=== PATIENT | female | born 1970 | race Two or more races ===

== ENCOUNTER 2020-05-21 15:26 | Emergency (ER) | payer MEDICAID, SELFPAY ==
[2020-05-21 19:54] VITALS: BP 168/83; PULSE 94; RESP 18; TEMP 37.1; O2SAT 99; BMI 35.0
[2020-05-21 20:00] VITALS: BP 148/86; PULSE 86; RESP 14; TEMP 37.1; O2SAT 98
--- NOTE | 2020-05-21 20:22 | CT_ITS ---
EXAMINATION: CT ABDOMEN AND PELVIS WITH CONTRAST CLINICAL INFORMATION: 50-year-old female with right lower quadrant pain. COMPARISON: Abdominal ultrasound 04/19/[address] abdomen pelvis 02/19/2014 TECHNIQUE: Multidetector volumetric images were obtained from the superior aspect of the liver through the pubic symphysis following administration 85 mL of Omnipaque 350 intravenous contrast. Sagittal and coronal reformatted images were obtained on the technologist's workstation. This CT examination was performed using dose optimization techniques as appropriate, variously including the following: *Automated exposure control *Adjustment of mA and/or kV according to patient size (this includes techniques or standardized protocols for targeted exams where dose is matched to indication/reason for exam; i.e. extremities or head) *Use of iterative reconstruction technique DLP: 860 mGy-cm FINDINGS: Visualized lung bases demonstrate mild dependent atelectasis. Liver is normal in size but demonstrates diffusely decreased attenuation. The gallbladder is normal in appearance. Pancreas, spleen and adrenal glands are unremarkable. Symmetrically enhancing kidneys. No hydronephrosis bilaterally. 5 mm hypodensity within the inferior pole of the right kidney is too small to accurately characterize. Normal caliber loops of small and large bowel. Normal appendix. Tiny fat-containing umbilical hernia. Nonaneurysmal abdominal aorta. The bladder is well-distended and normal in appearance. Unremarkable CT appearance of the uterus. No gross free pelvic fluid. No inguinal lymphadenopathy. Mild degenerative changes of the spine. CT/CT abdomen pelvis w con IMPRESSION: -Diffusely decreased liver attenuation suggesting hepatic steatosis. -No CT evidence for acute abnormality within the abdomen or pelvis.
--- NOTE | 2020-05-21 20:24 | ED.ABDPAIN ---
HPI - Abdominal Pain General Chief Complaint: Abdominal Pain Stated Complaint: right sided pain Time Seen by Provider: 05/21/20 20:15 Source: patient Mode of arrival: ambulatory History of Present Illness HPI narrative: Patient comes emergency room complaining of right lower quadrant pain starting this morning when she woke up. Patient states every time he moves a certain way the pain radiates towards her back. Patient states she was able to eat a small amount of bread earlier this morning, she has not been able to eat anything because of nausea. Patient called her primary care physician today, she was sent to the emergency room for further evaluation. MD elicited complaint: abdominal pain Related Data Allergies Allergy/AdvReac Type Severity Reaction Status Date / Time No Known Allergies Allergy Unverified 02/09/20 17:02 lisinopril AdvReac Unknown cough Verified 05/21/20 19:54 Review of Systems Review of Systems Constitutional : No Weight loss, No Fever, No Chills, No Night Sweats, No Fatigue, No Malaise ENT/Mouth : No Hearing loss, No Ear Pain, No Nasal Congestion, No Sinus Pain, No Hoarseness, No sore throat, No Rhinorrhea, No Swallowing Difficulty Eyes: No Eye Pain, No Swelling, No Redness, No Foreign Body, No Discharge, No Vision Changes Cardiovascular : No Chest Pain, No SOB, No Dyspnea on Exertion, No Orthopnea, No Edema, No Palpitations Respiratory : No Cough, No Sputum, No Wheezing, No Smoke Exposure, No Dyspnea Gastrointestinal : Patient complaining of nausea, no vomiting or diarrhea constipation. Patient complaining of constant right lower quadrant pain radiating towards the back. Genitourinary : no irregular bleeding, No Dysuria, No Urinary Frequency, No Hematuria, No Urinary Incontinence, No Urgency, No Flank Pain, No Urinary Flow Changes, No Hesitancy Musculoskeletal : No joint pain, No Myalgias, No Joint Swelling Skin : No Skin Lesions, No rash Neuro : No Weakness, No Numbness, No Paresthesias, No Loss of Consciousness, No Dizziness, No Headache Psych : No Anxiety/Panic, No Depression, No SI/HI/AH/VH, No Social Issues, Heme/Lymph: No Bruising, No Bleeding,No Lymphadenopathy Endocrine : No Polyuria, No Polydipsia, No Temperature Intolerance Physical Exam Vital Signs: Vital Signs: Last Vital Signs Temp 98.7 F 05/21/20 20:00 Pulse 98 05/21/20 22:00 Resp 18 05/21/20 22:00 BP 120/72 05/21/20 22:00 Pulse Ox 98 05/21/20 22:00 Body Mass Index 35.0 Appearance: Alert. Oriented X3. No acute distress. Eyes: Pupils equal, round and reactive to light. ENT: Pharynx normal. Neck: Normal inspection. Neck supple. No lymph nodes noted. No crepitus CVS: Normal heart rate and rhythm. Pulses normal. Normal S1 and S2 Respiratory: No respiratory distress. Breath sounds normal. No Wheezing. No rales Abdomen: Soft , mild right lower quadrant pain on deep palpation. No rigidity. No distention. good BS x4 Skin: Skin warm and dry. Normal skin color. Normal skin turgor. Extremities: No lower extremity edema. No lower extremity edema. No Lacerations. No Rash Neuro: Oriented X 3. No motor deficit. No sensory deficit. Moving all extermities. No slurred speech. Course Course Course Narrative: On physical exam, patient had very minimal pain in the right lower quadrant on deep palpation, at this time, appendicitis is not suspected. CT scan pending I discussed the labs and imaging with the patient, no acute pathology, no appendicitis. Patient's white blood cell count is slightly elevated, nonspecific, no UTI, no abdominal pathology, no respiratory symptoms MDM - Abdominal Pain Lab Data Result diagrams: 05/21/20 20:46 05/21/20 20:46 Labs: Lab Results 05/21/20 05/21/20 05/21/20 Range/Units 20:22 20:46 20:46 WBC 12.7 H (4.8-10.8) X10*3/uL RBC 5.23 (4.20-5.50) X10*6/uL Hgb 13.2 (12.0-16.0) g/dl Hct 42.6 (37-47) % MCV 81.5 (80-98) fL MCH 25.2 L (27.0-33.0) pg MCHC 31.0 (31.0-35.0) g/dl RDW 15.4 (11.0-16.0) % Plt Count 442 H (160-400) X10*3/uL MPV 9.6 (9.4-12.3) fL Immature Gran % (Auto) 0.3 (0.0-0.4) % Neut % (Auto) 62.9 (45-73) % Lymph % (Auto) 29.1 (20-40) % [place] % (Auto) 5.1 (2-11) % Eos % (Auto) 2.0 (0-4) % Baso % (Auto) 0.6 (0-2) % Lymph # (Auto) 3.7 (1.2-4.9) X10*3/uL [place] # (Auto) 0.7 (0.1-1.2) X10*3/uL Eos # (Auto) 0.3 (0.0-0.4) X10*3/uL Baso # (Auto) 0.1 (0.0-0.2) X10*3/uL Abs Immat Gran (auto) 0.04 H (0.00-0.03) X10*3/uL Absolute Neuts (auto) 8.0 (2.0-8.3) X10*3/uL Absolute Nucleated RBC 0.000 (0.0-0.012) X10*3/uL Nucleated RBC % (auto) 0.0 (0.0-0.2) /100WBC Hold Blue Top SEE NOTE Sodium (135-145) mmol/L Potassium (3.3-5.1) mmol/l Chloride (96-108) mmol/L Carbon Dioxide (22-29) mmol/L Anion Gap (12-20) BUN (9-16) mg/dL Creatinine (0.5-1.4) mg/dL Estim Creat Clear Calc Estimated GFR Random Glucose (60-115) mg/dL Calcium (8.4-10.2) mg/dL Total Bilirubin (0.0-1.0) mg/dL Direct Bilirubin (0.0-0.5) mg/dL AST (5-31) U/L ALT (0-31) U/L Alkaline Phosphatase (39-117) U/L Total Protein (6.5-8.0) g/dL Albumin (3.5-5.0) g/dL Lipase (8-78) U/L Urine Color YELLOW Urine Appearance CLEAR Urine pH 5.5 (5.0-8.0) Ur Specific [place] 1.025 (1.005-1.025) Urine Protein NEG (NEG-TRACE) MG/DL Urine Glucose (UA) NEG (NEG) MG/DL Urine Ketones NEG (NEG) MG/DL Urine Blood TRACE (NEG) Urine Nitrite NEG (NEG) Ur Leukocyte Esterase NEG (NEG) Urine RBC 1-4 (0) /HPF Urine WBC 0 (0-4) /HPF Ur Squamous Epith Cells 2+ /LPF Urine Bacteria NONE /LPF Urine Test NEGATIVE (NEGATIVE) 05/21/20 05/21/20 Range/Units 20:46 20:46 WBC (4.8-10.8) X10*3/uL RBC (4.20-5.50) X10*6/uL Hgb (12.0-16.0) g/dl Hct (37-47) % MCV (80-98) fL MCH (27.0-33.0) pg MCHC (31.0-35.0) g/dl RDW (11.0-16.0) % Plt Count (160-400) X10*3/uL MPV (9.4-12.3) fL Immature Gran % (Auto) (0.0-0.4) % Neut % (Auto) (45-73) % Lymph % (Auto) (20-40) % [place] % (Auto) (2-11) % Eos % (Auto) (0-4) % Baso % (Auto) (0-2) % Lymph # (Auto) (1.2-4.9) X10*3/uL [place] # (Auto) (0.1-1.2) X10*3/uL Eos # (Auto) (0.0-0.4) X10*3/uL Baso # (Auto) (0.0-0.2) X10*3/uL Abs Immat Gran (auto) (0.00-0.03) X10*3/uL Absolute Neuts (auto) (2.0-8.3) X10*3/uL Absolute Nucleated RBC (0.0-0.012) X10*3/uL Nucleated RBC % (auto) (0.0-0.2) /100WBC Hold Blue Top Sodium 137 138 (135-145) mmol/L Potassium 4.0 4.3 (3.3-5.1) mmol/l Chloride 104 104 (96-108) mmol/L Carbon Dioxide 24 25 (22-29) mmol/L Anion Gap 13 13 (12-20) BUN 12 12 (9-16) mg/dL Creatinine 0.74 0.74 (0.5-1.4) mg/dL Estim Creat Clear Calc 98.9 98.9 Estimated GFR > 60 > 60 Random Glucose 98 98 (60-115) mg/dL Calcium 8.7 8.7 (8.4-10.2) mg/dL Total Bilirubin 0.3 0.3 (0.0-1.0) mg/dL Direct Bilirubin < 0.2 (0.0-0.5) mg/dL AST 16 18 (5-31) U/L ALT 26 27 (0-31) U/L Alkaline Phosphatase 94 95 (39-117) U/L Total Protein 7.3 7.3 (6.5-8.0) g/dL Albumin 4.2 4.1 (3.5-5.0) g/dL Lipase 15 (8-78) U/L Urine Color Urine Appearance Urine pH (5.0-8.0) Ur Specific [place] (1.005-1.025) Urine Protein (NEG-TRACE) MG/DL Urine Glucose (UA) (NEG) MG/DL Urine Ketones (NEG) MG/DL Urine Blood (NEG) Urine Nitrite (NEG) Ur Leukocyte Esterase (NEG) Urine RBC (0) /HPF Urine WBC (0-4) /HPF Ur Squamous Epith Cells /LPF Urine Bacteria /LPF Urine Test (NEGATIVE) Imaging Data CT scan - abdomen: Radiologist's impression: FINDINGS: Visualized lung bases demonstrate mild dependent atelectasis. Liver is normal in size but demonstrates diffusely decreased attenuation. The gallbladder is normal in appearance. Pancreas, spleen and adrenal glands are unremarkable. Symmetrically enhancing kidneys. No hydronephrosis bilaterally. 5 mm hypodensity within the inferior pole of the right kidney is too small to accurately characterize. Normal caliber loops of small and large bowel. Normal appendix. Tiny fat-containing umbilical hernia. Nonaneurysmal abdominal aorta. The bladder is well-distended and normal in appearance. Unremarkable CT appearance of the uterus. No gross free pelvic fluid. No inguinal lymphadenopathy. Mild degenerative changes of the spine. CT/CT abdomen pelvis w con IMPRESSION: -Diffusely decreased liver attenuation suggesting hepatic steatosis. -No CT evidence for acute abnormality within the abdomen or pelvis. Discharge Plan Discharge Clinical Impression: Abdominal pain Qualifiers: Abdominal location: right lower quadrant Qualified Code(s): R10.31 - Right lower quadrant pain Patient Disposition: Home, Self-Care Instructions: Abdominal Pain (ED) Additional Instructions: Please follow-up with your primary care physician tomorrow. If you have any worsening or new symptoms, please return to the emergency room or call [address] [place] [address] Past Medical History Medical History (Updated 05/21/20 @ 22:55 by Christine Means MD) Hypertension Social History Social History Advance Directives: No Advance Directives Information Provided: Yes
[2020-05-21 20:31] LABS: Glucose Urine UA NEG (NEG); Leukocyte Esterase Urine NEG (NEG); Nitrite Urine NEG (NEG); PH 5.5 (5.0-8.0); Specific Gravity - Urine 1.025 (1.005-1.025); Urine Blood TRACE (NEG); Urine Ketones NEG (NEG); Urine Protein NEG (NEG-TRACE)
[2020-05-21 20:32] LABS: Appearance Urine CLEAR; Color Urine YELLOW
[2020-05-21 20:33] LABS: Urine Pregnancy NEGATIVE (NEGATIVE)
[2020-05-21 20:34] LABS: UPreg QC Valid YES
[2020-05-21 20:50] LABS: Squamous Epithelial Cell Urine 2+ /LPF; WBC Urine 0 /HPF (0-4)
[2020-05-21 20:55] LABS: MANUAL DIFF FLAG NO
[2020-05-21 20:56] LABS: Basophils Absolute Auto 0.1 X10*3/uL (0.0-0.2); Basophils Percent Auto 0.6 % (0-2); Eosinophils Absolute Auto 0.3 X10*3/uL (0.0-0.4); Hematocrit 42.6 % (37-47); Hemoglobin 13.2 g/dl (12.0-16.0); Imm Gran Abs Auto 0.04 X10*3/uL (0.00-0.03); Imm Gran Pct Auto 0.3 % (0.0-0.4); Lymphocytes Absolute Auto 3.7 X10*3/uL (1.2-4.9); Lymphocytes Percent Auto 29.1 % (20-40); Mean Corpuscular Hemoglobin 25.2 pg (27.0-33.0); Mean Corpuscular Volume 81.5 fL (80-98); Mean Platelet Volume 9.6 fL (9.4-12.3); Monocytes Absolute Auto 0.7 X10*3/uL (0.1-1.2); Monocytes Percent Auto 5.1 % (2-11); Neutrophils Percent Auto 62.9 % (45-73); Platelet Count 442 X10*3/uL (160-400); Red Blood Count 5.23 X10*6/uL (4.20-5.50); Red Cell Distribution Width 15.4 % (11.0-16.0); White Blood Count 12.7 X10*3/uL (4.8-10.8)
[2020-05-21 21:24] LABS: Alanine Aminotransferase 26 U/L (0-31); Albumin Level 4.2 g/dL (3.5-5.0); Alkaline Phosphatase 94 U/L (39-117); Anion Gap 13 (12-20); Aspartate Amino Transferase 16 U/L (5-31); Bilirubin Total 0.3 mg/dL (0.0-1.0); Blood Urea Nitrogen 12 mg/dL (9-16); Calcium 8.7 mg/dL (8.4-10.2); Carbon Dioxide 24 mmol/L (22-29); Chloride 104 mmol/L (96-108); Creatinine Clr Calc Pharmacy 98.9; Estimated Glomerular Filt Rate > 60; Glucose Random 98 mg/dL (60-115); Sodium 137 mmol/L (135-145); Total Protein 7.3 g/dL (6.5-8.0)
[2020-05-21 21:26] LABS: Alanine Aminotransferase 27 U/L (0-31); Albumin Level 4.1 g/dL (3.5-5.0); Alkaline Phosphatase 95 U/L (39-117); Anion Gap 13 (12-20); Aspartate Amino Transferase 18 U/L (5-31); Bilirubin Direct < 0.2 mg/dL (0.0-0.5); Bilirubin Total 0.3 mg/dL (0.0-1.0); Blood Urea Nitrogen 12 mg/dL (9-16); Calcium 8.7 mg/dL (8.4-10.2); Carbon Dioxide 25 mmol/L (22-29); Chloride 104 mmol/L (96-108); Creatinine Clr Calc Pharmacy 98.9; Estimated Glomerular Filt Rate > 60; Glucose Random 98 mg/dL (60-115); Lipase 15 U/L (8-78); Potassium 4.3 mmol/l (3.3-5.1); Sodium 138 mmol/L (135-145); Total Protein 7.3 g/dL (6.5-8.0)
[2020-05-21 22:00] VITALS: BP 120/72; PULSE 98; RESP 18; O2SAT 98
[2020-05-21] MEDS: iohexoL 350 MG/ML 100 ML INFUS..BTL IV (22:27)
--- NOTE | 2020-05-21 22:39 | PC.NURSE ---
pt back from ct with contrast. vitals stable. pain 10/10 but refused pain medications at this time.
== END 2020-05-21 23:17 | disposition home or self-care (01) ==
PROVIDERS: Emergency Provider Emergency Medicine; PCP Internal Medicine Geriatric Medicine
DX: R10.31 Right lower quadrant pain (principal); I10 Essential (primary) hypertension
CPT/HCPCS: 36415; 74177; 80048; 80053; 80076; 81001; 81025; 82248; 83690; 85025; 99284; Q9967

== ENCOUNTER 2020-09-14 15:45 | Outpatient (REF) | payer MEDICAID, SELFPAY ==
--- NOTE | ~2020-09-14 | MM_ITS ---
EXAMINATION: MM SCREENING DIGITAL BREAST TOMOSYNTHESIS, BILATERAL CLINICAL INFORMATION: Screening. Asymptomatic. The lifetime risk of breast cancer based on the Tyrer-Cuzick Model is 10%. COMPARISON: Mammography: 05/31/2019, 08/02/2018, 07/17/2017 TECHNIQUE: Digital breast tomosynthesis is performed in both the craniocaudal and mediolateral oblique views along with computer-aided detection (CAD). Synthesized 2D images are generated from the tomosynthesis. FINDINGS: There are scattered areas of fibroglandular density (ACR BI-RADS breast composition Category b). There are no significant masses, abnormal calcifications, or other abnormalities. Parenchymal pattern is similar to prior exams. No developing density. Scattered isolated and small groups of round and rim calcifications stable. No significant changes. MM/MM tomosynthesis screening BI IMPRESSION: No mammographic evidence of malignancy. ASSESSMENT: BI-RADS 2: Benign RECOMMENDATION: Routine annual mammography screening. This patient's information was entered into a reminder system with a target due date for their next mammogram.
== END 2020-09-14 15:46 | disposition home or self-care (01) ==
LOC: HO.MAMMO 15:45
PROVIDERS: PCP Internal Medicine Geriatric Medicine; Visit Provider Internal Medicine Geriatric Medicine
DX: Z12.31 Encounter for screening mammogram for malignant neoplasm of breast (principal)
CPT/HCPCS: 77063; 77067

== ENCOUNTER → 2021-02-19 09:09 | Outpatient (BNVA) | payer MEDICAID, SELFPAY | PROVIDERS: PCP Nurse Practitioner Family; Visit Provider Advanced Practice Midwife ==

== ENCOUNTER 2021-04-06 13:10 | Emergency (ER) | payer MEDICAID, SELFPAY ==
--- NOTE | 2021-04-06 13:13 | ECG_ITS ---
Test Reason : SOB/CHEST PAIN Blood Pressure : / mmHG Vent. Rate : 088 BPM Atrial Rate : 088 BPM P-R Int : 136 ms QRS Dur : 092 ms QT Int : 362 ms P-R-T Axes : 054 032 029 degrees QTc Int : 438 ms Normal sinus rhythm Intra-ventricular conduction delay Borderline ECG When compared with ECG of 06-JAN-2019 01:11, No significant change was found Referred By: Generic ED Physician Electronically Signed By:SALENA GUAMAN MD
== END 2021-04-06 17:09 | disposition left against medical advice (07) ==
PROVIDERS: Emergency Provider Emergency Medicine; PCP Nurse Practitioner Family
DX: R07.9 Chest pain, unspecified (principal)
CPT/HCPCS: 93005; 99281; 99283

== ENCOUNTER 2021-09-16 14:01 | Outpatient (REF) | payer MEDICAID, SELFPAY ==
--- NOTE | ~2021-09-16 | MM_ITS ---
EXAMINATION: MM SCREENING DIGITAL BREAST TOMOSYNTHESIS, BILATERAL CLINICAL INFORMATION: Screening. Asymptomatic. The lifetime risk of breast cancer based on the Tyrer-Cuzick Model is 7%. COMPARISON: Mammography: 09/14/2020, 05/31/2019, 08/02/2018 TECHNIQUE: Digital breast tomosynthesis is performed in both the craniocaudal and mediolateral oblique views along with computer-aided detection (CAD). Synthesized 2D images are generated from the tomosynthesis. FINDINGS: There are scattered areas of fibroglandular density (ACR BI-RADS breast composition Category b). There are no significant masses, abnormal calcifications, or other abnormalities. Parenchymal pattern is similar to prior studies and there is no architectural abnormality or developing density. The axilla and skin contours are unremarkable. MM/MM tomosynthesis screening BI IMPRESSION: No mammographic evidence of malignancy. ASSESSMENT: BI-RADS 1: Negative RECOMMENDATION: Routine annual mammography screening. This patient's information was entered into a reminder system with a target due date for their next mammogram.
== END 2021-09-16 14:02 | disposition home or self-care (01) ==
LOC: HO.MAMMO 14:01
PROVIDERS: Visit Provider Nurse Practitioner Family
DX: Z12.31 Encounter for screening mammogram for malignant neoplasm of breast (principal)
CPT/HCPCS: 77063; 77067

== ENCOUNTER 2022-01-24 21:56 | Emergency (ER) | payer MEDICAID, SELFPAY ==
--- NOTE | ~2022-01-24 | CT_ITS ---
EXAMINATION: CT ABDOMEN AND PELVIS WITHOUT CONTRAST CLINICAL INFORMATION: Right upper quadrant tenderness COMPARISON: 05/21/2020 TECHNIQUE: Multidetector volumetric imaging was performed from the superior aspect of the liver through the pubic symphysis. Sagittal and coronal reformatted images were obtained on the technologist's workstation. This CT examination was performed using dose optimization techniques as appropriate, variously including the following: *Automated exposure control *Adjustment of mA and/or kV according to patient size (this includes techniques or standardized protocols for targeted exams where dose is matched to indication/reason for exam; i.e. extremities or head) *Use of iterative reconstruction technique DLP: 855 mGy-cm FINDINGS: LUNG BASES: The visualized lung bases are unremarkable. LIVER, GALLBLADDER, AND BILIARY TREE: The liver is normal in size, contour and morphology. Diffuse hepatic steatosis. No focal liver lesions. No biliary ductal dilatation is present. Gallbladder unremarkable. PANCREAS: Unremarkable. SPLEEN: Unremarkable. ADRENAL GLANDS: Unremarkable. KIDNEYS AND URETERS: The kidneys are normal in size, shape, and attenuation. No hydronephrosis, hydroureter, or calculi seen. No perinephric stranding. BLADDER: Unremarkable. GASTROINTESTINAL TRACT: The small and large bowel are unremarkable. The appendix is unremarkable. ABDOMINAL WALL: No significant hernia is appreciated. LYMPH NODES: Normal. VASCULAR: Unremarkable. PELVIC VISCERA: Uterus and ovaries unremarkable. OSSEOUS STRUCTURES: Unremarkable. CT/CT abdomen pelvis wo IV con IMPRESSION: No acute findings within the abdomen or pelvis. Diffuse hepatic steatosis.
[2022-01-24 22:04] VITALS: BP 136/78; PULSE 79; RESP 16; TEMP 36; O2SAT 98; BMI 35.4
[2022-01-25 00:48] LABS: Basophils Absolute Auto 0.1 X10*3/uL (0.0-0.2); Basophils Percent Auto 0.8 % (0-2); Eosinophils Absolute Auto 0.3 X10*3/uL (0.0-0.4); Eosinophils Percent Auto 2.3 % (0-4); Hematocrit 44.5 % (37.0-47.0); Hemoglobin 13.9 g/dl (12.0-16.0); Imm Gran Abs Auto 0.04 X10*3/uL (0.00-0.03); Imm Gran Pct Auto 0.3 % (0.0-0.4); Lymphocytes Absolute Auto 5.2 X10*3/uL (1.2-4.9); Lymphocytes Percent Auto 39.6 % (20-40); MANUAL DIFF FLAG SCAN; Mean Corpuscular HGB Conc 31.2 g/dl (31.0-35.0); Mean Corpuscular Hemoglobin 25.1 pg (27.0-33.0); Mean Corpuscular Volume 80.5 fL (80.0-98.0); Mean Platelet Volume 8.9 fL (9.4-12.3); Monocytes Absolute Auto 0.8 X10*3/uL (0.1-1.2); Monocytes Percent Auto 6.5 % (2-11); Neutrophils Absolute Auto 6.6 x10*3/uL (2.0-8.3); Neutrophils Percent Auto 50.5 % (45-73); Platelet Count 487 X10*3/uL (160-400); Red Blood Count 5.53 X10*6/uL (4.20-5.50); Red Cell Distribution Width 15.3 % (11.0-16.0); SCAN SMEAR FLAG 1
[2022-01-25 01:06] LABS: Alanine Aminotransferase 35 U/L (0-31); Albumin Level 4.4 g/dL (3.5-5.0); Alkaline Phosphatase 93 U/L (39-117); Anion Gap 16 (12-20); Aspartate Amino Transferase 19 U/L (5-31); Bilirubin Total 0.3 mg/dL (0.0-1.0); Blood Urea Nitrogen 15 mg/dL (9-16); Calcium 9.9 mg/dL (8.4-10.2); Carbon Dioxide 27 mmol/L (22-29); Chloride 102 mmol/L (96-108); Creatinine Clr Calc Pharmacy 92.1; Estimated Glomerular Filt Rate > 60; Glucose Random 108 mg/dL (60-115); Potassium 4.6 mmol/L (3.3-5.1); SLIDE REVIEW VERIFIED; Sodium 140 mmol/L (135-145); Total Protein 7.8 g/dL (6.5-8.0)
[2022-01-25 01:15] VITALS: BP 147/87; PULSE 71; RESP 16; TEMP 37; O2SAT 100
[2022-01-25 01:39] LABS: Appearance Urine Clear; Color Urine Yellow; Glucose Urine UA Negative (Negative); Leukocyte Esterase Urine Small (1+) (Negative); Nitrite Urine Negative (Negative); PH 5.5 (5.0-9.0); Specific Gravity - Urine 1.025 (1.005-1.025); Urine Blood Negative (Negative); Urine Ketones Negative (Negative); Urine Protein Negative (Neg-Trace)
[2022-01-25 01:40] LABS: UPreg QC Valid YES; Urine Pregnancy NEGATIVE (NEGATIVE)
[2022-01-25 01:49] LABS: Bacteria Urine None Seen (None Seen); Hyaline Casts Urine 0-2 /LPF (0-2); Squamous Epithelial Cell Urine 0-2 /HPF (0-2); UACC Culture Trigger YES; WBC Urine 0-5 /HPF (0-5)
[2022-01-25 03:48] VITALS: BP 136/77; PULSE 76; O2SAT 99
--- NOTE | 2022-01-25 04:04 | ED.ABDPAIN ---
HPI - Abdominal Pain General Chief Complaint: Abdominal Pain Stated Complaint: side pain Time Seen by Provider: 01/25/22 03:49 Source: patient Mode of arrival: ambulatory Limitations: no limitations History of Present Illness HPI narrative: 51-year-old female who presents emergency department for evaluation of abdominal pain x3 days. The patient points to her right upper quadrant when asked to localize the pain. She rates the pain is a pulsating pain which is constant but waxes wanes in intensity. The pain is 9/10 at its worst. She also states that when she palpates her right upper quadrant area she can feel a mass which is tender. She had associated nausea with no vomiting. She states that yesterday she had 4 episodes of watery diarrhea with no blood in the diarrhea. She states she has had difficulty eating secondary to her nausea and she believes that food makes the pain worse. She denied fever, chills, rhinorrhea, sore throat, cough, chest pain. She denied frequency, urgency dysuria, black stools or tarry stools. MD elicited complaint: abdominal pain Pertinent past history: none Onset (ago): day(s) (3) Pain Consistency: constant (Waxes and wanes in intensity) Location: RUQ Severity: severe Pain scale (0-10): 10 Quality: other (Pulse a) Radiation: none Migration to: no migration Exacerbating factors: eating and other (Pushing and right upper quadrant) Relieving factors: nothing Associated symptoms: nausea and diarrhea Treatments prior to arrival: other (Tylenol) Related Data Home Medications Medication Instructions Recorded Confirmed clonazepam 0.5 mg tablet 0.25 mg PO BEDTIME 02/19/21 02/19/21 loratadine 10 mg tablet 10 mg PO DAILY 02/19/21 02/19/21 losartan 50 mg tablet 50 mg PO DAILY 02/19/21 02/19/21 meclizine 25 mg tablet 25 mg PO DAILY 02/19/21 02/19/21 tramadol 50 mg tablet 50 mg PO DAILY 02/19/21 02/19/21 Previous Rx's Medication Instructions Recorded ondansetron 4 mg disintegrating 4 mg PO Q6-8H PRN nausea and 01/25/22 tablet vomiting #14 tabs Allergies Allergy/AdvReac Type Severity Reaction Status Date / Time No Known Allergies Allergy Unverified 02/09/20 17:02 lisinopril AdvReac Unknown cough Verified 02/19/21 09:13 Review of Systems Review of Systems Yes all other systems are reviewed and are negative [facility] Past Medical History [facility] Narrative: Past medical history: Borderline diabetes mellitus. Social history: She denies tobacco, alcohol and drug use. Medical History (Updated 01/25/22 @ 07:53 by Dmitriy Rosas MD) Depression Hypertension Vertigo Surgical History (Updated 02/19/21 @ 09:18 by Bette Garcia CMA) H/O bilateral breast reduction surgery H/O knee surgery Hx of tubal ligation Family History Family History (Updated 02/19/21 @ 09:19 by Bette Garcia CMA) Father HTN (hypertension) Mother HTN (hypertension) Diabetes Sister Diabetes Social History Social History (Updated 02/19/21 @ 09:20 by Bette Garcia CMA) Household Members: Spouse Housing: Apartment Alcohol intake: never Patient Tobacco Use Status: Never used Tobacco Use of substances other than those prescribed or required for medical reasons: No Advance Directives: No Patient : No service: No Current occupational status: disabled Sexual orientation: Straight/Heterosexual Gender identity: Female Physical Exam ED Vital Signs: Vital Signs - 24 hr 01/24/22 22:04 01/25/22 01:15 01/25/22 03:48 Temperature 96.8 F 98.6 F Pulse Rate 79 71 76 Respiratory Rate 16 16 Blood Pressure 136/78 147/87 H 136/77 Pulse Oximetry 98 100 99 Oxygen Delivery Method Room Air Room Air Room Air 01/25/22 05:51 01/25/22 07:28 Temperature 98.3 F Pulse Rate 86 84 Respiratory Rate 15 16 Blood Pressure 92/65 128/78 Pulse Oximetry 98 98 Oxygen Delivery Method Room Air Room Air BMI result Body Mass Index 35.4 Const General: cooperative and no acute distress Orientation/consciousness: oriented to person and oriented to place Limitations: no limitations HENMT Head: Yes normal to inspection, Yes normocephalic and Yes atraumatic Ears: external ears normal General nose exam: Normal external nose present Face and sinus: Yes normal facial exam Mouth: Normal oral and palatal mucosa present Throat: Yes posterior oropharynx normal Eyes General: appearance normal, both eyes and all related structures Pupils: Equal, round and reactive pupils present Neck Neck: Yes normal visual inspection, Yes no lymphadenopathy, Yes trachea midline and Yes supple Chest Chest palpation & inspection: normal inspection of the chest and normal palpation of entire chest wall Resp Effort & Inspection: normal respiratory effort and able to speak in complete sentences Auscultation: clear to auscultation bilaterally Cardio Rate: regular rate Rhythm: regular rhythm Heart sounds: S1 normal heart sound present, S2 normal heart sound present and no murmurs GI Inspection: Yes normal to inspection Palpation (GI): Soft to palpation, Tenderness to palpation present (GI) in the RUQ (Moderate tenderness, question hernia) and no guarding Auscultation: normal bowel sounds General: Yes no CVA tenderness Back/Spine/Pelvis Back: no CVA tenderness Skin General skin exam: no rashes or lesions noted Neuro General: oriented to person and oriented to place Cranial nerves: Yes CN's II-XII intact bilaterally and Yes Equal, round and reactive pupils present Cognition (Neuro): normal cognition Motor exam (neuro): 5/5 motor strength present throughout Extrem General: Yes normal to inspection Psych Appearance: grossly normal Speech and movement: Normal speech and movement present Affect: normal affect Attitude: cooperative Thought process: Normal thought process present Thought content: Normal thought content present Course Course Course Narrative: 51-year-old female who presents emergency department for evaluation of 3 days of right upper quadrant pain. The pain started 3 days prior came on gradually. The pain is been constant but waxes and wanes in intensity. Patient had associated nausea without any vomiting. She had 4 episodes of diarrhea yesterday. Patient feels a mass in the right upper quadrant and she states that this area is painful when she pushes on it. Patient's vital signs were unremarkable. Examination did reveal right upper quadrant tenderness and she may have a right upper quadrant hernia in the area where she is describing the mass. The patient did not want an IV at this time and does not want any IV pain medications. She was treated with Tylenol 975 mg orally and Zofran ODT 4 mg sublingually. Laboratory evaluation CT scan of the abdomen pelvis was ordered. 0745: The patient's laboratory evaluation was unremarkable. CT scan of the abdomen pelvis did not reveal a clear cause for the patient's pain. The patient got some slight improvement with the above treatment. I did discuss these findings with the patient. The patient was advised to take Tylenol ibuprofen for pain and for pain and Zofran ODT for her nausea and vomiting. She is advised to follow-up with her doctor. She was given printed and verbal instructions discharged home. MDM - Abdominal Pain Lab Data Result diagrams: 01/25/22 00:42 01/25/22 00:42 Labs: Lab Results 01/25/22 01/25/22 01/25/22 Range/Units 00:42 00:42 01:29 WBC 13.0 H (4.8-10.8) X10*3/uL RBC 5.53 H (4.20-5.50) X10*6/uL Hgb 13.9 (12.0-16.0) g/dl Hct 44.5 (37.0-47.0) % MCV 80.5 (80.0-98.0) fL MCH 25.1 L (27.0-33.0) pg MCHC 31.2 (31.0-35.0) g/dl RDW 15.3 (11.0-16.0) % Plt Count 487 H (160-400) X10*3/uL MPV 8.9 L (9.4-12.3) fL Immature Gran % (Auto) 0.3 (0.0-0.4) % Neut % (Auto) 50.5 (45-73) % Lymph % (Auto) 39.6 (20-40) % [place] % (Auto) 6.5 (2-11) % Eos % (Auto) 2.3 (0-4) % Baso % (Auto) 0.8 (0-2) % Lymph # (Auto) 5.2 H (1.2-4.9) X10*3/uL [place] # (Auto) 0.8 (0.1-1.2) X10*3/uL Eos # (Auto) 0.3 (0.0-0.4) X10*3/uL Baso # (Auto) 0.1 (0.0-0.2) X10*3/uL Abs Immat Gran (auto) 0.04 H (0.00-0.03) X10*3/uL Absolute Neuts (auto) 6.6 (2.0-8.3) x10*3/uL Absolute Nucleated RBC 0.000 (0.0-0.012) X10*3/uL Nucleated RBC % (auto) 0.0 (0.0-0.2) /100WBC Smear Tech's Comments VERIFIED Sodium 140 (135-145) mmol/L Potassium 4.6 (3.3-5.1) mmol/L Chloride 102 (96-108) mmol/L Carbon Dioxide 27 (22-29) mmol/L Anion Gap 16 (12-20) BUN 15 (9-16) mg/dL Creatinine 0.79 (0.5-1.4) mg/dL Estim Creat Clear Calc 92.1 Estimated GFR > 60 Random Glucose 108 (60-115) mg/dL Calcium 9.9 D (8.4-10.2) mg/dL Total Bilirubin 0.3 (0.0-1.0) mg/dL AST 19 (5-31) U/L ALT 35 H (0-31) U/L Alkaline Phosphatase 93 (39-117) U/L Total Protein 7.8 (6.5-8.0) g/dL Albumin 4.4 (3.5-5.0) g/dL Urine Color Yellow Urine Appearance Clear Urine pH 5.5 (5.0-9.0) Ur Specific [place] 1.025 (1.005-1.025) Urine Protein Negative (Neg-Trace) mg/dL Urine Glucose (UA) Negative (Negative) mg/dL Urine Ketones Negative (Negative) mg/dL Urine Blood Negative (Negative) Urine Nitrite Negative (Negative) Ur Leukocyte Esterase Small (1+) H (Negative) Urine RBC 6-10 H (0-2) /HPF Urine WBC 0-5 (0-5) /HPF Ur Squamous Epith Cells 0-2 (0-2) /HPF Urine Bacteria None Seen (None Seen) Hyaline Casts 0-2 (0-2) /LPF Urine Test (NEGATIVE) 01/25/22 Range/Units 01:29 WBC (4.8-10.8) X10*3/uL RBC (4.20-5.50) X10*6/uL Hgb (12.0-16.0) g/dl Hct (37.0-47.0) % MCV (80.0-98.0) fL MCH (27.0-33.0) pg MCHC (31.0-35.0) g/dl RDW (11.0-16.0) % Plt Count (160-400) X10*3/uL MPV (9.4-12.3) fL Immature Gran % (Auto) (0.0-0.4) % Neut % (Auto) (45-73) % Lymph % (Auto) (20-40) % [place] % (Auto) (2-11) % Eos % (Auto) (0-4) % Baso % (Auto) (0-2) % Lymph # (Auto) (1.2-4.9) X10*3/uL [place] # (Auto) (0.1-1.2) X10*3/uL Eos # (Auto) (0.0-0.4) X10*3/uL Baso # (Auto) (0.0-0.2) X10*3/uL Abs Immat Gran (auto) (0.00-0.03) X10*3/uL Absolute Neuts (auto) (2.0-8.3) x10*3/uL Absolute Nucleated RBC (0.0-0.012) X10*3/uL Nucleated RBC % (auto) (0.0-0.2) /100WBC Smear Tech's Comments Sodium (135-145) mmol/L Potassium (3.3-5.1) mmol/L Chloride (96-108) mmol/L Carbon Dioxide (22-29) mmol/L Anion Gap (12-20) BUN (9-16) mg/dL Creatinine (0.5-1.4) mg/dL Estim Creat Clear Calc Estimated GFR Random Glucose (60-115) mg/dL Calcium (8.4-10.2) mg/dL Total Bilirubin (0.0-1.0) mg/dL AST (5-31) U/L ALT (0-31) U/L Alkaline Phosphatase (39-117) U/L Total Protein (6.5-8.0) g/dL Albumin (3.5-5.0) g/dL Urine Color Urine Appearance Urine pH (5.0-9.0) Ur Specific [place] (1.005-1.025) Urine Protein (Neg-Trace) mg/dL Urine Glucose (UA) (Negative) mg/dL Urine Ketones (Negative) mg/dL Urine Blood (Negative) Urine Nitrite (Negative) Ur Leukocyte Esterase (Negative) Urine RBC (0-2) /HPF Urine WBC (0-5) /HPF Ur Squamous Epith Cells (0-2) /HPF Urine Bacteria (None Seen) Hyaline Casts (0-2) /LPF Urine Test NEGATIVE (NEGATIVE) Discharge Plan Discharge Clinical Impression: Abdominal pain Patient Disposition: Home, Self-Care Instructions: Abdominal Pain (ED) Additional Instructions: Your blood work was unremarkable. The CT scan of your abdomen pelvis without IV contrast did not reveal a clear cause for your pain. Take ibuprofen 200 mg pills, 3 pills every 6 hours as needed for pain. Take Tylenol (acetaminophen) 500 mg pills, 2 pills every 4 to 6 hours as needed for pain. Take Zofran ODT 4 mg pills, 1 pill dissolved in your mouth every 8 hours as needed for nausea and vomiting. Follow-up with your doctor in 2 days. Please return to the emergency department if your symptoms get worse or if you develop any symptoms that are concerning to you. Prescriptions: New ondansetron 4 mg tablet,disintegrating 4 mg PO Q6-8H PRN (Reason: nausea and vomiting) Qty: 14 0RF No Action losartan 50 mg tablet 50 mg PO DAILY tramadol 50 mg tablet 50 mg PO DAILY loratadine 10 mg tablet 10 mg PO DAILY clonazepam 0.5 mg tablet 0.25 mg PO BEDTIME Rx Instructions: administer 30 minutes before bedtime meclizine 25 mg tablet 25 mg PO DAILY Print Language: Armenian
[2022-01-25] MEDS: Ondansetron ODT 4 MG TAB.RAPDIS TRANSLINGU (04:19)
[2022-01-25] MEDS: Acetaminophen 325 MG TABLET 975 MG PO (04:19)
[2022-01-25 05:51] VITALS: BP 92/65; PULSE 86; RESP 15; O2SAT 98
[2022-01-25 07:28] VITALS: BP 128/78; PULSE 84; RESP 16; TEMP 36.8; O2SAT 98
== END 2022-01-25 08:24 | disposition home or self-care (01) ==
PROVIDERS: Emergency Provider Emergency Medicine Emergency Medical Services; PCP Internal Medicine Geriatric Medicine
DX: R10.11 Right upper quadrant pain (principal); I10 Essential (primary) hypertension; Z79.899 Other long term (current) drug therapy
CPT/HCPCS: 36415; 74176; 80053; 81001; 81025; 85025; 87086; 99284

== ENCOUNTER 2022-01-30 13:58 | Outpatient (RCR) | payer MEDICAID, SELFPAY ==
[2022-01-30 14:05] VITALS: BP 123/76; PULSE 82
== END 2022-01-30 15:02 | disposition home or self-care (01) ==
LOC: HO.PT 13:58
PROVIDERS: PCP Internal Medicine Geriatric Medicine; Visit Provider Otolaryngology
DX: R42 Dizziness and giddiness (principal)
CPT/HCPCS: 97162

== ENCOUNTER 2022-04-22 02:17 | Emergency (ER) | payer MEDICAID, SELFPAY ==
--- NOTE | 2022-04-22 02:24 | ECG_ITS ---
Test Reason : HIGH BLLOD PRESSURE Blood Pressure : / mmHG Vent. Rate : 070 BPM Atrial Rate : 070 BPM P-R Int : 152 ms QRS Dur : 084 ms QT Int : 394 ms P-R-T Axes : 047 -03 020 degrees QTc Int : 425 ms Normal sinus rhythm Left axis deviation Low voltage QRS Borderline ECG When compared with ECG of 06-APR-2021 13:17, No significant change was found Referred By: Christine Means Electronically Signed By:SALENA GUAMAN MD
[2022-04-22 02:26] VITALS: BP 149/95; PULSE 80; RESP 16; TEMP 36.6; O2SAT 97; BMI 35.4
--- NOTE | 2022-04-22 02:44 | ED.GENADULT ---
HPI - General Adult General Chief complaint: General Medical Stated complaint: High BP Time Seen by Provider: 04/22/22 02:38 Source: patient Mode of arrival: ambulatory Limitations: no limitations History of Present Illness HPI narrative: Patient comes to the emergency room complaining of hypertension. Patient states that today she was seen by her primary care physician, the blood pressure was high, close to 170 systolic, she was instructed to increase her losartan from 50 mg to 100 mg. Patient states that she has had headaches, however, she has migraine headaches nearly every day, headaches are not new for the patient. Patient denies blurred vision, no chest pain or shortness of breath. Related Data Home Medications Medication Instructions Recorded Confirmed clonazepam 0.5 mg tablet 0.25 mg PO BEDTIME 02/19/21 04/08/22 loratadine 10 mg tablet 10 mg PO DAILY 02/19/21 04/08/22 losartan 50 mg tablet 50 mg PO DAILY 02/19/21 04/08/22 meclizine 25 mg tablet 25 mg PO DAILY 02/19/21 04/08/22 tramadol 50 mg tablet 50 mg PO DAILY 02/19/21 04/08/22 metformin 500 mg tablet 500 mg PO DAILY 04/08/22 Previous Rx's Medication Instructions Recorded ondansetron 4 mg disintegrating 4 mg PO Q6-8H PRN nausea and 01/25/22 tablet vomiting #14 tabs Allergies Allergy/AdvReac Type Severity Reaction Status Date / Time No Known Allergies Allergy Verified 04/08/22 14:52 lisinopril AdvReac Unknown cough Verified 04/22/22 02:39 Review of Systems Review of Systems: Constitutional : No Weight loss, No Fever, No Chills, No Night Sweats, No Fatigue, No Malaise ENT/Mouth : No Hearing loss, No Ear Pain, No Nasal Congestion, No Sinus Pain, No Hoarseness, No sore throat, No Rhinorrhea, No Swallowing Difficulty Eyes: No Eye Pain, No Swelling, No Redness, No Foreign Body, No Discharge, No Vision Changes Cardiovascular : No Chest Pain, No SOB, No Dyspnea on Exertion, No Orthopnea, No Edema, No Palpitations, complaining of hypertension Respiratory : No Cough, No Sputum, No Wheezing, No Smoke Exposure, No Dyspnea Gastrointestinal : No Nausea, No Vomiting, No Diarrhea, No Constipation, No abdominal Pain, No Hematochezia, No Melena Genitourinary : no irregular bleeding, No Dysuria, No Urinary Frequency, No Hematuria, No Urinary Incontinence, No Urgency, No Flank Pain, No Urinary Flow Changes, No Hesitancy Musculoskeletal : No joint pain, No Myalgias, No Joint Swelling Skin : No Skin Lesions, No rash Neuro : No Weakness, No Numbness, No Paresthesias, No Loss of Consciousness, No Dizziness, No Headache Psych : No Anxiety/Panic, No Depression, No SI/HI/AH/VH, No Social Issues, Heme/Lymph: No Bruising, No Bleeding,No Lymphadenopathy Endocrine : No Polyuria, No Polydipsia, No Temperature Intolerance [facility] Past Medical History Medical History Depression Hypertension Vertigo Surgical History H/O bilateral breast reduction surgery H/O knee surgery Hx of tubal ligation Family History Family History Father HTN (hypertension) Mother HTN (hypertension) Diabetes Sister Diabetes Social History Social History Household Members: Spouse Housing: Apartment Alcohol intake: never Patient Tobacco Use Status: Never used Tobacco Advance Directives: No Advance Directives Information Provided: Yes service: No Current occupational status: disabled Sexual orientation: Straight/Heterosexual Gender identity: Female Physical Exam ED Vital Signs: Vital Signs - 24 hr 04/22/22 02:26 04/22/22 03:55 Temperature 97.8 F Pulse Rate 80 Respiratory Rate 16 Blood Pressure 149/95 H 123/77 Pulse Oximetry 97 Oxygen Delivery Method Room Air BMI result Body Mass Index 35.4 Const Other: Appearance: Alert. Oriented X3. No acute distress. Eyes: Pupils equal, round and reactive to light. ENT: Pharynx normal. Neck: Normal inspection. Neck supple. No lymph nodes noted. No crepitus CVS: Normal heart rate and rhythm. Pulses normal. Normal S1 and S2 Respiratory: No respiratory distress. Breath sounds normal. No Wheezing. No rales Abdomen: Soft and nontender. No rigidity. No distention. Skin: Skin warm and dry. Normal skin color. Normal skin turgor. Extremities: No lower extremity edema. No Lacerations. No Rash Neuro: Oriented X 3. No motor deficit. No sensory deficit. Moving all extremities. No slurred speech. CN 2 through 12 grossly intact Psych: calm, cooperative, normal affect Course Course Course Narrative: Patient's blood pressure on arrival 149/95. Today, is the 1st day that patient has losartan 100 mg. It was changed today in her visit with her PCP. Patient has chronic headaches nearly every day. Patient states that she used to be on a regular treatment for migraine headaches, however she had side effects from the medication and now she only takes [id number] meds to help with the symptoms Patient's troponin negative, EKG shows sinus rhythm, heart rate 70, no ST segment depression or elevation, no T-wave inversion, QTC 425 Patient asymptomatic. Without any medication, patient's blood pressure improved, now 123/77, pulse 80, respirations 16, O2 97% on room air. Medical Decision Making Lab Data Result diagrams: 04/22/22 03:11 04/22/22 03:11 Labs: Lab Results 04/22/22 04/22/22 04/22/22 Range/Units 03:11 03:11 03:11 WBC 13.8 H (4.8-10.8) X10*3/uL RBC 5.50 (4.20-5.50) X10*6/uL Hgb 13.5 (12.0-16.0) g/dl Hct 43.8 (37.0-47.0) % MCV 79.6 L (80.0-98.0) fL MCH 24.5 L (27.0-33.0) pg MCHC 30.8 L (31.0-35.0) g/dl RDW 15.9 (11.0-16.0) % Plt Count 489 H (160-400) X10*3/uL MPV 8.9 L (9.4-12.3) fL Immature Gran % (Auto) 0.2 (0.0-0.4) % Neut % (Auto) 55.0 (45-73) % Lymph % (Auto) 36.0 (20-40) % [place] % (Auto) 5.7 (2-11) % Eos % (Auto) 2.4 (0-4) % Baso % (Auto) 0.7 (0-2) % Lymph # (Auto) 5.0 H (1.2-4.9) X10*3/uL [place] # (Auto) 0.8 (0.1-1.2) X10*3/uL Eos # (Auto) 0.3 (0.0-0.4) X10*3/uL Baso # (Auto) 0.1 (0.0-0.2) X10*3/uL Abs Immat Gran (auto) 0.03 (0.00-0.03) X10*3/uL Absolute Neuts (auto) 7.6 (2.0-8.3) x10*3/uL Absolute Nucleated RBC 0.000 (0.0-0.012) X10*3/uL Nucleated RBC % (auto) 0.0 (0.0-0.2) /100WBC Sodium 136 (135-145) mmol/L Potassium 4.2 (3.3-5.1) mmol/L Chloride 102 (96-108) mmol/L Carbon Dioxide 25 (22-29) mmol/L Anion Gap 13 (12-20) BUN 14 (9-16) mg/dL Creatinine 0.72 (0.5-1.4) mg/dL Estim Creat Clear Calc 99.9 Estimated GFR > 60 Random Glucose 110 (60-115) mg/dL Calcium 9.2 D (8.4-10.2) mg/dL Troponin I High Sens < 3.5 (<3.5-17.0) ng/L Discharge Plan Discharge Clinical Impression: Hypertension Patient Disposition: Home, Self-Care Instructions: Hypertension (ED) Additional Instructions: Please follow-up with your primary care physician tomorrow. If you have any worsening or new symptoms, please return to the emergency room or call 911 Prescriptions: No Action ondansetron 4 mg tablet,disintegrating 4 mg PO Q6-8H PRN (Reason: nausea and vomiting) Qty: 14 0RF losartan 50 mg tablet 50 mg PO DAILY tramadol 50 mg tablet 50 mg PO DAILY loratadine 10 mg tablet 10 mg PO DAILY clonazepam 0.5 mg tablet 0.25 mg PO BEDTIME Rx Instructions: administer 30 minutes before bedtime meclizine 25 mg tablet 25 mg PO DAILY metformin 500 mg tablet 500 mg PO DAILY
[2022-04-22 03:15] LABS: Basophils Absolute Auto 0.1 X10*3/uL (0.0-0.2); Basophils Percent Auto 0.7 % (0-2); Eosinophils Absolute Auto 0.3 X10*3/uL (0.0-0.4); Eosinophils Percent Auto 2.4 % (0-4); Hematocrit 43.8 % (37.0-47.0); Hemoglobin 13.5 g/dl (12.0-16.0); Imm Gran Abs Auto 0.03 X10*3/uL (0.00-0.03); Imm Gran Pct Auto 0.2 % (0.0-0.4); MANUAL DIFF FLAG NO; Mean Corpuscular HGB Conc 30.8 g/dl (31.0-35.0); Mean Corpuscular Hemoglobin 24.5 pg (27.0-33.0); Mean Corpuscular Volume 79.6 fL (80.0-98.0); Mean Platelet Volume 8.9 fL (9.4-12.3); Monocytes Absolute Auto 0.8 X10*3/uL (0.1-1.2); Monocytes Percent Auto 5.7 % (2-11); Neutrophils Absolute Auto 7.6 x10*3/uL (2.0-8.3); Platelet Count 489 X10*3/uL (160-400); Red Cell Distribution Width 15.9 % (11.0-16.0); White Blood Count 13.8 X10*3/uL (4.8-10.8)
[2022-04-22 03:47] LABS: Anion Gap 13 (12-20); Blood Urea Nitrogen 14 mg/dL (9-16); Calcium 9.2 mg/dL (8.4-10.2); Carbon Dioxide 25 mmol/L (22-29); Chloride 102 mmol/L (96-108); Creatinine Clr Calc Pharmacy 99.9; Estimated Glomerular Filt Rate > 60; Glucose Random 110 mg/dL (60-115); Potassium 4.2 mmol/L (3.3-5.1); Sodium 136 mmol/L (135-145)
[2022-04-22 03:54] LABS: Troponin-I High Sensitivity < 3.5 ng/L (<3.5-17.0)
[2022-04-22 03:55] VITALS: BP 123/77
== END 2022-04-22 04:09 | disposition home or self-care (01) ==
PROVIDERS: Emergency Provider Emergency Medicine; PCP Internal Medicine Geriatric Medicine
DX: I10 Essential (primary) hypertension (principal); Z79.899 Other long term (current) drug therapy
CPT/HCPCS: 36415; 80048; 84484; 85025; 93005; 99283

== ENCOUNTER 2022-04-28 08:11 | Emergency (ER) | payer MEDICAID, SELFPAY ==
--- NOTE | ~2022-04-28 | CT_ITS ---
EXAMINATION: CT HEAD WITHOUT CONTRAST CLINICAL INFORMATION: Headaches. Elevated blood pressure COMPARISON: None TECHNIQUE: Contiguous axial imaging was performed from the skull base to vertex without intravenous administration of contrast. This CT examination was performed using dose optimization techniques as appropriate, variously including the following: *Automated exposure control *Adjustment of mA and/or kV according to patient size (this includes techniques or standardized protocols for targeted exams where dose is matched to indication/reason for exam; i.e. extremities or head) *Use of iterative reconstruction technique DLP: 686 mGy-cm FINDINGS: There is no intra or extra-axial fluid collection, hemorrhage, mass or mass effect. Sulci and ventricles appear normal. Calvarium intact. Note is made of moderate mucoperiosteal thickening within the ethmoid sinuses. There is mucosal thickening within the maxillary sinuses. CT/CT head/brain wo IV con IMPRESSION: No acute intracranial pathology.
--- NOTE | ~2022-04-28 | XR_ITS ---
EXAMINATION: XR CHEST CLINICAL INFORMATION: Chest pain. High blood pressure. Headache. Nausea. COMPARISON: February 23, 2017. TECHNIQUE: 2 views of the chest were obtained. FINDINGS: No significant abnormality is noted involving the heart, lungs, mediastinum, bony thorax or soft tissues. XR/XR chest 2V IMPRESSION: Unremarkable examination.
[2022-04-28 08:17] VITALS: BP 156/97; PULSE 88; RESP 18; TEMP 36.4; O2SAT 99; BMI 35.4
--- NOTE | 2022-04-28 08:44 | ECG_ITS ---
Test Reason : chest pain
--- NOTE | 2022-04-28 08:46 | ED_ITS ---
HPI - Chest Pain General Chief Complaint: General Medical Stated Complaint: high bp Time Seen by Provider: 04/28/22 08:27 Source: patient and family Mode of arrival: ambulatory Limitations: language barrier (Georgian-Speaking) History of Present Illness HPI narrative: 52yoF c PMHx of migraine headaches, HTN currently on losartan 100 mg which was recently increased on 04/22/2022 who is presenting to the ER with complaints of intermittent headaches, nausea and midsternal chest pain that has been present for approximately 6 days after she was seen here for similar complaint 6 days ago. She reports that this morning when she took her blood pressure it was 174/104 then she took her 100 mg of losartan and came here. She denies any dizziness, change in vision, jaw pain, paresthesias, vomiting, dyspnea on exertion, cough, nasal congestion/rhinorrhea, trouble swallowing or breathing, orthopnea, palpitations, paresthesias, abdominal pain, flank pain, dysuria, hematuria, abnormal vaginal discharge, black or bloody stools, lower extremity edema or calf tenderness or any other symptoms complaints or concerns at this time. MD complaint: chest pain Pertinent past history: other (HTN) Onset (ago): day(s) (6) Timing of current episode: constant and still present Prior episodes: Yes Onset: other (unknown) Pain location: substernal Pain radiation: none Severity: mild Quality: aching Relieving factors: nothing Exacerbating factors: nothing Associated symptoms: nausea and other (headache and elevated BP) Treatment prior to arrival: other (Took her prescribed losartan) Risk Factors Coronary artery disease risk factors: hypertension Thoracic aortic dissection risk factors: longstanding hypertension Related Data On Oral Contraceptives: No Home Medications Medication Instructions Recorded Confirmed clonazepam 0.5 mg tablet 0.25 mg PO BEDTIME 02/19/21 04/08/22 loratadine 10 mg tablet 10 mg PO DAILY 02/19/21 04/08/22 losartan 50 mg tablet 50 mg PO DAILY 02/19/21 04/08/22 meclizine 25 mg tablet 25 mg PO DAILY 02/19/21 04/08/22 tramadol 50 mg tablet 50 mg PO DAILY 02/19/21 04/08/22 metformin 500 mg tablet 500 mg PO DAILY 04/08/22 Previous Rx's Medication Instructions Recorded ondansetron 4 mg disintegrating 4 mg PO Q6-8H PRN nausea and 01/25/22 tablet vomiting #14 tabs qthnpzipyx-lyzgpeyvhzitx-xatiyelr 1 cap PO Q8H PRN pain #20 caps 04/28/22 50 mg-300 mg-40 mg capsule (Fioricet) Allergies Allergy/AdvReac Type Severity Reaction Status Date / Time No Known Allergies Allergy Verified 04/28/22 08:21 Review of Systems Review of Systems: Constitutional : No Weight loss, No Fever, No Chills, No Night Sweats, No Fatigue, No Malaise ENT/Mouth : No Hearing loss, No Ear Pain, No Nasal Congestion, No Sinus Pain, No Hoarseness, No sore throat, No Rhinorrhea, No Swallowing Difficulty Eyes: No Eye Pain, No Swelling, No Redness, No Foreign Body, No Discharge, No Vision Changes Cardiovascular : + Chest Pain, No SOB, No Dyspnea on Exertion, No Orthopnea, No Edema, No Palpitations Respiratory : No Cough, No Sputum, No Wheezing, No Smoke Exposure, No Dyspnea Gastrointestinal : + Nausea, No Vomiting, No Diarrhea, No Constipation, No abdominal Pain, No Hematochezia, No Melena Genitourinary : no irregular bleeding, No Dysuria, No Urinary Frequency, No Hematuria, No Urinary Incontinence, No Urgency, No Flank Pain, No Urinary Flow Changes, No Hesitancy Musculoskeletal : No joint pain, No Myalgias, No Joint Swelling Skin : No Skin Lesions, No rash Neuro : No Weakness, No Numbness, No Paresthesias, No Loss of Consciousness, No Dizziness, + Headache Psych : No Anxiety/Panic, No Depression, No SI/HI/AH/VH, No Social Issues, Heme/Lymph: No Bruising, No Bleeding,No Lymphadenopathy Endocrine : No Polyuria, No Polydipsia, No Temperature Intolerance Yes all other systems are reviewed and are negative [facility] Past Medical History Attestation statement: The following information was validated with the patient. Source: old records reviewed, obtained from family and nursing notes reviewed Medical History Depression Hypertension Vertigo Surgical History H/O bilateral breast reduction surgery H/O knee surgery Hx of tubal ligation Family History Family History Father HTN (hypertension) Mother HTN (hypertension) Diabetes Sister Diabetes Social History Social History Household Members: Spouse Housing: Apartment Alcohol intake: never Patient Tobacco Use Status: Never used Tobacco Advance Directives: No Advance Directives Information Provided: Yes service: No Current occupational status: disabled Sexual orientation: Straight/Heterosexual Gender identity: Female Physical Exam Vital Signs: Vital Signs: Last Vital Signs Temp 97.6 F 04/28/22 08:17 Pulse 88 04/28/22 08:17 Resp 18 04/28/22 08:17 BP 156/97 H 04/28/22 08:17 Pulse Ox 99 04/28/22 08:17 O2 Del Method 04/28/22 08:17 BMI result Body Mass Index 35.4 Vital signs have been reviewed as normal and appeared to be correct. Blood pressure 156/97. Heart rate normal. Respiration rate normal. Temperature normal. Oxygen saturation normal. Appearance: Alert. Oriented X3. No acute distress. Head: Normal external exam. Normocephalic. Atraumatic. Able to rotate head bilaterally. Eyes: PERRLA. EOMI. No nystagmus noted. Conjunctiva and sclera normal. Eyelids normal. Corneal reflex normal. ENT: EAC normal. TM's Normal. Hearing normal. Pharynx normal. Uvula midline. tongue midline. Moist mucous membranes. No trismus noted. No drooling noted. No muffled voice noted. No nystagmus noted. Neck: Normal inspection. Neck supple. FROM. No adenopathy. Trachea midline. Thyroid Normal. No meningeal signs. No neck mass noted. CVS: Normal heart rate and rhythm. Heart sound normal. No murmurs noted. Pulses normal throughout. Respiratory: No respiratory distress. Painless inspiration. Breath sounds normal. No wheezes/rales/rhonchi noted. Chest nontender. No accessory muscle usage noted or decreased air movement noted. Abdomen: Soft and nontender. Bowel sounds normal in all 4 quadrants. No distention noted. No organomegaly noted. No visible injury noted. Back: No CVA tenderness. Full range of motion noted. Skin: Skin warm and dry. Normal skin color. Normal skin turgor. No rashes/lesions/lacerations noted. Extremities: No lower extremity edema. Extremities exhibit normal range of m otion. Extremities nontender. Able to shrug shoulders bilaterally and keep up against resistance. Neuro: Oriented X 3. No motor deficit. No sensory deficit. Reflexes normal. Moving all extremities. No focal motor deficits. Cranial nerves II-XI intact bilaterally. Facial strength normal. Normal cognition. Speech normal. Gait normal. Strength 5/5 throughout. No pronator drift. No tremor noted. No fasciculations noted. No rigidity noted. Muscle tone normal throughout. No asterixis noted. Wwrpjv-gi-rwyr test normal. Heel to adams test normal. Tandem gait normal. Does not sway with eyes open. Romberg test negative. Rapid alternating movement upper extremity normal. Rapid alternating movement lower extremity normal. Hand drop from overhead Misses face. NIHSS score 0. Course Course Course Narrative: 8:45am - 52yoF c PMHx of migraine headaches, HTN currently on losartan 100 mg which was recently increased on 04/22/2022 who is presenting to the ER with complaints of intermittent headaches, nausea and midsternal chest pain that has been present for approximately 6 days after she was seen here for similar complaint 6 days ago. She reports that this morning when she took her blood pressure it was 174/104 then she took her 100 mg of losartan and came here. Plan: Labs, EKG, chest x-ray, CT scan of brain without contrast. Provide 4 mg of Zofran and 975 mg of Tylenol and re-evaluate. Reevaluation(s) Reevaluation #1: Labs obtained reviewed platelet count 458 which is similar compared to prior. Random glucose 118. ALT 45. Troponin negative. Otherwise all other labs are within normal limits. Patient negative for COVID. CT scan of brain without contrast negative for any acute processes noted. Chest x-ray within normal limits no acute processes noted. EKG is normal sinus rhythm with ventricular rate of [address] abnormalities no acute ischemic change are noted. Similar compared to prior EKG 04/22/2022. Plan: Therefore at this time patient will be discharged with instructions to follow-up with PCP and to continue taking her previously prescribed medications as previously prescribed and to return if any new or worsening symptoms. Patient with family at bedside understand agree this plan. Time: 10:35 Medications Administered Discontinued Medications Generic Name Dose Route Start Last Admin Trade Name Freq PRN Reason Stop Dose Admin Acetaminophen 975 mg 04/28/22 08:45 04/28/22 08:58 Acetaminophen 325 Mg Tablet PO 04/28/22 08:46 975 mg ONCE ONE Administration Ondansetron HCl 4 mg 04/28/22 08:49 04/28/22 08:59 Ondansetron Odt 4 Mg Tab.Fuentes FRANCOU 04/28/22 08:50 4 mg ONCE ONE Administration Medical Decision Making Medical Decision Making Differential Diagnoses: differential diagnosis Differential Diagnosis: The differential diagnosis associated with the patient?s presentation includes: - Patient afebrile, resting comfortably in no distress. Non-toxic appearing. Patient denies any recent trauma/injury to head. Neurological exam shows no deficits. BP Mildly elevated. Denies any changes in vision. Patient ambulates without difficulty. Given the history, and physical - most likely diagnosis: Migraine CLAYTON/hypertensive headache/anxiety due to elevated BP gradual onset CLAYTON with nausea. Pt states classic of previous migraine HAs. SAH: unlikely given gradual onset and similar to previous episodes Intracranial bleed: unlikely given neg trauma, neg anticoagulation Meningitis: unlikely given pt afebrile, neg stiff neck, no immune compromise. Exam without signs of meningismus Temporal arteritis: Unlikely given Neg jaw claudication, no temporal tenderness or nodularity on exam. Cerebral venous thrombosis: unlikely given no h/o hypercoaguable state, no chronic head/neck infection. Exam without evidence of Valium over low. EKG without signs of active ischemia. Heart score 2. Presentation not consistent with acute PE (Wells low risk score 0// PERC negative), pneumothorax, thoracic arotic dissection, cardiac effusion or tamponade. Independent interpretation of EKG, rhythm strip, radiology study: Independent interp EKG,rhythm strip, radiology study I performed an independent interp retation of the: EKG, Plain X-Ray and CT Scan My interpretation is EKG is normal sinus rhythm with nonspecific ST abnormalities no acute ischemic change are noted and similar compared to prior EKG. Chest x-ray within normal limits no acute processes are noted. CT scan of brain revealed chronic changes no acute processes are noted. Discussion of test interpretation with radiology: Discussion of test interpretation with radiology Discussed with radiology regarding test interpretation. Chest - FINDINGS: No significant abnormality is noted involving the heart, lungs, mediastinum, bony thorax or soft tissues. XR/XR chest 2V IMPRESSION: Unremarkable examination. CT brain without contrast FINDINGS: There is no intra or extra-axial fluid collection, hemorrhage, mass or mass effect. Sulci and ventricles appear normal. Calvarium intact. Note is made of moderate mucoperiosteal thickening within the ethmoid sinuses. There is mucosal thickening within the maxillary sinuses. ? CT/CT head/brain wo IV con IMPRESSION: No acute intracranial pathology. Independent historian (e.g., spouse, EMS, friend): Independent historian (e.g., spouse, EMS, friend) Non-ED record review: Review of External (Non-ED) Record Chronic conditions affecting care (e.g., diabetes, HTN): Chronic conditions affecting care (e.g., diabetes, HTN) Patient?s care impacted by: Hypertension Discharge Plan Discharge Clinical Impression: Hypertension, Headache, migraine Patient Disposition: Home, Self-Care Instructions: Migraine Headache (ED), Heart Healthy Diet (ED), Hypertension (ED) Prescriptions: New tbvcfbtlzo-phxpuammmodcb-pphw [Fioricet] 50-300-40 mg capsule 1 cap PO Q8H PRN (Reason: pain) Qty: 20 0RF No Action ondansetron 4 mg tablet,disintegrating 4 mg PO Q6-8H PRN (Reason: nausea and vomiting) Qty: 14 0RF losartan 50 mg tablet 50 mg PO DAILY tramadol 50 mg tablet 50 mg PO DAILY loratadine 10 mg tablet 10 mg PO DAILY clonazepam 0.5 mg tablet 0.25 mg PO BEDTIME Rx Instructions: administer 30 minutes before bedtime meclizine 25 mg tablet 25 mg PO DAILY metformin 500 mg tablet 500 mg PO DAILY Referrals: Angeli,MD Reuben [Primary Care Provider] - 1 day Stand Alone Forms: Work/School Release Print Language: Georgian
[2022-04-28] MEDS: Acetaminophen 325 MG TABLET 975 MG PO (08:58)
[2022-04-28] MEDS: Ondansetron ODT 4 MG TAB.RAPDIS TRANSLINGU (08:59)
[2022-04-28 09:30] LABS: MANUAL DIFF FLAG NO
[2022-04-28 09:32] LABS: Basophils Absolute Auto 0.1 X10*3/uL (0.0-0.2); Basophils Percent Auto 0.9 % (0-2); Eosinophils Absolute Auto 0.4 X10*3/uL (0.0-0.4); Eosinophils Percent Auto 3.4 % (0-4); Hematocrit 42.3 % (37.0-47.0); Hemoglobin 13.3 g/dl (12.0-16.0); Imm Gran Abs Auto 0.01 X10*3/uL (0.00-0.03); Imm Gran Pct Auto 0.1 % (0.0-0.4); Lymphocytes Absolute Auto 4.1 X10*3/uL (1.2-4.9); Lymphocytes Percent Auto 39.2 % (20-40); Mean Corpuscular HGB Conc 31.4 g/dl (31.0-35.0); Mean Corpuscular Hemoglobin 24.9 pg (27.0-33.0); Mean Corpuscular Volume 79.1 fL (80.0-98.0); Mean Platelet Volume 8.8 fL (9.4-12.3); Monocytes Absolute Auto 0.6 X10*3/uL (0.1-1.2); Monocytes Percent Auto 5.9 % (2-11); Neutrophils Absolute Auto 5.2 x10*3/uL (2.0-8.3); Neutrophils Percent Auto 50.5 % (45-73); Platelet Count 458 X10*3/uL (160-400); Red Blood Count 5.35 X10*6/uL (4.20-5.50); Red Cell Distribution Width 15.9 % (11.0-16.0); White Blood Count 10.3 X10*3/uL (4.8-10.8)
[2022-04-28 09:39] LABS: Prothrombin Time 11.1 SEC (10.0-13.1)
[2022-04-28 09:47] LABS: Alanine Aminotransferase 45 U/L (0-31); Alkaline Phosphatase 84 U/L (39-117); Anion Gap 13 (12-20); Aspartate Amino Transferase 24 U/L (5-31); Bilirubin Total 0.4 mg/dL (0.0-1.0); Blood Urea Nitrogen 12 mg/dL (9-16); Calcium 9.3 mg/dL (8.4-10.2); Carbon Dioxide 27 mmol/L (22-29); Chloride 105 mmol/L (96-108); Creatinine Clr Calc Pharmacy 98.5; Estimated Glomerular Filt Rate > 60; Glucose Random 118 mg/dL (60-115); Magnesium 1.9 mg/dL (1.6-2.6); Potassium 4.6 mmol/L (3.3-5.1); Sodium 140 mmol/L (135-145)
[2022-04-28 09:51] LABS: COVID-19 Test Negative (Negative); IDNOW Serial# BCCEAD1C
[2022-04-28 09:53] LABS: Troponin-I High Sensitivity < 3.5 ng/L (<3.5-17.0)
[2022-04-28 11:28] LABS: Appearance Urine Clear; Color Urine Yellow; Glucose Urine UA Negative (Negative); Leukocyte Esterase Urine Trace (Negative); Nitrite Urine Negative (Negative); PH 5.5 (5.0-9.0); Specific Gravity - Urine <= 1.005 (1.005-1.025); UMIC TRIGGER UACC YES; Urine Blood Negative (Negative); Urine Ketones Negative (Negative); Urine Protein Negative (Neg-Trace)
[2022-04-28 11:33] LABS: Bacteria Urine None Seen (None Seen); Hyaline Casts Urine 0-2 /LPF (0-2); RBC Urine 0-2 /HPF (0-2); Squamous Epithelial Cell Urine 0-2 /HPF (0-2); WBC Urine 0-5 /HPF (0-5)
== END 2022-04-28 11:14 | disposition home or self-care (01) ==
PROVIDERS: Physician Assistant Medical; Emergency Provider Emergency Medicine; PCP Internal Medicine Geriatric Medicine
DX: I10 Essential (primary) hypertension (principal); G43.909 Migraine, unspecified, not intractable, without status migrainosus; Z20.822 Contact with and (suspected) exposure to COVID-19; E66.9 Obesity, unspecified; Z68.35 Body mass index [BMI] 35.0-35.9, adult; Z79.899 Other long term (current) drug therapy
CPT/HCPCS: 36415; 70450; 71046; 80053; 81001; 83735; 84484; 85025; 85610; 87635; 93005; 99284

== ENCOUNTER 2022-10-14 12:06 | Outpatient (REF) | payer MEDICAID, SELFPAY ==
--- NOTE | ~2022-10-14 | MM_ITS ---
EXAMINATION: MM SCREENING DIGITAL BREAST TOMOSYNTHESIS, BILATERAL CLINICAL INFORMATION: Screening. Asymptomatic. The lifetime risk of breast cancer based on the Tyrer-Cuzick Model is 4.5%. COMPARISON: Mammography: 09/16/2021 and studies dating back to 03/01/2014. TECHNIQUE: Digital breast tomosynthesis is performed in both the craniocaudal and mediolateral oblique views along with computer-aided detection (CAD). Synthesized 2D images are generated from the tomosynthesis. FINDINGS: There are scattered areas of fibroglandular density (ACR BI-RADS breast composition Category b). LEFT BREAST: There is a stable parenchymal pattern of the left breast without new abnormal dominant masses or suspicious grouping of microcalcifications. RIGHT BREAST: About the anterior aspect of the right breast on mediolateral oblique projection there is a region of increasing density which may be related to superimposition of structures but is more prominent and additional imaging with spot compression views recommended. I do not see a definite correlate on craniocaudal views with stable postsurgical changes noted from breast reduction surgery. MM/MM tomosynthesis screening BI IMPRESSION: Right breast density for further evaluation. ASSESSMENT: BI-RADS 0: Incomplete - Need Additional Imaging Evaluation RECOMMENDATION: 1. Additional views of the right breast 2. Targeted ultrasound if warranted after review of the additional views. 3. Radiology department staff will contact the patient for additional imaging. This patient's information was entered into a reminder system with a target due date for their next mammogram.
== END 2022-10-14 12:07 | disposition home or self-care (01) ==
LOC: HO.MAMMO 12:06
PROVIDERS: PCP Internal Medicine Geriatric Medicine; Visit Provider Internal Medicine Geriatric Medicine
DX: Z12.31 Encounter for screening mammogram for malignant neoplasm of breast (principal)
CPT/HCPCS: 77063; 77067

== ENCOUNTER 2022-10-23 07:37 | Outpatient (REF) | payer MEDICAID, SELFPAY ==
--- NOTE | ~2022-10-23 | MM_ITS ---
EXAMINATION: MM DIAGNOSTIC DIGITAL BREAST TOMOSYNTHESIS, RIGHT CLINICAL INFORMATION: Recall from screening for asymmetric density anterior central right breast on synthesized MLO view. Summation artifact suspected. COMPARISON: Mammography: 10/14/2022, 09/16/2021, 09/14/2020 TECHNIQUE: Digital breast tomosynthesis is performed. 2D images are generated from the tomosynthesis. The following views are obtained: Spot MLO, ML. FINDINGS: There are scattered areas of fibroglandular density (ACR BI-RADS breast composition Category b). The additional views show no persistent asymmetric density, architectural abnormality, or developing density from prior studies. No significant changes from prior studies. Results are discussed with the patient at time of visit. MM/MM tomosynthesis added views R IMPRESSION: Additional views showed no asymmetric density or changes from prior exams. ASSESSMENT: BI-RADS 1: Negative RECOMMENDATION: Routine annual mammography screening. This patient's information was entered into a reminder system with a target due date for their next mammogram.
== END 2022-10-23 07:38 | disposition home or self-care (01) ==
LOC: HO.MAMMO 07:37
PROVIDERS: PCP Internal Medicine Geriatric Medicine; Visit Provider Internal Medicine Geriatric Medicine
DX: R92.2 Inconclusive mammogram (principal)
CPT/HCPCS: 77061; 77065

== ENCOUNTER → 2022-11-19 10:21 | Outpatient (BNVA) | payer MEDICAID, SELFPAY | PROVIDERS: PCP Internal Medicine Geriatric Medicine; Visit Provider Physician Assistant ==

== ENCOUNTER 2022-12-09 15:38 | Outpatient (REF) | payer MEDICAID, SELFPAY ==
[2022-12-09 18:25] LABS: Vitamin D 25-OH Total 21.6 ng/mL (>30)
[2022-12-09 18:47] LABS: Rheumatoid Factor < 13.0 IU/mL (<15.0)
[2022-12-09 19:03] LABS: Erythrocyte Sedimentation Rate 19 MM/HR (0-20)
[2022-12-11 14:04] LABS: Lyme Abs Screen <0.90 index
[2022-12-15 12:08] LABS: Anti Nuclear Antibody Screen NEGATIVE (NEGATIVE)
== END 2022-12-09 15:39 | disposition home or self-care (01) ==
LOC: HO.HHCL 15:38
PROVIDERS: Visit Provider Internal Medicine Geriatric Medicine
DX: M25.50 Pain in unspecified joint (principal)
CPT/HCPCS: 36415; 82306; 85652; 86038; 86431; 86617; 86618

== ENCOUNTER 2023-03-03 11:05 | Day surgery (SDC) | payer MEDICAID, SELFPAY ==
[2023-02-26 12:22] VITALS: BMI 35.4
--- NOTE | 2023-02-27 11:01 | HO.ANESPROP2 ---
Documented by User: Melanie Wilkes NP 02/27/23 11:01 HPI - Anesthesia Eval Consult details Narrative: 52yo F for Colonoscopy PMFSH Active Problems Active Problems: All Active Problems (Updated 02/26/23 @ 12:22 by Hailey Farrar RN) History of adenomatous polyp of colon (Acute) Rectal bleeding (Acute) Encounter for screening colonoscopy (Acute) Perimenopause (Acute) Prediabetes (Acute) Obesity (BMI 35.0-39.9 without comorbidity) (Acute) Well woman exam with routine gynecological exam (Acute) Hypertension (Acute) Past Medical History Medical History Pre-diabetes Vertigo Depression Hypertension Family History Family History Father HTN (hypertension) Mother HTN (hypertension) Diabetes Sister Diabetes Surgical History Surgical History History of esophagogastroduodenoscopy (EGD) H/O colonoscopy H/O knee surgery Hx of tubal ligation H/O bilateral breast reduction surgery Social History Social History Household Members: Spouse Housing: Apartment Alcohol intake: never Patient Tobacco Use Status: Never used Tobacco Use of substances other than those prescribed or required for medical reasons: No Are you DNR?: No Advance Directives: No Advance Directives Information Provided: Yes service: No Current occupational status: disabled Sexual orientation: Straight/Heterosexual Gender identity: Female Meds Allergies Allergy/AdvReac Type Severity Reaction Status Date / Time No Known Allergies Allergy Verified 03/03/23 12:00 Home Medications Medication Instructions Recorded Confirmed Last Taken Type clonazepam 0.5 mg tablet 0.25 mg PO BEDTIME 02/19/21 03/03/23 Unknown History loratadine 10 mg tablet 10 mg PO DAILY 02/19/21 03/03/23 Unknown History losartan 50 mg tablet 50 mg PO DAILY 02/19/21 03/03/23 Unknown History meclizine 25 mg tablet 25 mg PO DAILY 02/19/21 03/03/23 Unknown History Exam Exam Date and Time: February 27, 2023 1101 Height,Weight and Vital Signs: Height 5 ft 3 in Weight 90.718 kg Assessment and Plan Assessment Anesthesia Assessment: Chart Reviewed Documented by User: Maryjane Irizarry MD 03/03/23 13:10 [facility] Past Medical History Medical History Pre-diabetes Vertigo Depression Hypertension Family History Family History Father HTN (hypertension) Mother HTN (hypertension) Diabetes Sister Diabetes Family history of problems with anesthesia: No Surgical History Surgical History History of esophagogastroduodenoscopy (EGD) H/O colonoscopy H/O knee surgery Hx of tubal ligation H/O bilateral breast reduction surgery History of Problems with Anesthesia: No Social History Social History Household Members: Spouse Housing: Apartment Alcohol intake: never Patient Tobacco Use Status: Never used Tobacco Use of substances other than those prescribed or required for medical reasons: No Are you DNR?: No Advance Directives: No Advance Directives Information Provided: Yes service: No Current occupational status: disabled Sexual orientation: Straight/Heterosexual Gender identity: Female Meds Allergies Allergy/AdvReac Type Severity Reaction Status Date / Time No Known Allergies Allergy Verified 03/03/23 12:00 Home Medications Medication Instructions Recorded Confirmed Last Taken Type clonazepam 0.5 mg tablet 0.25 mg PO BEDTIME 02/19/21 03/03/23 Unknown History loratadine 10 mg tablet 10 mg PO DAILY 02/19/21 03/03/23 Unknown History losartan 50 mg tablet 50 mg PO DAILY 02/19/21 03/03/23 Unknown History meclizine 25 mg tablet 25 mg PO DAILY 02/19/21 03/03/23 Unknown History Exam Airway Mallampati Class: II TM Dist: >3cm Neck ROM: Full Heart: rrr Lungs: cta Assessment and Plan Assessment Anesthesia Assessment: Anesthesia Plan Discussed Final Anesthetic Review Family History of Problems with Anesthesia: No History of Problems with Anesthesia: No NPO: Yes ASA Class: III Final Preanesthetic Review: No Changes in Pt Med Stat, Meds/Allgs Chart Reviewed, Consent Obtained/Reviewed and Anes Risks/Benef Reviewed Patient Risk: Intermediate Procedure Risk: Low Anesthetic Plan Anesthetic Plan: MAC: Disposition: Standard PACU
[2023-03-03 12:07] VITALS: BMI 35.4
[2023-03-03 12:23] VITALS: BP 143/83; PULSE 74; RESP 16; TEMP 36.4; O2SAT 97
--- NOTE | 2023-03-03 13:04 | MHC.SHP ---
Pre-Procedural Eval Section A Date of Service: 03/03/23 Section B Chief Complaint: screening Relevant Family History (Specify if Yes): No Relevant Social History: None Present Medications: see Short Stay Collaborative assessment Medical History: Significant History (Pre-diabetes Vertigo Depression Hypertension) History of Previous Operations: Relevant previous surgery/procedure and date(s) (History of esophagogastroduodenoscopy (EGD) H/O colonoscopy H/O knee surgery Hx of tubal ligation H/O bilateral breast reduction surgery) Allergies: Allergies Allergy/AdvReac Type Severity Reaction Status Date / Time No Known Allergies Allergy Verified 03/03/23 12:00 Review of Systems Sugical H&P ROS: Negative: Constitution, Cardiovascular, Respiratory, Neurological, Psychiatric, Hem-Onc, Allergic/Immunologic, Gastrointestinal, Genitourinary, Musculoskeletal, Integumentary, Endocrine and Eyes/Ears/Nose/Throat Exam Surgical H&P Exam: Normal: HEENT, Normal: Heart, Normal: Lungs, Normal: Extremities, Normal: Abdomen, Normal: Skin and Normal: Neurological Plan Diagnosis/Plan: Unchanged I have reviewed the history and physical and performed a pertinent physical examination on my patient. No changes have occurred unless specified. Time Spent With Patient Time: Total time managing care of this patient today ____ minutes.
--- NOTE | 2023-03-03 13:06 | W.PM.OPN ---
Operative Note Operative Note Date of Service: 03/03/23 Narrative: Operative Information Procedure Description: Colonoscopy Indication: hx of polyps Anesthesia: MAC COLONOSCOPY Instrument: Olympus variable stiffness Adult scope 190L Colonoscopy Monitoring: Vital signs and clinical assessment, continuous EKG monitoring, Pulse oximetry, Carbon Dioxide monitoring and blood pressure monitoring were done throughout the procedure. Colon withdrawal time was 18 minutes. Procedure: The patient was placed in the left lateral decubitis position and pre-procedure medications were administered. After a digital rectal examination of the ano-rectum, the video colonoscope was inserted into the rectum and advanced through the colon to the cecum/TI. The colonoscope was slowly withdrawn in a retrograde panoramic fashion and the colon mucosa was carefully examined including a retroflexed view of the rectum. Findings and interventions are described below. Procedure Difficulty: easy Findings: Terminal Ileum- mild patchy ileitis, bx taken Cecum:normal Ascending Colon: normal, random bx taken, 8-10 mm sessile polyp removed with cold snare Transverse Colon -normal Descending Colon:normal Sigmoid Colon: mild-moderate diverticulosis Rectum: Retroflexion with small internal hemorrhoids, grade I Anorectum - normal Colon preparation: [place] Bowel Preparation Scale Right colon; 2 Transverse colon: 2 Left colon; 2 (0 = Unprepared colon segment with mucosa not seen due to solid stool that cannot be cleared. 1 = Portion of mucosa of the colon segment seen, but other areas of the colon segment not well seen due to staining, residual stool and/or opaque liquid. 2 = Minor amount of residual staining, small fragments of stool and/or opaque liquid, but mucosa of colon segment seen well. 3 = Entire mucosa of colon segment seen well with no residual staining, small fragments of stool or opaque liquid) Impression and Post Procedure Diagnosis: polyp internal hemorrhoids diverticular disease ileitis Plan: High fiber diet leaflet Avoid straining at stool, epsom salts and sitz bath, anusol supps or cream Repeat Colonoscopy in 5-7 years if adenomatous polyp, 10 yrs if benign or earlier if clinically indicated if sx suggestive of ileitis can consider CTe Above findings were reviewed with the patient and relevant handouts were provided if indicated.
[2023-03-03 13:57] VITALS: BP 87/48; PULSE 76; RESP 20; TEMP 36.7; O2SAT 94
[2023-03-03 14:08] VITALS: BP 116/67; PULSE 68; RESP 18; TEMP 36.7; O2SAT 99
== END 2023-03-03 14:57 | disposition home or self-care (01) ==
PROVIDERS: PCP Internal Medicine Geriatric Medicine; Visit Provider Internal Medicine Gastroenterology
PROC: 0DJD8ZZ Inspection of Lower Intestinal Tract, Via Natural or Artificial Opening Endoscopic (ICD-10-PCS; CPT 45378; principal; 2023-03-03 13:40)
DX: Z12.11 Encounter for screening for malignant neoplasm of colon (principal); Z86.010 Personal history of colon polyps; D12.2 Benign neoplasm of ascending colon; K57.30 Diverticulosis of large intestine without perforation or abscess without bleeding; K64.0 First degree hemorrhoids; K52.9 Noninfective gastroenteritis and colitis, unspecified; I10 Essential (primary) hypertension; R73.03 Prediabetes; R42 Dizziness and giddiness; Z79.84 Long term (current) use of oral hypoglycemic drugs; Z79.899 Other long term (current) drug therapy; Z98.890 Other specified postprocedural states
CPT/HCPCS: 45385; 82947; 88305; J2371

== ENCOUNTER → 2023-03-03 11:05 | Outpatient (BNV) | payer MEDICAID, SELFPAY | PROVIDERS: PCP Internal Medicine Geriatric Medicine; Visit Provider Internal Medicine Gastroenterology | DX: Z12.11 Encounter for screening for malignant neoplasm of colon (principal); Z86.010 Personal history of colon polyps; D12.2 Benign neoplasm of ascending colon; K57.30 Diverticulosis of large intestine without perforation or abscess without bleeding; K64.0 First degree hemorrhoids | CPT/HCPCS: 45380; 45385 ==

== ENCOUNTER 2023-03-18 13:45 | Outpatient (AMB) | payer MEDICAID, SELFPAY ==
--- NOTE | 2023-03-18 13:52 | A.OFFVIS_ITS ---
Intake Vital Signs 03/18/23 13:53 Height 5 ft 3 in Weight 196 lb BMI 34.7 BP 120/66 Blood Pressure Location Lt brachial Position Sitting Pulse 84 Intake Visit Reasons: s/p colon Intake Note: Patient follow up for Colonoscopy screening. Patient denies any GI issues. Heater Furnace Required: No Accompanied by: Family/Other Allergies No Known Allergies Allergy (Verified 03/18/23 13:51) Medication List - Last Reconciled 03/18/23 by Velvet Dunham PA-C [id number]-[id number]-czua 50-300-40 mg (Fioricet) 1 cap PO Q8H PRN clonazepam 0.25 mg PO BEDTIME loratadine 10 mg PO DAILY losartan 50 mg PO DAILY meclizine 25 mg PO DAILY methylcellulose (laxative) (Citrucel) 500 mg PO TID ondansetron 4 mg PO Q6-8H PRN HPI HPI Comments History of Present Illness Details A 52-year-old female follows up after recent colonoscopy he with polypectomy0 She does typically have constipation however she has a bowel regimen that seems to work for her. She does complain of low abdominal cramping more so on the right side. She tolerated procedures well Reviewed procedure report, path and recommedation Son has crohns.. dx @ 17 - now 27 [address] Padilla She has no nausea, vomiting, hematemesis, hematochezia fever or chills PFSH Medical History (Updated 03/18/23 @ 14:47 by Velvet Dunham PA-C) Pre-diabetes Vertigo Depression Hypertension Surgical History History of esophagogastroduodenoscopy (EGD) H/O colonoscopy H/O knee surgery Hx of tubal ligation H/O bilateral breast reduction surgery Family History (Updated 03/18/23 @ 14:14 by Velvet Dunham PA-C) Father HTN (hypertension) Mother HTN (hypertension) Diabetes Sister Diabetes Son No problems noted. Social History Household Members: Spouse Housing: Apartment Alcohol intake: never Patient Tobacco Use Status: Never used Tobacco service: No Current occupational status: disabled Sexual orientation: Straight/Heterosexual Gender identity: Female Female Reproductive History Menstrual Age of Menarche: 14 Review of Systems Const All systems reviewed & are unremarkable except as noted in HPI and below Card Denies chest pain and Denies dyspnea Resp Denies dyspnea GI Reports constipation and Reports GI cramping Physical Exam Vital Signs: Last Vital Signs Pulse 84 03/18/23 13:53 BP 120/66 03/18/23 13:53 BMI result Body Mass Index 34.7 Const General: cooperative, healthy appearing, comfortable, no acute distress and well developed Orientation/consciousness: patient oriented x3 Limitations: no limitations Eyes Sclerae: sclerae normal Resp Effort & Inspection: normal respiratory effort and able to speak in complete sentences Neuro General: patient oriented x3 Extrem General: Yes full ROM Psych Appearance: grossly normal and well kempt Mental Status: mental status grossly normal Speech and movement: Normal speech and movement present and Clear speech present Affect: normal affect Attitude: cooperative Thought process: Normal thought process present Thought content: Normal thought content present Insight: Good insight present (Psych) Results Reviewed Results Reviewed: mpression and Post Procedure Diagnosis: polyp internal hemorrhoids diverticular disease ileitis Plan: High fiber diet leaflet Avoid straining at stool, epsom salts and sitz bath, anusol supps or cream Repeat Colonoscopy in 5-7 years if adenomatous polyp, 10 yrs if benign or earlier if clinically indicated if sx suggestive of ileitis can consider CTe Name: Yumiko Marie Age/Sex: 52/F Attending: Stefania Valera MD : 1970 Submitted by: Stefania Valera MD Copies to: Reuben Suh MD MR #: [id number] Status: [facility] Collected: 03/03/23 Location: [facility] Received: 03/03/23 Diagnosis A. Terminal ileum, biopsy: Focal mild active ileitis; no granulomas or dysplasia (see comment). B. Colon, right side, biopsy: Colonic mucosa with no specific change; no colitis, granulomas or dysplasia. C. Colon, ascending, polyp: Tubular adenoma, likely excised; negative for high- grade dysplasia and carcinoma. Comment: (A): The differential includes NSAID/drug-related, infection, or inflammatory bowel disease and clinical correlation is necessary. Clinical History Pre-Op Dx: Hemorrhage of anus and rectum, personal history Post-Op Dx: Polyp, diverticulosis, hemorrhoids, ileitis Microscopic Description Microscopic sections reviewed. Material Received A. TI bx B. Right sided colon bx C. Ascending colon polyp Gross Description Received in 3 parts. Part A: Received in formalin labeled ?TI bx? are 4 glistening, semitranslucent, soft, lau-pink irregular tissue fragments ranging from 0.1-0.3 cm in greatest dimension which are submitted in toto in a single cassette labeled A. Part B: Received in formalin labeled ?right sided colon bx is a 0.3 cm in greatest dimension glistening, semitranslucent, soft lau irregular tissue fragment which is submitted in toto in a single cassette labeled B. Part C: Received in formalin labeled ?ascending colon polyp? is a 0.4 cm in greatest dimension glistening, semitranslucent, soft, lau-pink papular tissue fragment which is submitted in toto in a Patient: Yumiko Marie Age/Sex: 52/F MR#: [id number] Page 1 of 2 Assessment & Plan Assessment & Plan (1) Ileitis: Comment: Mild abdominal cramping Code(s): K52.9 - Noninfective gastroenteritis and colitis, unspecified Plan: Continue bowel regimen CTe (2) Tubular adenoma: Code(s): D36.9 - Benign neoplasm, unspecified site Plan: 5-years asymptomatic colonoscopy A first-degree relatives begin screening at age 40 (3) Diverticulosis of colon: Code(s): K57.30 - Diverticulosis of large intestine without perforation or abscess without bleeding Plan: Maintain high-fiber er protocol (4) Hemorrhoids: Code(s): K64.9 - Unspecified hemorrhoids Plan: High-fiber diet Avoids (5) Family history of Crohn's disease: Code(s): Z83.79 - Family history of other diseases of the digestive system Plan: CTE Plan Review of procedure report, pathology and recommendation CTe Usual medications Maintain high-fiber diet Avoid straining with hemorrhoid Diverticulosis/diverticulitis ER protocol reviewed Orders: Orders CT enterography Today K52.9 - Noninfective gastroenteritis and colitis, unspecified, Z83.79 - Family history of other diseases of the digestive system Patient Instructions: colonoscopy-2027 CTe Usual medications Maintain high-fiber diet Avoid straining with hemorrhoid Diverticulosis/diverticulitis ER protocol reviewed Encouraged to call questions or concerns Coding Level of Care Code Est Pt Level 3 (50740) Diagnoses Ileitis K52.9 Tubular adenoma D36.9 Diverticulosis of colon K57.30 Hemorrhoids K64.9 Family history of Crohn's disease Z83.79 Time Spent (min) 25
[2023-03-18 13:53] VITALS: BP 120/66; PULSE 84; BMI 34.7
== END 2023-03-18 14:45 | disposition home or self-care (01) ==
PROVIDERS: PCP Internal Medicine Geriatric Medicine; Visit Provider Physician Assistant
DX: K52.9 Noninfective gastroenteritis and colitis, unspecified (principal); D36.9 Benign neoplasm, unspecified site; K57.30 Diverticulosis of large intestine without perforation or abscess without bleeding; K64.9 Unspecified hemorrhoids; Z83.79 Family history of other diseases of the digestive system
CPT/HCPCS: 99213

== ENCOUNTER → 2023-03-18 13:45 | Outpatient (BNVA) | payer MEDICAID, SELFPAY | PROVIDERS: PCP Internal Medicine Geriatric Medicine; Visit Provider Physician Assistant | DX: K52.9 Noninfective gastroenteritis and colitis, unspecified (principal); K57.30 Diverticulosis of large intestine without perforation or abscess without bleeding; K64.9 Unspecified hemorrhoids; D36.9 Benign neoplasm, unspecified site; Z83.79 Family history of other diseases of the digestive system | CPT/HCPCS: 99212 ==

== ENCOUNTER 2023-04-06 09:33 | Outpatient (REF) | payer MEDICAID, SELFPAY ==
[2023-04-06 11:14] LABS: Appearance Urine Clear; Color Urine Yellow; Glucose Urine UA Negative (Negative); Leukocyte Esterase Urine Negative (Negative); Nitrite Urine Negative (Negative); PH 5.5 (5.0-9.0); Specific Gravity - Urine 1.025 (1.005-1.025); Urine Blood Negative (Negative); Urine Ketones Negative (Negative); Urine Protein Negative (Neg-Trace)
[2023-04-06 11:32] LABS: Bacteria Urine None Seen (None Seen); Hyaline Casts Urine 0-2 /LPF (0-2); RBC Urine 0-2 /HPF (0-2); WBC Urine 0-5 /HPF (0-5)
== END 2023-04-06 09:34 | disposition home or self-care (01) ==
LOC: HO.HHCL 09:33
PROVIDERS: Visit Provider Internal Medicine Geriatric Medicine
DX: R32 Unspecified urinary incontinence (principal)
CPT/HCPCS: 81001

== ENCOUNTER 2023-04-22 08:40 | Outpatient (REF) | payer MEDICAID, SELFPAY ==
--- NOTE | ~2023-04-22 | CT_ITS ---
EXAMINATION: CT ENTEROGRAPHY ABDOMEN AND PELVIS WITH CONTRAST CLINICAL INFORMATION: Noninfected gastroenteritis and colitis. COMPARISON: 01/25/2022 TECHNIQUE: Study performed with oral VoLumen (1350 mL) and 480 mL of water to distend the abdomen. The patient was injected with 85 mL Omnipaque 350 intravenous contrast which was administered without adverse effect. Coronal and sagittal reformatted images were obtained at the technologist's workstation. This CT examination was performed using dose optimization techniques as appropriate, variously including the following: *Automated exposure control *Adjustment of mA and/or kV according to patient size (this includes techniques or standardized protocols for targeted exams where dose is matched to indication/reason for exam; i.e. extremities or head) *Use of iterative reconstruction technique DLP: 685 mGy-cm FINDINGS: GASTROINTESTINAL FINDINGS: Stomach: Satisfactorily distended and unremarkable in appearance. Small intestine: Suboptimally distended. No focal bowel wall thickening. No small bowel obstruction. Large intestine: Satisfactorily distended. Few colonic diverticula. No perirectal changes demonstrated. Additional findings: No abnormal enhancement of the vasa recta or significant mesenteric or retroperitoneal lymphadenopathy is seen. No abdominal abscess or fistulous tract demonstrated. ABDOMINAL AND PELVIC CT FINDINGS: Liver, gallbladder, biliary tract: The liver is decreased in attenuation. No suspicious hepatic lesion. No biliary ductal dilatation. The gallbladder is unremarkable. Pancreas: No ductal dilatation. Spleen: Not enlarged. Adrenal glands and kidneys: No adrenal mass. The kidneys are symmetric in size and enhance normally. No hydronephrosis. There is a 1.3 cm hypodense lesion at the lower pole of the right kidney measuring fluid attenuation. No further imaging follow-up is needed. Ureters and bladder: Unremarkable. Lymphovascular structures: No bulky lymphadenopathy. Nonspecific subcentimeter mesenteric lymph nodes. Abdominal aorta is of normal caliber. Bones: No destructive bone lesions. Lung bases: No pleural or pericardial effusion. CT/CT enterography IMPRESSION: No focal bowel wall thickening or mucosal hyperenhancement. Hepatic steatosis.
== END 2023-04-22 08:41 | disposition home or self-care (01) ==
LOC: HO.CT 08:40
PROVIDERS: PCP Internal Medicine Geriatric Medicine; Visit Provider Physician Assistant
DX: K52.9 Noninfective gastroenteritis and colitis, unspecified (principal); Z83.79 Family history of other diseases of the digestive system
CPT/HCPCS: 74177

== ENCOUNTER 2023-07-06 10:12 | Outpatient (REF) | payer MEDICAID, SELFPAY ==
[2023-07-07 05:03] LABS: CT PCR NOT DETECTED (Not Detect.); NG PCR NOT DETECTED (Not Detect.)
[2023-07-07 10:54] LABS: BV Int Neg Control Negative (Negative); BV Int Pos Control Positive (Positive)
[2023-07-09 02:38] LABS: HPV mRNA E6/E7 rflx Not Detected (Not Detected)
== END 2023-07-06 10:13 | disposition home or self-care (01) ==
LOC: HO.LNP 10:12
PROVIDERS: PCP Internal Medicine Geriatric Medicine; Visit Provider Advanced Practice Midwife
DX: Z01.419 Encounter for gynecological examination (general) (routine) without abnormal findings (principal); N95.1 Menopausal and female climacteric states; I10 Essential (primary) hypertension; R73.03 Prediabetes; E66.9 Obesity, unspecified; R42 Dizziness and giddiness; Z11.3 Encounter for screening for infections with a predominantly sexual mode of transmission
CPT/HCPCS: 0353U; 87480; 87510; 87624; 87660; 88142; 99396

== ENCOUNTER 2023-07-06 10:12 | Outpatient (AMB) | payer MEDICAID, SELFPAY ==
[2023-07-06 10:22] VITALS: BP 122/82; BMI 38.4
--- NOTE | 2023-07-06 10:22 | MHC.OFFVIS ---
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 Intake Note: Having very irregular periods and having hot flashes Inspector Brake Lining Required: Yes Inspector Brake Lining Language: Pakistani Information Interpreted: non-clinical & clinical City Collector: City Collector Present ([place]) Allergies No Known Allergies Allergy (Verified 07/06/23 10:23) Medication List - Last Reconciled 07/06/23 by Isela Hackett CNM oactpjzrcy-etkojauuhxryp-gxya 50-300-40 mg (Fioricet) 1 cap PO Q8H PRN clonazepam 0.25 mg PO BEDTIME gabapentin 100 mg PO TID lidocaine 5% 1 patch topical DAILY loratadine 10 mg PO DAILY losartan 50 mg PO DAILY meclizine 25 mg PO DAILY methylcellulose (laxative) (Citrucel) 500 mg PO TID naproxen 500 mg PO Q12H PRN ondansetron 4 mg PO Q6-8H PRN topiramate 50 mg PO QAM Is last menstrual period known: Yes Last menstrual period: 06/30/23 Post menopausal: No HPI 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 and the periods are changing a little bit also she has been getting hot flashes. She does not get a lot of calcium in her diet. She says she is doing well as regards her blood pressure and pre diabetes and it has not progressed to diabetes. She has had her mammograms. She has an issue with vertigo which has occasionally caused her to fall she does the self physical therapy movements that her doctor taught her and she finds that it really does help. On his advice she has using a walker now any time she is feeling unsteady on her feet and she no longer drives. She is occasionally sexually active with a partner has no particular worries about STDs but is open to testing with the exam part of it. She does not eat a lot of sweets or soda. But she does like her black coffee in the morning. [facility] Medical History (Updated 07/06/23 @ 11:01 by Isela Hackett CNM) Pre-diabetes Vertigo Depression Hypertension Surgical History History of esophagogastroduodenoscopy (EGD) H/O colonoscopy H/O knee surgery Hx of tubal ligation H/O bilateral breast reduction surgery Family History Father HTN (hypertension) Mother HTN (hypertension) Diabetes Sister Diabetes Son No problems noted. Social History Household Members: Spouse Housing: Apartment Alcohol intake: never Patient Tobacco Use Status: Never used Tobacco service: No Current occupational status: disabled Sexual orientation: Straight/Heterosexual Gender identity: Female Female Reproductive History Menstrual Age of Menarche: 14 Duration of menses: other Date of last menstrual period: 06/30/23 control method: other (tubal ligation) Total pregnancies: 2 Full term: 2 Number of Living Children: 2 Date of last pap smear: 07/20/17 (negative) Date of Mammogram: 10/23/22 Physical Exam Vital Signs: Last Vital Signs BP 122/82 07/06/23 10:22 BMI result Body Mass Index 38.4 Const General: healthy appearing, comfortable, no acute distress, well developed and alert Nutritional Appearance: average body habitus Orientation/consciousness: patient oriented x3 Limitations: no limitations HEENT Head: Yes normocephalic Neck Neck: Yes normal visual inspection Chest Chest palpation & inspection: normal inspection of the chest Breast/axilla inspection: normal inspection of the breasts and normal inspection of the axillae Breast/axilla palpation: normal palpation of the breasts and normal palpation of the axillae Resp Effort & Inspection: normal respiratory effort GI Inspection: Yes normal to inspection, No Abdominal wall edema and No distended Palpation (GI): Soft to palpation and nontender Other: Journaling same vagina pink and moist cervix multiparous pink smooth with normal looking mucus uterus small anteverted mobile nontender good tone with Kegel adnexa not enlarged General: Yes bladder normal to palpation External Female Exam: normal external appearance and normal appearance of the urethra Speculum Exam - Vagina: normal appearance of the vagina, normal palpation and normal vaginal discharge Speculum Exam - Cervix: normal appearance of the cervix, normal palpation and nontender Bimanual exam- vagina & uterus: normal bimanual exam, normal palpation, uterine size normal, bladder normal to palpation, consistency normal, normal palpation, uterine mobility normal, uterine shape normal, No Cervical tenderness present, non-tender and no cervical motion tenderness Bimanual Exam- Adnexa, other: normal adnexae, no masses, normal and No adnexal tenderness Neuro General: patient oriented x3 Assessment & Plan Assessment & Plan (1) Prediabetes: Comment: on metformin per her pcc Code(s): R73.03 - Prediabetes (2) Obesity (BMI 35.0-39.9 without comorbidity): Code(s): E66.9 - Obesity, unspecified (3) Well woman exam with routine gynecological exam: Code(s): Z01.419 - Encounter for gynecological examination (general) (routine) without abnormal findings (4) Hypertension: Code(s): I10 - Essential (primary) hypertension (5) Breast cancer screening: Code(s): Z12.39 - Encounter for other screening for malignant neoplasm of breast (6) Vertigo: Comment: Does the head movement positional changes to manage it when it occurs and is very careful. Code(s): R42 - Dizziness and giddiness (7) Perimenopausal symptoms: Code(s): N95.1 - Menopausal and female climacteric states Plan -----Discussed in this visit the following: healthy balanced diet, regular and consistent exercise, getting recommended health screens, doing the best she can for her particular health concerns, kegel exercises, pap smear screening and followup recommendations, mammography screening and SBE, normal changes in cycles in her life stage--- .---Discussed normal changes that happen premenapausally, perimenapausally, and postmenopausally, and ways to handle them. Discussed the normal variation, and the range of experiences that women experience. Discussed nutrition, health, need for exercise, both weight-bearing and aerobic. Also discussed the normal changes that happen with vaginal mucosal thinning and sensitivity, and simple more natural ways of handling these challenges. Recommend increasing calcium intake and since she does not eat any dairy much consider trying Tums. --she follows with her primary care for all of her other health issues . Suggested being aware of what she is eating and moving around a little bit more in this new year also to help with her fibromyalgia as well. Orders: Orders CT NG by PCR Today Z11.3 - Encounter for screening for infections with a predominantly sexual mode of transmission Pap Smear Today Z12.4 - Encounter for screening for malignant neoplasm of cervix Bacterial Vaginosis Panel Today Z11.3 - Encounter for screening for infections with a predominantly sexual mode of transmission Coding Level of Care Code Est Pt Prev Care 40-64y(56679) Diagnoses Prediabetes R73.03 Obesity (BMI 35.0-39.9 without comorbidity) E66.9 Well woman exam with routine gynecological exam Z01.419 Hypertension I10 Breast cancer screening Z12.39 Vertigo R42 Perimenopausal symptoms N95.1
== END 2023-07-06 11:15 | disposition home or self-care (01) ==
LOC: HO.HWSM 10:12
PROVIDERS: PCP Internal Medicine Geriatric Medicine; Visit Provider Advanced Practice Midwife
DX: R73.03 Prediabetes (principal); E66.9 Obesity, unspecified; Z01.419 Encounter for gynecological examination (general) (routine) without abnormal findings; I10 Essential (primary) hypertension; Z12.39 Encounter for other screening for malignant neoplasm of breast; R42 Dizziness and giddiness; N95.1 Menopausal and female climacteric states
CPT/HCPCS: 99396

== ENCOUNTER 2023-07-20 09:41 | Outpatient (REF) | payer MEDICAID, SELFPAY ==
[2023-07-20 11:33] LABS: MANUAL DIFF FLAG NO
[2023-07-20 11:35] LABS: Basophils Absolute Auto 0.1 X10*3/uL (0.0-0.2); Basophils Percent Auto 0.7 % (0-2); Eosinophils Absolute Auto 0.3 X10*3/uL (0.0-0.4); Eosinophils Percent Auto 2.3 % (0-4); Hematocrit 44.4 % (37.0-47.0); Hemoglobin 14.1 g/dl (12.0-16.0); Imm Gran Abs Auto 0.03 X10*3/uL (0.00-0.03); Imm Gran Pct Auto 0.2 % (0.0-0.4); Lymphocytes Absolute Auto 4.4 X10*3/uL (1.2-4.9); Lymphocytes Percent Auto 36.1 % (20-40); Mean Corpuscular HGB Conc 31.8 g/dl (31.0-35.0); Mean Corpuscular Hemoglobin 25.6 pg (27.0-33.0); Mean Corpuscular Volume 80.6 fL (80.0-98.0); Mean Platelet Volume 9.6 fL (9.4-12.3); Monocytes Absolute Auto 0.7 X10*3/uL (0.1-1.2); Monocytes Percent Auto 5.6 % (2-11); Neutrophils Absolute Auto 6.7 x10*3/uL (2.0-8.3); Neutrophils Percent Auto 55.1 % (45-73); Platelet Count 468 X10*3/uL (160-400); Red Blood Count 5.51 X10*6/uL (4.20-5.50); Red Cell Distribution Width 15.5 % (11.0-16.0); White Blood Count 12.2 X10*3/uL (4.8-10.8)
[2023-07-20 11:55] LABS: Estimated Average Glucose 123 mg/dL; Hemoglobin A1C 148.8087 umol/L; Hemoglobin A1c % 5.9 % (<6.0)
[2023-07-20 12:56] LABS: Anion Gap 13 (12-20); Blood Urea Nitrogen 11 mg/dL (9-16); Calcium 9.4 mg/dL (8.4-10.2); Carbon Dioxide 27 mmol/L (22-29); Chloride 104 mmol/L (96-108); Estimated Glomerular Filt Rate > 60; Glucose Random 117 mg/dL (60-115); Potassium 3.9 mmol/L (3.3-5.1); Sodium 140 mmol/L (135-145)
== END 2023-07-20 09:42 | disposition home or self-care (01) ==
LOC: HO.HHCL 09:41
PROVIDERS: Visit Provider Internal Medicine Geriatric Medicine
DX: R73.03 Prediabetes (principal); I10 Essential (primary) hypertension
CPT/HCPCS: 36415; 80048; 83036; 85025

== ENCOUNTER 2023-10-08 09:41 | Outpatient (REF) | payer MEDICAID, SELFPAY ==
[2023-10-08 11:24] LABS: MANUAL DIFF FLAG NO
[2023-10-08 11:35] LABS: Basophils Absolute Auto 0.1 X10*3/uL (0.0-0.2); Basophils Percent Auto 1.7 % (0-2); Eosinophils Absolute Auto 0.5 X10*3/uL (0.0-0.4); Eosinophils Percent Auto 6.2 % (0-4); Hematocrit 45.1 % (37.0-47.0); Hemoglobin 14.2 g/dl (12.0-16.0); Imm Gran Abs Auto 0.01 X10*3/uL (0.00-0.03); Imm Gran Pct Auto 0.1 % (0.0-0.4); Lymphocytes Absolute Auto 2.9 X10*3/uL (1.2-4.9); Lymphocytes Percent Auto 37.5 % (20-40); Mean Corpuscular HGB Conc 31.5 g/dl (31.0-35.0); Mean Corpuscular Hemoglobin 25.7 pg (27.0-33.0); Mean Corpuscular Volume 81.6 fL (80.0-98.0); Mean Platelet Volume 9.9 fL (9.4-12.3); Monocytes Absolute Auto 0.5 X10*3/uL (0.1-1.2); Monocytes Percent Auto 6.4 % (2-11); Neutrophils Absolute Auto 3.7 x10*3/uL (2.0-8.3); Neutrophils Percent Auto 48.1 % (45-73); Platelet Count 427 X10*3/uL (160-400); Red Blood Count 5.53 X10*6/uL (4.20-5.50); Red Cell Distribution Width 15.2 % (11.0-16.0); White Blood Count 7.7 X10*3/uL (4.8-10.8)
== END 2023-10-08 09:42 | disposition home or self-care (01) ==
LOC: HO.HHCL 09:41
PROVIDERS: Visit Provider Internal Medicine Geriatric Medicine
DX: R63.4 Abnormal weight loss (principal); D75.839 Thrombocytosis, unspecified
CPT/HCPCS: 36415; 84443; 85025

== ENCOUNTER 2023-10-27 07:49 | Outpatient (REF) | payer MEDICAID, SELFPAY | END 2023-10-27 07:50 | disposition home or self-care (01) | LOC: HO.MAMMO 07:49 | PROVIDERS: PCP Internal Medicine Geriatric Medicine; Visit Provider Internal Medicine Geriatric Medicine | DX: Z12.31 Encounter for screening mammogram for malignant neoplasm of breast (principal) | CPT/HCPCS: 77063; 77067 ==

== ENCOUNTER → 2023-10-27 08:15 | Outpatient (BNV) | payer MEDICAID, SELFPAY | PROVIDERS: PCP Internal Medicine Geriatric Medicine; Visit Provider Radiology Diagnostic Radiology | DX: Z12.31 Encounter for screening mammogram for malignant neoplasm of breast (principal) | CPT/HCPCS: 77063; 77067 ==

== ENCOUNTER 2024-03-18 14:01 | Outpatient (AMB) | payer MEDICAID, SELFPAY ==
--- NOTE | 2024-03-18 14:12 | MHC.OFFVIS ---
Intake Visit Reasons: TV Hormone Follow up Allergies No Known Allergies Allergy (Verified 03/18/24 14:13) Medication List - Last Reconciled 03/18/24 by Isela Hackett CNM ggnauxzzaw-btvewvjpdnncf-tbmu 50-300-40 mg (Fioricet) 1 cap PO Q8H PRN clonazepam 0.25 mg PO BEDTIME gabapentin 100 mg PO TID lidocaine 5% 1 patch topical DAILY loratadine 10 mg PO DAILY losartan 50 mg PO DAILY meclizine 25 mg PO DAILY methylcellulose (laxative) (Citrucel) 500 mg PO TID naproxen 500 mg PO Q12H PRN ondansetron 4 mg PO Q6-8H PRN topiramate 50 mg PO QAM Is last menstrual period known: Yes Last menstrual period: 03/07/24 HPI HPI TV Hormone Follow up: Details: This is a tele visit to discuss patient's concerns about hormones. She has some symptoms which she showed to her visiting nurse that comes to see her every 2 weeks. She lost a patch of hair on her back and she showed it to the nurse in the nurse told her to call her gynecological provider. She has an appointment with her primary care provider on March 30. She has been losing a lot of weight on purpose trying to lose weight and she has lost from 217 lb at her last gynaecological oncologist visit down to 170 she is walking for exercise. She had been through a lot of stress recently her brother and she went to spent time with the family to support her mother and other family members and there was a lot of stress involved she is starting to kind of come out of that her brother last April. She is still getting her periods sometimes they are heavy but they are very very regular. She isn't having no symptoms of menopause at this point so this discussion about hormones has nothing to do with gynaecological oncologist.. She says her doctor told her her blood sugar was so good to stop the metformin and she does not really need to treat herself as diabetic anymore but she is continuing to try and lose a little bit more weight. The main concern is the patch of hair she lost is not actually on her back per se but at base of her scalp and it is quarter-sized and her daughter in-law noticed it when she was doing hair couple of weeks ago. She does not know of any other bald spots that she has been noticing more hair falling out in hands [facility] Medical History (Updated 03/18/24 @ 15:11 by Isela Hackett CNM) Pre-diabetes Vertigo Depression Hypertension Surgical History History of esophagogastroduodenoscopy (EGD) H/O colonoscopy H/O knee surgery Hx of tubal ligation H/O bilateral breast reduction surgery Family History Father HTN (hypertension) Mother HTN (hypertension) Diabetes Sister Diabetes Son No problems noted. Social History Household Members: Spouse Housing: Apartment Alcohol intake: never Patient Tobacco Use Status: Never used Tobacco service: No Current occupational status: disabled Sexual orientation: Straight/Heterosexual Gender identity: Female Female Reproductive History Menstrual Age of Menarche: 14 Date of last menstrual period: 03/07/24 control method: permanent sterilization Total pregnancies: 2 Date of last pap smear: 07/07/23 (negative) Telehealth Telehealth Telehealth Platform: Telephone Location of provider rendering services: practice address Location of patient: address on file Patient Identification confirmed using: Name, : Yes Telehealth method: voice only Patient verbally consented to treatment: Yes Patient verbally consented to billing insurance company: Yes Patient informed of any privacy concerns related to visit: Yes Minutes spent on Phone/Video with Pt.: 22 (5 cr/22 speaking w pt/8 charting) Results Reviewed Results Reviewed: kathryn: Yumiko Marie Age/Sex: 53/F Attending: Isela Hackett CNM : 1970 Submitted by: Isela Hackett CNM Copies to: Reuben Suh MD MR #: [id number] Status: DEP REF Collected: 07/06/23 Location: [facility] Received: 07/07/23 Interpretation Satisfactory for evaluation. Mild inflammation. Negative for intraepithelial lesion or malignancy. HPV mRNA E6/E7: NOT DETECTED This assay detects E6/E7 viral messenger RNA (mRNA) from 14 high-risk HPV types (16, 18, 31, 33, 35, 39, 45, 51, 52, 56, 58, 59, 66, 68) HPV testing performed by [employer], [place], [place]. See reference laboratory portion of the EMR for entire report. Clinical Information LMP: 06/30/23 Previous PAP test: 2018, WNL Material Received ThinPrep-Cervical Copies To Name,Reuben MARTINEZ [address] [place] [id number] Frank [address] [place] [id number] Electronically Signed By: MEAGHAN Santo (ASCP) 07/21/23 1320 The Pap Test is a screening procedure with the inherent possibility of both false negative and false positive results. Results should be interpreted in the context of historic and current clinical findings. Reliability of the Pap Test is enhanced by performing the test on a regular repetitive basis. Patient: Yumiko Marie Age/Sex: 53/F MR#: [id number] Page 1 of 1 Reviewed previous blood sugars review previous weights TSH last year= 1.5 Assessment & Plan Assessment & Plan (1) Perimenopausal symptoms: Code(s): N95.1 - Menopausal and female climacteric states Category: Medical (2) Alopecia areata: Comment: Per patient description symptoms are consistent with this patient will be seeing her primary care provider about 6 4 and requesting dermatology referral. Code(s): L63.9 - Alopecia areata, unspecified Category: Medical Plan This is a tele visit to discuss patient's concerns about hormones. She has some symptoms which she showed to her visiting nurse that comes to see her every 2 weeks. She lost a patch of hair on her back and she showed it to the nurse in the nurse told her to call her gynecological provider. She has an appointment with her primary care provider on March 30 coming. She has been losing a lot of weight on purpose trying to lose weight and she has lost from 217 lb at her last gynaecological oncologist visit down to 170 she is walking for exercise. She had been through a lot of stress recently her brother and she went to spent time with the family to support her mother and other family members and there was a lot of stress involved she is starting to kind of come out of that her brother last April. She is still getting her periods sometimes they are heavy but they are very very regular. She isn't having no symptoms of menopause at this point so this discussion about hormones has nothing to do with gynaecological oncologist.. She says her doctor told her her blood sugar was so good to stop the metformin and she does not really need to treat herself as diabetic anymore but she is continuing to try and lose a little bit more weight. The main concern is the patch of hair she lost is not actually on her back per se but at base of her scalp and it is quarter-sized and her daughter in-law noticed it when she was doing hair couple of weeks ago. She does not know of any other bald spots that she has been noticing more hair falling out in hands Reviewed past visits in the chart her past visits for her annual exam was last June she had a negative Pap smear. I reviewed past labs in the system her last thyroid level was within normal limits at 1.5 0 She did have some elevated blood sugars that they random fasting and they were in the past her primary care providers been that she sees Dr. Suh at the [facility]. Her next appointment is done March 30. Reviewed in some detail her symptoms patch of hair that is fallen out is circular quarter-sized at the base of her scalp. I reviewed with the patient that this is very typical for hair loss pattern for alopecia areata. I reviewed the other places in the scalp year hair can often be lost in this condition and the circumstances that contribute to various stressors body reviewed that this is considered an autoimmune condition and various stressors can exacerbate it and that it can worsen and then get better without treatment discussed that there are new treatments that have been explored and considered in the last couple of years and suggested strongly that she have a conversation with her primary care provider about getting a referral to Dermatology to discuss this further I suggested she Google alopecia areata and she told me she already has. Patient has seen me many times and I shared with her that this is the condition I have but the most people do not progress to total hair loss. I educated her about what to watch for for signs and symptoms about the hair growing back and what it may appear like in her vcimmnft-xu-nru's going doing her hair Thursday and I suggested she may want to take a picture be area and if there is any new hair growth she will be able to see it close that way reviewed that it does not always progress but that is stress often is effect. We will see her for her next visit June. Congratulated on her incredible efforts at weight loss and getting healthier and improving her health. Coding Level of Care Code Tele Est Pt Level 3 (63503) Diagnoses Perimenopausal symptoms N95.1 Alopecia areata L63.9 Time Spent (min) 35 Comment 5 cr/22 speaking w pt/8 charting
== END 2024-03-18 14:55 | disposition home or self-care (01) ==
LOC: HO.HWSM 14:01
PROVIDERS: PCP Internal Medicine Geriatric Medicine; Visit Provider Advanced Practice Midwife
DX: N95.1 Menopausal and female climacteric states (principal); L63.9 Alopecia areata, unspecified
CPT/HCPCS: 99213

== ENCOUNTER → 2024-03-18 14:01 | Outpatient (BNVA) | payer MEDICAID, SELFPAY | PROVIDERS: PCP Internal Medicine Geriatric Medicine; Visit Provider Advanced Practice Midwife ==

== ENCOUNTER 2024-06-19 23:38 | Inpatient (IN) | payer MEDICAID, SELFPAY ==
--- NOTE | ~2024-06-19 | CT_ITS ---
CLINICAL HISTORY: Right lower quadrant pain? Appendicitis CT abdomen and pelvis with contrast Comparison: CT/REG/SR - CT ABDOMEN PELVIS WO IV CON - 01/25/2022 05:20 AM EDT Findings: The lung bases are clear. Unremarkable gallbladder and solid organs. No urolithiasis. No bowel obstruction, pneumoperitoneum, or pneumatosis. The appendix is enlarged up to 1.5 cm with periappendiceal fat stranding or inflammatory change. No acute fracture. IMPRESSION: Acute appendicitis. This document has been electronically signed by: Win Main MD, PHD on 06/20/2024 03:18:17
[2024-06-19 23:41] VITALS: BP 136/84; PULSE 88; RESP 16; TEMP 36.6; O2SAT 100; BMI 28.3
[2024-06-20] VITALS (18 sets, daily range): BP systolic 95–141; BP diastolic 56–85; PULSE 61–89; RESP 16–22; TEMP 36.2–37.2; O2SAT 93–100
[2024-06-20 00:35] LABS: MANUAL DIFF FLAG NO
[2024-06-20 00:43] LABS: Appearance Urine Clear; Color Urine Yellow; Glucose Urine UA Negative (Negative); Leukocyte Esterase Urine Negative (Negative); Nitrite Urine Negative (Negative); Urine Blood Negative (Negative); Urine Ketones Negative (Negative); Urine Protein Negative (Neg-Trace)
[2024-06-20 00:48] LABS: Basophils Absolute Auto 0.1 X10*3/uL (0.0-0.2); Basophils Percent Auto 0.7 % (0-2); Eosinophils Absolute Auto 0.3 X10*3/uL (0.0-0.4); Eosinophils Percent Auto 1.6 % (0-4); Hemoglobin 14.4 g/dl (12.0-16.0); Imm Gran Abs Auto 0.05 X10*3/uL (0.00-0.03); Imm Gran Pct Auto 0.3 % (0.0-0.4); Lymphocytes Absolute Auto 3.9 X10*3/uL (1.2-4.9); Lymphocytes Percent Auto 24.7 % (20-40); Mean Corpuscular Hemoglobin 25.7 pg (27.0-33.0); Mean Corpuscular Volume 80.2 fL (80.0-98.0); Mean Platelet Volume 9.3 fL (9.4-12.3); Monocytes Absolute Auto 0.8 X10*3/uL (0.1-1.2); Monocytes Percent Auto 5.1 % (2-11); Neutrophils Absolute Auto 10.8 x10*3/uL (2.0-8.3); Neutrophils Percent Auto 67.6 % (45-73); Platelet Count 384 X10*3/uL (160-400); Red Blood Count 5.61 X10*6/uL (4.20-5.50); Red Cell Distribution Width 15.1 % (11.0-16.0); White Blood Count 15.9 X10*3/uL (4.8-10.8)
[2024-06-20 01:02] LABS: Alanine Aminotransferase 13 U/L (0-31); Albumin Level 4.1 g/dL (3.5-5.0); Alkaline Phosphatase 78 U/L (39-117); Anion Gap 12 (12-20); Aspartate Amino Transferase 17 U/L (5-31); Bilirubin Total 0.2 mg/dL (0.0-1.0); Blood Urea Nitrogen 10 mg/dL (9-16); Calcium 10.1 mg/dL (8.4-10.2); Carbon Dioxide 26 mmol/L (22-29); Chloride 106 mmol/L (96-108); Creatinine Clr Calc Pharmacy 88.4; Estimated Glomerular Filt Rate > 60; Glucose Random 105 mg/dL (60-115); Potassium 4.4 mmol/L (3.3-5.1); Sodium 140 mmol/L (135-145); Total Protein 8.2 g/dL (6.5-8.0)
--- NOTE | 2024-06-20 02:07 | ED.ABDPAIN ---
HPI - Abdominal Pain General Chief Complaint: Abdominal Pain Stated Complaint: r leg pain Time Seen by Provider: 06/20/24 02:06 Source: patient Mode of arrival: ambulatory Limitations: no limitations History of Present Illness ED Provider: HPI narrative: Patient advised healthy noticed gradual onset of right lower quadrant abdominal pain earlier today got worse after 16:00 increases on ambulation and palpation as she with nausea patient's last meal at 15:00 does not feel hungry no fever no chills no urinary symptoms no history of kidney stone Related Data Home Medications ?Medication ?Instructions ?Recorded ?Confirmed clonazepam 0.5 mg tablet 0.25 mg PO BEDTIME 02/19/21 03/18/24 loratadine 10 mg tablet 10 mg PO DAILY 02/19/21 03/18/24 losartan 50 mg tablet 50 mg PO DAILY 02/19/21 03/18/24 meclizine 25 mg tablet 25 mg PO DAILY 02/19/21 03/18/24 gabapentin 100 mg capsule 100 mg PO TID 07/06/23 03/18/24 lidocaine 5 % topical patch 1 patch topical DAILY 07/06/23 03/18/24 naproxen 500 mg tablet 500 mg PO Q12H PRN pain 07/06/23 03/18/24 topiramate 25 mg tablet 50 mg PO QAM 07/06/23 03/18/24 Previous Rx's ?Medication ?Instructions ?Recorded ondansetron 4 mg disintegrating 4 mg PO Q6-8H PRN nausea and 01/25/22 tablet vomiting #14 tabs byldkkynln-unuhodwycqlps-sqhtabah 1 cap PO Q8H PRN pain #20 caps 04/28/22 50 mg-300 mg-40 mg capsule (Fioricet) methylcellulose (laxative) 500 mg 500 mg PO TID #90 tabs 11/19/22 tablet (Citrucel) Allergies Allergy/AdvReac Type Severity Reaction Status Date / Time No Known Allergies Allergy Verified 06/19/24 23:43 Review of Systems Review of Systems Yes all other systems are reviewed and are negative [facility] Past Medical History Medical History Pre-diabetes Vertigo Depression Hypertension Surgical History History of esophagogastroduodenoscopy (EGD) H/O colonoscopy H/O knee surgery Hx of tubal ligation H/O bilateral breast reduction surgery Family History Family History Father HTN (hypertension) Mother HTN (hypertension) Diabetes Sister Diabetes Son No problems noted. Social History Social History Household Members: Spouse Housing: Apartment Alcohol intake: never Patient Tobacco Use Status: Never used Tobacco Smoked in Last 30 Days: No Use of substances other than those prescribed or required for medical reasons: No Advance Directives: No Advance Directives Information Provided: Yes Do you have a plan to hurt others: No Plan Patient : No service: No Current occupational status: disabled Sexual orientation: Straight/Heterosexual Gender identity: Female Physical Exam ED Vital Signs: Vital Signs - 24 hr 06/19/24 23:41 06/20/24 01:11 06/20/24 02:43 Temperature 97.8 F 97.4 F 98.8 F Pulse Rate 88 89 89 Respiratory Rate 16 16 16 Blood Pressure 136/84 141/84 H 124/75 Pulse Oximetry 100 99 100 Oxygen Delivery Method Room Air Room Air Room Air 06/20/24 05:34 Temperature 98.8 F Pulse Rate 83 Respiratory Rate 18 Blood Pressure 101/68 Pulse Oximetry 95 Oxygen Delivery Method Room Air BMI result Body Mass Index 28.3 Appearance: Alert. Oriented X3. No acute distress. Eyes: No pallor or icterus ENT: Pharynx normal. Oral Mucosa moist Neck: Normal inspection. Neck supple. CVS: Normal heart rate and rhythm. Pulses normal. Respiratory: No respiratory distress. Equal air entry bilateral, no wheezing/rales/rhonchi Abdomen: Soft tenderness with guarding and rebound tenderness in the right lower quadrant. Bowel sounds are present, no mass palpable, no CVA tenderness Skin: Skin warm and dry. Normal skin color. Normal skin turgor. Extremities: No lower extremity edema. No calf tenderness Neuro: Oriented X 3. No motor deficit. Medical Decision Making Medical Decision Making MDM Narrative: Patient's right lower quadrant pain possible appendicitis will do CT scan abdomen CT scan showed uncomplicated appendicitis scheduled Dr. Gonzalez and Dr. Angeles will go to OR in the a.m. Differential Diagnosis Differential Diagnoses: The differential diagnosis associated with the presentation includes Diverticulitis/kidney stone/ovarian cyst/appendicitis Admission/Observation Consideration of admission/observation: Escalation of care including admission/observation considered Consult Healthcare Provider Management of the patient was discussed with: Art Consultant Dr. Gonzalez surgeon Lab Data MDM Lab Attestation statement: I reviewed the patient's lab results. 06/20/24 00:31 06/20/24 00:31 Labs: Lab Results 06/20/24 Range/Units 00:31 WBC 15.9 H (4.8-10.8) X10*3/uL RBC 5.61 H (4.20-5.50) X10*6/uL Hgb 14.4 (12.0-16.0) g/dl Hct 45.0 (37.0-47.0) % MCV 80.2 (80.0-98.0) fL MCH 25.7 L (27.0-33.0) pg MCHC 32.0 (31.0-35.0) g/dl RDW 15.1 (11.0-16.0) % Plt Count 384 (160-400) X10*3/uL MPV 9.3 L (9.4-12.3) fL Immature Gran % (Auto) 0.3 (0.0-0.4) % Neut % (Auto) 67.6 (45-73) % Lymph % (Auto) 24.7 (20-40) % Johnston % (Auto) 5.1 (2-11) % Eos % (Auto) 1.6 (0-4) % Baso % (Auto) 0.7 (0-2) % Lymph # (Auto) 3.9 (1.2-4.9) X10*3/uL Johnston # (Auto) 0.8 (0.1-1.2) X10*3/uL Eos # (Auto) 0.3 (0.0-0.4) X10*3/uL Baso # (Auto) 0.1 (0.0-0.2) X10*3/uL Abs Immat Gran (auto) 0.05 H (0.00-0.03) X10*3/uL Absolute Neuts (auto) 10.8 H (2.0-8.3) x10*3/uL Absolute Nucleated RBC 0.000 (0.0-0.012) X10*3/uL Nucleated RBC % (auto) 0.0 (0.0-0.2) /100WBC Sodium 140 (135-145) mmol/L Potassium 4.4 (3.3-5.1) mmol/L Chloride 106 (96-108) mmol/L Carbon Dioxide 26 (22-29) mmol/L Anion Gap 12 (12-20) BUN 10 (9-16) mg/dL Creatinine 0.71 (0.5-1.4) mg/dL Estim Creat Clear Calc 88.4 Estimated GFR > 60 Random Glucose 105 (60-115) mg/dL Calcium 10.1 D (8.4-10.2) mg/dL Total Bilirubin 0.2 (0.0-1.0) mg/dL AST 17 (5-31) U/L ALT 13 (0-31) U/L Alkaline Phosphatase 78 (39-117) U/L Total Protein 8.2 H (6.5-8.0) g/dL Albumin 4.1 (3.5-5.0) g/dL Urine Color Yellow Urine Appearance Clear Urine pH 6.0 (5.0-9.0) Ur Specific [place] 1.010 (1.005-1.025) Urine Protein Negative (Neg-Trace) mg/dL Urine Glucose (UA) Negative (Negative) mg/dL Urine Ketones Negative (Negative) mg/dL Urine Blood Negative (Negative) Urine Nitrite Negative (Negative) Ur Leukocyte Esterase Negative (Negative) Independent Interpretation I performed an independent interpretation of an: CT Scan Interpretation: Acute appendicitis uncomplicated Radiology Impression Discussion of test interpretation with radiology: I have reviewed the radiologist's reading. Radiologist Impression: [address] [address] [address] Scan Report Signed with Addenda Patient: Yumiko Marie MR#: [id number] : 1970 Acct:[id number] Age/Sex: 54 / F ADM Date: 06/20/24 Loc: .ED Attending Dr: Ordering Physician: Bryn Root MD Date of Service: 06/20/24 Procedure(s): CT abdomen pelvis w IV con Accession Number(s): [id number] cc: Reuben Suh MD; Bryn Root MD~ Report Number: [id number]: Total DLP = 614.00 mGy-cm ADDENDUMThis document has been electronically signed by: Win Main MD, PHD on 06/20/2024 03:18:17 ADDENDUM: This report was discussed with Ivett Quesada on Jun 20, 2024 03:20:00 EST. This document has been electronically signed by: Sindy Santana on 06/20/2024 03:22:47 Addendum Dictated By: Win Main MD Addendum Signed By: <Electronically signed by Win Main MD in OV> 06/20/24323 Addendum Cosigned By: DD/ TD/TT: 06/20/24 CLINICAL HISTORY: Right lower quadrant pain? Appendicitis CT abdomen and pelvis with contrast Comparison: CT/REG/SR - CT ABDOMEN PELVIS WO IV CON - 01/25/2022 05:20 AM EDT Findings: The lung bases are clear. Unremarkable gallbladder and solid organs. No urolithiasis. No bowel obstruction, pneumoperitoneum, or pneumatosis. The appendix is enlarged up to 1.5 cm with periappendiceal fat stranding or inflammatory change. No acute fracture. IMPRESSION: Acute appendicitis. This document has been electronically signed by: Win Main MD, PHD on 06/20/2024 03:18:17 Dictated By: Win Main MD Signed By: <Electronically signed by Win Main MD in OV> 06/20/24318 Medications Administered Discontinued Medications Generic Name Dose Route Start Last Admin Trade Name Freq PRN Reason Stop Dose Admin Sodium Chloride 1,000 mls @ 999 mls/hr 06/20/24 02:15 06/20/24 03:38 Ns IV 06/20/24 03:15 Infused .Q1H1M ONE Infusion Acetaminophen 1,000 mg in 100 mls @ 400 mls/hr 06/20/24 02:27 06/20/24 03:18 Ofirmev IV 06/20/24 02:41 Infused ONCE ONE Infusion Piperacillin Sod/Tazobactam 50 mls @ 100 mls/hr 06/20/24 03:23 06/20/24 04:19 Sod 3.375 gm/ Sodium Chloride IV 06/20/24 03:52 Infused ONCE ONE Infusion Iohexol 85 ml 06/20/24 02:33 06/20/24 02:34 Iohexol 350 Mg/Ml 100 Ml Infus..Btl IV 06/20/24 02:34 85 ml ONCE ONE Administration Ondansetron HCl 4 mg 06/20/24 02:15 06/20/24 02:37 Ondansetron Hcl 4 Mg/2 Ml Vial IVPUSH 06/20/24 02:16 4 mg ONCE ONE Administration Discharge Plan Discharge Clinical Impression: Acute appendicitis Patient Disposition: Admitted As Inpatient Print Language: Bulgarian
[2024-06-20] MEDS: iohexoL 350 MG/ML 100 ML INFUS..BTL 85 ML IV (02:34)
[2024-06-20] MEDS: ondansetron HCL 4 MG/2 ML VIAL IVPUSH (02:37)
[2024-06-20] MEDS: 0.9 % Sodium Chloride 1,000 ML 999 ML IV (02:37)
[2024-06-20] MEDS: Acetaminophen 1,000 MG/100 ML PIGGYBACK 400 MG IV (02:37)
[2024-06-20] MEDS: Piperacillin Sodium/Tazobactam 3.375 GM in 0.9 % Sodium Chloride 50 ML IV ×4 (03:33→21:35)
--- NOTE | 2024-06-20 07:29 | PC.NURSE ---
this RN resumed care of pt a 0645. a&ox4. vss and up to date. pt presents to the ED c/o / RLQ pain w/ associated nausea/nonbloody diarrhea x yesterday. pt denies any episodes of vomiting/fevers/chills. abd/pelvis CT displays acute appendicitis. pt pending general surgery consult at this time. pt aware she is to remain NPO at this time. pt states last PO consumption was around 1500 yesterday. pt still verbalizing 9/10 abd pain despite IV tylenol infusion. pt declining medication administration. pt resting comfortably in stretcher at this time. respirations even/unlabored. plan of care ongoing. call vargas placed within reach.
[2024-06-20] MEDS: Lactated Ringers 1,000 ML 100 ML IVCONT (08:29)
--- NOTE | 2024-06-20 08:56 | PHA.MEDREC ---
Addendum entered by Sheri Coronado RPh 06/20/24 09:13: reviewed by [facility]. Original Note: Pharmacy Consult ? Medication Reconciliation Pharmacy has completed the medication reconciliation. Spoke with patient and she was able to confirm her medications. She confirmed she last took her medications yesterday morning.
--- NOTE | 2024-06-20 09:56 | PC.NURSE ---
pt seen by general surgery/aware of plan of care moving forward. abx administered per provider order. family bedside for support. plan of care ongoing.
[2024-06-20] MEDS: Ketorolac Tromethamine 15 MG/ML VIAL IVPUSH ×2 (10:36→23:06)
[2024-06-20] MEDS: Pantoprazole Sodium 40 MG/10 ML VIAL IVPUSH (10:36)
--- NOTE | 2024-06-20 10:42 | PC.NURSE ---
medication administered per provider order. effectiveness pending. family remains bedside at this time.
--- NOTE | 2024-06-20 11:38 | MHC.CM.PN ---
Addendum entered by Kelle Alcantara 06/20/24 12:27: CM CALLED [facility], THEY DO NOT HAVE ANY VNA ORDERS ON FILE NOR DO THEY HAVE A HCP FOR THIS PT Original Note: PT REPORTS SHE LIVES ALONE BUT HER KIDS ARE THERE DAILY SHE HAS DAILY VNA SERVICES (2 HRS) AND A VNA, SHE DOES NOT KNOW THE AGENCY NAME PT USES A [facility] SHE SAYS SHE HAS A HCP NAMING HER KIDS, COPY REQUESTED PCP: MIRELLA NAME AT [facility] DCP: [facility] CM WILL CALL [facility] TO REQUEST NAME OF VNA AND COPY OF HCP
--- NOTE | 2024-06-20 12:40 | PC.NURSE ---
pt verbalizes pain level decreased s/p medication administration. pt offers no complaints at this time. LR continues to infuse @ 100mls/hr. pending bed assignment/transport to surgery. ETA still unknown - will update pt when able. family remains bedside for support. plan of care ongoing.
--- NOTE | 2024-06-20 13:22 | P.HPGS_ITS ---
History of Present Illness History of Present Illness Date of Service: 06/20/24 Chief complaint: r leg pain Narrative: Yumiko Marie is a 54 year old female who came into the emergency room complaining abdominal pain which started yesterday. It got progressively worse so she came into the emergency room overnight. Here she was noted to be tender in the right lower quadrant area and a CT scan was carried out which showed thickened distended appendix with some inflammatory changes surrounding it. She denies any fever or chills. She has never had any abdominal surgery. She has had a breast reduction in the past. Review of Systems Review of Systems: Yes all other systems are reviewed and are negative PMFSH Past Medical History Medical History Pre-diabetes Vertigo Depression Hypertension Family History Family History Father HTN (hypertension) Mother HTN (hypertension) Diabetes Sister Diabetes Son No problems noted. Surgical History Surgical History History of esophagogastroduodenoscopy (EGD) H/O colonoscopy H/O knee surgery Hx of tubal ligation H/O bilateral breast reduction surgery Social History Social History Household Members: Family Housing: House Alcohol intake: never Patient Tobacco Use Status: Never used Tobacco Smoked in Last 30 Days: No Use of substances other than those prescribed or required for medical reasons: No Have you been hit, kicked, punched, or otherwise hurt by someone within the past year? If so, by whom?: No Do you feel safe in your current relationship?: Yes Is there a partner from a previous relationship who is making you feel unsafe now?: No Are you made to feel afraid or neglected: No Spiritual Healthcare Practices: Jew Advance Directives: No Advance Directives Information Provided: Yes Do you have a plan to hurt others: No Plan Recently lost weight without trying: No Eating poorly because of decreased appetite: No Nutrition Risks: No Nutritional Risk Patient : No : No Poor oral hygiene: No service: No Current occupational status: disabled Sexual orientation: Straight/Heterosexual Gender identity: Female Meds Allergies Allergy/AdvReac Type Severity Reaction Status Date / Time No Known Allergies Allergy Verified 06/19/24 23:43 Active Medications: Current Medications Lactated Ringer's (Lr) 1,000 mls @ 100 mls/hr IVCONT .Q10H [facility] Last Admin: 06/20/24 08:29 Dose: 100 mls/hr Piperacillin Sod/Tazobactam (Sod 3.375 gm/ Sodium Chloride) 50 mls @ 100 mls/hr IV Q6H [facility] Last Infusion: 06/20/24 10:08 Dose: Infused Ketorolac Tromethamine (Ketorolac Tromethamine 15 Mg/Ml Vial) 15 mg IVPUSH Q6H [facility] Last Admin: 06/20/24 10:36 Dose: 15 mg Melatonin (Melatonin 3 Mg Tablet) 6 mg PO BEDTIME PRN PRN Reason: Insomnia Morphine Sulfate (Morphine Sulfate 4 Mg/Ml Cartridge) 2 mg IVPUSH Q4H PRN; Protocol PRN Reason: Pain, Severe (Pain Scale 7-10) Ondansetron HCl (Ondansetron Hcl 4 Mg/2 Ml Vial) 4 mg IVPUSH Q8H PRN PRN Reason: Nausea and Vomiting Pantoprazole Sodium (Pantoprazole Sodium 40 Mg/10 Ml Vial) 40 mg IVPUSH DAILY@0630 [facility] Last Admin: 06/20/24 10:36 Dose: 40 mg Sodium Chloride (0.9 % Sodium Chloride Flush 3 Ml Syringe) 3 ml IVFLUSH QSHIFT [facility] Last Admin: 06/20/24 08:29 Dose: Not Given Home Medications ?Medication ?Instructions ?Recorded ?Confirmed ?Last Taken ?Type clonazepam 0.5 mg tablet 0.5 mg PO BEDTIME PRN Anxiety 02/19/21 06/20/24 Unknown History loratadine 10 mg tablet 10 mg PO DAILY 02/19/21 06/20/24 06/19/24 History meclizine 25 mg tablet 25 mg PO DAILY PRN Dizziness 02/19/21 06/20/24 Unknown History gabapentin 100 mg capsule 100 mg PO TID 07/06/23 06/20/24 06/19/24 History lidocaine 5 % topical patch 1 patch topical DAILY PRN Pain 07/06/23 06/20/24 Unknown History topiramate 25 mg tablet 50 mg PO DAILY 07/06/23 06/20/24 06/19/24 History amitriptyline 25 mg tablet 25 mg PO BEDTIME 06/20/24 06/20/24 06/18/24 History baclofen 20 mg tablet 20 mg PO BID 06/20/24 06/20/24 06/19/24 History bisacodyl 5 mg tablet,delayed 10 mg PO DAILY PRN constipation 06/20/24 06/20/24 Unknown History release (Laxative (bisacodyl)) cholecalciferol (vitamin D3) 25 25 mcg PO DAILY 06/20/24 06/20/24 06/19/24 History mcg (1,000 unit) tablet clonidine HCl 0.1 mg tablet 0.1 mg PO BID 06/20/24 06/20/24 06/19/24 History diclofenac sodium 1 % topical gel 1 g topical DAILY 06/20/24 06/20/24 06/19/24 History hydrochlorothiazide 12.5 mg tablet 12.5 mg PO DAILY 06/20/24 06/20/24 06/19/24 History lidocaine 5 % topical ointment 1 appl topical NEEDED PRN mild 06/20/24 06/20/24 Unknown History pain losartan 100 mg tablet 100 mg PO DAILY 06/20/24 06/20/24 06/19/24 History meloxicam 7.5 mg tablet 7.5 mg PO DAILY 06/20/24 06/20/24 06/19/24 History ondansetron 4 mg disintegrating 4 mg PO Q6H PRN nausea and vomiting 06/20/24 06/20/24 Unknown History tablet Physical Exam Vital Signs: Vital Signs: Last Vital Signs Temp 98.2 F 06/20/24 12:10 Pulse 82 06/20/24 12:10 Resp 18 06/20/24 12:10 BP 95/56 L 06/20/24 12:10 Pulse Ox 94 06/20/24 12:10 O2 Del Method Room Air 06/20/24 12:10 BMI result Body Mass Index 28.3 Const: General: cooperative, healthy appearing, alert, awake and acute distress mild Resp: Effort & Inspection: normal respiratory effort Auscultation: clear to auscultation bilaterally Cardio: Rate: regular rate Rhythm: regular rhythm GI: Other: Abdomen is soft nondistended tender in the right lower quadrant with guarding no peritoneal signs Results Results Labs: Short CBC 06/20/24 Range/Units 00:31 WBC 15.9 H (4.8-10.8) X10*3/uL Hgb 14.4 (12.0-16.0) g/dl Hct 45.0 (37.0-47.0) % Plt Count 384 (160-400) X10*3/uL BMP 06/20/24 00:31 Sodium 140 Potassium 4.4 Chloride 106 Carbon Dioxide 26 BUN 10 Creatinine 0.71 Calcium 10.1 D Liver Function 06/20/24 Range/Units 00:31 Total Bilirubin 0.2 (0.0-1.0) mg/dL AST 17 (5-31) U/L ALT 13 (0-31) U/L Alkaline Phosphatase 78 (39-117) U/L Albumin 4.1 (3.5-5.0) g/dL Urine 06/20/24 Range/Units 00:31 Urine Color Yellow Urine Appearance Clear Urine pH 6.0 (5.0-9.0) Ur Specific [place] 1.010 (1.005-1.025) Urine Protein Negative (Neg-Trace) mg/dL Urine Glucose (UA) Negative (Negative) mg/dL Abdomen CT scan report/results: report reviewed and image reviewed CT scan - pelvis: report reviewed and image reviewed Additional studies: Acct:[id number] Age/Sex: 54 / F ADM Date: 06/20/24 Loc: HO.ED Attending Dr: Ordering Physician: Bryn Root MD Date of Service: 06/20/24 Procedure(s): CT abdomen pelvis w IV con Accession Number(s): [id number] cc: Name,Reuben MARTINEZ; Bryn Root MD~ Report Number: [id number]: Total DLP = 614.00 mGy-cm ADDENDUMThis document has been electronically signed by: Win Main MD, PHD on 06/20/2024 03:18:17 ADDENDUM: This report was discussed with Ivett Quesada on Jun 20, 2024 03:20:00 EST. This document has been electronically signed by: Sindy Santana on 06/20/2024 03:22:47 Addendum Dictated By: Win Main MD Addendum Signed By: <Electronically signed by Win Main MD in OV> 06/20/24323 Addendum Cosigned By: DD/ TD/TT: 06/20/24 CLINICAL HISTORY: Right lower quadrant pain? Appendicitis CT abdomen and pelvis with contrast Comparison: CT/REG/SR - CT ABDOMEN PELVIS WO IV CON - 01/25/2022 05:20 AM EDT Findings: The lung bases are clear. Unremarkable gallbladder and solid organs. No urolithiasis. No bowel obstruction, pneumoperitoneum, or pneumatosis. The appendix is enlarged up to 1.5 cm with periappendiceal fat stranding or inflammatory change. No acute fracture. IMPRESSION: Acute appendicitis. This document has been electronically signed by: Win Main MD, PHD on 06/20/2024 03:18:17 Dictated By: Win Main MD Signed By: <Electronically signed by Win Main MD in OV> 06/20/24318 DD/ 7 TD/TT: 06/20/24317 Community Development Planner: Assessment and Plan (1) Acute appendicitis: Status: Acute Plan 54-year-old female with right lower quadrant pain elevated white count CT scan consistent with thickened inflammatory changes around the appendix which go along with the appendicitis. Plan is to admit NPO IV fluids IV Zosyn and take to the OR to undergo laparoscopic appendectomy. Risks and benefits were discussed with the patient including but not limited to bleeding infection bowel injury other organ injury and despite this she wishes to proceed Quality Stroke Does the patient have a stroke diagnosis?: No VTE Prior VTE?: No VTE Risk Level:: Surgical - low VTE Device Contraindication: N/A - Device Ordered VTE Drug Contraindication: Treatment Not Indicated Procedures Date of Service Date of Service: 06/20/24
--- NOTE | 2024-06-20 13:53 | PC.NURSE ---
report given to MONICA Guzman in short stay at this time.
--- NOTE | 2024-06-20 22:07 | HO.ANESPROP2 ---
REPLACED BY [facility] Active Problems Active Problems: yAll Active Problems Acute appendicitis (Acute) Alopecia areata (Acute) Cervical cancer screening (Acute) Perimenopausal symptoms (Acute) Breast cancer screening (Acute) Family history of Crohn's disease (Acute) Hemorrhoids (Acute) Diverticulosis of colon (Acute) Ileitis (Acute) Tubular adenoma (Acute) History of adenomatous polyp of colon (Acute) Rectal bleeding (Acute) Encounter for screening colonoscopy (Acute) Perimenopause (Acute) Prediabetes (Acute) Obesity (BMI 35.0-39.9 without comorbidity) (Acute) Well woman exam with routine gynecological exam (Acute) Vertigo (Acute) Hypertension (Acute) Past Medical History Medical History MARILU (obstructive sleep apnea) Pre-diabetes Vertigo Depression Hypertension Functional capacity: independent ambulation Patient : No Family History Family History Father HTN (hypertension) Mother HTN (hypertension) Diabetes Sister Diabetes Son No problems noted. Family history of problems with anesthesia: No Surgical History Surgical History History of esophagogastroduodenoscopy (EGD) H/O colonoscopy H/O knee surgery Hx of tubal ligation H/O bilateral breast reduction surgery History of Problems with Anesthesia: No Social History Social History Household Members: Family Housing: House Are you a primary medical care evaluation specialist to a significant other at home: No Do you presently have visiting nurse or other home services: No Alcohol intake: never Comment: vertigo at times Patient Tobacco Use Status: Never used Tobacco service: No Current occupational status: disabled Sexual orientation: Straight/Heterosexual Gender identity: Female Meds Allergies Allergy/AdvReac Type Severity Reaction Status Date / Time No Known Allergies Allergy Verified 06/20/24 16:07 Active Medications: Current Medications Lactated Ringer's (Lr) 1,000 mls @ 100 mls/hr IVCONT .Q10H [facility] Last Infusion: 06/20/24 15:58 Dose: 0 mls/hr Piperacillin Sod/Tazobactam (Sod 3.375 gm/ Sodium Chloride) 50 mls @ 100 mls/hr IV Q6H [facility] Last Admin: 06/20/24 21:35 Dose: 100 mls/hr Ketorolac Tromethamine (Ketorolac Tromethamine 15 Mg/Ml Vial) 15 mg IVPUSH Q6H [facility] Last Admin: 06/20/24 16:58 Dose: Not Given Melatonin (Melatonin 3 Mg Tablet) 6 mg PO BEDTIME PRN PRN Reason: Insomnia Morphine Sulfate (Morphine Sulfate 4 Mg/Ml Cartridge) 2 mg IVPUSH Q4H PRN; Protocol PRN Reason: Pain, Severe (Pain Scale 7-10) Ondansetron HCl (Ondansetron Hcl 4 Mg/2 Ml Vial) 4 mg IVPUSH Q8H PRN PRN Reason: Nausea and Vomiting Pantoprazole Sodium (Pantoprazole Sodium 40 Mg/10 Ml Vial) 40 mg IVPUSH DAILY@0630 [facility] Last Admin: 06/20/24 10:36 Dose: 40 mg Sodium Chloride (0.9 % Sodium Chloride Flush 3 Ml Syringe) 3 ml IVFLUSH QSHIFT [facility] Last Admin: 06/20/24 15:04 Dose: Not Given Home Medications ?Medication ?Instructions ?Recorded ?Confirmed ?Last Taken ?Type clonazepam 0.5 mg tablet 0.5 mg PO BEDTIME PRN Anxiety 02/19/21 06/20/24 Unknown History loratadine 10 mg tablet 10 mg PO DAILY 02/19/21 06/20/24 06/19/24 History meclizine 25 mg tablet 25 mg PO DAILY PRN Dizziness 02/19/21 06/20/24 Unknown History gabapentin 100 mg capsule 100 mg PO TID 07/06/23 06/20/24 06/19/24 History lidocaine 5 % topical patch 1 patch topical DAILY PRN Pain 07/06/23 06/20/24 Unknown History topiramate 25 mg tablet 50 mg PO DAILY 07/06/23 06/20/24 06/19/24 History amitriptyline 25 mg tablet 25 mg PO BEDTIME 06/20/24 06/20/24 06/18/24 History baclofen 20 mg tablet 20 mg PO BID 06/20/24 06/20/24 06/19/24 History bisacodyl 5 mg tablet,delayed 10 mg PO DAILY PRN constipation 06/20/24 06/20/24 Unknown History release (Laxative (bisacodyl)) cholecalciferol (vitamin D3) 25 25 mcg PO DAILY 06/20/24 06/20/24 06/19/24 History mcg (1,000 unit) tablet clonidine HCl 0.1 mg tablet 0.1 mg PO BID 06/20/24 06/20/24 06/19/24 History diclofenac sodium 1 % topical gel 1 g topical DAILY 06/20/24 06/20/24 06/19/24 History hydrochlorothiazide 12.5 mg tablet 12.5 mg PO DAILY 06/20/24 06/20/24 06/19/24 History lidocaine 5 % topical ointment 1 appl topical NEEDED PRN mild 06/20/24 06/20/24 Unknown History pain losartan 100 mg tablet 100 mg PO DAILY 06/20/24 06/20/24 06/19/24 History meloxicam 7.5 mg tablet 7.5 mg PO DAILY 06/20/24 06/20/24 06/19/24 History ondansetron 4 mg disintegrating 4 mg PO Q6H PRN nausea and vomiting 06/20/24 06/20/24 Unknown History tablet Exam Height,Weight and Vital Signs: Height 5 ft 3 in Weight 72.575 kg Last Vital Signs Temp 98.5 F 06/20/24 16:09 Pulse 87 06/20/24 16:09 Resp 16 06/20/24 16:09 BP 134/82 06/20/24 16:09 Pulse Ox 98 06/20/24 16:09 O2 Del Method Room Air 06/20/24 16:09 Pertinent Lab Results Pertinent Lab Results: Laboratory Tests 06/20/24 00:31 WBC 15.9 H RBC 5.61 H Hgb 14.4 Hct 45.0 MCV 80.2 MCH 25.7 L MCHC 32.0 RDW 15.1 Plt Count 384 MPV 9.3 L Immature Gran % (Auto) 0.3 Neut % (Auto) 67.6 Lymph % (Auto) 24.7 Swain % (Auto) 5.1 Eos % (Auto) 1.6 Baso % (Auto) 0.7 Lymph # (Auto) 3.9 Swain # (Auto) 0.8 Eos # (Auto) 0.3 Baso # (Auto) 0.1 Abs Immat Gran (auto) 0.05 H Absolute Neuts (auto) 10.8 H Absolute Nucleated RBC 0.000 Nucleated RBC % (auto) 0.0 Sodium 140 Potassium 4.4 Chloride 106 Carbon Dioxide 26 Anion Gap 12 BUN 10 Creatinine 0.71 Estim Creat Clear Calc 88.4 Estimated GFR > 60 Random Glucose 105 Calcium 10.1 D Total Bilirubin 0.2 AST 17 ALT 13 Alkaline Phosphatase 78 Total Protein 8.2 H Albumin 4.1 Urine Color Yellow Urine Appearance Clear Urine pH 6.0 Ur Specific [place] 1.010 Urine Protein Negative Urine Glucose (UA) Negative Urine Ketones Negative Urine Blood Negative Urine Nitrite Negative Ur Leukocyte Esterase Negative Airway Mallampati Class: III TM Dist: >3cm Neck ROM: Full Heart: RRR Lungs: CTA Assessment and Plan Assessment Anesthesia Assessment: Anesthesia Plan Discussed and Chart Reviewed Final Anesthetic Review Family History of Problems with Anesthesia: No History of Problems with Anesthesia: No NPO: Yes ASA Class: II and Emergency Final Preanesthetic Review: Meds/Allgs Chart Reviewed and Consent Obtained/Reviewed Patient Risk: Low Procedure Risk: Low Anesthetic Plan Anesthetic Plan: GA Disposition: Standard PACU
--- NOTE | 2024-06-20 22:39 | W.PM.OPN ---
Operative Note Operative Note Date of Service: 06/20/24 Narrative: Preop diagnosis--acute appendicitis Postop diagnosis--acute appendicitis Procedure--laparoscopic appendectomy Surgeon--Karthik Anesthesia--general endotracheal tube anesthesia Patient is a 54-year-old female comes in with a 24 hour history of abdominal pain isolated now to the right lower quadrant elevated white count CT scan showing thickened inflamed appendix consistent with early appendicitis Findings--acute appendicitis Procedure-- Patient was brought to the operative room under Anesthesia guidance was intubated. She had compression stockings placed before induction received preoperative antibiotics. Her abdomen was prepped and draped in standard surgical fashion. An infraumbilical incision was created after numbing up the area with a 0.25% Marcaine with epinephrine. Dissection was carried down to the anterior abdominal wall fascia which was grasped with Zak's and transected. 0 Vicryl pursestring suture placed. Valera trocar introduced and pneumoperitoneum established to 15 mmHg pressure. Two 5 mm ports were then placed under direct visualization using local 1 in the suprapubic area and 1 in the left lower quadrant area. Attention was focused to the right lower quadrant where the cecum and the appendix was identified. The appendix was elevated in the appendiceal cecal junction was dissected with a [place] dissector. The Endo-CAROLE purple 45 load was fired across the base of the appendix and then using the LigaSure the mesentery was taken down. Little suction irrigation in the right lower quadrant was carried out to assure that there was no bleeding and that the staple line looked good. Ports were then removed under direct visualization after the appendix was removed with the bag. The pursestring suture was approximated and secured and then 4-0 Monocryl in an interrupted subcuticular fashion was used to approximate all skin edges with benzoin and Steri-Strips. At the end of the case all sponge instrument needle counts were correct estimated blood loss was minimal specimens sent was the appendix. The patient was extubated returned stable to recovery room
[2024-06-20] MEDS: HYDROmorphone HCl 0.5 MG/0.5 ML SYRINGE 0.25 MG IVPUSH ×2 (22:42→22:47)
--- NOTE | 2024-06-20 23:48 | PC.NURSE ---
patient arrived to S3 med/surg at 2330 from pacu. Alert/oriented, denies pain. Fluids offered but not interested currently. LR infusing at 100ml/hr. No cardiovascular issues, no edema. VSS. Lungs cta. Abdomen softly distended, hypoactive bowel sounds. 3 2x2 post op dressings on abdomen. Will monitor urine output. No acute events. Will continue to monitor.
[2024-06-21 03:33] VITALS: BP 123/72; PULSE 93; RESP 18; TEMP 35.9; O2SAT 94
[2024-06-21] MEDS: Morphine Sulfate 4 MG/ML CARTRIDGE 2 MG IVPUSH (03:37)
[2024-06-21] MEDS: 0.9 % Sodium Chloride Flush 3 ML SYRINGE IVFLUSH (03:43)
[2024-06-21] MEDS: Piperacillin Sodium/Tazobactam 3.375 GM in 0.9 % Sodium Chloride 50 ML IV ×2 (03:43→10:29)
[2024-06-21] MEDS: Lactated Ringers 1,000 ML 100 ML IVCONT (03:44)
[2024-06-21] MEDS: Ketorolac Tromethamine 15 MG/ML VIAL IVPUSH ×2 (04:16→10:29)
[2024-06-21] MEDS: Pantoprazole Sodium 40 MG/10 ML VIAL IVPUSH (05:51)
[2024-06-21] MEDS: Acetaminophen 325 MG TABLET 650 MG PO (05:55)
[2024-06-21 07:41] VITALS: BP 119/75; PULSE 87; RESP 16; TEMP 36.1; O2SAT 96
[2024-06-21] MEDS: Docusate Sodium 100 MG CAPSULE PO (08:06)
[2024-06-21] MEDS: hydroCHLOROthiazide 12.5 MG TABLET PO (08:06)
[2024-06-21] MEDS: Gabapentin 100 MG CAPSULE PO (08:06)
[2024-06-21] MEDS: Losartan Potassium 50 MG TABLET 100 MG PO (08:06)
[2024-06-21] MEDS: cloNIDine HCL 0.1 MG TABLET PO (08:06)
[2024-06-21] MEDS: ondansetron HCL 4 MG/2 ML VIAL IVPUSH (10:29)
[2024-06-21 11:04] VITALS: BP 100/59; PULSE 85; RESP 16; TEMP 36.6; O2SAT 94
--- NOTE | 2024-06-21 11:30 | P.PNGS_ITS ---
Subjective Subjective Date of Service: 06/21/24 <Jasmine Mitchell PA-C - Last Filed: 06/21/24 11:32> 06/21/24 <Ramon Monteiro MD - Last Filed: 06/21/24 11:36> Interval history: Tolerating solid diet. Mild incisional pain. OOB and ambulating without difficulty. Wants to go home. <Jasmine Mitchell PA-C - Last Filed: 06/21/24 11:32> Physical Exam 2 Vital Signs: Vital Signs: Last Vital Signs Temp 97.8 F 06/21/24 11:04 Pulse 85 06/21/24 11:04 Resp 16 06/21/24 11:04 BP 100/59 L 06/21/24 11:04 Pulse Ox 94 06/21/24 11:04 O2 Del Method Room Air 06/21/24 11:04 O2 Flow Rate 2 06/20/24 23:10 BMI result Body Mass Index 28.3 <Jasmine Mitchell PA-C - Last Filed: 06/21/24 11:32> Const: General: comfortable, no acute distress and alert <Jasmine Mitchell PA-C - Last Filed: 06/21/24 11:32> Orientation/consciousness: patient oriented x3 <Jasmine Mitchell PA-C - Last Filed: 06/21/24 11:32> Resp: Effort & Inspection: normal respiratory effort <Jasmine Mitchell PA-C - Last Filed: 06/21/24 11:32> GI: Inspection: No distended and Yes incision (dressings intact ) < Jasmine Mitchell PA-C - Last Filed: 06/21/24 11:32> Palpation (GI): Soft to palpation, Tenderness to palpation present (GI) (mild incisional) and no guarding <CYNDI Gomez Last Filed: 06/21/24 11:32> Skin: General skin exam: no rashes or lesions noted <CYNDI Gomez Last Filed: 06/21/24 11:32> Neuro: General: patient oriented x3 <CYNDI Gomez Last Filed: 06/21/24 11:32> Objective Data Active Medications Acetaminophen (Acetaminophen 325 Mg Tablet) 650 mg PO Q4H PRN PRN Reason: Pain, Mild (Pain Scale 1-3) Last Admin: 06/21/24 05:55 Dose: 650 mg Documented By: MARLON Amitriptyline HCl (Amitriptyline Hcl 25 Mg Tablet) 25 mg PO BEDTIME COUNT INCLUDES THE [facility] Last Admin: 06/21/24 00:07 Dose: Not Given Documented By: MARLON Non-Admin Reason: Off Unit: Surgery Clonazepam (Clonazepam 0.5 Mg Tablet) 0.5 mg PO BEDTIME PRN PRN Reason: Anxiety Clonidine HCl (Clonidine Hcl 0.1 Mg Tablet) 0.1 mg PO BID COUNT INCLUDES THE [facility]; Protocol Last Admin: 06/21/24 08:06 Dose: 0.1 mg Documented By: BAN Docusate Sodium (Docusate Sodium 100 Mg Capsule) 100 mg PO BID COUNT INCLUDES THE [facility] Last Admin: 06/21/24 08:06 Dose: 100 mg Documented By: BAN Gabapentin (Gabapentin 100 Mg Capsule) 100 mg PO TID COUNT INCLUDES THE [facility] Last Admin: 06/21/24 08:06 Dose: 100 mg Documented By: BAN Hydrochlorothiazide (Hydrochlorothiazide 12.5 Mg Tablet) 12.5 mg PO DAILY COUNT INCLUDES THE [facility]; Protocol Last Admin: 06/21/24 08:06 Dose: 12.5 mg Documented By: BAN Lactated Ringer's (Lr) 1,000 mls @ 100 mls/hr IVCONT .Q10H COUNT INCLUDES THE [facility] Last Admin: 06/21/24 07:08 Dose: Not Given Documented By: BAN Non-Admin Reason: IV Running Piperacillin Sod/Tazobactam (Sod 3.375 gm/ Sodium Chloride) 50 mls @ 100 mls/hr IV Q6H COUNT INCLUDES THE [facility] Last Infusion: 06/21/24 11:11 Dose: Infused Documented By: BAN Ketorolac Tromethamine (Ketorolac Tromethamine 15 Mg/Ml Vial) 15 mg IVPUSH Q6H COUNT INCLUDES THE [facility] Last Admin: 06/21/24 10:29 Dose: 15 mg Documented By: BAN Losartan Potassium (Losartan Potassium 50 Mg Tablet) 100 mg PO DAILY COUNT INCLUDES THE [facility]; Protocol Last Admin: 06/21/24 08:06 Dose: 100 mg Documented By: BAN Melatonin (Melatonin 3 Mg Tablet) 6 mg PO BEDTIME PRN PRN Reason: Insomnia Morphine Sulfate (Morphine Sulfate 4 Mg/Ml Cartridge) 2 mg IVPUSH Q4H PRN; Protocol PRN Reason: Pain, Severe (Pain Scale 7-10) Last Admin: 06/21/24 03:37 Dose: 2 mg Documented By: MARLON Naloxone HCl (Naloxone Hcl 0.4 Mg/Ml Vial) 0.04 mg IVPUSH Q5M PRN PRN Reason: Excessive sedation or RR < 8 Naloxone HCl (Naloxone Hcl 0.4 Mg/Ml Vial) 0.04 mg IVPUSH Q5M PRN PRN Reason: Excessive sedation or RR < 8 Ondansetron HCl (Ondansetron Hcl 4 Mg/2 Ml Vial) 4 mg IVPUSH Q8H PRN PRN Reason: Nausea and Vomiting Last Admin: 06/21/24 10:29 Dose: 4 mg Documented By: BAN Oxycodone HCl (Oxycodone Hcl Immed Release 5 Mg Tablet) 5 mg PO Q4H PRN PRN Reason: Pain, Moderate(Pain Scale 4-6) Pantoprazole Sodium (Pantoprazole Sodium 40 Mg/10 Ml Vial) 40 mg IVPUSH DAILY@0630 COUNT INCLUDES THE [facility] Last Admin: 06/21/24 05:51 Dose: 40 mg Documented By: MARLON Sodium Chloride (0.9 % Sodium Chloride Flush 3 Ml Syringe) [facility] Last Admin: 06/21/24 07:23 Dose: Not Given Documented By: BAN Non-Admin Reason: IV Running <Jasmine Mitchell PA-C - Last Filed: 06/21/24 11:32> Labs CBC & Chem 7: 06/20/24 00:31 06/20/24 00:31 <Jasmine Mitchell PA-C - Last Filed: 06/21/24 11:32> Procedures Date of Service Date of Service: 06/21/24 <Jasmine Mitchell PA-C - Last Filed: 06/21/24 11:32> 06/21/24 <Ramon Monteiro MD - Last Filed: 06/21/24 11:36> Progress Note: A&P Assessment and plan (1) Acute appendicitis: Status: Acute <Jasmine Mitchell PA-C - Last Filed: 06/21/24 11:32> Assessment and Plan: She feels well Good pain control Tolerating diet Abdomen is soft and benign Clinically doing well She says she is ready to be discharged Instructions reinforced with patient Seen and examined independently <Ramon Monteiro MD - Last Filed: 06/21/24 11:36> (2) S/P laparoscopic appendectomy: Status: Acute <Jasmine Mitchell PA-C - Last Filed: 06/21/24 11:32> Assessment and Plan: POD #1 s/p lap appy. Doing well post op. VSS. Abd exam benign with clean dressings and appropriate post op tenderness. Stable for dc to home today. F/u in office in 1-2 weeks. Patient comfortable with plan. <BRANDEN Gomez - Last Filed: 06/21/24 11:32> Time Spent With Patient Time: Total time managing care of this patient today ____ minutes. <Jasmine Mitchell PA-C - Last Filed: 06/21/24 11:32> Quality Stroke Does the patient have a stroke diagnosis?: No <Jasmine Mitchell PA-C - Last Filed: 06/21/24 11:32> VTE Prior VTE?: No <Jasmine Mitchell PA-C - Last Filed: 06/21/24 11:32> VTE Risk Level:: Surgical - low <Jasmine Mitchell PA-C - Last Filed: 06/21/24 11:32> VTE Device Contraindication: N/A - Device Ordered <Jasmine Mitchell PA-C - Last Filed: 06/21/24 11:32> VTE Drug Contraindication: Treatment Not Indicated <Jasmine Mitchell PA-C - Last Filed: 06/21/24 11:32>
--- NOTE | 2024-06-21 11:55 | MHC.CM.PN ---
DP: PT HAS BEEN MEDICALLY CLEARED FOR DC HOME, NO SERVICES. FAMILY WILL TRANSPORT
--- NOTE | 2024-06-21 16:43 | PM.DS ---
DS: Providers Provider Date of Service: 06/21/24 Date of admission: 06/20/24 07:55 Date of discharge: 06/21/24 Primary care physician: Reuben Suh MD Attending physician on admission: Michelle Angeles Attending physician on discharge: Ramon Monteiro DS: Diagnosis Discharge Diagnosis (1) Acute appendicitis: Status: Acute (2) S/P laparoscopic appendectomy: Status: Acute DS: Summary Hospital Course Hospital Course: HPI AT ADMISSION: Yumiko Marie is a 54 year old female who came into the emergency room complaining abdominal pain which started yesterday. It got progressively worse so she came into the emergency room overnight. Here she was noted to be tender in the right lower quadrant area and a CT scan was carried out which showed thickened distended appendix with some inflammatory changes surrounding it. She denies any fever or chills. She has never had any abdominal surgery. She has had a breast reduction in the past. HOSPITAL COURSE: The patient was admitted to the surgical service for further treatment of the acute appendicitis. She elected to proceed with laparoscopic appendectomy. She was added onto the OR schedule for that day. On 06/20/24, a laparoscopic appendectomy was performed by Dr. Angeles without complication. The patient tolerated the procedure well. She had an uncomplicated recovery course. On POD #1, she felt well and was tolerating a solid diet without nausea or vomiting, had good pain control and was ambulating without difficulty. She was hemodynamically stable. Her abdomen was benign with appropriate post op tenderness and clean and intact dressings. She felt ready for discharge. She was discharged to home on 06/21/24 in stable condition. She is to follow up in the office in 1-2 weeks. Status at Discharge Functional status at discharge: independent ambulation Overall status at discharge: patient is progressing back to baseline Time Attestation Discharge Coordination Time (in mins): 30 Quality: Safe Use of Opioids Does Pt have an Active Cancer Diagnosis on the Problem List?: No Quality: Stroke Does the patient have a stroke diagnosis?: No Physical Exam Vital Signs: Vital Signs: Last Vital Signs Temp 97.8 F 06/21/24 11:04 Pulse 85 06/21/24 11:04 Resp 16 06/21/24 11:04 BP 100/59 L 06/21/24 11:04 Pulse Ox 94 06/21/24 11:04 O2 Del Method Room Air 06/21/24 11:04 O2 Flow Rate 2 06/20/24 23:10 BMI result Body Mass Index 28.3 Const: Orientation/consciousness: patient oriented x3 Resp: Effort & Inspection: normal respiratory effort GI: Inspection: No distended and Yes incision (dressings intact ) Palpation (GI): Soft to palpation, Tenderness to palpation present (GI) (mild incisional) and no guarding Skin: General skin exam: no rashes or lesions noted Neuro: General: patient oriented x3 and moves all extremities DS: Data Data Completed and Pending Completed studies during hospitalization [Text1]: Pending at discharge 06/20/24 22:09 Surgical [PTH] Routine Vermiform appendix, appendectomy: Acute appendicitis and periappendicitis. Discharge Plan Discharge Anticipated Discharge Date/Time: 06/21/24 10:51 Patient Disposition: Home, Self-Care Discharge Diagnosis: acute appendicitis s/p laparoscopic appendectomy Referrals: Ramon Monteiro MD [Physician] - 1 Week Name,MD Reuben [Primary Care Provider] - 1 Week Discharge Medications: New docusate sodium [Colace] 100 mg capsule 100 mg PO BID Qty: 30 0RF oxycodone 5 mg tablet 5 mg PO Q4H PRN (Reason: pain (scale score 7-10)) Qty: 24 0RF Rx Instructions: Partial Fill upon patient request. Continued clonidine HCl 0.1 mg tablet 0.1 mg PO BID baclofen 20 mg tablet 20 mg PO BID meloxicam 7.5 mg tablet 7.5 mg PO DAILY amitriptyline 25 mg tablet 25 mg PO BEDTIME bisacodyl [Laxative (bisacodyl)] 5 mg tablet,delayed release (DR/EC) 10 mg PO DAILY PRN (Reason: constipation) cholecalciferol (vitamin D3) 25 mcg (1,000 unit) tablet 25 mcg PO DAILY hydrochlorothiazide 12.5 mg tablet 12.5 mg PO DAILY diclofenac sodium 1 % gel 1 g topical DAILY lidocaine 5 % ointment 1 appl topical NEEDED PRN (Reason: mild pain) ondansetron 4 mg tablet,disintegrating 4 mg PO Q6H PRN (Reason: nausea and vomiting) losartan 100 mg tablet 100 mg PO DAILY loratadine 10 mg tablet 10 mg PO DAILY clonazepam 0.5 mg tablet 0.5 mg PO BEDTIME PRN (Reason: Anxiety) Rx Instructions: administer 30 minutes before bedtime meclizine 25 mg tablet 25 mg PO DAILY PRN (Reason: Dizziness) topiramate 25 mg tablet 50 mg PO DAILY lidocaine 5 % adhesive patch,medicated 1 patch topical DAILY PRN (Reason: Pain) gabapentin 100 mg capsule 100 mg PO TID Discharge Orders: Discharge Order (Routine); Ordered 06/21/24 Ordered By: Jasmine Mitchell Diet: Advance to usual diet Activity on Discharge: No heavy lifting Stand Alone Forms: Patient Portal Discharge page Print Language: Maltese Activity Restrictions/Additional Instructions: If the incision area is tender, you may apply an ice pack for short intervals (No more than 20 minutes on, followed by at least 20 minutes off). Do not apply heat. Do not use creams, lotions, or topical antibiotics. Ok to shower. Remove clear dressings 3 days following your procedure. You have steri strips (small white cloth strips) covering your incision- these will fall off ~1 week. No heavy lifting (>10lbs) or strenuous activity! Take Tylenol Extra-strength 1-2 tabs every 6 hours for the first day, then as needed. Oxycodone every 6-8 hours as needed for pain. Colace 100 mg every day as needed for constipation. Follow up in office with Dr. Monteiro in 1 week. ([phone]) Call Your Doctor If: -Your temperature exceeds 101.5? F -You experience excessive pain or swelling -You have an unexpected reaction to medication -You have excessive bleeding -You experience continued vomiting/nausea -Your incision begins to separate -Your incision shows signs of infection such as increased redness, swelling, excessive pain, drainage (light blood or clear fluid is normal) or heat Care Plan Goals: Return to baseline health and resume normal activities following recovery period. Health Concerns: acute appendicitis Plan of Treatment: s/p laparoscopic appendectomy f/u in office in 1 week Assessment: Doing well post op. Discharge Date/Time: 06/21/24 11:51
== END 2024-06-21 11:51 | disposition home or self-care (01) | DRG 234 ==
LOC: HO.ED 06-20 07:02 → HO.EDOVER 06-20 08:01 → HO.S3 06-20 14:37
PROVIDERS: Admitting Provider Surgery; Emergency Provider Internal Medicine; PCP Internal Medicine Geriatric Medicine; Visit Provider Surgery
PROC: 0DTJ4ZZ Resection of Appendix, Percutaneous Endoscopic Approach (ICD-10-PCS; CPT 44970; principal; 2024-06-20 17:00)
DX: K35.80 Unspecified acute appendicitis (principal); G47.33 Obstructive sleep apnea (adult) (pediatric); Z79.899 Other long term (current) drug therapy
CPT/HCPCS: 44970; 36415; 74177; 80053; 81003; 85025; 88304; 99221; 99285; J0131; J1100; J1171; J1885; J2003; J2250; J2270; J2405; J2470; J2543; J2704; J3010; J7120; Q9967

== ENCOUNTER → 2024-06-20 02:16 | Outpatient (BNV) | payer MEDICAID, SELFPAY | PROVIDERS: Emergency Provider Internal Medicine; PCP Internal Medicine Geriatric Medicine; Visit Provider General Practice | DX: K35.80 Unspecified acute appendicitis (principal) | CPT/HCPCS: 74177 ==

== ENCOUNTER → 2024-06-20 07:55 | Outpatient (BNV) | payer MEDICAID, SELFPAY | PROVIDERS: Admitting Provider Surgery; Emergency Provider Internal Medicine; PCP Internal Medicine Geriatric Medicine; Visit Provider Surgery | DX: K35.80 Unspecified acute appendicitis (principal); Z90.49 Acquired absence of other specified parts of digestive tract | CPT/HCPCS: 44970; 99024; 99223 ==

== ENCOUNTER 2024-07-06 10:27 | Outpatient (AMB) | payer MEDICAID, SELFPAY ==
--- NOTE | 2024-07-06 10:33 | MHC.OFFVIS ---
Vital Signs 07/06/24 10:37 Height 5 ft 3 in Weight 165 lb BMI 29.2 Intake Visit Reasons: s/p lap appendectomy Intake Note: This patient presents for post-op assessment status post laparoscopic appendectomy. Pt c/o; reports discomfort umbilical incision. Mechanical Development Engineer Required: Yes Mechanical Development Engineer Language: Die Repairer Trimmer Dies Services: Mechanical Development Engineer Offered & Declined Accompanied by: Self / Same As Patient Allergies No Known Allergies Allergy (Verified 07/06/24 10:39) HPI HPI s/p lap appendectomy: Details: 54-year-old female here for postop visit. She underwent laparoscopic appendectomy last 06/20/2024. She tolerated procedure well. She was discharged on postop day 1. She has good GI functions. She denies any complaints at this time and feels well overall. [facility] Medical History MARILU (obstructive sleep apnea) Pre-diabetes Vertigo Depression Hypertension Surgical History History of laparoscopic appendectomy (~06/20/24) History of esophagogastroduodenoscopy (EGD) H/O colonoscopy H/O knee surgery Hx of tubal ligation H/O bilateral breast reduction surgery Family History Father HTN (hypertension) Mother HTN (hypertension) Diabetes Sister Diabetes Son No problems noted. Social History Household Members: Family Housing: House Are you a primary respiratory care specialist to a significant other at home: No Do you presently have visiting nurse or other home services: No Alcohol intake: never Comment: vertigo at times Patient Tobacco Use Status: Never used Tobacco service: No Current occupational status: disabled Sexual orientation: Straight/Heterosexual Gender identity: Female Female Reproductive History Menstrual Age of Menarche: 14 Review of Systems Const Denies chills and Denies fever(s) Card Denies chest pain Resp Denies cough GI Denies abdominal pain, Denies hematochezia and Denies diarrhea Physical Exam Vital Signs: BMI result Body Mass Index 29.2 Const General: comfortable and no acute distress Resp Effort & Inspection: normal respiratory effort Cardio Rate: regular rate GI Other: All incisions are well healed Palpation (GI): Soft to palpation, not firm, nontender and no guarding Assessment & Plan Assessment & Plan (1) S/P laparoscopic appendectomy: Code(s): Z90.49 - Acquired absence of other specified parts of digestive tract Category: Surgical Plan: She is doing very well after appendectomy done by Dr. Angeles on June 20. She denies any complaints currently All incisions are well healed. I advised her to avoid any lifting more than 20 lb for the next 2 weeks. She can follow up on a p.r.n. basis. Her path report shows appendicitis. Coding Level of Care Code Global (35215) Diagnoses S/P laparoscopic appendectomy Z90.49
[2024-07-06 10:37] VITALS: BMI 29.2
--- OUTSIDE RECORDS SUMMARY | 2024-07-06 12:12 | XMS_ITS | Encounter Summary ---
Author Organization [employer] Address [address] [facility] [address]t [place] [address] Care Team Providers Care Distribution Systems Superintendent Name Role Phone Name, Reuben MARTINEZ Primary Care Provider [phone] Gibran Medrano Unavailable Unavailable Reason for Visit * Reason Onset Date Comments Medication Question 01/06/2023 Vitamin D Encounter Details Date Type Department Care Team ([facility] Contact Info) Description 01/06/2023 Telephone [facility] MED[facility]INE [address] [place], [place] [phone] Name, MD Reuben [address] [place] [address] Medication Question (Vitamin D) Social History Tobacco Use Types Packs/Day Years Used Date Smoking Tobacco: Never Smokeless Tobacco: Never Alcohol Use Standard Drinks/Week Comments Never 0 (1 standard drink = 0.6 oz pur e alcohol) Comments Unknown Sex and Gender Information Value Date Recorded Sex Assigned at Female 2022 10:16 AM EDT Legal Sex Female 10:16 AM EDT Gender Identity Female 2022 10:16 AM EDT Sexual Orientation Straight 2022 10 :16 AM EDT documented as of this encounter Miscellaneous Notes * Telephone Encounter - Jil Isabel RN - 01/06/2023 2:09 PM EDT Please review message below and advise if Vitamin is indicated at this time. * Telephone Encounter - Asia Nicholas - 01/06/2023 1:40 PM EDT Tc from patient requesting the status of medication vitamin D talked about in the last visit on 01/01/23. documented in this encounter Plan of Treatment Upcoming Encounters Date Type Department Care Team (Late st Contact Info) Description 08/25/2024 9:15 AM EDT Office Visit [facility] MED[facility]INE [address] [place] [address] Name, MD Reuben [address] [place] [address] documented as of this encounter Visit Diagnoses Not on filedocumented in this encounter Additional Health Concerns Assessment Noted Time PHQ-9 Depression Total Score: 0 11/25/19 1:40 PM EDT documented as of this encounter Care Teams Distribution Systems Superintendent Relationship Specialty Start Date End Date Name, MD Reuben [address] [place] [id number] PCP - General Family Medicine 08/15/15 Gibran Medrano FNP [address] [place] [address] Nurse Practitioner Family Medicine 04/20/23 Noemi Pabon Packing Room SupervisorDental Secretary 03/28/24 documented as of this encounter
--- OUTSIDE RECORDS SUMMARY | 2024-07-06 12:12 | XMS_ITS | Encounter Summary ---
Author Organization [employer] Address [address] [facility] 7[address] [place] [address] Care Team Providers Care Silk Printer Name Role Phone Name, Reuben MARTINEZ Primary Care Provider [phone] Gibran Medrano Unavailable Unavailable Reason for Visit * Reason Comments Med Refill Encounter Details Date Type Department Care Team ([facility] st Contact Info) Description 03/29/2023 Refill [facility] MEDICINE [address] [place] [address] Yolanda Forman MD [address] [place] [address] Cervical radiculitis; Vertigo Social History Tobacco Use Types Packs/Day Years Used Date Smoking Tobacco: Never Smokeless Tobacco: Never Alcohol Use Standard Drinks/Week Comments Never 0 (1 standard drink = 0.6 oz pur e alcohol) Depression Answer Date Recorded Patient Health Questionnaire-9 Score 3 02/02/2023 Housing Stability Answer Date Recorded What is your housing situation today? I have brigette corona 03/11/[address] you li ve. Do you have problems with any of the following? None of the above 03/11/2023 Food Insecurity Answer Date Recorded Within the past 12 months, y ou worried that your food would run out before you got money to buy more: Never True 03/11/2023 Within the past 12 months,th e food you bought just didn't last and you didn't have enough money to get more: Never True Transportation Answer Date Recorded In the past 12 months, has l ack of transportation kept you from medical appts, meetings, work or from getting things needed for daily living? No 03/11/2023 Utilities Answer Date Recorded In the past 12 months, has t he electric, gas, oil or water company threatened to shut off services in your home? No 03/11/2023 Depression Answer Date Recorded Patient Health Questionnaire-2 Score 1 02/02/2023 Comments Unknown Sex and Gender Information Value Date Recorded Sex Assigned at Female 2022 10:16 AM EDT Legal Sex Female 10:16 AM EDT Gender Identity Female 2022 10:16 AM EDT Sexual Orientation Straight 2022 10 :16 AM EDT documented as of this encounter Plan of Treatment Upcoming Encounters Date Type Department Care Team (Late st Contact Info) Description 08/25/2024 9:15 AM EDT Office Visit [facility] MEDICINE [address] [place] [phone] Name, MD Reuben [address] [place] [address] documented as of this encounter Visit Diagnoses Diagnosis Cervical radiculitis Brachial neuritis or radiculitis nos Vertigo Dizziness and giddiness documented in this encounter Additional Health Concerns Assessment Noted Time PHQ-9 Depression Total Score: 3 02/03/20 23 3:12 PM EDT documented as of this encounter Care Teams Silk Printer Relationship Specialty Start Date End Date NameReuben MD [address] [place] [phone] PCP - General Family Medicine 08/15/15 Gibran Medrano FNP [address] [place] [address] Nurse Practitioner Family Medicine 04/20/23 Noemi Pabon Instructional Materials DirectorScale Clerk 03/28/24 documented as of this encounter
--- OUTSIDE RECORDS SUMMARY | 2024-07-06 12:12 | XMS_ITS | Encounter Summary ---
Author Organization [employer] Address [address] [facility] 7t [place] [address] Care Team Providers Care Can Handler Name Role Phone Name, Reuben MARTINEZ Primary Care Provider [phone] Gibran Medrano Unavailable Unavailable Reason for Visit * Reason Onset Date Comments Referral 09/01/2023 Encounter Details Date Type Department Care Team ([facility] st Contact Info) Description 09/01/2023 Telephone [facility] MEDICINE [address] [place], [place] [phone] Name, MD Reuben [address] [place] [address] Referral Social History Tobacco Use Types Packs/Day Years Used Date Smoking Tobacco: Never Smokeless Tobacco: Never Alcohol Use Standard Drinks/Week Comments Never 0 (1 standard drink = 0.6 oz pur e alcohol) Depression Answer Date Recorded Patient Health Questionnaire-9 Score 0 06/30/2023 Patient Health Questionnaire-9 Score 0 06/30/2023 Last PHQ-9: Questionnaire Data Not on file 0 06/30/2023 Housing Stability Answer Date Recorded What is your housing situation today? I have brigette corona 06/30/[address] you li ve. Do you have problems with any of the following? None of the above 06/30/2023 Food Insecurity Answer Date Recorded Within the past 12 months, y ou worried that your food would run out before you got money to buy more: Never True 06/30/2023 Within the past 12 months,th e food you bought just didn't last and you didn't have enough money to get more: Never True 10/2023 Transportation Answer Date Recorded In the past 12 months, has l ack of transportation kept you from medical appts, meetings, work or from getting things needed for daily living? No 06/30/2023 Utilities Answer Date Recorded In the past 12 months, has t he electric, gas, oil or water company threatened to shut off services in your home? No 06/30/2023 Depression Answer Date Recorded Patient Health Questionnaire-2 Score 0 06/30/2023 Comments Unknown Sex and Gender Information Value Date Recorded Sex Assigned at Female 2022 10:16 AM EDT Legal Sex Female 10:16 AM EDT Gender Identity Female 2022 10:16 AM EDT Sexual Orientation Straight 2022 10 :16 AM EDT documented as of this encounter Miscellaneous Notes * Telephone Encounter - Micha Pabon - 09/01/2023 2:48 PM EDT Tc from Ramona Marlene requesting orthopedic referral for left arm and hand. If any questions please contact pt at [phone]. documented in this encounter Plan of Treatment Upcoming Encounters Date Type Department Care Team (Late st Contact Info) Description 08/25/2024 9:15 AM EDT Office Visit [facility] MEDICINE [address] [place] [phone] Name, MD Reuben [address] [place] [address] documented as of this encounter Visit Diagnoses Not on filedocumented in this encounter Additional Health Concerns Assessment Noted Time PHQ-9 Depression Total Score: 0 06/30/19 24 9:58 AM EST documented as of this encounter Care Teams Can Handler Relationship Specialty Start Date End Date Name, MD Reuben [address] [place] [address] PCP - General Family Medicine 08/15/15 Gibran Medrano FNP [address] [place] [address] Nurse Practitioner Family Medicine 04/20/23 Noemi Pabon Product EvangelistStucco Laborer 03/28/24 documented as of this encounter
--- OUTSIDE RECORDS SUMMARY | 2024-07-06 12:12 | XMS_ITS | Encounter Summary ---
Author Organization [employer] Address [address] [facility] 7t [place] [address] Care Team Providers Care Dinkey Engine Operator Name Role Phone Name, Reuben MARTINEZ Primary Care Provider [phone] Gibran Medrano Unavailable Unavailable Reason for Visit * Reason Comments Med Refill Encounter Details Date Type Department Care Team ([facility] st Contact Info) Description 05/15/2023 Refill [facility] MEDICINE [address] [place] [address] Gibran Medrano FNP Social History Tobacco Use Types Packs/Day Years Used Date Smoking Tobacco: Never Smokeless Tobacco: Never Alcohol Use Standard Drinks/Week Comments Never 0 (1 standard drink = 0.6 oz pur e alcohol) Depression Answer Date Recorded Patient Health Questionnaire-9 Score 4 04/27/2023 Patient Health Questionnaire-9 Score 4 04/27/2023 Last PHQ-9: Questionnaire Data Not on file 1 06/28/2022 Housing Stability Answer Date Recorded What is [...] Date Recorded Patient Health Questionnaire-2 Score 1 04/27/2023 Comments Unknown Sex and Gender Information Value [...] Description 08/25/2024 9:15 AM EDT Office Visit [facility] MEDICINE [address] [place] [address] Name, MD Reuben [address] [place] [address] documented as of this encounter Visit Diagnoses Not on filedocumented in this encounter Additional Health Concerns Assessment Noted Time PHQ-9 Depression Total Score: 4 04/27/20 23 8:58 AM EST documented as of this encounter Care Teams Dinkey Engine Operator Relationship Specialty Start Date End Date Name, MD Reuben [address] [place] [address] PCP - General Family Medicine 08/15/15 Gibran Medrano FNP [address] [place] [address] Nurse Practitioner Family Medicine 04/20/23 Noemi Pabon Radio Repairer DomesticHook Tender 03/28/24 documented as of this encounter
--- OUTSIDE RECORDS SUMMARY | 2024-07-06 12:12 | XMS_ITS | Encounter Summary ---
Author Organization [employer] Address [address] [facility] [address]t [place] [address] Care Team Providers Care Hair Preparer Name Role Phone Name, Reuben MARTINEZ Primary Care Provider [phone] Gibran Medrano Unavailable Unavailable Encounter Details Date Type Department Care Team ([facility] st Contact Info) Description 04/21/2023 Telephone [facility] MEDICINE [address] [place], [place] [phone] Name, MD Reuben [address] [place], [place] [phone] Social History Tobacco Use Types Packs/Day Years [...] Description 08/25/2024 9:15 AM EDT Office Visit [facility]INE [address] [place] [address] Name, MD Reuben [address] [place] [address] documented as of this encounter Visit Diagnoses Not on filedocumented in this encounter Additional Health Concerns Assessment Noted Time PHQ-9 Depression Total Score: 3 02/03/20 23 3:12 PM EDT documented as of this encounter Care Teams Hair Preparer Relationship Specialty Start Date End Date Name, MD Reuben [address] [place] [address] PCP - General Family Medicine 08/15/15 Gibran Medrano FNP [address] [place] [phone] Nurse Practitioner Family Medicine 04/20/23 Noemi Pabon Paratransit OperatorThreading Machine Operator 03/28/24 documented as of this encounter
--- OUTSIDE RECORDS SUMMARY | 2024-07-06 12:12 | XMS_ITS | Encounter Summary ---
Author Organization [employer] Address [address] [facility] 7t [place] [address] Care Team Providers Care Receipt And Report Clerk Name Role Phone Name, Reuben MARTINEZ Primary Care Provider [phone] Gibran Medrano Unavailable Unavailable Reason for Visit * Reason Comments Med Refill Encounter Details Date Type Department Care Team (Late st Contact Info) Description 03/25/2023 Refill [facility] MEDICINE [address] [place] [address] Gibran Medrano FNP Social History Tobacco Use [...] Description 08/25/2024 9:15 AM EDT Office Visit [facility]INE [address] [place] [address] Name, MD Reuben [address] [place] [address] documented as of this encounter Visit Diagnoses Not on filedocumented in this encounter Additional Health Concerns Assessment Noted Time PHQ-9 Depression Total Score: 3 02/03/20 23 3:12 PM EDT documented as of this encounter Care Teams Receipt And Report Clerk Relationship Specialty Start Date End Date Name, MD Reuben [address] [place] [address] PCP - General Family Medicine 08/15/15 Gibran Medrano FNP [address] [place] [address] Nurse Practitioner Family Medicine 04/20/23 Noemi Pabon Playground Equipment ErectorMechanic Field Service 03/28/24 documented as of this encounter
--- OUTSIDE RECORDS SUMMARY | 2024-07-06 12:12 | XMS_ITS | Encounter Summary ---
Author Organization [facility] Address [address] [facility] 7t [place] [address] Care Team Providers Care Welder Machine Operator Name Role Phone Name, Reuben MARTINEZ Primary Care Provider [phone] Gibran Medrano Unavailable Unavailable Reason for Visit * Reason Comments Med Refill Encounter Details Date Type Department Care Team (Late st Contact Info) Description 02/21/2023 Refill [facility] [address] [place] [address] Concha Tabares MD [address] [place], [place] [phone] Cervical radiculitis; Essential hypertension; Prediabetes; MARILU (obstructive sleep apnea) Social History Tobacco Use Types Packs/Day Years Used Date Smoking Tobacco: Never Smokeless Tobacco: Never Alcohol Use Standard Drinks/Week Comments Never 0 (1 standard drink = 0.6 oz pur e alcohol) Depression Answer Date Recorded Patient Health Questionnaire-9 Score 3 02/02/2023 Depression Answer Date Recorded Patient Health Questionnaire-2 [...] Description 08/25/2024 9:15 AM EDT Office Visit [facility] [address] [place] [phone] Name, [place] [address] documented as of this encounter Visit Diagnoses Diagnosis Cervical radiculitis Brachial neuritis or radiculitis nos Essential hypertension Unspecified essential hypertension Prediabetes Other abnormal glucose MARILU (obstructive sleep apnea) Obstructive sleep apnea (adult) (pediatric) documented in this encounter Additional Health Concerns Assessment Noted Time PHQ-9 Depression Total Score: 3 02/03/20 23 3:12 PM EDT documented as of this encounter Care Teams Welder Machine Operator Relationship Specialty Start Date End Date Name, [place] [address] PCP - General Family Medicine 08/15/15 Gibran Medrano FNP [address] [place] [address] Nurse Practitioner Family Medicine 04/20/23 Noemi Pabon Supervisor IntermediatesInventory Specialist 03/28/24 documented as of this encounter
--- OUTSIDE RECORDS SUMMARY | 2024-07-06 12:13 | XMS_ITS | Encounter Summary ---
Author Organization [employer] Address [address] [facility] 7t [place] [address] Care Team Providers Care Bacon Skin Lifter Name Role Phone Name, Reuben MARTINEZ Primary Care Provider [phone] Gibran Medrano Unavailable Unavailable Reason for Visit * Reason Onset Date Comments Results 12/11/2022 Encounter Details Date Type Department Care Team ([facility] st Contact Info) Description 12/11/2022 Telephone [facility] [address] [place], [place] [phone] Name, MD Reuben [address] [place] [address] Results Social History Tobacco Use Types Packs/Day Years [...] Telephone Encounter - Jil Isabel RN - 12/15/2022 4:45 PM EDT Noted. Pt informed of PCP POC and awaiting EMILIA results. Pt also informed PCP will do paperwork thisweek. Pt verbalized understanding and agrees with plan. * Telephone Encounter - Jil Isabel RN - 12/15/2022 10:03 AM EDT Returned call to pt regarding message below. Pt informed that BW results were all normal. Pt is wondering if PCP can order testing for fibromyalgia prior to next appt with PCP. Pt is also requesting status on paperwork for handicap [place] that pt states she gave directly to PCP during last visit. Pt informed message will be sent to PCP and would be informed of further POC. * Telephone Encounter - Asia Nicholas - 12/11/2022 1:35 PM EDT Tc from patient requesting lab test results. documented in this encounter Plan of Treatment Upcoming Encounters Date Type Department Care Team (Late st Contact Info) Description 08/25/2024 9:15 AM EDT Office Visit [facility] [address] [place] [address] Name, MD Reuben [address] [place] [address] documented as of this encounter Visit Diagnoses Not on filedocumented in this encounter Additional Health Concerns Assessment Noted Time PHQ-9 Depression Total Score: 0 11/25/19 23 1:40 PM EDT documented as of this encounter Care Teams Bacon Skin Lifter Relationship Specialty Start Date End Date Name, MD Reuben [address] [place] [address] PCP - General Family Medicine 08/15/15 Gibran Medrano FNP [address] [place] [address] Nurse Practitioner Family Medicine 04/20/23 Noemi Pabon Rotogravure Press OperatorSecurity Orderly 03/28/24 documented as of this encounter
--- OUTSIDE RECORDS SUMMARY | 2024-07-06 12:13 | XMS_ITS | Encounter Summary ---
Author Organization [employer] Address [address] [facility] 7t [place] [address] Care Team Providers Care Electronics Manufacturer Name Role Phone Name, Reuben MARTINEZ Primary Care Provider [phone] Gibran Medrano Unavailable Unavailable Reason for Visit * Reason Comments Care Coordination CHW outreach for SDO H PT-1 and food needs-referral completed Encounter Details Date Type Department Care Team (Latest Contact Info) Description 06/29/2024 Patient Outreach [facility] [address] [place] [address] Name, MD Reuben [address] [place] [address] Care Coordination (CHW outreach for SDOH PT-1 and food needs-referral completed /) Social History Tobacco Use Types Packs/Day Years Used Date Smoking Tobacco: Never Passive Smoke Exposure: Never Smokeless Tobacco: Never Alcohol Use Standard Drinks/Week Comments Never 0 (1 standard drink = 0.6 oz pur e alcohol) Alcohol Answer Date Recorded Frequency of Alcohol Consumption Not on file 01/01/2024 Average Number of Drinks Not on file 024 Frequency of Binge Drinking Not on file 01/2024 Score 0 01/01/2024 Depression Answer Date Recorded Patient Health Questionnaire-9 [...] AM EDT documented as of this encounter Progress Notes * Don Hudson - 06/29/2024 1:16 PM EST CHW Don Hudson, placed outbound call to patient for assistance with SDOH as a referral was received by the provider. Patient's name and were confirmed. Patient screened positive for the following SDOH transportation & food insecurities. CHW requested PT-1 plus referred family to B pantries in the local area. Patient agree to follow up with plan. Patient educated on extended clinic hours on Mondays through Wednesdays, and Walk-In Urgent Care Located in [facility] of [facility]. Patient provided with after-hours line for [facility], , which offer night time triage service and option to transfer to delivery consultant provider if needed. documented in this encounter Plan of Treatment Upcoming Encounters Date Type Department Care Team ([facility] st Contact Info) Description 08/25/2024 9:15 AM EDT Office Visit [facility] [address] [place] [address] Name, [place] [address] documented as of this encounter Visit Diagnoses Not on filedocumented in this encounter Additional Health Concerns Assessment Noted Time PHQ-9 Depression Total Score: 0 06/30/19 24 9:58 AM EST documented as of this encounter Care Teams Electronics Manufacturer Relationship Specialty Start Date End Date Name, MD Reuben [address] [place] [phone] PCP - General Family Medicine 08/15/15 Gibran Medrano FNP [address] [place] [address] Nurse Practitioner Family Medicine 04/20/23 Noemi Pabon Sound Effects PersonPhysician Office Clin Asst 03/28/24 documented as of this encounter
--- OUTSIDE RECORDS SUMMARY | 2024-07-06 12:13 | XMS_ITS | Encounter Summary ---
Author Organization [employer] Address [address] [facility] 7t [place] [address] Care Team Providers Care Milling Operator Name Role Phone Name, Reuben MARTINEZ Primary Care Provider [phone] Gibran Medrano Unavailable Unavailable Reason for Visit * Reason Comments Hospital Follow-up Encounter Details Date Type Department Care Team ([facility] st Contact Info) Description 07/04/2024 1:00 PM EST Office Visit [facility] [address] [place], [place] [phone] Name, MD Reuben [address] [place] [address] Abdominal pain, unspecified abdominal location (Primary Dx); History of appendectomy Social History Tobacco Use Types Packs/Day Years [...] the past 12 months, has t he Evrent, gas, oil or water [employer] threatened to shut off services in your home? No 06/30/2023 Depression Answer Date Recorded Patient Health Questionnaire-2 Score 0 06/30/2023 Comments Unknown Sex and Gender Information Value Date Recorded Sex Assigned at Female 2022 10:16 AM EDT Legal Sex Female 10:16 AM EDT Gender Identity Female 2022 10:16 AM EDT Sexual Orientation Straight 2022 10 :16 AM EDT documented as of this encounter Last Filed Vital Signs Vital Sign Reading Time Taken Comments Blood Pressure 140/81 07/04/2024 1:04 PM EST Pulse 63 07/04/2024 1:04 PM EST Temperature 36.9 ??C (98.5 ??F) 07/04/2024 1:04 PM ES T Respiratory Rate 18 07/04/2024 1:04 PM EST Oxygen Saturation 98% 07/04/2024 1:04 PM EST Inhaled Oxygen Concentration - - Weight 74 kg (163 lb 3.2 oz) 07/04/2024 1:04 PM EST Height - - Body Mass Index 28.91 03/30/2024 11:54 AM EST documented in this encounter Progress Notes * Reuben Suh MD - 07/04/2024 1:00 PM EST Subjective Patient ID: Yumiko Marie is a 54 y.o. female who presents for Hospital Follow-up. Patient comes for a follow-up visit after recent [place] [facility] The patient had acute appendicitis. She was treated initially with antibiotics but eventually required appendectomy. The procedure was done laparoscopically. She is recovering well. She is walking daily passing gas and moving her bowels. She is eating okay. Small surgical wounds appear well-healed. She has appointment with surgery on Thursday. Review of Systems Constitutional: Negative for chills and fever. HENT: Negative for sore throat. Respiratory: Negative for cough, shortness of breath and wheezing. Cardiovascular: Negative for chest pain, palpitations and leg swelling. Gastrointestinal: Negative for abdominal pain. See HPI Visit Vitals BP (!) 140/81 Pulse 63 Temp 98.5 ??F (36.9 ??C) (Oral) Resp 18 Wt 163 lb 3.2 oz (74 kg) SpO2 98% BMI 28.91 kg/m?? Smoking Status Never BSA 1.81 m?? Objective Physical Exam Constitutional: General: She is not in acute distress. Appearance: She is not toxic-appearing. Cardiovascular: Rate and Rhythm: Normal rate and regular rhythm. Pulmonary: Effort: Pulmonary effort is normal. No respiratory distress. Abdominal: General: Bowel sounds are normal. Tenderness: There is abdominal tenderness. Comments: Well-healed small surgical scars from recent laparoscopic appendectomy. Assessment/Plan Diagnoses and all orders for this visit: Abdominal pain, unspecified abdominal location Comments: Patient is doing well after recent appendectomy. I recommended to keep walking, advance diet as tolerated, acetaminophen as needed. Keep upcoming appointment with surgery. History of appendectomy documented in this encounter Plan of Treatment Upcoming Encounters Date Type Department Care Team (Late st Contact Info) Description 08/25/2024 9:15 AM EDT Office Visit [facility] [address] [place] [address] NameReuben MD [address] [place] [address] documented as of this encounter Visit Diagnoses Diagnosis Abdominal pain, unspecified abdominal location- Primary History of appendectomy Other postprocedural status documented in this encounter Additional Health Concerns Assessment Noted Time PHQ-9 Depression Total Score: 0 06/30/19 24 9:58 AM EST documented as of this encounter Care Teams Milling Operator Relationship Specialty Start Date End Date Reuben Suh MD [address] [place] [address] PCP - General Family Medicine 08/15/15 Gibran Medrano FNP [address] [place] [address] Nurse Practitioner Family Medicine 04/20/23 Noemi Pabon Diploma Medical AssistantSystems Programmer Analyst 03/28/24 documented as of this encounter
--- OUTSIDE RECORDS SUMMARY | 2024-07-06 12:13 | XMS_ITS | Encounter Summary ---
Author Organization [employer] Address [address] [facility] 7t [place] [address] Care Team Providers Care Sizing Machine Tender Name Role Phone Name, Reuben MARTINEZ Primary Care Provider [phone] Gibran Medrano Unavailable Unavailable Encounter Details Date Type Department Care Team (Late st Contact Info) Description 06/20/2024 Orders Only GENERIC EXTERNAL DATA DEPARTMENT Provider, Generic External Data Social History Tobacco Use Types Packs/Day Years [...] Description 08/25/2024 9:15 AM EDT Office Visit [facility] [address] [place] [phone] Name, MD Reuben [address] [place] [address] documented as of this encounter Procedures Procedure Name Priority Date/Time Associated Diagnosis Comments CT ABDOMEN PELVIS W CONTRAST Routine 06/20/2024 3:18 AM EST CBC WITH AUTO DIFFERENTIAL Routine 06/20/2024 12:31 AM EST URINALYSIS WITH REFLEX MICROSCOPIC Routine 06/20/2024 12:31 AM EST COMPREHENSIVE METABOLIC PANEL Routine 06/20/2024 12:31 AM EST documented in this encounter Results * CT Abdomen Pelvis w/ Contrast (06/20/2024 3:18 AM EST) Anatomical Region Laterality Modality Body, Pelvis, Abdomen Computed T omography 06/20/2024 3:18 AM EST Narrative 06/20/2024 3:20 AM EST ? [facility] ?[address] ?[place] [address] ? CT Scan Report ? Signed with Addenda ? Patient: Marie,Yumiko ?MR#: [id number] ?? 9 ? : 1970 ?Acct:[id number] ? Age/Sex: 54 / F ?ADM Date: 06/20/24 ? Loc: HO.ED ? Attending Dr: ? Ordering Physician: Bryn Root MD ?? Date of Service: 06/20/24 ?? Procedure(s): CT abdomen pelvis w IV con ?? Accession Number(s): [id number] ? cc: Name,Reuben MARTINEZ; Bryn Root MD ? Report Number: ?? [id number]: Total DLP = ??614.00 mGy-cm ?ADDENDUM ?? This document has been electronically signed by: Win Main MD, ?? PHD on 06/20/2024 03:18:17 ? ADDENDUM: ?? This report was discussed with Ivett Quesada on Jun 20, 2024 ?? 03:20:00 EST. ? This document has been electronically signed by: Sindy Santana on ?? 06/20/2024 03:22:47 ? Addendum Dictated By: ?Win Main MD ? Addendum Signed By: ? <Electronically signed by Win A. Green, MD in [place]> ? 06/20/24323 ?? Addendum Cosigned By: ? DD/ ? TD/TT: 06/20/24 ? CLINICAL HISTORY: Right lower quadrant pain? ??Appendicitis ? CT abdomen and pelvis with contrast ? Comparison: CT/REG/SR - CT ABDOMEN PELVIS WO IV CON - 01/25/2022 05:20 AM ?? EDT ? Findings: ?? The lung bases are clear. ? Unremarkable gallbladder and solid organs. No urolithiasis. ?? No bowel obstruction, pneumoperitoneum, or pneumatosis. ? The appendix is enlarged up to 1.5 cm with periappendiceal fat stranding ?? or inflammatory change. ?? No acute fracture. ? IMPRESSION: ?? Acute appendicitis. ? This document has been electronically signed by: Win Main MD, ?? PHD on 06/20/2024 03:18:17 ? Dictated By: ?Win Main MD ? Signed By: ?<Electronically signed by Win Main MD in OV> ? 06/20/24 0319 ? DD/ 0318 ? TD/TT: 06/20/24 0318 ? Die Sinker: ? Procedure Note Maco Mena - 06/20/2024 [place] [address] [facility] [place] [address] CT Scan Report Signed with Addenda Patient: Yumiko Marie#: [id number] 9 : 1970Acct:[id number] Age/Sex: 54 / FADM Date: 06/20/24 Loc: HO.ED Attending Dr: Ordering Physician: Bryn Root MD Date of Service: 06/20/24 Procedure(s): CT abdomen pelvis w IV con Accession Number(s): [id number] cc: Name,Reuben MARTINEZ; Bryn Root MD Report Number: [id number]: Total DLP = 614.00 mGy-cm ADDENDUM This document has been electronically signed by: Win Main MD, PHD on 06/20/2024 03:18:17 ADDENDUM: This report was discussed with Ivett Quesada on Jun 20, 2024 03:20:00 EST. This document has been electronically signed by: Sindy Santana on 06/20/2024 03:22:47 Addendum Dictated By: Win Main MD Addendum Signed By: <Electronically signed by Win Escalante MD in OV> 06/20/24323 Addendum Cosigned By: DD/ TD/TT: 06/20/24 CLINICAL HISTORY: Right lower quadrant pain? Appendicitis CT abdomen and pelvis with contrast Comparison: CT/REG/SR - CT ABDOMEN PELVIS WO IV CON - 01/25/2022 05:20 AM EDT Findings: The lung bases are clear. Unremarkable gallbladder and solid organs. No urolithiasis. No bowel obstruction, pneumoperitoneum, or pneumatosis. The appendix is enlarged up to 1.5 cm with periappendiceal fat stranding or inflammatory change. No acute fracture. IMPRESSION: Acute appendicitis. This document has been electronically signed by: Win Main MD, PHD on 06/20/2024 03:18:17 Dictated By: Win Main MD Signed By: <Electronically signed by Win Main MD in OV> 06/20/24318 DD/ 7 TD/TT: 06/20/24317 Die Sinker: [facility] External Provider IMG CT PROCEDURES Edited Result - Final * (ABNORMAL) Comprehensive Metabolic Panel (06/20/2024 12:31 AM EST) Sodium 140 135 - 145 mmol/L [facility] Potassium 4.4 3.3 - 5.1 mmol/L [facility] Chloride 106 96 - 108 mmol/L [facility] Carbon Dioxide 26 22 - 29 mmol/L [facility] Anion Gap 12 12 - 20 [facility] Urea Nitrogen (BUN) 10 9 - 16 mg/dL [facility] Creatinine, Serum 0.71 0.5 - 1.4 mg/dL [facility] Creatinine Clr Calc Pharmacy 88.4 [facility] Comment:Provided height and weight: 160.02 cm,72.575 kg.eGFR (calculated from the MDRD study equation) and eCrCl(calculated from the Cockcroft-Gault equation) are based ondifferent parameters and may not yield comparable results.If eCrCl result is absurd, please check patient'sheight/weight. Estimated Glomerular Filt Rate >60 [facility] Comment:Chronic Kidney Disea se: Estimated GFR < 60 mL/min/[id number] Kidney Disease: Estimated GFR < 15 mL/min/1.73m2 Glucose 105 60 - 115 mg/dL [facility] Calcium 10.1 8.4 - 10.2 mg/dL [facility] Bilirubin, Total 0.2 0.0 - 1.0 mg/dL [facility] Aspartate Amino Transferase 17 5 - 31 U/L [facility] Alanine Aminotransferase 13 0 - 31 U/L [facility] Total Protein 8.2(H) 6.5 - 8.0 g/dL [facility] Albumin Level 4.1 3.5 - 5.0 g/dL [facility] Alkaline Phosphatase 78 39 - 117 U/L [facility] 06/20/2024 12:3 1 AM EST 06/20/2024 12:34 AM EST Generic External Data Provider LAB BLOOD ORDERAB LES Final Result [facility] [address] [place], [place] [phone] * (ABNORMAL) CBC auto differential (06/20/2024 12:31 AM EST) White Blood Count 15.9(H) 4.8 - 10.8 X10*3/uL [facility] Red Blood Count 5.61(H) 4.20 - 5.50 X10*6/uL [facility] Hemoglobin 14.4 12.0 - 16.0 g/dl [facility] Hematocrit 45.0 37.0 - 47.0 % [facility] Mean Corpuscular Volume 80.2 80.0 - 98.0 fL [facility] Mean Corpuscular Hemoglobin 25.7(L) 27.0 - 33.0 pg [facility] Mean Corpuscular HGB Conc 32.0 31.0 - 35.0 g/dl [facility] Red Cell Distribution Width 15.1 11.0 - 16.0 % [facility] Platelet Count 384 160 - 400 X10*3/uL [facility] Mean Platelet Volume 9.3(L) 9.4 - 12.3 fL [facility] Neutrophils Percent Auto 67.6 45 - 73 % [facility] Imm Gran Pct Auto 0.3 0.0 - 0.4 % [facility] Lymphocytes Percent Auto 24.7 20 - 40 % [facility] Monocytes Percent Auto 5.1 2 - 11 % [facility] Eosinophils Percent Auto 1.6 0 - 4 % [facility] Basophils Percent Auto 0.7 0 - 2 % [facility] NRBC Pct Auto 0.0 0.0 - 0.2 /100WBC [facility] Neutrophils Absolute Auto 10.8(H) 2.0 - 8.3 x10*3/uL [facility] Imm Gran Abs Auto 0.05(H) 0.00 - 0.03 X10*3/uL [facility] Lymphocytes Absolute Auto 3.9 1.2 - 4.9 X10*3/uL [facility] Monocytes Absolute Auto 0.8 0.1 - 1.2 X10*3/uL [facility] Eosinophils Absolute Auto 0.3 0.0 - 0.4 X10*3/uL [facility] Basophils Absolute Auto 0.1 0.0 - 0.2 X10*3/uL [facility] NRBC Abs Auto 0.000 0.0 - 0.012 X10*3/uL [facility] 06/20/2024 12:3 1 AM EST 06/20/2024 12:34 AM EST us Generic External Data Provider LAB BLOOD ORDERAB LES Final Result Performing Organization Address [facility]/ZIP Co de Phone Number [facility] [address] [place] [phone] * Urinalysis w/reflex microscopic (06/20/2024 12:31 AM EST) Color Urine Yellow [facility] Appearance Urine Clear [facility] PH 6.0 5.0 - 9.0 [facility] Glucose Urine UA Negative Negative mg/dL [facility] Urine Blood Negative Negative [facility] Specific [place] - Urine 1.010 1.005 - 1.025 [facility] Urine Protein Negative Neg-Trace mg/dL [facility] Urine Ketones Negative Negative mg/dL [facility] Nitrite Urine Negative Negative [facility] Leukocyte Esterase Urine Negative Negative [facility] 06/20/2024 12:3 1 AM EST 06/20/2024 12:34 AM EST Narrative [facility] - 06/20/2024 12:43 AM EST Urine, Clean Catch Generic External Data Provider LAB URINE ORDERAB LES Final Result Performing Organization Address [facility]/ZIP Co de Phone Number [facility] [address] [place] [phone] documented in this encounter Visit Diagnoses Not on filedocumented in this encounter Additional Health Concerns Assessment Noted Time PHQ-9 Depression Total Score: 0 06/30/19 24 9:58 AM EST documented as of this encounter Care Teams Sizing Machine Tender Relationship Specialty Start Date End Date Name, MD Reuben [address] [place] [address] PCP - General Family Medicine 08/15/15 Gibran Medrano FNP [address] [place] [address] Nurse Practitioner Family Medicine 04/20/23 Noemi Pabon [employer] Machine OperatorSanitation Truck Cleaner 03/28/24 documented as of this encounter
--- OUTSIDE RECORDS SUMMARY | 2024-07-06 12:13 | XMS_ITS | Encounter Summary ---
Author Organization [employer] Address [address] [facility] 7t [place] [address] Care Team Providers Care Packing Machine Pilot Can Router Name Role Phone Name, Reuben MARTINEZ Primary Care Provider [phone] Gibran Medrano Unavailable Unavailable Reason for Visit * Reason Onset Date Comments Results 06/14/2024 Patient requesti ng f/u appendix surgery yesterday 06/20/2024 [facility] Encounter Details Date Type Department Care Team (Late st Contact Info) Description 06/14/2024 Telephone [facility] MEDICINE [address] [place], [place] [phone] Name, MD Reuben [address] [place], [place] [phone] Results (Patient requesting f/u appendix surgery yesterday 06/20/2024 [facility] ) Social History Tobacco Use Types Packs/Day Years [...] encounter Miscellaneous Notes * Telephone Encounter - Jordana Corbin RN - 06/21/2024 1:06 PM EST Pt discharged from [facility] today Dx: Acute Appendicitis. Available [facility] notes sent to medical records. Pt requesting follow up appt with pcp. Agrees to F 07/04/24. Reinforced importance of following up with surgeon. Pt reports agreement with plan. * Telephone Encounter - Kezia Pabon - 06/21/2024 11:27 AM EST Patient requesting f/u appendix surgery yesterday 06/20/2024 [facility] documented in this encounter Plan of Treatment Upcoming Encounters Date Type Department Care Team (Late st Contact Info) Description 08/25/2024 9:15 AM EDT Office Visit [facility] MEDICINE [address] [place] [address] Name, MD Reuben [address] [place] [address] documented as of this encounter Visit Diagnoses Not on filedocumented in this encounter Additional Health Concerns Assessment Noted Time PHQ-9 Depression Total Score: 0 06/30/19 24 9:58 AM EST documented as of this encounter Care Teams Packing Machine Pilot Can Router Relationship Specialty Start Date End Date Name, [place] [address] PCP - General Family Medicine 08/15/15 [place] [address] Nurse Practitioner Family Medicine 04/20/23 Noemi Pabon Experimental Aircraft MechanicPanelboard Operator 03/28/24 documented as of this encounter
--- OUTSIDE RECORDS SUMMARY | 2024-07-06 12:13 | XMS_ITS | Encounter Summary ---
Author Organization [employer] Address [address] [facility] 7t [place] [address] Care Team Providers Care Campaign Worker Name Role Phone Name, Reuben MARTINEZ Primary Care Provider [phone] Gibran Medrano Unavailable Unavailable Reason for Visit * Reason Onset Date Comments PT1 06/29/2024 Encounter Details Date Type Department Care Team ([facility] st Contact Info) Description 06/29/2024 Telephone [facility] MEDICINE [address] [place], [place] [phone] Name, MD Reuben [address] [place] [address] PT1 Social History Tobacco Use Types Packs/Day Years [...] encounter Miscellaneous Notes * Telephone Encounter - Krystyna Corado - 06/29/2024 11:51 AM EST 1 of 1 Patient calling requesting PT1 Home Address verified: Y/N: Yes Provider name or facility name: [address] [address] Escort needed: Y/N: No Do you have a wheelchair: Y/N: No (walker) If yes- Manual or electric: N/A Visits: (2x monthly) 1 of 2 Patient calling requesting PT1 Home Address verified: Y/N: Yes Provider name or facility name: [address] [address]. Escort needed: Y/N: No Do you have a wheelchair: Y/N: No (walker) If yes- Manual or electric: N/A Visits: (2x monthly) documented in this encounter Plan of Treatment Upcoming Encounters Date Type Department Care Team ([facility] st Contact Info) Description 08/25/2024 9:15 AM EDT Office Visit [facility] MEDICINE [address] [place] [address] Name, MD Reuben [address] [place] [address] documented as of this encounter Visit Diagnoses Not on filedocumented in this encounter Additional Health Concerns Assessment Noted Time PHQ-9 Depression Total Score: 0 06/30/19 24 9:58 AM EST documented as of this encounter Care Teams Campaign Worker Relationship Specialty Start Date End Date Name, MD Reuben [address] [place] [address] PCP - General Family Medicine 08/15/15 Gibran Medrano FNP [address] [place] [address] Nurse Practitioner Family Medicine 04/20/23 Noemi Pabon Meat CarrierAdult Literacy Instructor 03/28/24 documented as of this encounter
--- OUTSIDE RECORDS SUMMARY | 2024-07-06 12:13 | XMS_ITS | Encounter Summary ---
Author Organization [facility] Address [address] [facility] 7t [place] [address] Care Team Providers Care Edi Consultant Name Role Phone Name, Reuben MARTINEZ Primary Care Provider [phone] Gibran Medrano Unavailable Unavailable Reason for Visit * Reason Onset Date Comments Med Refill 05/23/2022 Encounter Details Date Type Department Care Team ([facility] st Contact Info) Description 05/23/2022 Telephone [facility] MEDICINE [address] [place], [place] [phone] Name, MD Reuben [address] [place] [address] Med Refill Social History Tobacco Use Types Packs/Day Years Used Date Smoking Tobacco: Never Assessed Comments Unknown Sex and Gender Information Value Date Recorded Sex Assigned at Female 2022 10:16 AM EDT Legal Sex Female 10:16 AM EDT Gender Identity Female 2022 10:16 AM EDT Sexual Orientation Straight 2022 10 :16 AM EDT COVID-19 Exposure Response Date Recorded In the last 10 days, have yo u been in contact with someone who was confirmed or suspected to have Coronavirus/COVID-19? No / Unsure 04/29/2022 10:41 AM EST documented as of this encounter Miscellaneous Notes * Telephone Encounter - Rosalind Adkins - 05/23/2022 8:59 AM EST Tc from pt requesting med refill on medication tramadol 50 mg . documented in this encounter Plan of Treatment Upcoming Encounters Date Type Department Care Team (Late st Contact Info) Description 08/25/2024 9:15 AM EDT Office Visit [facility] MEDICINE [address] [place] [address] Name, MD Reuben [address] [place] [address] documented as of this encounter Visit Diagnoses Not on filedocumented in this encounter Additional Health Concerns Assessment Noted Time PHQ-9 Depression Total Score: 4 05/20/20 22 2:16 PM EST documented as of this encounter Care Teams Edi Consultant Relationship Specialty Start Date End Date Name, MD Reuben [address] [place] [address] PCP - General Family Medicine 08/15/15 Gibran Medrano FNP [address] [place] [address] Nurse Practitioner Family Medicine 04/20/23 Noemi Pabon Swine Extension Field SpecialistSenior Clinical Consultant 03/28/24 documented as of this encounter
--- OUTSIDE RECORDS SUMMARY | 2024-07-06 12:13 | XMS_ITS | Encounter Summary ---
Author Organization [employer] [facility] Address [address] [facility] 7t [place] [address] Care Team Providers Care Supervisor Ordnance Truck Installation Name Role Phone Name, Reuben MARTINEZ Primary Care Provider [phone] Gibran Medrano Unavailable Unavailable Encounter Details Date Type Department Care Team (Late Contact Info) Description 05/23/2022 Telephone [facility] MEDICINE [address] [place] [address] [phone] Name, MD Reuben [address] [place] [address] [phone] Social History Tobacco Use Types Packs/Day Years [...] AM EST documented as of this encounter Plan of Treatment Upcoming Encounters Date Type Department Care Team (Late st Contact Info) Description 08/25/2024 9:15 AM EDT Office Visit [facility] MEDICINE [address] [place] [phone] NameReuben MD [address] [place] [address] [phone] documented as of this encounter Visit Diagnoses Not on filedocumented in this encounter Additional Health Concerns Assessment Noted Time PHQ-9 Depression Total Score: 4 05/20/20 22 2:16 PM EST documented as of this encounter Care Teams Supervisor Ordnance Truck Installation Relationship Specialty Start Date End Date Name, MD Reuben [address] [place] [address] PCP - General Family Medicine 08/15/15 Gibran Medrano FNP [address] [place] [address] Nurse Practitioner Family Medicine 04/20/23 Noemi Pabon Recreation OfficerReed Dipper 03/28/24 documented as of this encounter
--- OUTSIDE RECORDS SUMMARY | 2024-07-06 12:13 | XMS_ITS | Clinical Summary ---
Author Organization [facility] Address [address] [place] [address] Care Team Providers Care Flash Oven Operator Name Role Phone Unavailable Primary Care Provider Unavailabl e Social History Tobacco Use Types Packs/Day Years Used Date Smoking Tobacco: Never Assessed Comments Unknown Sex and Gender Information Value Date Recorded Sex Assigned at Not on file Legal Sex Female 12:57 PM EST Gender Identity Not on file Sexual Orientation Not on file Plan of Treatment Health Maintenance Due Date Last Done Comments Breast Cancer Screening 1972 DTaP,Tdap,and Td Vaccines (1 - Tdap) 1979 Hepatitis B Vaccines (1 of 3 - 19+ 3-dose series) 1991 Cervical Cancer Screening: P ap Smear 1993 Pneumococcal Vaccine: 50+ Ye ars (1 of 1 - PCV) 2022 Zoster Vaccines (1 of 2) 2022 COVID-19 Vaccine (1 - 2023-2 5 season) 2024 Influenza Vaccine (#1) 2024 HIB Vaccines Aged Out No longer eligi ble based on patient's age to complete this topic HPV Vaccines Aged Out No longer eligi ble based on patient's age to complete this topic Hepatitis A Vaccines Aged Out No long er eligible based on patient's age to complete this topic IPV Vaccines Aged Out No longer eligi ble based on patient's age to complete this topic MMR Vaccines Aged Out No longer eligi ble based on patient's age to complete this topic Meningococcal ACWY Vaccine Aged Out N o longer eligible based on patient's age to complete this topic Meningococcal B Vacine Aged Out No lo nger eligible based on patient's age to complete this topic Pneumococcal Vaccine: Pediat rics (0 to 5 Years) and At-Risk Patients (6 to 64 Years) Aged Out No longer eligible b ased on patient's age to complete this topic RSV Immunization Patients Un tia 20 months Aged Out No longer eligible b ased on patient's age to complete this topic Varicella Vaccines Aged Out No longer eligible based on patient's age to complete this topic
--- OUTSIDE RECORDS SUMMARY | 2024-07-06 12:13 | XMS_ITS | Encounter Summary ---
Author Organization [employer] Address [address] [facility] 7t [place] [address] Care Team Providers Care Tower Watchman Name Role Phone Name, Reuben MARTINEZ Primary Care Provider Gibran Medrano Unavailable Unavailable Reason for Visit * Reason Comments Med Refill Encounter Details Date Type Department Care Team (Late st Contact Info) Description 11/28/2023 Refill [facility] MEDICINE [address] [place], [place] [phone] Name, MD Reuben [address] [place] [address] Neck pain; Prediabetes Social History Tobacco Use Types Packs/Day Years [...] Description 08/25/2024 9:15 AM EDT Office Visit [facility] MEDICINE [address] [place] [address] Name, MD Reuben [address] [place] [address] documented as of this encounter Visit Diagnoses Diagnosis Neck pain Cervicalgia Prediabetes Other abnormal glucose documented in this encounter Additional Health Concerns Assessment Noted Time PHQ-9 Depression Total Score: 0 06/30/19 24 9:58 AM EST documented as of this encounter Care Teams Tower Watchman Relationship Specialty Start Date End Date Name, MD Reuben [address] [place] [address] PCP - General Family Medicine 08/15/15 Gibran Medrano FNP [address] [place] [address] Nurse Practitioner Family Medicine 04/20/23 Noemi Pabon Shredder/Granulator OperatorInsurance Sales Associate 03/28/24 documented as of this encounter
--- OUTSIDE RECORDS SUMMARY | 2024-07-06 12:13 | XMS_ITS | Encounter Summary ---
Author Organization [employer] Address [address] [facility] 7t [place] [address] Care Team Providers Care Chancellor Name Role Phone Name, Reuben MARTINEZ Primary Care Provider [phone] Gibran Medrano Unavailable Unavailable Encounter Details Date Type Department Care Team (Latest Contact Info) Description 07/04/2024 Travel Social History Tobacco Use Types Packs/Day Years [...] Description 08/25/2024 9:15 AM EDT Office Visit [facility] MEDICINE [address] [place] [phone] Name, MD Reuben [address] [place] [address] documented as of this encounter Visit Diagnoses Not on filedocumented in this encounter Additional Health Concerns Assessment Noted Time PHQ-9 Depression Total Score: 0 06/30/19 9:58 AM EST documented as of this encounter Care Teams Chancellor Relationship Specialty Start Date End Date Name, MD Reuben [address] [place] [phone] PCP - General Family Medicine 08/15/15 Gibran Medrano FNP [address] [place] [address] Nurse Practitioner Family Medicine 04/20/23 Noemi Pabon Senior Cobol DeveloperStraw Boss 03/28/24 documented as of this encounter
--- OUTSIDE RECORDS SUMMARY | 2024-07-06 12:13 | XMS_ITS | Encounter Summary ---
Author Organization [employer] Address [address] [facility] 7t [place] [address] Care Team Providers Care Body Masker Name Role Phone Name, Reuben MARTINEZ Primary Care Provider [phone] Gibran Medrano Unavailable Unavailable Reason for Visit * Reason Onset Date Comments Handicap Placard 12/11/2022 Encounter Details Date Type Department Care Team ([facility] st Contact Info) Description 12/11/2022 Telephone [facility] MEDICINE [address] [place], [place] [phone] Name, MD Reuben [address] [place] [address] Handicap Placard Social History Tobacco Use Types Packs/Day Years [...] encounter Miscellaneous Notes * Telephone Encounter - Ny Mendieta LPN - 12/16/2022 8:19 AM EDT If patient dropped forms off with PCP, we are unable to track them. Patient needs to be advised to go to Medical Records and submit her request, do the paperwork as this is the process for everyone for all requests forms, letter, rmv placards etc....everyone should follow this process. Thank you. * Telephone Encounter - Asia Nicholas - 12/11/2022 1:43 PM EDT Tc from patient requesting the status of handicap placard paperwork. Marble Setter transferred call to HIMand patient was transferred back, due to paperwork being dropped off directly to PCP. documented in this encounter Plan of Treatment Upcoming Encounters Date Type Department Care Team (Late st Contact Info) Description 08/25/2024 9:15 AM EDT Office Visit [facility] MEDICINE [address] [place] [address] Name, MD Reuben [address] [place] [address] documented as of this encounter Visit Diagnoses Not on filedocumented in this encounter Additional Health Concerns Assessment Noted Time PHQ-9 Depression Total Score: 0 11/25/19 1:40 PM EDT documented as of this encounter Care Teams Body Masker Relationship Specialty Start Date End Date Name, MD Reuben [address] [place] [address] PCP - General Family Medicine 08/15/15 Gibran Medrano FNP [address] [place] [address] Nurse Practitioner Family Medicine 04/20/23 Noemi Pabon Bit SanderSonar Technician 03/28/24 documented as of this encounter
--- OUTSIDE RECORDS SUMMARY | 2024-07-06 12:13 | XMS_ITS | Encounter Summary ---
Author Organization [employer] [facility] Address [address] [facility] 7t [place] [address] Care Team Providers Care Shoe Turner Name Role Phone Name, Reuben MARTINEZ Primary Care Provider [phone] Gibran Medrano Unavailable Unavailable Encounter Details Date Type Department Care Team (Late st Contact Info) Description 11/03/2022 Abstract [facility] MEDICINE [address] [place] [address] [phone] NameReuben MD [address] [place] [phone] Social History Tobacco Use Types Packs/Day Years Used Date Smoking Tobacco: Never Smokeless Tobacco: Never Comments Unknown Sex and Gender Information Value [...] Description 08/25/2024 9:15 AM EDT Office Visit [facility] MEDICINE [address] [place] [address] [phone] Reuben Suh MD [address] [place] [address] [phone] documented as of this encounter Visit Diagnoses Not on filedocumented in this encounter Additional Health Concerns Assessment Noted Time PHQ-9 Depression Total Score: 0 09/24/19 23 12:49 PM EDT documented as of this encounter Care Teams Shoe Turner Relationship Specialty Start Date End Date Name, MD Reuben [address] [place] [address] PCP - General Family Medicine 08/15/15 Gibran Medrano FNP [address] [place] [address] Nurse Practitioner Family Medicine 04/20/23 Noemi Pabon Rotary Soil StabilizerShipping Checker 03/28/24 documented as of this encounter
--- OUTSIDE RECORDS SUMMARY | 2024-07-06 12:13 | XMS_ITS | Encounter Summary ---
Author Organization [employer] Address [address] [facility] 7t [place] [address] Care Team Providers Care Chips Screen Tender Name Role Phone Name, Reuben MARTINEZ Primary Care Provider [phone] Gibran Medrano Unavailable Unavailable Reason for Visit * Reason Onset Date Comments Med Refill 01/30/2023 Encounter Details Date Type Department Care Team ([facility] st Contact Info) Description 01/30/2023 Telephone [facility] MEDICINE [address] [place], [place] [phone] Name, MD Reuben [address] [place] [address] Med Refill Social History Tobacco Use Types [...] encounter Miscellaneous Notes * Telephone Encounter - Ester Guido LPN - 01/30/2023 8:51 AM EDT Medication pended to provider. * Telephone Encounter - Ryan Yanes - 01/30/2023 8:41 AM EDT Tc from pt requesting med refill on lidocaine (Xylocaine) 5 % ointment gabapentin (Neurontin) 100 MG capsule meclizine (Antivert) 25 MG tablet Please sent to [facility]/pharmacy #[id number] - [facility] [place] - [address] [place] [address] documented in this encounter Plan of Treatment Upcoming Encounters Date Type Department Care Team (Late st Contact Info) Description 08/25/2024 9:15 AM EDT Office Visit [facility] MEDICINE [address] [place] [address] Name, MD Reuben [address] [place] [address] documented as of this encounter Visit Diagnoses Not on filedocumented in this encounter Additional Health Concerns Assessment Noted Time PHQ-9 Depression Total Score: 0 11/25/19 23 1:40 PM EDT documented as of this encounter Care Teams Chips Screen Tender Relationship Specialty Start Date End Date Name, MD Reuben [address] [place] [address] PCP - General Family Medicine 08/15/15 Gibran Medrano FNP [address] [place] [address] Nurse Practitioner Family Medicine 04/20/23 Noemi Pabon Race Car DriverIndustrial Chemistry Teacher 03/28/24 documented as of this encounter
--- OUTSIDE RECORDS SUMMARY | 2024-07-06 12:13 | XMS_ITS | Encounter Summary ---
Author Organization [employer] Address [address] [facility] 7t [place] [address] Care Team Providers Care Glove Presser Name Role Phone Name, Reuben MARTINEZ Primary Care Provider [phone] Gibran Medrano Unavailable Unavailable Reason for Visit * Reason Comments Med Refill Encounter Details Date Type Department Care Team ([facility] st Contact Info) Description 12/14/2023 Refill [facility] MEDICINE [address] [place], [place] [phone] Name, MD Reuben [address] [place] [address] Neck pain Social History Tobacco Use Types Packs/Day Years [...] Description 08/25/2024 9:15 AM EDT Office Visit [facility] MEDICINE [address] [place] [address] Name, MD Reuben [address] [place] [address] documented as of this encounter Visit Diagnoses Diagnosis Neck pain Cervicalgia documented in this encounter Additional Health Concerns Assessment Noted Time PHQ-9 Depression Total Score: 0 06/30/19 24 9:58 AM EST documented as of this encounter Care Teams Glove Presser Relationship Specialty Start Date End Date Name, MD Reuben [address] [place] [address] PCP - General Family Medicine 08/15/15 Gibran Medrano FNP [address] [place] [address] Nurse Practitioner Family Medicine 04/20/23 Noemi Pabon Lock Tender Chief OperatorSenior Oracle Developer 03/28/24 documented as of this encounter
--- OUTSIDE RECORDS SUMMARY | 2024-07-06 12:13 | XMS_ITS | Encounter Summary ---
Author Organization [employer] Address [address] [facility] 7t [place] [address] Care Team Providers Care Coastal And Estuary Specialist Name Role Phone Name, Reuben MARTINEZ Primary Care Provider [phone] Gibran Medrano Unavailable Unavailable Reason for Visit * Reason Comments Med Refill Encounter Details Date Type Department Care Team ([facility] st Contact Info) Description 11/20/2023 Refill [facility] MEDICINE [address] [place], [place] [phone] Name, MD Reuben [address] [place] [address] Neck pain Social History Tobacco Use Types [...] Description 08/25/2024 9:15 AM EDT Office Visit [facility] MEDICINE [address] [place] [phone] Name, MD Reuben [address] [place] [address] documented as of this encounter Visit Diagnoses Diagnosis Neck pain Cervicalgia documented in this encounter Additional Health Concerns Assessment Noted Time PHQ-9 Depression Total Score: 0 06/30/19 24 9:58 AM EST documented as of this encounter Care Teams Coastal And Estuary Specialist Relationship Specialty Start Date End Date Name, MD Reuben [address] [place] [address] PCP - General Family Medicine 08/15/15 Gibran Medrano FNP [address] [place] [address] Nurse Practitioner Family Medicine 04/20/23 Noemi Pabon Boring InspectorIntranet Developer 03/28/24 documented as of this encounter
--- OUTSIDE RECORDS SUMMARY | 2024-07-06 12:13 | XMS_ITS | Clinical Summary ---
Author Organization [employer] Address [address] [place] [address] Care Team Providers Care Chemical Research Engineer Name Role Phone Name, Reuben MARTINEZ Primary Care Provider [phone] Gibran Medrano Unavailable Unavailable Allergies No known active allergies Medications * This document contains information received from the source organization and may not represent a complete record from that organization. Milk Thistle 300 MG capsule Activ e Naphazoline-Ph eniramine (Opcon-A) 0.027-0.315 % solution Instill one drop OD every 6 hours for 5 days then as needed 12/31/19 19 Active raNITIdine (Zantac) 150 MG tablet take 1 tablet by oral route every day as needed for heartburn 05/26/19 19 Active amitriptyline (Elavil) 25 MG tabletIndicati ons:Bipolar 2 disorder (CMS/HCC) Take 1 tablet (25 mg) by mouth at bedtime. 90 tablet 1 04/27/20 23 Active clonazePAM (KlonoPIN) 0.5 MG tabletIndicati ons:Bipolar 2 disorder (CMS/HCC) Take 1 tablet (0.5 mg) by mouth if needed each day for anxiety. 20 tablet 2 04/27/20 23 Active cloNIDine (Catapres) 0.1 MG tabletIndicati ons:Bipolar 2 disorder (CMS/HCC) Take 1 tablet (0.1 mg) by mouth 2 times daily. 180 tablet 1 04/27/20 23 Active lidocaine (Xylocaine) 5 % ointmentIndica tions:Neck pain APPLY TOPICALLY IF NEEDED FOR MILD PAIN. 50 g 2 10/27/19 24 06/04/2 025 Active topiramate (Topamax) 25 MG tablet TAKE 2 TABLETS BY MOUTH EVERY MORNING 60 tablet 5 03/24/20 24 Active meloxicam (Mobic) 7.5 MG tabletIndicati ons:Neck pain, chronic Take 1 tablet (7.5 mg) by mouth Once per day. 30 tablet 11 03/30/20 24 025 Active lidocaine (Lidoderm) 5 % patchIndicatio ns:Neck pain, chronic APPLY 1 PATCH EVERY DAY MAY WEAR UP TO 12 HOURS 30 patch 1 03/30/20 24 Active hydroCHLOROthi azide 12.5 MG tabletIndicati ons:Neck pain, chronic Take 1 tablet (12.5 mg) by mouth Once per day. 90 tablet 03/30/20 24 Active gabapentin (Neurontin) 100 MG capsuleIndicat ions:Neck pain, chronic TAKE 1 CAPSULE BY MOUTH THREE TIMES A DAY 90 capsule 03/30/20 24 Active meclizine (Antivert) 25 MG tabletIndicati ons:Neck pain, chronic TAKE 1 TABLET BY MOUTH THREE TIMES A DAY NEEDED FOR DIZZINESS 60 tablet 1 03/30/20 24 Active loratadine (Claritin) 10 MG tabletIndicati ons:Neck pain, chronic Take 1 tablet by mouth every day as needed 90 tablet 1 03/30/20 24 Active bisacodyl (Bisacodyl EC) 5 MG EC tabletIndicati ons:Neck pain, chronic TAKE 2 TABLETS BY MOUTH EVERY DAY NEEDED FOR CONSTIPATION 180 tablet 03/30/20 24 Active cholecalcifero l (Vitamin D3) 25 MCG (1000 UT) tabletIndicati ons:Neck pain, chronic Take 1 tablet (25 mcg) by mouth in the morning. 90 tablet 1 03/30/20 24 Active losartan (Cozaar) 100 MG tabletIndicati ons:Neck pain, chronic Take 1 tablet (100 mg) by mouth in the morning. 90 tablet 03/30/20 24 Active Diclofenac Sodium 1 % gelIndications :Cervical radiculitis APPLY ONCE A DAY TO THE AFFECTED AREAS WITH PAIN 100 g 1 05/19/20 24 Active baclofen (Lioresal) 20 MG tabletIndicati ons:Neck pain, chronic TAKE 1 TABLET BY MOUTH TWICE A DAY 60 tablet 06/27/19 25 Active baclofen (Lioresal) 20 MG tabletIndicati ons:Neck pain, chronic TAKE 1 TABLET BY MOUTH TWICE A DAY 60 tablet 05/30/19 25 025 Discontinued Active Problems Problem Noted Date Diagnosed Date History of laparoscopic appendectomy 06/21/2024 Overview (06/21/2024): 06/20/2024 at [facility] Family history of Crohn's disease 03/30/2023 Urinary incontinence 03/30/2023 Fibromyalgia 01/01/2023 Tubal ligation status 09/19/2022 Bipolar 2 disorder 05/20/2022 Assessment & Plan (04/27/2023 9:18 AM EST): Reported lifetime history of depression and anxiety, with mood swings and irritability. History of trauma, childhood and adult. Has found Clonidine 0.1 mg BID very helpful for anxiety. She was recently prescribed Topiramate 50 mg daily for migraines which has also been an effective mood stabilizer. Also takes Gabapentin 100 mg TID. Will continue Clonazepam 0.5 mg daily prn, and Amitriptyline 25 mg at bedtime prn sleep (which does not seem to be destabilizing her mood), however will be cognizant of risk of serotonin syndrome with combination of medications. F/U with therapist as usual. Today 04/27/2023 provider informed pt that I would be retiring in approximately 1/2 year, and suggest she speak with therapist about referral to agency psychiatrist. Meanwhile, F/U with me in 2 months. She agrees with the plan. Assessment & Plan (02/02/2023 3:51 PM EDT): Reported lifetime history of depression and anxiety, with mood swings and irritability. History of trauma, childhood and adult. Has found Clonidine 0.1 mg BID very helpful for anxiety. She was recently prescribed Topiramate 50 mg daily for migraines which has also been an effective mood stabilizer. Will continue Clonazepam 0.5 mg daily prn, and Amitriptyline 25 mg at bedtime prn sleep (which does not seem to be destabilizing her mood), however will be cognizant of risk of serotonin syndrome with combination of medications. F/U with me in 2 months. She agrees with the plan. Assessment & Plan (11/24/2022 2:42 PM EDT): Reported lifetime history of depression and anxiety, with mood swings and irritability. History of trauma, childhood and adult. Has found Clonidine 0.1 mg BID very helpful for anxiety. She was recently prescribed Topiramate 50 mg daily for migraines which has also been an effective mood stabilizer. She stopped the [place] and is still doing very well. Will continue Clonazepam 0.5 mg daily prn, and Amitriptyline 25 mg at bedtime prn sleep (which does not seem to be destabilizing her mood), however will be cognizant of risk of serotonin syndrome with combination of medications. F/U with me in 2 months. She agrees with the plan. Assessment & Plan (09/23/2022 1:35 PM EDT): Reported lifetime history of depression and anxiety, with mood swings and irritability. History of trauma, childhood and adult. Has found Clonidine 0.1 mg BID very helpful for anxiety. She was recently prescribed Topiramate for migraines. If this is helpful, may be able to titrate up for mood stabilization and stop the [place]. Meanwhile, continue [place] 300 mg once daily, Clonazepam 0.5 mg daily prn, and Amitriptyline 25 mg at bedtime prn sleep (which does not seem to be destabilizing her mood), however will be cognizant of risk of serotonin syndrome with combination of medications. F/U with me in 2 months. She agrees with the plan. Assessment & Plan (07/01/2022 1:47 PM EST): Reported lifetime history of depression and anxiety, with mood swings and irritability. History of trauma, childhood and adult. Has found Clonidine 0.1 mg BID very helpful or anxiety. Continue other medicaitons as usual. Do have labs drawn before next appointment in 6-8 weeks. She agrees with the plan. Assessment & Plan (05/20/2022 3:09 PM EST): Reported lifetime history of depression and anxiety, with mood swings and irritability. History of trauma, childhood and adult. Having increased anxiety with somatic symptoms (? Related to perimenopause?). Reviewed with patient that would be better not to increase Clonazepam r/t risk of habituation and potential for serious interaction with her Tramadol. Instead, will start Clonidine 0.1 mg at bedtime for 1-2 weeks, then BID. Continue other medicaitons as usual. Labs ordered. F/U 6 weeks, call sooner as needed. She agrees with the plan. Adenoma of large intestine 04/22/2022 Steatosis of liver 04/22/2022 Prediabetes 09/24/2021 Cervical radiculitis 02/03/2018 Cough due to JOSE ALFREDO inhibitor 10/14/2016 Migraine without aura, not refractory 02/19/2016 Numbness of hand 11/15/2015 MARILU (obstructive sleep apnea) 11/15/2015 Essential hypertension 08/15/2015 Allergic rhinitis 03/18/2013 Gastroesophageal reflux disease 06/09/2012 Vertigo 06/09/2012 Obesity 09/23/2011 Resolved Problems Problem Noted Date Diagnosed Date Resolved Date Fall 04/22/2022 03/30/2024 Recurrent major depression i n partial remission 04/22/2022 05/20/2022 Spasm of cervical paraspinous muscle 12/04/2017 03/30/2024 Status migrainosus 08/12/2017 Closed fracture of nasal bones 08/11/2017 03/30/2024 Pain in elbow 10/14/2016 03/30/2024 Chest pain 06/30/2016 06/30/2023 Dyspnea on exertion 06/30/2016 06/30/19 24 Chronic low back pain 06/09/20122023 Disorder of skeletal muscle 08/14/2011 03/30/2024 Depressive disorder 04/29/2011 05/20/20 22 Encounters Date Type Department Care Team Description 07/04/2024 1:00 PM EST Office Visit [address] [address] Reuben Suh MD Abdominal pain, unspecified abdominal location (Primary Dx); History of appendectomy 07/04/2024 Travel 06/29/2024 Patient Outreach [address] [address] Reuben Suh MD Care Coordination ([facility] outreach for SDOH PT-1 and food needs-referral completed /) 06/29/[address] [address] Reuben Suh MD PT1 06/27/2024 Refill [facility] [address] [place] [address] Concha Tabares MD Neck pain, chronic 06/20/2024 Orders Only GENERIC EXTERNAL DATA DEPARTMENT Provider, Generic External Data 06/14/2024 Telephone [facility] [address] [place] [address] NameReuben MD Results (Patient requesting f/u appendix surgery yesterday 06/20/2024 [facility] ) 05/30/2024 Refill [facility] [address] [place] [address] Reuben Suh MD Neck pain, chronic 05/18/2024 Refill [facility] [address] [place] [address] Reuben Suh MD Cervical radiculitis 05/11/2024 Telephone [facility] [address] [place] [address] Radha Isabel MA DME from [facility] 04/29/2024 Telephone [facility] [address] [place] [address] Radha Isabel MA DME from [facility] from Last 3 Months Immunizations Name Administration Dates Next Due Hep B, adult 06/29/2019,10/27/2008 MMR 10/30/2008 Pfizer Covid-19 Vaccine 12+ 12/05/2020, 1 TD (adult), 2 Lf tetanus tox oid, preservative free, adsorbed 10/26/2008 Social History Tobacco Use Types Packs/Day Years Used Date Smoking Tobacco: Never Passive Smoke Exposure: Never Smokeless Tobacco: Never Tobacco Cessation:Counseling Given: Not Answered Alcohol Use Standard Drinks/Week Comments Never 0 [...] Orientation Straight 2022 10 :16 AM EDT Last Filed Vital Signs Vital Sign Reading [...] 3.2 oz) 07/04/2024 1:04 PM EST Height 160 cm (5' 3 ) 03/30/2024 11:54 AM EST Body Mass Index 28.91 03/30/2024 11:54 AM EST Plan of Treatment Upcoming Encounters Date Type Department Care Team (Late st Contact Info) Description 08/25/2024 9:15 AM EDT Office Visit [facility] [address] [place] [address] Name, MD Reuben [address] [place] [address] Health Maintenance Due Date Last Done Comments CT Colonography 1972 FIT DNA/Cologuard 1972 FIT 1972 FOBT 1970 HIV Screening 1970 Sigmoidoscopy 1970 Family Planning (PISQ) 1987 Hepatitis A Vaccines (1 of 2 - Risk 2-dose series) 1991 DTaP/Tdap/Td Vaccines (1 - Tdap) 10/27/2008 10/26/2008 Hepatitis B Vaccines (3 of 3 - 19+ 3-dose series) 08/24/2019 06/29/2019, 10/27/2008 Pneumococcal Vaccine: 50+ Years (1 of 1 - PCV) 2022 Zoster Vaccines (1 of 2) 2022 COVID-19 Vaccine (3 - season) 2024 12/05/2020, 11/14/2020 Influenza Vaccine (#1) 2024 Depression Screening 06/30/2024 06/30/2023, 06/30/19 24 SDOH Screening 06/30/2024 06/30/2023 Mammogram 10/26/2024 10/27/2023, 06/0 05/2022, 10/14/2022, Additional history exists Alcohol/Substance Use Screening 12/31/2024 01/01/2024 Diabetes: Hemoglobin A1C 12/31/2024 024, 07/20/2023, 06/10/2022, Additional history exists Tobacco Screening 12/31/2024 01/01/2024 Lipid Panel 09/23/2026 09/23/2021, 12/26/2020 Colonoscopy 03/03/2028 03/03/2023, 07/05/2019 Colorectal Cancer Screening 03/03/2028 Cervical Cancer Screening 07/06/2028 HPV/Cotest 07/06/2028 07/17/2017 Pap Smear 07/06/2028 07/06/2023, 07/06/2023 RSV Patients and Patients Aged 60 years or older (1 - 1-dose 75+ series) 2047 Hepatitis C Screening Completed 06/24/2019 HIB Vaccines Aged Out No longer eligi ble based on patient's age to complete this topic HPV Vaccines Aged Out No longer eligi ble based on patient's age to complete this topic IPV Vaccines Aged Out No longer eligi ble based on patient's age to complete this topic Meningococcal Vaccine Aged Out No mari minal eligible based on patient's age to complete this topic RSV under 20 months Aged Out No longe r eligible based on patient's age to complete this topic Rotavirus Vaccines Aged Out No longer eligible based on patient's age to complete this topic Procedures Procedure Name Priority Date/Time Associated Diagnosis Comments CT ABDOMEN PELVIS W CONTRAST Routine 06/20/2024 3:18 AM EST COMPREHENSIVE METABOLIC PANEL Routine 06/20/2024 12:31 AM EST CBC WITH AUTO DIFFERENTIAL Routine 06/20/2024 12:31 AM EST URINALYSIS WITH REFLEX MICROSCOPIC Routine 06/20/2024 12:31 AM EST POCT GLYCATED HEMOGLOBIN, TOTAL Routine 01/01/2024 11:41 AM EDT Prediabetes BI MAMMOGRAM SCREENING TOMOSYNTHESIS BILATERAL Routine 10/27/2023 8:15 AM EDT PAP SMEAR Routine 07/06/2023 10:57 AM EST HM COLONOSCOPY Routine 03/03/2023 LIPID PANEL, STANDARD Routine 09/23/2021 1:05 PM EDT ZZZ HISTORICAL HEPATITIS C ANTIBODY RFLX Routine 06/24/2019 10:48 AM EST ZZZ HISTORICAL HPV MRNA E6/E7 Routine 07/17/2017 11:19 AM EST from Last 3 Months or Most Recently Relevant to Health Maintenance Results * CT Abdomen Pelvis w/ Contrast (06/20/2024 3:18 AM EST) Anatomical Region Laterality Modality Body, Pelvis, Abdomen Computed T omography 06/20/2024 3:18 AM EST Narrative 06/20/2024 3:20 AM EST ? [facility] ?[address] ?[place] [address] ? CT Scan Report ? Signed with Addenda ? Patient: Marie,Yumiko ?MR#: [id number] ?? 9 ? : 1970 ?Acct:[id number] ? Age/Sex: 54 / F ?ADM Date: 06/20/24 ? Loc: HO.ED ? Attending Dr: ? Ordering Physician: Bryn Root MD ?? Date of Service: 06/20/24 ?? Procedure(s): CT abdomen pelvis w IV con ?? Accession Number(s): [id number] ? cc: Reuben Suh MD; Bryn Root MD ? Report Number: ?? [id number]: Total DLP = ??614.00 mGy-cm ?ADDENDUM ?? [...] Signed By: ? <Electronically signed by Win Main MD in OV> ? 06/20/24 0324 ?? Addendum Cosigned By: ? DD/ ? [...] by Win Main MD in OV> ? 06/20/24318 ? DD/ ? TD/TT: 06/20/24317 ? Truck Cleaner: ? Procedure Note Donotuseinterpreter, Image - 06/20/[address] [place] [address] [address] Scan Report Signed with Addenda Patient: Yumiko MarieMR#: [id number] 9 : 1970Acct:[id number] Age/Sex: 54 / FADM Date: 06/20/24 Loc: HO.ED Attending Dr: Ordering Physician: Bryn Root MD Date of Service: 06/20/24 Procedure(s): CT abdomen pelvis w IV con Accession Number(s): [id number] cc: Name,Reuben MARTINEZ; Bryn Root MD Report Number: [id number]: Total DLP = 614.00 mGy-cm ADDENDUM This [...] in OV> 06/20/24318 DD/ 7 TD/TT: 06/20/24317 Truck Cleaner: [facility] External Provider IMG CT PROCEDURES Edited Result - Final * (ABNORMAL) CBC auto differential (06/20/2024 12:31 AM EST) White Blood Count 15.9(H) 4.8 - 10.8 X10*3/uL [facility] Red Blood Count 5.61(H) 4.20 - 5.50 X10*6/uL [facility] Hemoglobin 14.4 12.0 - 16.0 g/dl [facility] Hematocrit 45.0 37.0 - 47.0 % [facility] Mean Corpuscular Volume 80.2 80.0 - 98.0 fL [facility] Mean Corpuscular Hemoglobin 25.7(L) 27.0 - 33.0 pg [facility] Mean Corpuscular HGB Conc 32.0 31.0 - 35.0 g/dl [facility] Red Cell Distribution Width 15.1 11.0 - 16.0 % [facility] Platelet Count 384 160 - 400 X10*3/uL [facility] Mean Platelet Volume 9.3(L) 9.4 - 12.3 fL [facility] Neutrophils Percent Auto 67.6 45 - 73 % [facility] Imm Gran Pct Auto 0.3 0.0 - 0.4 % [facility] Lymphocytes Percent Auto 24.7 20 - 40 % [facility] Monocytes Percent Auto 5.1 2 - 11 % [facility] Eosinophils Percent Auto 1.6 0 - 4 % [facility] Basophils Percent Auto 0.7 0 - 2 % [facility] NRBC Pct Auto 0.0 0.0 - 0.2 /100WBC [facility] Neutrophils Absolute Auto 10.8(H) 2.0 - 8.3 x10*3/uL [facility] Imm Gran Abs Auto 0.05(H) 0.00 - 0.03 X10*3/uL [facility] Lymphocytes Absolute Auto 3.9 1.2 - 4.9 X10*3/uL [facility] Monocytes Absolute Auto 0.8 0.1 - 1.2 X10*3/uL [facility] Eosinophils Absolute Auto 0.3 0.0 - 0.4 X10*3/uL [facility] Basophils Absolute Auto 0.1 0.0 - 0.2 X10*3/uL [facility] NRBC Abs Auto 0.000 0.0 - 0.012 X10*3/uL [facility] 06/20/2024 12:3 1 AM EST 06/20/2024 12:34 AM EST us Generic External Data Provider LAB BLOOD ORDERAB LES Final Result [facility] [address] [place] [address] [phone] * Urinalysis w/reflex microscopic (06/20/2024 12:31 AM EST) Color Urine Yellow [facility] Appearance Urine Clear [facility] PH 6.0 5.0 - 9.0 [facility] Glucose Urine UA Negative Negative mg/dL [facility] Urine Blood Negative Negative [facility] Specific [place] - Urine 1.010 1.005 - 1.025 [facility] Urine Protein Negative Neg-Trace mg/dL [facility] Urine Ketones Negative Negative mg/dL [facility] Nitrite Urine Negative Negative [facility] Leukocyte Esterase Urine Negative Negative [facility] 06/20/2024 12:3 1 AM EST 06/20/2024 12:34 AM EST Narrative [facility] - 06/20/2024 12:43 AM EST Urine, Clean Catch us Generic External Data Provider LAB URINE ORDERAB LES Final Result [facility] [address] [place] [address] [phone] * (ABNORMAL) Comprehensive Metabolic Panel (06/20/2024 12:31 AM EST) Sodium 140 135 - 145 mmol/L [facility] Potassium 4.4 3.3 - 5.1 mmol/L [facility] Chloride 106 96 - 108 mmol/L [facility] Carbon Dioxide 26 22 - 29 mmol/L [facility] Anion Gap 12 12 - 20 [facility] Urea Nitrogen (BUN) 10 9 - 16 mg/dL [facility] Creatinine, Serum 0.71 0.5 - 1.4 mg/dL [facility] Creatinine Clr Calc Pharmacy 88.4 [facility] Comment:Provided height and weight: 160.02 cm,72.575 kg.eGFR (calculated from the MDRD study equation) and eCrCl(calculated from the Cockcroft-Gault equation) are based ondifferent parameters and may not yield comparable results.If eCrCl result is absurd, please check patient'sheight/weight. Estimated Glomerular Filt Rate >60 [facility] Comment:Chronic Kidney Disea se: Estimated GFR < 60 mL/min/[id number] Kidney Disease: Estimated GFR < 15 mL/min/1.73m2 Glucose 105 60 - 115 mg/dL [facility] Calcium 10.1 8.4 - 10.2 mg/dL [facility] Bilirubin, Total 0.2 0.0 - 1.0 mg/dL [facility] Aspartate Amino Transferase 17 5 - 31 U/L [facility] Alanine Aminotransferase 13 0 - 31 U/L [facility] Total Protein 8.2(H) 6.5 - 8.0 g/dL [facility] Albumin Level 4.1 3.5 - 5.0 g/dL [facility] Alkaline Phosphatase 78 39 - 117 U/L [facility] 06/20/2024 12:3 1 AM EST 06/20/2024 12:34 AM EST us Generic External Data Provider LAB BLOOD ORDERAB LES Final Result [facility] [address] [facility] [place] [address] [phone] * POCT HGB A1C (01/01/2024 11:41 AM EDT) Hemoglobin A1C 5.5 4.0 - 6.0 % QC Media Lot # [id number] Lot# Expiration Date [id number] Blood 01/01/2024 11:4 1 AM EDT us Reuben Name POINT OF CARE TEST ENTER/EDIT OR DERABLES Final Result * BI Mammogram Screening Tomosynthesis Bilateral (10/27/2023 8:15 AM EDT) Anatomical Region Laterality Modality Breast Bilateral Mammography 10/27/2023 8:15 AM EDT Narrative 11/16/2023 3:24 AM EDT ? [facility] [place] ? [address] ?[place] [address] ? Mammography Report ? Signed ? Patient: Marie,Yumiko ?MR#: [id number] ?? 9 ? : 1970 ?Acct:[id number] ? Age/Sex: 53 / F ?ADM Date: 06/04/24 ? Loc: HO.MAMMO ? Attending : Reuben Name MD ? Ordering Physician: Name,Reuben MD ?Results: 1Negative ? Date of Service: 10/27/23 ?Follow Up: 1 Year From Orig ?? inal Mammogram ? Procedure(s): MM tomosynthesis screening BI ?? Accession Number(s): [id number] ? cc: Name,Reuben MARTINEZ ? EXAMINATION: ?? MM SCREENING DIGITAL BREAST TOMOSYNTHESIS, BILATERAL ? CLINICAL INFORMATION: ? Screening. Asymptomatic. ? COMPARISON: ?? Mammography: This study is compared with prior exams dating back to ?? 2019. ? TECHNIQUE: ?? Digital breast tomosynthesis is performed in both the craniocaudal and ?? mediolateral oblique views along with computer-aided detection (CAD). ?? Synthesized 2D images are generated from the tomosynthesis. ? FINDINGS: ?? There are scattered areas of fibroglandular density (ACR BI-RADS breast ?? composition Category b). ? There are no significant masses, abnormal calcifications, or other ?? abnormalities. ? MM/MM tomosynthesis screening BI ?? IMPRESSION: ?? No mammographic evidence of malignancy. ? ASSESSMENT: ? BI-RADS BI-RADS 1 - Negative ? RECOMMENDATION: ?? Routine annual mammography screening. ? 1 year F/U ? This examination should not preclude the clinical evaluation of a ?? suspicious palpable abnormality. ? This patient's information was entered into a reminder system with a ?? target due date for their next mammogram. ? Dictated By: ?Jody Link MD ? Signed By: ?<Electronically signed by Jody Link MD in OV> ? 11/16/23319 ? DD/ 4 ? TD/TT: ? Truck Cleaner: ? Procedure Note Maco Mena - 11/16/2023 [facility] [address] [place], [place] [address] Mammography Report Signed Patient: Yumiko MarieMR#: [id number] 9 : 1970Acct:[id number] Age/Sex: 53 / FADM Date: 10/27/23 Loc: HO.MAMMO Attending Dr: Reuben Suh MD Ordering Physician: Reuben Suh MDResults: 1Negative Date of Service: 10/27/23Follow Up: 1 Year From Orig inal Mammogram Procedure(s): MM tomosynthesis screening BI Accession Number(s): [id number] cc: Reuben Suh MD EXAMINATION: MM SCREENING DIGITAL BREAST TOMOSYNTHESIS, BILATERAL CLINICAL INFORMATION: Screening. Asymptomatic. COMPARISON: Mammography: This study is compared with prior exams dating back to 2019. TECHNIQUE: Digital breast tomosynthesis is performed in both the craniocaudal and mediolateral oblique views along with computer-aided detection (CAD). Synthesized 2D images are generated from the tomosynthesis. FINDINGS: There are scattered areas of fibroglandular density (ACR BI-RADS breast composition Category b). There are no significant masses, abnormal calcifications, or other abnormalities. MM/MM tomosynthesis screening BI IMPRESSION: No mammographic evidence of malignancy. ASSESSMENT: BI-RADS BI-RADS 1 - Negative RECOMMENDATION: Routine annual mammography screening. 1 year F/U This examination should not preclude the clinical evaluation of a suspicious palpable abnormality. This patient's information was entered into a reminder system with a target due date for their next mammogram. Dictated By: Jody Link MD Signed By: <Electronically signed by Jody Link MD in OV> 11/16/23 0320 DD/ 0815 TD/TT: Truck Cleaner: Reuben Suh MD IM BI PROCEDURES Final Result * Pap Smear (07/06/2023 10:57 AM EST) 07/06/2023 10:5 7 AM EST 07/07/2023 8:00 AM EST Narrative [facility] - 07/21/2023 1:20 PM EST ----- ------- Name: Yumiko Marie ?Age/Sex: 53/F ? : 1970 Unit#: [id number] ?? Attend Dr: Isela Hackett CNM ?Re07/06/23 ?Status: DEP REF ? Location: HO.LNP ?Disch: ? ----- ------- SPEC : [id number] ? RECD: 07/07/23 ? STATUS: ??SOUT ? REQ NUM: [id number] ? DEBRA: 07/06/23-1056 ? SUBM DR: Isela Hackett CNM ? ENTERED: ??07/07/23 ?SP TYPE: Pap Smr ?OTHR DR: Reuben Suh MD ? ORDERED: ??Pap Smear ? Interpretation ?? Satisfactory for evaluation. ?? Mild inflammation. ?? Negative for intraepithelial lesion or malignancy. ?HPV mRNA E6/E7: ?NOT DETECTED ? This assay detects E6/E7 viral messenger RNA (mRNA) from 14 high-risk HPV types (16, 18, ?? 31, 33, 35, 39, 45, 51, 52, 56, 58, 59, 66, 68) ?? HPV testing performed by [facility], [place], [place]. ??See reference laboratory ?? portion of the EMR for entire report. ?Clinical Information LMP: 06/30/23 Previous PAP test: 2018, WNL ? Material Received ?? ThinPrep-Cervical Copies To: ?? Name,Reuben MARTINEZ ?? [address] [facility] ?? [place] [address] ?? [phone] ?? Isela Hackett CNM ?? [address] [facility] ?? [place] [address] ?? [phone] ----- ------- Signed (signature on file) MEAGHAN Santo (ASCP) 07/21/23 1320 ? ----- ------- ? END OF REPORT ? us Generic External Data Provider LAB CYTOLOGY ORDE RABJULIANA Final Result [facility] [address] [place] [address] [phone] * (ABNORMAL) Hm Colonoscopy (03/03/2023) Colonoscopy Abnormal(A ) Normal us Reuben Suh MD HEALTH MAINTENANCE Final Result * (ABNORMAL) LIPID PANEL, STANDARD (09/23/2021 1:05 PM EDT) Chol/HDLC Ratio 4.1 <5.0 (calc) [facility] Cholesterol, Total 172 <200 mg/dL [facility] HDL Cholesterol 42(L) > OR = 50 mg/dL [facility] LDL Cholesterol 109(H) mg/dL (calc) [facility] Comment: Reference range: <100 ?? Desirable range <100 mg/dL for primary prevention; ?? <70 mg/dL for patients with CHD or diabetic patients ?? with > or = 2 CHD risk factors. ?? LDL-C is now calculated using the Radha ?? calculation, which is a validated novel method providing ?? better accuracy than the Friedewald equation in the ?? estimation of LDL-C. ?? Sebastián SCHRADER et al. CHRISTOPH. 2013;310(19): 9358-1678 ?? (http://education.UpDown/faq/FRF417) Non-HDL Cholesterol 130(H) <130 mg/dL (calc) [facility] Comment: For patients with diabetes plus 1 major ASCVD risk ?? factor, treating to a non-HDL-C goal of <100 mg/dL ?? (LDL-C of <70 mg/dL) is considered a therapeutic ?? option. Triglycerides 104 <150 mg/dL [facility] 09/23/2021 1:05 PM EDT us Reuben Suh MD LAB BLOOD ORDERABLES Final Resul t Performing Organization Address [facility]/ZIP Co de Phone Number [facility] [address] [place] [address], * HEPATITIS C ANTIBODY RFLX (06/24/2019 10:48 AM EST) HEPATITIS C ANTIBODY NONREACTIVE NONREACTIVE [facility] Comment: Antibodies to HCV not detected; does not exclude early acute HCV infection. 06/24/2019 10:4 8 AM EST us Reuben Suh MD HISTORICAL/NON ORDERABLE LABS Fi nal Result Performing Organization Address [facility] de Phone Number [facility] [address] [place] [address], * HPV mRNA E6/E7 (07/17/2017 11:19 AM EST) HPV mRNA E6/E7 Not Detected NOT DETECTED [facility] Comment: This test was performed using the APTIMA(R) HPV Assay ([employer] This assay detects E6/E7 viral messenger RNA (mRNA) from 14 high-risk HPV types (16,18,31,33,35,39,45,51, 52,56,58,59,66,68). For additional information please refer to: http://education.Publons/faq/OWH747f5 (This link is being provided for informational/ educational purposes only.) Test Performed by [facility], [facility], [address] [place] [address] Jimmy Alonso M.D., Ph.D., Director of Laboratories , [place] [id number] Please note: ??Effective 02/04/2016, HPV testing will be performed using [employer]'s APTIMA test which targets mRNA. Detecting mRNA instead of DNA, as in older methods, offers significant improvements in specificity. 07/17/2017 11:1 9 AM EST Isela Hackett HISTORICAL/NON ORDERABLE LABS Fi nal Result [facility] [address] from Last 3 Months or Most Recently Relevant to Health Maintenance Insurance [place], [place] Kadmon C3 Care Teams Chemical Research Engineer Relationship Specialty Start Date End Date Name, MD Reuben [address] [place] [address] PCP - General Family Medicine 08/15/15 Gibran Medrano FNP [address] [place], [place] Nurse Practitioner Family Medicine 04/20/23 Noemi Pabon Medicinal Plant PickerAirplane Electrical Repairer 03/28/24
--- OUTSIDE RECORDS SUMMARY | 2024-07-06 12:13 | XMS_ITS | Encounter Summary ---
Author Organization [employer] Address [address] [facility] 7t [place] [address] Care Team Providers Care Chemistry Quality Control Technician Name Role Phone Name, Reuben MARTINEZ Primary Care Provider [phone] Gibran Medrano Unavailable Unavailable Reason for Visit * Reason Comments Med Refill Encounter Details Date Type Department Care Team (Late st Contact Info) Description 06/27/2024 Refill [facility] [address] [place], [place] [phone] Concha Tabares MD [address] [place], [place] [phone] Neck pain, chronic Social History Tobacco Use Types Packs/Day Years [...] Description 08/25/2024 9:15 AM EDT Office Visit [facility] [address] [place] [phone] Name, MD Reuben [address] [place] [phone] documented as of this encounter Visit Diagnoses Diagnosis Neck pain, chronic documented in this encounter Additional Health Concerns Assessment Noted Time PHQ-9 Depression Total Score: 0 06/30/19 24 9:58 AM EST documented as of this encounter Care Teams Chemistry Quality Control Technician Relationship Specialty Start Date End Date Name, MD Reuben [address] [place] [address] PCP - General Family Medicine 08/15/15 Gibran Medrano FNP [address] [place] [address] Nurse Practitioner Family Medicine 04/20/23 Noemi Pabon Claim ApproverSenior Java J2Ee Developer 03/28/24 documented as of this encounter
--- OUTSIDE RECORDS SUMMARY | 2024-07-06 12:13 | XMS_ITS | Encounter Summary ---
Author Organization [employer] [facility] Address [address] [facility] 7t [place] [address] Care Team Providers Care Paperhanger And Painter Name Role Phone Name, Reuben MARTINEZ Primary Care Provider [phone] Gibran Medrano Unavailable Unavailable Reason for Visit * Reason Comments Med Refill Encounter Details Date Type Department Care Team (Late st Contact Info) Description 08/21/2022 Refill [facility] [address] [place] [address] [phone] NameReuben MD [address] [place] [phone] Constipation, unspecified constipation type Social History Tobacco Use Types Packs/Day Years [...] suspected to have Coronavirus/COVID-19? No / Unsure 07/23/2022 11:56 AM EST documented as of this encounter Plan of Treatment Upcoming Encounters Date Type Department Care Team (Late st Contact Info) Description 08/25/2024 9:15 AM EDT Office Visit [facility] [address] [place] [address] [phone] Reuben Suh MD [address] [place] [address] [phone] documented as of this encounter Visit Diagnoses Diagnosis Constipation, unspecified constipation type documented in this encounter Additional Health Concerns Assessment Noted Time PHQ-9 Depression Total Score: 8 07/01/19 23 1:13 PM EST documented as of this encounter Care Teams Paperhanger And Painter Relationship Specialty Start Date End Date Name, MD Reuben [address] [place] [address] PCP - General Family Medicine 08/15/15 Gibran Medrano FNP [address] [place] [address] Nurse Practitioner Family Medicine 04/20/23 Noemi Pabon Flat PolisherSet Up And Lay Out Inspector 03/28/24 documented as of this encounter
== END 2024-07-06 11:03 | disposition home or self-care (01) ==
PROVIDERS: PCP Internal Medicine Geriatric Medicine; Visit Provider Surgery
DX: Z90.49 Acquired absence of other specified parts of digestive tract (principal)
CPT/HCPCS: 99024

== ENCOUNTER → 2024-07-06 10:27 | Outpatient (BNVA) | payer MEDICAID, SELFPAY | PROVIDERS: PCP Internal Medicine Geriatric Medicine; Visit Provider Surgery | DX: Z90.49 Acquired absence of other specified parts of digestive tract (principal) | CPT/HCPCS: 99212 ==

== ENCOUNTER 2024-08-25 09:37 | Outpatient (REF) | payer MEDICAID, SELFPAY ==
--- OUTSIDE RECORDS SUMMARY | 2024-08-25 10:06 | XMS_ITS | Encounter Summary ---
Author Organization [employer] Address [address] [facility] 7t [place] [address] Care Team Providers Care Ceramic Restorer Name Role Phone Name, Reuben MARTINEZ Primary Care Provider Gibran Medrano Unavailable Unavailable Reason for Visit * Reason Onset Date Comments Handicap Placard 12/11/2022 Encounter Details Date Type Department Care Team ([facility] st Contact Info) Description 12/11/2022 Telephone [facility] [address] [place], [place] [phone] Name, MD Reuben [address] [place] [address] Handicap Placard Social History Tobacco Use Types [...] requesting the status of handicap placard paperwork. E Commerce Architect transferred call to HIMand patient was transferred back, due to paperwork being dropped off directly to PCP. documented in this encounter Plan of Treatment Upcoming Encounters Date Type Department Care Team (Late st Contact Info) Description 11/24/2024 11:00 AM EDT Office Visit [facility] [address] [place] [address] Naomi Tate, OD [address] [place] [address] documented as of this encounter Visit Diagnoses Not on filedocumented in this encounter Additional Health Concerns Assessment Noted Time PHQ-9 Depression Total Score: 0 11/25/19 1:40 PM EDT documented as of this encounter Care Teams Ceramic Restorer Relationship Specialty Start Date End Date Name, MD Reuben [address] [place] [address] PCP - General Family Medicine 08/15/15 Gibran Medrano FNP [address] [place] [address] Nurse Practitioner Family Medicine 04/20/23 Noemi Pabon Ict Business Development ManagerHead Of Precision Targeting 03/28/24 documented as of this encounter
--- OUTSIDE RECORDS SUMMARY | 2024-08-25 10:06 | XMS_ITS | Encounter Summary ---
Author Organization [employer] [facility] Address [address] [facility] 7t [place] [address] Care Team Providers Care Varnish Mixer Name Role Phone Name, Reuben MARTINEZ Primary Care Provider [phone] Gibran Medrano Unavailable Unavailable Reason for Visit * Reason Onset Date Comments Results 12/11/2022 Encounter Details Date Type Department Care Team ([facility] st Contact Info) Description 12/11/2022 Telephone [facility] [address] [place], [place] [phone] Name, MD Reuben [address] [place] [address] Results Social History Tobacco Use Types Packs/Day [...] Description 11/24/2024 11:00 AM EDT Office Visit [facility] [address] [place] [address] NamratasNaomi, OD [address] [place] [address] documented as of this encounter Visit Diagnoses Not on filedocumented in this encounter Additional Health Concerns Assessment Noted Time PHQ-9 Depression Total Score: 0 11/25/19 1:40 PM EDT documented as of this encounter Care Teams Varnish Mixer Relationship Specialty Start Date End Date Name, MD Reuben [address] [place] [address] PCP - General Family Medicine 08/15/15 Gibran Medrano FNP [address] [place] [address] Nurse Practitioner Family Medicine 04/20/23 Noemi Pabon Stator WinderNumerical Control Machine Tool Operator 03/28/24 documented as of this encounter
--- OUTSIDE RECORDS SUMMARY | 2024-08-25 10:06 | XMS_ITS | Encounter Summary ---
Author Organization [employer] [facility] Address [address] [facility] 7t [place] [address] Care Team Providers Care Roving Department Supervisor Name Role Phone Name, Reuben MARTINEZ Primary Care Provider [phone] Gibran Medrano Unavailable Unavailable Reason for Visit * Reason Comments Med Refill Encounter Details Date Type Department Care Team ([facility] Contact Info) Description 02/21/2023 Refill [facility] [address] [place] [address] Concha Tabares MD [address] [place] [address] Cervical radiculitis; Essential hypertension; Prediabetes; MARILU (obstructive [...] Upcoming Encounters Date Type Department Care Team ([facility] Contact Info) Description 11/24/2024 11:00 AM EDT Office Visit [facility] [address] [place], [place] [phone] Naomi Tate, OD [address] [place] [address] documented as of this encounter Visit Diagnoses Diagnosis Cervical radiculitis Brachial neuritis or radiculitis nos Essential hypertension Unspecified essential hypertension Prediabetes Other abnormal glucose MARILU (obstructive sleep apnea) Obstructive sleep apnea (adult) (pediatric) documented in this encounter Additional Health Concerns Assessment Noted Time PHQ-9 Depression Total Score: 3 02/03/20 23 3:12 PM EDT documented as of this encounter Care Teams Roving Department Supervisor Relationship Specialty Start Date End Date Name, MD Reuben [address] [place] [address] PCP - General Family Medicine 08/15/15 Gibran Medrano FNP [address] [place] [address] Nurse Practitioner Family Medicine 04/20/23 Noemi Pabon Thermal Cutter HelperAerosol Supervisor 03/28/24 documented as of this encounter
--- OUTSIDE RECORDS SUMMARY | 2024-08-25 10:06 | XMS_ITS | Encounter Summary ---
Author Organization [employer] Address [address] [facility] 7t [place] [address] Care Team Providers Care Application Development Project Manager Name Role Phone Name, Reuben MARTINEZ Primary Care Provider [phone] Gibran Medrano Unavailable Unavailable Reason for Visit * Reason Comments Med Refill Encounter Details Date Type Department Care Team ([facility] st Contact Info) Description 03/29/2023 Refill [facility] [address] [place] [address] Yolanda Forman MD [address] [place] [address] Cervical radiculitis; Vertigo Social History Tobacco Use [...] Description 11/24/2024 11:00 AM EDT Office Visit [facility] [address] [place] [address] Naomi Tate, OD [address] [place] [address] documented as of this encounter Visit Diagnoses Diagnosis Cervical radiculitis Brachial neuritis or radiculitis nos Vertigo Dizziness and giddiness documented in this encounter Additional Health Concerns Assessment Noted Time PHQ-9 Depression Total Score: 3 02/03/20 23 3:12 PM EDT documented as of this encounter Care Teams Application Development Project Manager Relationship Specialty Start Date End Date Name, MD Reuben [address] [place] [address] PCP - General Family Medicine 08/15/15 Gibran Medrano FNP [address] [place] [address] Nurse Practitioner Family Medicine 04/20/23 Noemi Pabon Shop TailorNeurosurgery Research Director 03/28/24 documented as of this encounter
--- OUTSIDE RECORDS SUMMARY | 2024-08-25 10:06 | XMS_ITS | Encounter Summary ---
Author Organization [employer] Address [address] [facility] 7t [place] [address] Care Team Providers Care Settlement Agent Name Role Phone Name, Reuben MARTINEZ Primary Care Provider [phone] Gibran Medrano Unavailable Unavailable Encounter Details Date Type Department Care Team ([facility] st Contact Info) Description 04/21/2023 Telephone [facility] [address] [place], [place] [phone] Name, MD Reuben [address] [place], [place] [phone] Social History Tobacco Use Types Packs/Day Years [...] Description 11/24/2024 11:00 AM EDT Office Visit [facility] [address] [place], [place] [phone] Naomi Tate, TORI [address] [place] [address] documented as of this encounter Visit Diagnoses Not on filedocumented in this encounter Additional Health Concerns Assessment Noted Time PHQ-9 Depression Total Score: 3 02/03/20 23 3:12 PM EDT documented as of this encounter Care Teams Settlement Agent Relationship Specialty Start Date End Date Name, MD Reuben [address] [place] [address] PCP - General Family Medicine 08/15/15 Gibran Medrano FNP [address] [place] [address] Nurse Practitioner Family Medicine 04/20/23 Noemi Pabon Limousine And Hearse UpholstererMobile Phone Salesperson 03/28/24 documented as of this encounter
--- OUTSIDE RECORDS SUMMARY | 2024-08-25 10:06 | XMS_ITS | Encounter Summary ---
Author Organization [employer] Address [address] [facility] 7t [place] [address] Care Team Providers Care End Polisher Name Role Phone Name, Reuben MARTIENZ Primary Care Provider [phone] Gibran Medrano Unavailable Unavailable Reason for Visit * Reason Comments Annual Exam Encounter Details Date Type Department Care Team (Latest Contact Info) Description 08/25/2024 9:15 AM EDT Office Visit [facility] MEDICINE [address] [place], [place] [phone] Name, MD Reuben [address] [place] [address] PE (physical exam), routine (Primary Dx); Neck pain, chronic; Osteoarthritis of cervical spine, unspecified spinal osteoarthritis complication status; Essential hypertension; Prediabetes; Abdominal pain, unspecified abdominal location; Vaccination refused by patient Social History Tobacco Use Types Packs/Day Years [...] Answer Date Recorded Patient Health Questionnaire-9 Score 13 08/25/2024 Patient Health Questionnaire-9 Score 13 08/25/2024 Last PHQ-9: Questionnaire Data Not on file 0 08/25/2024 Housing Stability Answer Date Recorded What is your housing situation today? I have brigette corona 08/18/[address] you li ve. Do you have problems with any of the following? None of the above 08/18/2024 Food Insecurity Answer Date Recorded Within the past 12 months, y ou worried that your food would run out before you got money to buy more: Never True 08/18/2024 Within the past 12 months,th e food you bought just didn't last and you didn't have enough money to get more: Never True Transportation Answer Date Recorded In the past 12 months, has l ack of transportation kept you from medical appts, meetings, work or from getting things needed for daily living? No 08/18/2024 Utilities Answer Date Recorded In the past 12 months, has t he electric, gas, oil or water company threatened to shut off services in your home? No 08/18/2024 Depression Answer Date Recorded Patient Health Questionnaire-2 Score 3 08/25/2024 Internet Access Answer Date Recorded Internet Access Q1 Yes 08/18/2024 Internet Access Q2 Not on file 08/18/2024 Comments Unknown Sex and Gender Information Value Date Recorded Sex Assigned at Female 2022 10:16 AM EDT Legal Sex Female 10:16 AM EDT Gender Identity Female 2022 10:16 AM EDT Sexual Orientation Straight 2022 10 :16 AM EDT documented as of this encounter Last Filed Vital Signs Vital Sign Reading Time Taken Comments Blood Pressure 122/78 08/25/2024 9:09 AM EDT Pulse 78 08/25/2024 9:09 AM EDT Temperature 36.6 ??C (97.8 ??F) 08/25/2024 9:09 AM ED T Respiratory Rate 22 08/25/2024 9:09 AM EDT Oxygen Saturation - - Inhaled Oxygen Concentration - - Weight 74.8 kg (165 lb) 08/25/2024 9:09 AM EDT Height 160 cm (5' 3 ) 08/25/2024 9:09 AM EDT Body Mass Index 29.23 08/25/2024 9:09 AM EDT documented in this encounter Progress Notes * Reuben Suh, - 08/25/2024 9:15 AM EDT Subjective Patient ID: Yumiko Marie is a 54 y.o. female who presents for Annual Exam. Patient comes for a physical exam and she is doing well. She denies any recent migraines. 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 NSAIDs, as needed baclofen, and topical lidocaine and Voltaren. She has improved her diet considerably and is avoiding sweets.She has lost weight and she is congratulated. She continues using CPAP nightly and she feels it is helping her to rest and improve her quality of sleep. She complains of occasional colic abdominal discomfort especially after eating meat. No severe abdominal pain, no constipation or diarrhea. CT scan done in May did not show any gallstones. Review of Systems Constitutional: Negative for chills and fever. HENT: Negative for sore throat. Respiratory: Negative for cough, shortness of breath and wheezing. Cardiovascular: Negative for chest pain, palpitations and leg swelling. Gastrointestinal: Negative for abdominal pain. Visit Vitals BP 122/78 (BP Location: Left arm, Patient Position: Sitting, BP Cuff Size: Adult) Pulse 78 Temp 97.8 ??F (36.6 ??C) (Oral) Resp 22 Ht 5' 3 (1.6 m) Wt 165 lb (74.8 kg) BMI 29.23 kg/m?? Smoking Status Never BSA 1.82 m?? Objective Physical Exam Constitutional: Appearance: Normal appearance. Cardiovascular: Rate and Rhythm: Normal rate and regular rhythm. Heart sounds: No murmur heard. No gallop. Pulmonary: Effort: Pulmonary effort is normal. No respiratory distress. Breath sounds: Normal breath sounds. No wheezing. Abdominal: General: There is no distension. Tenderness: There is no abdominal tenderness. Musculoskeletal: Right lower leg: No edema. Left lower leg: No edema. Neurological: Mental Status: She is alert. [address] [address] [address] Scan Report Signed with Addenda Patient: Yumiko Marie MR#: [id number] 9 : 1970 Acct:[id number] Age/Sex: 54 / F ADM Date: 06/20/24 Loc: HO.ED Attending Dr: Ordering Physician: Bryn Root MD Date of Service: 06/20/24 Procedure(s): CT abdomen pelvis w IV con Accession Number(s): [id number] cc: Name,Reuben MARTINEZ; Bryn Root MD Report Number: [id number]: Total DLP = 614.00 mGy-cm ADDENDUM This document has been electronically signed by: Win Main MD, PHD on 06/20/2024 03:18:17 ADDENDUM: This report was discussed with Ivett Quesada on Jun 20, 2024 03:20:00 EST. This document has been electronically signed by: Sindy Santana on 06/20/2024 03:22:47 Addendum Dictated By: Win Main MD Addendum Signed By: <Electronically signed by Win Main MD in OV> 06/20/24323 Addendum Cosigned By: [...] by Win Main MD in OV> 06/20/24318 Assessment/Plan Diagnoses and all orders for this visit: PE (physical exam), routine Comments: Patient is congratulated on her diet improvement. Recommended regular physical activity. She is up-to-date with her mammograms and colonoscopy. She has upcoming appointment with gynecology. She is recommended evaluation with fasting blood work listed below. Unfortunately she refused any vaccination. Orders: - CBC auto differential; Future - Lipid Panel, Standard; Future - Comprehensive Metabolic Panel; Future Neck pain, chronic Comments: Chronic neck pain secondary to cervical spine DJD. I refilled her meloxicam and baclofen to be used sparingly. Refill topical diclofenac and lidocaine as well. Orders: - CBC auto differential; Future - Lipid Panel, Standard; Future - Comprehensive Metabolic Panel; Future - baclofen (Lioresal) 20 MG tablet; Take 1 tablet (20 mg) by mouth 2 times daily. - meloxicam (Mobic) 7.5 MG tablet; Take 1 tablet (7.5 mg) by mouth Once per day. - lidocaine (Xylocaine) 5 % ointment; Apply topically if needed for mild pain. - Diclofenac Sodium 1 % gel; Apply once a day to the affected areas with pain Osteoarthritis of cervical spine, unspecified spinal osteoarthritis complication status - CBC auto differential; Future - Lipid Panel, Standard; Future - Comprehensive Metabolic Panel; Future Essential hypertension Comments: Well-controlled. Continue current dose of losartan and hydrochlorothiazide. Check fasting blood work listed below. She is encouraged to continue using her CPAP nightly. Orders: - CBC auto differential; Future - Lipid Panel, Standard; Future - Comprehensive Metabolic Panel; Future - baclofen (Lioresal) 20 MG tablet; Take 1 tablet (20 mg) by mouth 2 times daily. - meloxicam (Mobic) 7.5 MG tablet; Take 1 tablet (7.5 mg) by mouth Once per day. - lidocaine (Xylocaine) 5 % ointment; Apply topically if needed for mild pain. - Diclofenac Sodium 1 % gel; Apply once a day to the affected areas with pain Prediabetes Comments: Patient stopped eating sweets months ago. She is congratulated. Check fasting blood work listed below. Orders: - CBC auto differential; Future - Lipid Panel, Standard; Future - Comprehensive Metabolic Panel; Future Colic, abdominal Comments: Abdominal exam is unremarkable. Recent CT scan of the abdomen did not show any gallstones. She has been using Bentyl prescribed to a friend with symptomatic improvement. I agreed to refill the medication. We discussed the side effects of the medication. She is encouraged to call if symptoms persist. Vaccination refused by patient - CBC auto differential; Future - Lipid Panel, Standard; Future - Comprehensive Metabolic Panel; Future Other orders - dicyclomine (Bentyl) 20 MG tablet; Take 0.5 tablets (10 mg) by mouth if needed in the morning, atnoon, in the evening, and at bedtime (abdominal pain). documented in this encounter Plan of Treatment Upcoming Encounters Date Type Department Care Team (Late st Contact Info) Description 11/24/2024 11:00 AM EDT Office Visit [facility] OPTOMETRY [address] [place] [address] Naomi Tate, OD [address] [place] [address] Scheduled Orders Name Type Priority Associated Diagnoses Orde r Schedule CBC auto differential Lab Routine PE (physical exam), routine Neck pain, chronic Osteoarthritis of cervical spine, unspecified spinal osteoarthritis complication status Essential hypertension Prediabetes Vaccination refused by patient Expected: 08/25/2024 (Approximate), Expires: 08/25/2025 Lipid Panel, Standard Lab Routine PE (physical exam), routine Neck pain, chronic Osteoarthritis of cervical spine, unspecified spinal osteoarthritis complication status Essential hypertension Prediabetes Vaccination refused by patient Expected: 08/25/2024 (Approximate), Expires: 08/25/2025 Comprehensive Metabolic Panel Lab Routine PE (physical exam), routine Neck pain, chronic Osteoarthritis of cervical spine, unspecified spinal osteoarthritis complication status Essential hypertension Prediabetes Vaccination refused by patient Expected: 08/25/2024 (Approximate), Expires: 08/25/2025 documented as of this encounter Visit Diagnoses Diagnosis PE (physical exam), routine- Primary Neck pain, chronic Osteoarthritis of cervical spine, unspecified spinal osteoarthritis complication status Essential hypertension Unspecified essential hypertension Prediabetes Other abnormal glucose Abdominal pain, unspecified abdominal location Vaccination refused by patient documented in this encounter Additional Health Concerns Assessment Noted Time PHQ-9 Depression Total Score: 13 025 9:14 AM EDT documented as of this encounter Care Teams End Polisher Relationship Specialty Start Date End Date Name, MD Reuben [address] [place] [address] PCP - General Family Medicine 08/15/15 Gibran Medrano FNP [address] [place] [address] Nurse Practitioner Family Medicine 04/20/23 Noemi Pabon Scaffold ErectorQa Developer 03/28/24 documented as of this encounter
--- OUTSIDE RECORDS SUMMARY | 2024-08-25 10:06 | XMS_ITS | Encounter Summary ---
Author Organization [employer] Address [address] [facility] 7t [place] [address] Care Team Providers Care Doughnut Dough Mixer Name Role Phone Name, Reuben MARTINEZ Primary Care Provider [phone] Gibran Medrano Unavailable Unavailable Reason for Visit * Reason Comments Med Refill Encounter Details Date Type Department Care Team (Late st Contact Info) Description 03/25/2023 Refill [facility] MEDICINE [address] [place] [address] Gibran Medrano FNP Social History Tobacco Use [...] Description 11/24/2024 11:00 AM EDT Office Visit [facility] OPTOMETRY [address] [place] [address] Naomi Tate OD [address] [place] [address] documented as of this encounter Visit Diagnoses Not on filedocumented in this encounter Additional Health Concerns Assessment Noted Time PHQ-9 Depression Total Score: 3 02/03/20 23 3:12 PM EDT documented as of this encounter Care Teams Doughnut Dough Mixer Relationship Specialty Start Date End Date Name, MD Reuben [address] [place] [address] PCP - General Family Medicine 08/15/15 Gibran Medrano FNP [address] [place] [address] Nurse Practitioner Family Medicine 04/20/23 Noemi Pabon Circulation LibrarianSheet Fed Printer 03/28/24 documented as of this encounter
--- OUTSIDE RECORDS SUMMARY | 2024-08-25 10:06 | XMS_ITS | Encounter Summary ---
Author Organization [employer] Address [address] [facility] 7t [place] [address] Care Team Providers Care Medicaid Service Coordinator Name Role Phone Name, Reuben MARTINEZ Primary Care Provider [phone] Gibran Medrano Unavailable Unavailable Reason for Visit * Reason Onset Date Comments Med Refill 01/30/2023 Encounter Details Date Type Department Care Team ([facility] st Contact Info) Description 01/30/2023 Telephone [facility] MEDICINE [address] [place], [place] [phone] Name, MD Reuben [address] [place] [address] Med Refill Social History Tobacco Use Types [...] (Antivert) 25 MG tablet Please sent to [facility]/pharmacy #[id number] - [place], [place] - [address] documented in this encounter Plan of Treatment Upcoming Encounters Date Type Department Care Team (Late st Contact Info) Description 11/24/2024 11:00 AM EDT Office Visit [facility] OPTOMETRY [address] [place] [address] Naomi Tate, OD [address] [place] [address] documented as of this encounter Visit Diagnoses Not on filedocumented in this encounter Additional Health Concerns Assessment Noted Time PHQ-9 Depression Total Score: 0 11/25/19 23 1:40 PM EDT documented as of this encounter Care Teams Medicaid Service Coordinator Relationship Specialty Start Date End Date Name, MD Reuben [address] [place] [address] PCP - General Family Medicine 08/15/15 Gibran Medrano FNP [address] [place] [address] Nurse Practitioner Family Medicine 04/20/23 Noemi Pabon Food Operations ManagerSteam Power Plant Operator 03/28/24 documented as of this encounter
--- OUTSIDE RECORDS SUMMARY | 2024-08-25 10:06 | XMS_ITS | Encounter Summary ---
Author Organization [employer] Address [address] [facility] [address]t [place] [address] Care Team Providers Care Silver Solution Mixer Name Role Phone Name, Reuben MARTINEZ Primary Care Provider Gibran Medrano Unavailable Unavailable Reason for Visit * Reason Onset Date Comments Medication Question 01/06/2023 Vitamin D Encounter Details Date Type Department Care Team ([facility] Contact Info) Description 01/06/2023 Telephone [facility] MEDICINE [address] [place], [place] [phone] Name, MD Reuben [address] [place] [address] Medication Question (Vitamin D) Social History Tobacco [...] Description 11/24/2024 11:00 AM EDT Office Visit [facility] OPTOMETRY [address] [place], [place] [phone] Naomi Tate, OD [address] [place] [address] documented as of this encounter Visit Diagnoses Not on filedocumented in this encounter Additional Health Concerns Assessment Noted Time PHQ-9 Depression Total Score: 0 11/25/19 1:40 PM EDT documented as of this encounter Care Teams Silver Solution Mixer Relationship Specialty Start Date End Date Name, MD Reuben [address] [place] [address] PCP - General Family Medicine 08/15/15 Gibran Medrano FNP [address] [place] [address] Nurse Practitioner Family Medicine 04/20/23 Noemi Pabon Student Financial Aid ManagerProduct Manager Financial Services 03/28/24 documented as of this encounter
--- OUTSIDE RECORDS SUMMARY | 2024-08-25 10:06 | XMS_ITS | Encounter Summary ---
Author Organization [employer] Address [address] [facility] 7t [place] [address] Care Team Providers Care Auto Mechanic Apprentice Name Role Phone Name, Reuben MARTINEZ Primary Care Provider [phone] Gibran Medrano Unavailable Unavailable Reason for Visit * Reason Comments Med Refill Encounter Details Date Type Department Care Team ([facility] st Contact Info) Description 08/25/2024 Refill [facility] MEDICINE [address] [place], [place] [phone] Name, MD Reuben [address] [place] [address] Neck pain, chronic Social History Tobacco Use [...] Description 11/24/2024 11:00 AM EDT Office Visit [facility] OPTOMETRY [address] [place] [address] Naomi Tate, TORI [address] [place] [address] documented as of this encounter Visit Diagnoses Diagnosis Neck pain, chronic documented in this encounter Additional Health Concerns Assessment Noted Time PHQ-9 Depression Total Score: 13 025 9:14 AM EDT documented as of this encounter Care Teams Auto Mechanic Apprentice Relationship Specialty Start Date End Date Name, MD Reuben [address] [place] [address] PCP - General Family Medicine 08/15/15 Gibran Medrano FNP [address] [place] [address] Nurse Practitioner Family Medicine 04/20/23 Noemi Pabon Safety AttendantDementia Program Director 03/28/24 documented as of this encounter
--- OUTSIDE RECORDS SUMMARY | 2024-08-25 10:06 | XMS_ITS | Encounter Summary ---
Author Organization [employer] Address [address] [facility] 7t [place] [address] Care Team Providers Care Corrugated Fastener Driver Name Role Phone Name, Reuben MARTINEZ Primary Care Provider [phone] Gibran Medrano Unavailable Unavailable Reason for Visit * Reason Onset Date Comments Referral 09/01/2023 Encounter Details Date Type Department Care Team ([facility] st Contact Info) Description 09/01/2023 Telephone [facility] MEDICINE [address] [place], [place] [phone] Name, MD Reuben [address] [place] [address] Referral Social History Tobacco Use Types Packs/Day [...] If any questions please contact pt at [phone]. documented in this encounter Plan of Treatment Upcoming Encounters Date Type Department Care Team (Late st Contact Info) Description 11/24/2024 11:00 AM EDT Office Visit [facility] OPTOMETRY [address] [place], [place] [phone] Naomi Tate, TORI [address] [place] [address] documented as of this encounter Visit Diagnoses Not on filedocumented in this encounter Additional Health Concerns Assessment Noted Time PHQ-9 Depression Total Score: 0 06/30/19 24 9:58 AM EST documented as of this encounter Care Teams Corrugated Fastener Driver Relationship Specialty Start Date End Date Name, MD Reuben [address] [place] [address] PCP - General Family Medicine 08/15/15 Gibran Medrano FNP [address] [place] [address] Nurse Practitioner Family Medicine 04/20/23 Noemi Pabon Wheel Shop SupervisorInternational Account Manager 03/28/24 documented as of this encounter
--- OUTSIDE RECORDS SUMMARY | 2024-08-25 10:06 | XMS_ITS | Encounter Summary ---
Author Organization [facility] Address [address] [facility] 7t [place] [address] Care Team Providers Care Creative Services Manager Name Role Phone Name, Reuben MARTINEZ Primary Care Provider [phone] Gibran Medrano Unavailable Unavailable Encounter Details Date Type Department Care Team (Late st Contact Info) Description 11/03/2022 Abstract [facility] MEDICINE [address] [place], [place] [phone] Name, MD Reuben [address] [place] [address] Social History Tobacco Use Types Packs/Day Years [...] Description 11/24/2024 11:00 AM EDT Office Visit [facility] OPTOMETRY [address] [place], [place] [phone] Naomi Tate OD [address] [place], [place] [phone] documented as of this encounter Visit Diagnoses Not on filedocumented in this encounter Additional Health Concerns Assessment Noted Time PHQ-9 Depression Total Score: 0 09/24/19 23 12:49 PM EDT documented as of this encounter Care Teams Creative Services Manager Relationship Specialty Start Date End Date Name, MD Reuben [address] [place] [address] PCP - General Family Medicine 08/15/15 Gibran Medrano FNP [address] [place] [address] Nurse Practitioner Family Medicine 04/20/23 Noemi Pabon Field Services AnalystHigh School Coordinator 03/28/24 documented as of this encounter
--- OUTSIDE RECORDS SUMMARY | 2024-08-25 10:06 | XMS_ITS | Encounter Summary ---
Author Organization [employer] Address [address] [facility] 7t [place] [address] Care Team Providers Care Reset Merchandiser Name Role Phone Name, Reuben MARTINEZ Primary Care Provider [phone] Gibran Medrano Unavailable Unavailable Reason for Visit * Reason Comments Med Refill Encounter Details Date Type Department Care Team ([facility] st Contact Info) Description 05/15/2023 Refill [facility] MEDICINE [address] [place] [address] Gibran Medrano FNP Social History Tobacco Use [...] Description 11/24/2024 11:00 AM EDT Office Visit [facility] OPTOMETRY [address] [place] [address] Naomi Tate, TORI [address] [place] [address] documented as of this encounter Visit Diagnoses Not on filedocumented in this encounter Additional Health Concerns Assessment Noted Time PHQ-9 Depression Total Score: 4 04/27/20 23 8:58 AM EST documented as of this encounter Care Teams Reset Merchandiser Relationship Specialty Start Date End Date Name, MD Reuben [address] [place] [address] PCP - General Family Medicine 08/15/15 Gibran Medrano FNP [address] [place] [address] Nurse Practitioner Family Medicine 04/20/23 Noemi Pabon Academic Success CoordinatorChange Management Director 03/28/24 documented as of this encounter
--- OUTSIDE RECORDS SUMMARY | 2024-08-25 10:07 | XMS_ITS | Encounter Summary ---
Author Organization [facility] Address [address] [place] [address] 7t [place] [address] Care Team Providers Care Project Facilitator Name Role Phone Name, Reuben MARTINEZ Primary Care Provider [phone] Gibran Medrano Unavailable Unavailable Reason for Visit * Reason Comments Med Refill Encounter Details Date Type Department Care Team (Late st Contact Info) Description 08/21/2022 Refill [facility] MEDICINE [address] [place] [address] Name, MD Reuben [address] [place] [address] Constipation, unspecified constipation type Social History Tobacco [...] Visit [facility] OPTOMETRY [address] [place], [place] [phone] Naomi Tate, TORI [address] [place] [address] documented as of this encounter Visit Diagnoses Diagnosis Constipation, unspecified constipation type documented in this encounter Additional Health Concerns Assessment Noted Time PHQ-9 Depression Total Score: 8 07/01/19 23 1:13 PM EST documented as of this encounter Care Teams Project Facilitator Relationship Specialty Start Date End Date Name, MD Reuben [address] [place] [address] PCP - General Family Medicine 08/15/15 Gibran Medrano FNP [address] [place] [address] Nurse Practitioner Family Medicine 04/20/23 Noemi Pabon Milled Lumber GraderExtractor Operator Solvent Process 03/28/24 documented as of this encounter
--- OUTSIDE RECORDS SUMMARY | 2024-08-25 10:07 | XMS_ITS | Encounter Summary ---
Author Organization [facility] Address [address] [facility] 7t [place] [address] Care Team Providers Care Flight Hostess Name Role Phone Name, Reuben MARTINEZ Primary Care Provider [phone] Gibran Medrano Unavailable Unavailable Reason for Visit * Reason Onset Date Comments Med Refill 05/23/2022 Encounter Details Date Type Department Care Team ([facility] st Contact Info) Description 05/23/2022 Telephone [facility] MEDICINE [address] [place], [place] [phone] Name, MD Reuben [address] [place] [address] Med Refill Social History Tobacco Use Types [...] Description 11/24/2024 11:00 AM EDT Office Visit [facility] OPTOMETRY [address] [place] [address] Naomi Tate, OD [address] [place] [address] documented as of this encounter Visit Diagnoses Not on filedocumented in this encounter Additional Health Concerns Assessment Noted Time PHQ-9 Depression Total Score: 4 05/20/20 22 2:16 PM EST documented as of this encounter Care Teams Flight Hostess Relationship Specialty Start Date End Date Name, MD Reuben [address] [place] [address] PCP - General Family Medicine 08/15/15 Gibran Medrano FNP [address] [place] [address] Nurse Practitioner Family Medicine 04/20/23 Noemi Pabon Sweeping Compound BlenderPool Finisher 03/28/24 documented as of this encounter
--- OUTSIDE RECORDS SUMMARY | 2024-08-25 10:07 | XMS_ITS | Encounter Summary ---
Author Organization [employer] Address [address] [facility] 7t [place] [address] Care Team Providers Care Office Services Coordinator Name Role Phone Name, Reuben MARTINEZ Primary Care Provider [phone] Gibran Medrano Unavailable Unavailable Reason for Visit * Reason Comments Med Refill Encounter Details Date Type Department Care Team ([facility] st Contact Info) Description 11/20/2023 Refill [facility] MEDICINE [address] [place], [place] [phone] Name, MD Reuben [address] [place] [address] Neck pain Social History Tobacco Use Types [...] Description 11/24/2024 11:00 AM EDT Office Visit [facility] OPTOMETRY [address] [place] [address] Naomi Tate, OD [address] [place] [address] documented as of this encounter Visit Diagnoses Diagnosis Neck pain Cervicalgia documented in this encounter Additional Health Concerns Assessment Noted Time PHQ-9 Depression Total Score: 0 06/30/19 24 9:58 AM EST documented as of this encounter Care Teams Office Services Coordinator Relationship Specialty Start Date End Date Name, MD Reuben [address] [place] [address] PCP - General Family Medicine 08/15/15 Gibran Medrano FNP [address] [place] [address] Nurse Practitioner Family Medicine 04/20/23 Noemi Pabon Field Automobile AdjusterMarzipan Molder 03/28/24 documented as of this encounter
--- OUTSIDE RECORDS SUMMARY | 2024-08-25 10:07 | XMS_ITS | Clinical Summary ---
Author Organization [facility] Address [address] [place] [address] Care Team Providers Care Gas Plumbing Inspector Name Role Phone Unavailable Primary Care Provider [...] 1972 DTaP,Tdap,and Td Vaccines (1 - Tdap) 1991 Hepatitis B Vaccines (1 of 3 - 19+ 3-dose series) 1991 Cervical Cancer Screening: P ap Smear 1993 Pneumococcal Vaccine: 50+ Ye ars (1 of 1 - PCV) 2022 Zoster Vaccines (1 of 2) 2022 COVID-19 Vaccine (1 - 2023-2 5 season) 2024 Influenza Vaccine (Season Ended) 2025 HIB Vaccines Aged Out No longer eligi [...]
--- OUTSIDE RECORDS SUMMARY | 2024-08-25 10:07 | XMS_ITS | Encounter Summary ---
Author Organization [employer] Address [address] [facility] 7t [place] [address] Care Team Providers Care Calf Skinner Name Role Phone Name, Reuben MARTINEZ Primary Care Provider [phone] Gibran Medrano Unavailable Unavailable Reason for Visit * Reason Onset Date Comments PT1 06/29/2024 Encounter Details Date Type Department Care Team ([facility] st Contact Info) Description 06/29/2024 Telephone [facility] MEDICINE [address] [place], [place] [phone] Name, MD Reuben [address] [place] [address] PT1 Social History Tobacco Use Types Packs/Day [...] Y/N: Yes Provider name or facility name: [address] [address] Escort needed: Y/N: No Do you have a wheelchair: Y/N: No (walker) If yes- Manual or electric: N/A Visits: (2x monthly) 1 of 2 Patient calling requesting PT1 Home Address verified: Y/N: Yes Provider name or facility name: [address] [address]. Escort needed: Y/N: No Do you have a wheelchair: Y/N: No (walker) If yes- Manual or electric: N/A Visits: (2x monthly) documented in this encounter Plan of Treatment Upcoming Encounters Date Type Department Care Team ([facility] Contact Info) Description 11/24/2024 11:00 AM EDT Office Visit [facility] OPTOMETRY [address] [place] [address] Naomi Tate, OD [address] [place] [address] documented as of this encounter Visit Diagnoses Not on filedocumented in this encounter Additional Health Concerns Assessment Noted Time PHQ-9 Depression Total Score: 0 06/30/19 24 9:58 AM EST documented as of this encounter Care Teams Calf Skinner Relationship Specialty Start Date End Date Name, MD Reuben [address] [place] [address] PCP - General Family Medicine 08/15/15 Gibran Medrano FNP [address] [place] [address] Nurse Practitioner Family Medicine 04/20/23 Noemi Pabon Home Health AttendantFolder Machine Adjuster 03/28/24 documented as of this encounter
--- OUTSIDE RECORDS SUMMARY | 2024-08-25 10:07 | XMS_ITS | Encounter Summary ---
Author Organization [employer] Address [address] [facility] [address] [place] [address] Care Team Providers Care District Sales Coordinator Name Role Phone Name, Reuben MARTINEZ Primary Care Provider [phone] Gibran Medrano Unavailable Unavailable Encounter Details Date Type Department Care Team (Latest Contact Info) Description 08/25/2024 Travel Social History Tobacco Use Types Packs/Day [...] Description 11/24/2024 11:00 AM EDT Office Visit [facility] OPTOMETRY [address] [place] [address] Naomi Tate, TORI [address] [place] [address] documented as of this encounter Visit Diagnoses Not on filedocumented in this encounter Additional Health Concerns Assessment Noted Time PHQ-9 Depression Total Score: 13 025 9:14 AM EDT documented as of this encounter Care Teams District Sales Coordinator Relationship Specialty Start Date End Date Name, MD Reuben [address] [place] [address] PCP - General Family Medicine 08/15/15 Gibran Medrano FNP [address] [place] [address] Nurse Practitioner Family Medicine 04/20/23 Noemi Pabon Acquisitions EditorAssistant Bookkeeper 03/28/24 documented as of this encounter
--- OUTSIDE RECORDS SUMMARY | 2024-08-25 10:07 | XMS_ITS | Encounter Summary ---
Author Organization [facility] Address [address] [facility] [address] [place] [address] Care Team Providers Care Marketing Outreach Coordinator Name Role Phone Name, Reuben MARTINEZ Primary Care Provider [phone] Gibran Medrano Unavailable Unavailable Encounter Details Date Type Department Care Team ([facility] Contact Info) Description 05/23/2022 Telephone [facility] MEDICINE [address] [place], [place] [phone] Name, MD Reuben [address] [place] [address] Social History Tobacco Use Types Packs/Day Years [...] Encounters Date Type Department Care Team (Late Contact Info) Description 11/24/2024 11:00 AM EDT Office Visit [facility] OPTOMETRY [address] [place] [address] Naomi Tate, OD [address] [place], [place] [phone] documented as of this encounter Visit Diagnoses Not on filedocumented in this encounter Additional Health Concerns Assessment Noted Time PHQ-9 Depression Total Score: 4 05/20/20 22 2:16 PM EST documented as of this encounter Care Teams Marketing Outreach Coordinator Relationship Specialty Start Date End Date Name, MD Reuben [address] [place] [address] PCP - General Family Medicine 08/15/15 Gibran Medrano FNP [address] [place] [address] Nurse Practitioner Family Medicine 04/20/23 Noemi Pabon Full Stack EngineerBrand Advisor 03/28/24 documented as of this encounter
--- OUTSIDE RECORDS SUMMARY | 2024-08-25 10:07 | XMS_ITS | Encounter Summary ---
Author Organization [employer] Address [address] [facility] [address]t [place] [address] Care Team Providers Care Java Sybase Developer Name Role Phone Name, Reuben MARTINEZ Primary Care Provider [phone] Gibran Medrano Unavailable Unavailable Reason for Visit * Reason Comments Med Refill Encounter Details Date Type Department Care Team ([facility] st Contact Info) Description 12/14/2023 Refill [facility] MEDICINE [address] [place], [place] [phone] Name, MD Reuben [address] [place] [address] Neck pain Social History Tobacco Use Types [...] Description 11/24/2024 11:00 AM EDT Office Visit [facility] OPTOMETRY [address] [place] [address] Naomi Tate, OD [address] [place] [address] documented as of this encounter Visit Diagnoses Diagnosis Neck pain Cervicalgia documented in this encounter Additional Health Concerns Assessment Noted Time PHQ-9 Depression Total Score: 0 06/30/19 24 9:58 AM EST documented as of this encounter Care Teams Java Sybase Developer Relationship Specialty Start Date End Date Name, MD Reuben [address] [place] [address] PCP - General Family Medicine 08/15/15 Gibran Medrano FNP [address] [place] [address] Nurse Practitioner Family Medicine 04/20/23 Noemi Pabon [employer]end DeveloperNet Technical Architect 03/28/24 documented as of this encounter
--- OUTSIDE RECORDS SUMMARY | 2024-08-25 10:07 | XMS_ITS | Clinical Summary ---
Author Organization [employer] Address [address] [facility] 7t [place] [address] Care Team Providers Care High [employer] Music Director Name Role Phone Name, Reuben MARTINEZ Primary Care Provider [phone] Gibran Medrano Unavailable Unavailable Allergies No known active allergies Medications * This document contains information received from the source organization and may not represent a complete record from that organization. Milk Thistle 300 MG capsule Activ e Naphazoline-Phe niramine (Opcon-A) 0.027-0.315 % solution Instill one drop OD every 6 hours for 5 days then as needed 019 Active amitriptyline (Elavil) 25 MG tabletIndicatio ns:Bipolar 2 disorder (CMS/HCC) Take 1 tablet (25 mg) by mouth at bedtime. 90 tablet 1 023 Active cloNIDine (Catapres) 0.1 MG tabletIndicatio ns:Bipolar 2 disorder (CMS/HCC) Take 1 tablet (0.1 mg) by mouth 2 times daily. 180 tablet 1 023 Active topiramate (Topamax) 25 MG tablet TAKE 2 TABLETS BY MOUTH EVERY MORNING 60 tablet 5 024 Active gabapentin (Neurontin) 100 MG capsuleIndicati ons:Neck pain, chronic TAKE 1 CAPSULE BY MOUTH THREE TIMES A DAY 90 capsule 024 Active loratadine (Claritin) 10 MG tabletIndicatio ns:Neck pain, chronic Take 1 tablet by mouth every day as needed 90 tablet 1 024 Active cholecalciferol (Vitamin D3) 25 MCG (1000 UT) tabletIndicatio ns:Neck pain, chronic Take 1 tablet (25 mcg) by mouth in the morning. 90 tablet 1 024 Active bisacodyl (Bisacodyl EC) 5 MG EC tabletIndicatio ns:Neck pain, chronic TAKE 2 TABLETS BY MOUTH EVERY DAY NEEDED FOR CONSTIPATION 180 tablet 025 Active clonazePAM (KlonoPIN) 0.5 MG tabletIndicatio ns:Bipolar 2 disorder (CMS/HCC) Take 1 tablet (0.5 mg) by mouth 2 times daily for 28 days. 56 tablet 025 Active meclizine (Antivert) 25 MG tabletIndicatio ns:Neck pain, chronic TAKE 1 TABLET BY MOUTH THREE TIMES A DAY NEEDED FOR DIZZINESS 60 tablet 1 025 Active losartan (Cozaar) 100 MG tabletIndicatio ns:Neck pain, chronic TAKE 1 TABLET BY MOUTH EVERY DAY IN THE MORNING 90 tablet 1 025 Active hydroCHLOROthia zide 12.5 MG tabletIndicatio ns:Neck pain, chronic TAKE 1 TABLET (12.5 MG) BY MOUTH ONCE PER DAY. 90 tablet 1 025 Active dicyclomine (Bentyl) 20 MG tablet Take 0.5 tablets (10 mg) by mouth if needed in the morning, at noon, in the evening, and at bedtime (abdominal pain). 56 tablet 1 025 2025 Active baclofen (Lioresal) 20 MG tabletIndicatio ns:Neck pain, chronic,Essenti al hypertension Take 1 tablet (20 mg) by mouth 2 times daily. 60 tablet 025 Active meloxicam (Mobic) 7.5 MG tabletIndicatio ns:Neck pain, chronic,Essenti al hypertension Take 1 tablet (7.5 mg) by mouth Once per day. 30 tablet 11 025 2025 Active lidocaine (Xylocaine) 5 % ointmentIndicat ions:Neck pain, chronic,Essenti al hypertension Apply topically if needed for mild pain. 50 g 2 025 2025 Active Diclofenac Sodium 1 % gelIndications: Neck pain, chronic,Essenti al hypertension Apply once a day to the affected areas with pain 100 g 1 025 Active raNITIdine (Zantac) 150 MG tablet take 1 tablet by oral route every day as needed for heartburn 019 2024 Discontinued(T herapy completed) clonazePAM (KlonoPIN) 0.5 MG tabletIndicatio ns:Bipolar 2 disorder (CMS/HCC) Take 1 tablet (0.5 mg) by mouth if needed each day for anxiety. 20 tablet 2 023 2024 Discontinued(R eorder (will not trigger notification to Pharmacy)) lidocaine (Xylocaine) 5 % ointmentIndicat ions:Neck pain APPLY TOPICALLY IF NEEDED FOR MILD PAIN. 50 g 2 024 2024 Discontinued(R eorder (will not trigger notification to Pharmacy)) meloxicam (Mobic) 7.5 MG tabletIndicatio ns:Neck pain, chronic Take 1 tablet (7.5 mg) by mouth Once per day. 30 tablet 11 2024 Discontinued(R eorder (will not trigger notification to Pharmacy)) lidocaine (Lidoderm) 5 % patchIndication s:Neck pain, chronic APPLY 1 PATCH EVERY DAY MAY WEAR UP TO 12 HOURS 30 patch 1 2024 Discontinued hydroCHLOROthia zide 12.5 MG tabletIndicatio ns:Neck pain, chronic Take 1 tablet (12.5 mg) by mouth Once per day. 90 tablet 024 2024 Discontinued meclizine (Antivert) 25 MG tabletIndicatio ns:Neck pain, chronic TAKE 1 TABLET BY MOUTH THREE TIMES A DAY NEEDED FOR DIZZINESS 60 tablet 1 024 2024 Discontinued bisacodyl (Bisacodyl EC) 5 MG EC tabletIndicatio ns:Neck pain, chronic TAKE 2 TABLETS BY MOUTH EVERY DAY NEEDED FOR CONSTIPATION 180 tablet 2024 Discontinued losartan (Cozaar) 100 MG tabletIndicatio ns:Neck pain, chronic Take 1 tablet (100 mg) by mouth in the morning. 90 tablet 024 2024 Discontinued Diclofenac Sodium 1 % gelIndications: Cervical radiculitis APPLY ONCE A DAY TO THE AFFECTED AREAS WITH PAIN 100 g 1 024 2024 Discontinued baclofen (Lioresal) 20 MG tabletIndicatio ns:Neck pain, chronic TAKE 1 TABLET BY MOUTH TWICE A DAY 60 tablet 025 2024 Discontinued Diclofenac Sodium 1 % gelIndications: Cervical radiculitis APPLY ONCE A DAY TO THE AFFECTED AREAS WITH PAIN 100 g 1 025 2024 Discontinued(R eorder (will not trigger notification to Pharmacy)) lidocaine (Lidoderm) 5 % patchIndication s:Neck pain, chronic APPLY 1 PATCH EVERY DAY MAY WEAR UP TO 12 HOURS 30 patch 1 025 2024 Discontinued(T herapy completed) baclofen (Lioresal) 20 MG tabletIndicatio ns:Neck pain, chronic TAKE 1 TABLET BY MOUTH TWICE A DAY 60 tablet 025 2024 Discontinued(R eorder (will not trigger notification to Pharmacy)) Active Problems Problem Noted Date Diagnosed Date History of laparoscopic appendectomy 06/21/2024 Overview (06/21/2024): 06/20/2024 at [facility] Family history of Crohn's disease 03/30/2023 [...] an effective mood stabilizer. She stopped the [place] and is still doing very well. Will [...] up for mood stabilization and stop the [place]. Meanwhile, continue [place] 300 mg once daily, Clonazepam 0.5 mg [...] Encounters Date Type Department Care Team Description 08/25/2024 9:15 AM EDT Office Visit [facility] [address] [place] [address] Reuben Suh MD PE (physical exam), routine (Primary Dx); Neck pain, chronic; Osteoarthritis of cervical spine, unspecified spinal osteoarthritis complication status; Essential hypertension; Prediabetes; Abdominal pain, unspecified abdominal location; Vaccination refused by patient 08/25/2024 Travel 08/25/2024 Refill [facility] [address] [place] [address] Reuben Suh MD Neck pain, chronic 08/18/[address] [facility] [address], [place] [phone] Reuben Suh MD Pre-visit Planning (SDOH negative. Tobacco screening negative) 08/08/2024 Refill [facility] [address] [place] [address] Reuben Suh MD Neck pain, chronic 08/05/2024 Population Health Risk Score [facility] () Department [address] [place] [phone] Provider, Population Health Generic 07/28/2024 Refill [facility] [address] [place] [address] Reuben Suh MD Neck pain, chronic 07/28/2024 Refill [facility] [address] [place], [place] [phone] Reuben Suh MD Bipolar 2 disorder (CMS/HCC) 07/28/2024 Refill [facility] [address] [place], [place] [phone] Reuben Suh MD Cervical radiculitis; Neck pain, chronic 07/04/2024 1:00 PM EST Office Visit [facility] [address] [place], [place] [phone] Reuben Suh MD Abdominal pain, unspecified abdominal location (Primary Dx); History of appendectomy 07/04/2024 Travel 06/29/2024 Patient Outreach [facility] [address] [place] [address] Reuben Suh MD Care Coordination (CHW outreach for SDOH PT-1 and food needs-referral completed /) 06/29/2024 Telephone [facility] [address] [place] [address] Reuben Suh MD PT1 06/27/2024 Refill [facility] [address] [place], [place] [phone] Concha Tabares MD Neck pain, chronic 06/20/2024 Orders Only GENERIC EXTERNAL DATA DEPARTMENT Provider, Generic External Data 06/14/2024 Telephone [facility] [address] [place] [address] Reuben Suh MD Results (Patient requesting f/u appendix surgery yesterday 06/20/2024 [facility] ) 05/30/2024 Refill [facility] [address] [place] [address] Reuben Suh MD Neck pain, chronic from Last 3 Months Immunizations Name Administration [...] your housing situation today? I have brigette sing 08/18/[address] you li [...] 22 08/25/2024 9:09 AM EDT Oxygen Saturation 98% 07/04/2024 1:04 PM EST Inhaled Oxygen Concentration - - Weight 74.8 kg (165 lb) 08/25/2024 9:09 AM EDT Height 160 cm (5' 3 ) 08/25/2024 9:09 AM EDT Body Mass Index 29.23 08/25/2024 9:09 AM EDT Plan of Treatment Upcoming Encounters Date Type Department Care Team (Late st Contact Info) Description 11/24/2024 11:00 AM EDT Office Visit [facility] OPTOMETRY [address] [place] [address] Naomi Tate, OD [address] [place] [address] Health Maintenance Due Date Last Done Comments [...] of 2) 2022 COVID-19 Vaccine (3 - 2023- season) 2024 12/05/2020, 11/14/2020 Influenza Vaccine (#1) 2024 Mammogram 10/26/2024 10/27/2023, 0605/2022, 10/14/2022, Additional history exists Alcohol/Substance Use Screening 12/31/2024 01/01/2024 Diabetes: Hemoglobin A1C 12/31/2024 082 024, 07/20/2023, 06/10/2022, Additional history exists Depression Monitoring (PHQ-9) 02/24/2025 08/25/2024, 08/25/2024 SDOH Screening 08/18/2025 08/18/2024 Depression Screening 08/25/2025 08/25/2024, 08/26/19 25 Tobacco Screening 08/25/2025 08/25/2024 Lipid Panel 09/23/2026 09/23/2021, 12/26/2020 Colonoscopy 03/03/2028 [...] EST Narrative 06/20/2024 3:20 AM EST ? [facility] ?[address] ?[place] [address] ? CT Scan Report ? Signed with Addenda ? Patient: Marie,Yumiko ?MR#: [id number] ?? 9 ? : 1970 ?Acct:[id number] ? Age/Sex: 54 / F ?ADM Date: 06/20/24 ? Loc: HO.ED ? Attending Dr: ? Ordering Physician: Bryn Root MD ?? Date of Service: 06/20/24 ?? Procedure(s): CT abdomen pelvis w IV con ?? Accession Number(s): [id number] ? cc: Angeli,Reuben MARTINEZ; Bryn Root MD ? Report Number: ?? [id number]: Total DLP = ??614.00 mGy-cm ?ADDENDUM ?? [...] 06/20/24318 ? DD/ ? TD/TT: 06/20/24317 ? Ready Mix Truck Driver: ? Procedure Note Donotuseinterpreter, Image - 06/20/[address] [address] [address] Scan Report Signed with Addenda Patient: Yumiko MarieMR#: [id number] 9 : 1970Acct:[id number] Age/Sex: 54 / FADM Date: 06/20/24 Loc: HO.ED Attending Dr: Ordering Physician: Bryn Root MD Date of Service: 06/20/24 Procedure(s): CT abdomen pelvis w IV con Accession Number(s): [id number] cc: Name,Reuben MARTINEZ; Bryn Root MD Report Number: [id number]: Total DLP = 614.00 mGy-cm ADDENDUM This [...] in OV> 06/20/24318 DD/ 7 TD/TT: 06/20/24317 [employer] Truck Driver: [facility] External Provider IMG CT PROCEDURES Edited Result - Final * (ABNORMAL) CBC auto differential (06/20/2024 12:31 AM EST) White Blood Count 15.9(H) 4.8 - 10.8 X10*3/uL [facility] Red Blood Count 5.61(H) 4.20 - 5.50 X10*6/uL [facility] Hemoglobin 14.4 12.0 - 16.0 g/dl [facility] Hematocrit 45.0 37.0 - 47.0 % [facility] Mean Corpuscular Volume 80.2 80.0 - 98.0 fL [facility] Mean Corpuscular Hemoglobin 25.7(L) 27.0 - 33.0 pg [facility] Mean Corpuscular HGB Conc 32.0 31.0 - 35.0 g/dl [facility] Red Cell Distribution Width 15.1 11.0 - 16.0 % [facility] Platelet Count 384 160 - 400 X10*3/uL [facility] Mean Platelet Volume 9.3(L) 9.4 - 12.3 fL [facility] Neutrophils Percent Auto 67.6 45 - 73 % [facility] Imm Gran Pct Auto 0.3 0.0 - 0.4 % [facility] Lymphocytes Percent Auto 24.7 20 - 40 % [facility] Monocytes Percent Auto 5.1 2 - 11 % [facility] Eosinophils Percent Auto 1.6 0 - 4 % [facility] Basophils Percent Auto 0.7 0 - 2 % [facility] NRBC Pct Auto 0.0 0.0 - 0.2 /100WBC [facility] Neutrophils Absolute Auto 10.8(H) 2.0 - 8.3 x10*3/uL [facility] Imm Gran Abs Auto 0.05(H) 0.00 - 0.03 X10*3/uL [facility] Lymphocytes Absolute Auto 3.9 1.2 - 4.9 X10*3/uL [facility] Monocytes Absolute Auto 0.8 0.1 - 1.2 X10*3/uL [facility] Eosinophils Absolute Auto 0.3 0.0 - 0.4 X10*3/uL [facility] Basophils Absolute Auto 0.1 0.0 - 0.2 X10*3/uL [facility] NRBC Abs Auto 0.000 0.0 - 0.012 X10*3/uL [facility] 06/20/2024 12:3 1 AM EST 06/20/2024 12:34 AM EST us Generic External Data Provider LAB BLOOD ORDERAB LES Final Result Performing Organization Address City/State/[facility] Co de Phone Number [facility] [address] [place] [phone] * Urinalysis w/reflex microscopic (06/20/2024 12:31 AM EST) Color Urine Yellow [facility] Appearance Urine Clear [facility] PH 6.0 5.0 - 9.0 [facility] Glucose Urine UA Negative Negative mg/dL [facility] Urine Blood Negative Negative [facility] Specific [place] - Urine 1.010 1.005 - 1.025 [facility] Urine Protein Negative Neg-Trace mg/dL [facility] Urine Ketones Negative Negative mg/dL [facility] Nitrite Urine Negative Negative [facility] Leukocyte Esterase Urine Negative Negative [facility] 06/20/2024 12:3 1 AM EST 06/20/2024 12:34 AM EST Narrative [facility] - 06/20/2024 12:43 AM EST Urine, Clean Catch us Generic External Data Provider LAB URINE ORDERAB LES Final Result [facility] [address] [place], [place] [phone] * (ABNORMAL) Comprehensive Metabolic Panel (06/20/2024 12:31 AM EST) Sodium 140 135 - 145 mmol/L [facility] Potassium 4.4 3.3 - 5.1 mmol/L [facility] Chloride 106 96 - 108 mmol/L [facility] Carbon Dioxide 26 22 - 29 mmol/L [facility] Anion Gap 12 12 - 20 [facility] Urea Nitrogen (BUN) 10 9 - 16 mg/dL [facility] Creatinine, Serum 0.71 0.5 - 1.4 mg/dL [facility] Creatinine Clr Calc Pharmacy 88.4 [facility] Comment:Provided height and weight: 160.02 cm,72.575 kg.eGFR (calculated from the MDRD study equation) and eCrCl(calculated from the Cockcroft-Gault equation) are based ondifferent parameters and may not yield comparable results.If eCrCl result is absurd, please check patient'sheight/weight. Estimated Glomerular Filt Rate >60 [facility] Comment:Chronic Kidney Disea se: Estimated GFR < 60 mL/min/1.40l9Tdjfwn Kidney Disease: Estimated GFR < 15 mL/min/1.73m2 Glucose 105 60 - 115 mg/dL [facility] Calcium 10.1 8.4 - 10.2 mg/dL [facility] Bilirubin, Total 0.2 0.0 - 1.0 mg/dL [facility] Aspartate Amino Transferase 17 5 - 31 U/L [facility] Alanine Aminotransferase 13 0 - 31 U/L [facility] Total Protein 8.2(H) 6.5 - 8.0 g/dL [facility] Albumin Level 4.1 3.5 - 5.0 g/dL [facility] Alkaline Phosphatase 78 39 - 117 U/L [facility] 06/20/2024 12:3 1 AM EST 06/20/2024 12:34 AM EST us Generic External Data Provider LAB BLOOD ORDERAB LES Final Result [facility] [address] [facility] [place] [address] [phone] * POCT HGB A1C (01/01/2024 11:41 AM EDT) Hemoglobin A1C 5.5 4.0 - 6.0 % QC Media Lot # [id number] Lot# Expiration Date [id number] Blood 01/01/2024 11:4 1 AM EDT Reuben Suh MD POINT OF CARE TEST ENTER/EDIT OR DERABLES Final Result * BI Mammogram Screening Tomosynthesis Bilateral (10/27/2023 8:15 AM EDT) Anatomical Region Laterality Modality Breast Bilateral Mammography 10/27/2023 8:15 AM EDT Narrative 11/16/2023 3:24 AM EDT ? [facility] ? [address] ?[place] [address] ? Mammography Report ? Signed ? Patient: Marie,Yumiko ?MR#: [id number] ?? 9 ? : 1970 ?Acct:[id number] ? Age/Sex: 53 / F ?ADM Date: 06/04/24 ? Loc: HO.MAMMO ? Attending : Reuben Suh MD ? Ordering Physician: Name,Reuben MARTINEZ ?Results: 1Negative ? Date of Service: 10/27/23 ?Follow Up: 1 Year From Orig ?? inal Mammogram ? Procedure(s): MM tomosynthesis screening BI ?? Accession Number(s): [id number] ? cc: Name,Reuben MARTINEZ ? EXAMINATION: ?? [...] by Jody Link MD in OV> ? 11/15/24 0320 ? DD/DT: 10/26/ 0815 ? TD/TT: ? Ready Mix Truck Driver: ? Procedure Note Donotuseinterpreter, Image - 11/16/2023 [place] [facility] [address] [place] [address] Mammography Report Signed Patient: Yumiko MarieMR#: [id number] 9 : 1970Acct:[id number] Age/Sex: 53 / FADM Date: 10/27/23 Loc: HO.MAMMO Attending Dr: Reuben Suh MD Ordering Physician: Reuben Suh MDResults: 1Negative Date of Service: 10/27/23Follow Up: 1 Year From Orig inal Mammogram Procedure(s): MM tomosynthesis screening BI Accession Number(s): [id number] cc: Reuben Suh MD EXAMINATION: MM SCREENING [...] in OV> 11/16/23 0320 DD/ 0815 TD/TT: Ready Mix Truck Driver: Reuben Suh MD IMG BI PROCEDURES Final Result * Pap Smear (07/06/2023 10:57 AM EST) 07/06/2023 10:5 7 AM EST 07/07/2023 8:00 AM EST Narrative [facility] - 07/21/2023 1:20 PM EST ----- ------- Name: Yumiko Marie ?Age/Sex: 53/F ? : 1970 Unit#: [id number] ?? Attend Dr: Isela Hackett CNM ?Re07/06/23 ?Status: DEP REF ? Location: HO.LNP ?Disch: ? ----- ------- SPEC : [id number] ? RECD: 07/07/23 ? STATUS: ??SOUT ? REQ NUM: [id number] ? DEBRA: 07/06/23-1056 ? SUBM DR: Isela Hackett CNM ? ENTERED: ??07/07/23 ?SP TYPE: Pap Smr ?OTHR DR: Name,Reuben MARTINEZ ? ORDERED: ??Pap Smear ? Interpretation ?? Satisfactory for evaluation. ?? Mild inflammation. ?? Negative for intraepithelial lesion or malignancy. ?HPV mRNA E6/E7: ?NOT DETECTED ? This assay detects E6/E7 viral messenger RNA (mRNA) from 14 high-risk HPV types (16, 18, ?? 31, 33, 35, 39, 45, 51, 52, 56, 58, 59, 66, 68) ?? HPV testing performed by [employer], [place], [place]. ??See reference laboratory ?? portion of the EMR for entire report. ?Clinical Information LMP: 06/30/23 Previous PAP test: 2018, WNL ? Material Received ?? ThinPrep-Cervical Copies To: ?? Name,Reuben MARTINEZ ?? [address] [facility] ?? [place] [address] ?? [phone] ?? Isela Hackett CNM ?? [address] [place] [address] [address] ?? [place] [address] ?? [phone] ----- ------- Signed (signature on file) MEAGHAN Santo (ASCP) 07/21/23 1320 ? ----- ------- ? END OF REPORT ? us Generic External Data Provider LAB CYTOLOGY [place] RABJULIANA Final Result [facility] [address] [place] [phone] * (ABNORMAL) Colonoscopy (03/03/2023) [facility] Colonoscopy Abnormal(A ) Normal Reuben Suh MD HEALTH MAINTENANCE Final Result * (ABNORMAL) LIPID PANEL, STANDARD (09/23/2021 1:05 PM EDT) [facility] Chol/HDLC Ratio 4.1 <5.0 (calc) [facility] [...] ?? Sebastián SCHRADER et al. CHRISTOPH. 2013;310(19): 4006-2966 ?? (http://education.[employer]/faq/KIS260) Non-HDL Cholesterol 130(H) <130 mg/dL (calc) [facility] [...] ORDERABLES Final Resul t Performing Organization Address [facility] de Phone Number [facility] [address] * HEPATITIS C ANTIBODY RFLX (06/24/2019 10:48 AM EST) HEPATITIS C ANTIBODY NONREACTIVE NONREACTIVE [facility] Comment: Antibodies to HCV not detected; does not exclude early acute HCV infection. 06/24/2019 10:4 8 AM EST us Reuben Suh MD HISTORICAL/NON ORDERABLE LABS Fi nal Result Performing Organization Address [facility] Phone Number [facility] Formerly [facility] [address] * HPV mRNA E6/E7 (07/17/2017 11:19 AM EST) HPV mRNA E6/E7 Not Detected NOT DETECTED [facility] Comment: This test was performed using the APTIMA(R) HPV Assay ([employer] This assay detects E6/E7 viral messenger RNA (mRNA) from 14 high-risk HPV types (16,18,31,33,35,39,45,51, 52,56,58,59,66,68). For additional information please refer to: http://education.[employer]/faq/TPT889y9 (This link is being provided for informational/ educational purposes only.) Test Performed by [employer], [employer] [facility], [address] [place] [address] Jimmy Alonso M.D., Ph.D., Director of Laboratories , [facility] [id number] Please note: ??Effective 02/04/2016, HPV testing will be performed using [employer]'s APTIMA test which targets mRNA. Detecting mRNA instead of DNA, as in older methods, offers significant improvements in specificity. 07/17/2017 11:1 9 AM EST Isela [place] HISTORICAL/NON ORDERABLE LABS Fi nal Result [facility] [address] from Last 3 Months or Most Recently Relevant to Health Maintenance Insurance [employer] C3 Care Teams High School Music Director Relationship Specialty Start Date End Date Name, MD Reuben [address] [place] [phone] PCP - General Family Medicine 08/15/15 Gibran Medrano FNP [address] [facility] [place] [place] [address] Nurse Practitioner Family Medicine 04/20/23 Noemi Pabon Office [email or web address] Java Developer 03/28/24
--- OUTSIDE RECORDS SUMMARY | 2024-08-25 10:07 | XMS_ITS | Encounter Summary ---
Author Organization [employer] Address [address] [facility] [address] [place] [address] Care Team Providers Care Senior Datastage Developer Name Role Phone Name, Reuben MARTINEZ Primary Care Provider [phone] Gibran Medrano Unavailable Unavailable Reason for Visit * Reason Comments Med Refill Encounter Details Date Type Department Care Team (Late st Contact Info) Description 11/28/2023 Refill [facility] [address] [place], [place] [phone] Name, MD Reuben [address] [place] [address] Neck pain; Prediabetes Social History Tobacco Use [...] Description 11/24/2024 11:00 AM EDT Office Visit [facility] [address] [place] [address] Naomi Tate OD [address] [place] [address] documented as of this encounter Visit Diagnoses Diagnosis Neck pain Cervicalgia Prediabetes Other abnormal glucose documented in this encounter Additional Health Concerns Assessment Noted Time PHQ-9 Depression Total Score: 0 06/30/19 24 9:58 AM EST documented as of this encounter Care Teams Senior Datastage Developer Relationship Specialty Start Date End Date Name, MD Reuben [address] [place] [address] PCP - General Family Medicine 08/15/15 Gibran Medrano FNP [address] [place] [address] Nurse Practitioner Family Medicine 04/20/23 Noemi Pabon Travel Registered Nurse [employer] Coordinator 03/28/24 documented as of this encounter
[2024-08-25 11:30] LABS: MANUAL DIFF FLAG NO
[2024-08-25 11:54] LABS: Basophils Absolute Auto 0.1 X10*3/uL (0.0-0.2); Basophils Percent Auto 1.1 % (0-2); Eosinophils Absolute Auto 0.2 X10*3/uL (0.0-0.4); Eosinophils Percent Auto 2.2 % (0-4); Hematocrit 44.2 % (37.0-47.0); Hemoglobin 14.2 g/dl (12.0-16.0); Imm Gran Abs Auto 0.02 X10*3/uL (0.00-0.03); Imm Gran Pct Auto 0.2 % (0.0-0.4); Lymphocytes Absolute Auto 3.5 X10*3/uL (1.2-4.9); Lymphocytes Percent Auto 40.8 % (20-40); Mean Corpuscular HGB Conc 32.1 g/dl (31.0-35.0); Mean Corpuscular Hemoglobin 26.3 pg (27.0-33.0); Mean Platelet Volume 9.8 fL (9.4-12.3); Monocytes Absolute Auto 0.5 X10*3/uL (0.1-1.2); Monocytes Percent Auto 5.6 % (2-11); Neutrophils Absolute Auto 4.3 x10*3/uL (2.0-8.3); Neutrophils Percent Auto 50.1 % (45-73); Platelet Count 401 X10*3/uL (160-400); Red Blood Count 5.39 X10*6/uL (4.20-5.50); White Blood Count 8.6 X10*3/uL (4.8-10.8)
[2024-08-25 12:18] LABS: Alanine Aminotransferase 15 U/L (0-31); Albumin Level 3.9 g/dL (3.5-5.0); Alkaline Phosphatase 78 U/L (39-117); Anion Gap 10 (12-20); Aspartate Amino Transferase 18 U/L (5-31); Bilirubin Total 0.4 mg/dL (0.0-1.0); Blood Urea Nitrogen 13 mg/dL (9-16); Calcium 9.2 mg/dL (8.4-10.2); Carbon Dioxide 28 mmol/L (22-29); Chloride 107 mmol/L (96-108); Cholesterol 189 mg/dL (<200); Estimated Glomerular Filt Rate > 60; Glucose Random 87 mg/dL (60-115); HDL Cholesterol 53 mg/dL (>40); LDL Cholesterol Calculated 123 mg/dL (<100); Sodium 141 mmol/L (135-145); Total Protein 6.8 g/dL (6.5-8.0); Triglycerides 68 mg/dL (<150)
== END 2024-08-25 09:38 | disposition home or self-care (01) ==
LOC: HO.HHCL 09:37
PROVIDERS: Visit Provider Internal Medicine Geriatric Medicine
DX: Z00.00 Encounter for general adult medical examination without abnormal findings (principal); M54.2 Cervicalgia; G89.29 Other chronic pain; M47.812 Spondylosis without myelopathy or radiculopathy, cervical region; I10 Essential (primary) hypertension; R73.03 Prediabetes; Z28.21 Immunization not carried out because of patient refusal
CPT/HCPCS: 36415; 80053; 80061; 85025

== ENCOUNTER 2024-10-12 08:55 | Outpatient (AMB) | payer MEDICAID, SELFPAY ==
--- NOTE | 2024-10-12 08:56 | A.OFFVIS_ITS ---
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: Railway Equipment Operator Present (Yael) Accompanied by: Self / Same As Patient Allergies No Known Allergies Allergy (Verified 10/12/24 09:07) Medication List - Last Reconciled 10/12/24 by Isela Hackett CNM amitriptyline 25 mg PO BEDTIME baclofen 20 mg PO BID bisacodyl (Laxative (bisacodyl)) 10 mg PO DAILY PRN cholecalciferol (vitamin D3) 25 mcg PO DAILY clonazepam 0.5 mg PO BEDTIME PRN clonidine HCl 0.1 mg PO BID diclofenac sodium 1% 1 g topical DAILY docusate sodium (Colace) 100 mg PO BID gabapentin 100 mg PO TID hydrochlorothiazide 12.5 mg PO DAILY lidocaine 5% 1 appl topical NEEDED PRN lidocaine 5% 1 patch topical DAILY PRN loratadine 10 mg PO DAILY losartan 100 mg PO DAILY meclizine 25 mg PO DAILY PRN meloxicam 7.5 mg PO DAILY ondansetron 4 mg PO Q6H PRN oxycodone 5 mg PO Q4H PRN topiramate 50 mg PO DAILY Is last menstrual period known: Yes Last menstrual period: 08/24/24 Post menopausal: No Patient : No 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 She is sometimes sexually active with her but he has back problems so not too often. She is not having any other health concerns her little patch of hair that had fallen out last year has grown back. She is very proud of herself that for the most part she has kept the weight off that she worked very hard to lose last year and she did it all by herself by cutting out carbohydrates a eating protein and eating healthy. She did just recently gained 3 lb and so she is determined that she has wants to reverse that and not gain anymore she had visited her mother in [place] and thinks that is the reason with all the good eating. She is going to have her mammogram in October and she has no STD or infection concerns or symptoms. She is very proud that she does not need to be on metformin anymore and she has improved all of her numbers. [facility] Medical History MARILU (obstructive sleep apnea) Pre-diabetes Vertigo Depression Hypertension Surgical History History of laparoscopic appendectomy (~06/20/24) History of esophagogastroduodenoscopy (EGD) H/O colonoscopy H/O knee surgery Hx of tubal ligation H/O bilateral breast reduction surgery Family History Father HTN (hypertension) Mother HTN (hypertension) Diabetes Sister Diabetes Son No problems noted. Social History Household Members: Family Housing: House Are you a primary critical care educator to a significant other at home: No Do you presently have visiting nurse or other home services: No Alcohol intake: never Comment: vertigo at times Patient Tobacco Use Status: Never used Tobacco service: No Current occupational status: disabled Sexual orientation: Straight/Heterosexual Gender identity: Female Female Reproductive History Menstrual Age of Menarche: 14 Date of last menstrual period: 08/24/24 control method: permanent sterilization Total pregnancies: 2 Full term: 2 Date of last pap smear: 07/06/23 (negative hpv, negative pap smear) Date of Mammogram: 10/27/23 (bi rad 1) Physical Exam Vital Signs: Last Vital Signs BP 120/70 10/12/24 09:13 BMI result Body Mass Index 29.4 Const General: healthy appearing, comfortable, no acute distress, well developed and alert Nutritional Appearance: average body habitus Orientation/consciousness: patient oriented x3 Limitations: no limitations HEENT Head: Yes normocephalic Neck Neck: Yes normal visual inspection Chest Chest palpation & inspection: normal inspection of the chest Breast/axilla inspection: normal inspection of the breasts and normal inspection of the axillae Breast/axilla palpation: normal palpation of the breasts and normal palpation of the axillae Resp Effort & Inspection: normal respiratory effort GI Other: Patient has port wounds from appendectomy her very well healed. Inspection: Yes normal to inspection, No Abdominal wall edema and No distended Palpation (GI): Soft to palpation and nontender Other: Normal external exam vagina is pink and moist and not atrophic at all cervix multiparous pink smooth healthy appearing with normal healthy whitish scant mucus uterus midposition mobile nontender adnexa nontender good tone Kegel General: Yes bladder normal to palpation External Female Exam: normal external appearance and normal appearance of the urethra Speculum Exam - Vagina: normal appearance of the vagina, normal palpation and normal vaginal discharge Speculum Exam - Cervix: normal appearance of the cervix, normal palpation and nontender Bimanual exam- vagina & uterus: normal bimanual exam, normal palpation, uterine size normal, bladder normal to palpation, consistency normal, normal palpation, uterine mobility normal, uterine shape normal, No Cervical tenderness present, non-tender and no cervical motion tenderness Bimanual Exam- Adnexa, other: normal adnexae, no masses, normal and No adnexal tenderness Neuro General: patient oriented x3 Results Reviewed Results Reviewed: Name: Yumiko Marie Age/Sex: 53/F Attending: Isela Hackett CNM : 1970 Submitted by: Isela Hackett CNM Copies to: Reuben Suh MD MR #: [id number] Status: DEP REF Collected: 07/06/23 Location: [facility] Received: 07/07/23 Interpretation Satisfactory for evaluation. Mild inflammation. Negative for intraepithelial lesion or malignancy. HPV mRNA E6/E7: NOT DETECTED This assay detects E6/E7 viral messenger RNA (mRNA) from 14 high-risk HPV types (16, 18, 31, 33, 35, 39, 45, 51, 52, 56, 58, 59, 66, 68) HPV testing performed by [employer] [facility], [place], [place]. See reference laboratory portion of the EMR for entire report. Clinical Information LMP: 06/30/23 Previous PAP test: 2018, WNL Material Received ThinPrep-Cervical Copies To Name,Reuben MARTINEZ [address] [place] [address] Isela Hackett [address] [place] [address] Electronically Signed By: MEAGHAN Santo (ASCP) 07/21/23 1320 The Pap Test is a screening procedure with the inherent possibility of both false negative and false positive results. Results should be interpreted in the context of historic and current clinical findings. Reliability of the Pap Test is enhanced by performing the test on a regular repetitive basis. Patient: Yumiko Marie Age/Sex: 53/F MR#: [id number] Page 1 of 1 Assessment & Plan Assessment & Plan (1) Well woman exam with routine gynecological exam: Code(s): Z01.419 - Encounter for gynecological examination (general) (routine) without abnormal findings Category: Medical (2) Breast cancer screening: Code(s): Z12.39 - Encounter for other screening for malignant neoplasm of breast Category: Medical (3) Perimenopausal symptoms: Code(s): N95.1 - Menopausal and female climacteric states Category: Medical (4) Cervical cancer screening: Comment: 07/06/2023 Pap is negative with negative HPV Code(s): Z12.4 - Encounter for screening for malignant neoplasm of cervix Category: Medical (5) Perimenopause: Code(s): N95.1 - Menopausal and female climacteric states Category: Medical (6) Prediabetes: Comment: on metformin per her pcc; Has been off the metformin now for a while since her weight loss as she does not need it anymore. She feels very very good about that. Code(s): R73.03 - Prediabetes Category: Medical (7) Alopecia areata: Comment: Per patient description symptoms are consistent with this patient will be seeing her primary care provider about 6 4 and requesting dermatology referral.; 10/12/2024 her patch of alopecia has grown back. Code(s): L63.9 - Alopecia areata, unspecified Category: Medical (8) S/P laparoscopic appendectomy: Code(s): Z90.49 - Acquired absence of other specified parts of digestive tract Category: Surgical (9) Overweight (BMI 25.0-29.9): Comment: Patient has lost about 50 lb over all and has kept it off and is and is very proud of that and her improved health Code(s): E66.3 - Overweight Category: Medical Plan -----Discussed in this visit the following: healthy balanced diet, regular and consistent exercise, getting recommended health screens, doing the best she can for her particular health concerns, kegel exercises, pap smear screening and followup recommendations, mammography screening and SBE, normal changes in cycles in her life stage--- . She is up-to-date on all of her screening she healed very well from her appendicitis and surgery. She has recently gained about 3 lb and she is going to re double her efforts to make sure she does not gain anymore as she worked very hard to lose the weight with her own efforts at healthy eating and she feels so much better and she is very proud of herself and is determined. She has reversed her pre diabetes and does not need to be on the metformin anymore. She is ranjith menopausal skipping periods periodically though not showing the atrophic changes yet. Pap smear was not due and she declined any testing as not necessary and we will see her next year. Coding Level of Care Code Est Pt Prev Care 40-64y(51251) Diagnoses Well woman exam with routine gynecological exam Z01.419 Breast cancer screening Z12.39 Perimenopausal symptoms N95.1 Cervical cancer screening Z12.4 Perimenopause N95.1 Prediabetes R73.03 Alopecia areata L63.9 S/P laparoscopic appendectomy Z90.49 Overweight (BMI 25.0-29.9) E66.3
[2024-10-12 09:13] VITALS: BP 120/70; BMI 29.4
--- OUTSIDE RECORDS SUMMARY | 2024-10-12 10:10 | XMS_ITS | Encounter Summary ---
Author Organization [employer] Address [address] [facility] 7t [place] [address] Care Team Providers Care Trip Rider Name Role Phone Name, Reuben MARTINEZ Primary Care Provider [phone] Gibran Medrano Unavailable Unavailable Reason for Visit * Reason Onset Date Comments Medication Question 01/06/2023 Vitamin D Encounter Details Date Type Department Care Team ([facility] Contact Info) Description 01/06/2023 Telephone [facility] MEDICINE [address] [place], [place] [phone] Name, MD Reuben [address] [place] [address] Medication Question (Vitamin D) Social History Tobacco [...] Description 11/24/2024 11:00 AM EDT Office Visit [facility] OPTOMETRY [address] [place] [address] aNomi Tate, OD [address] [place] [address] 01/13/2025 10:00 AM EDT Office Visit [facility] MEDICINE [address] [place] [address] Name, MD Reuben [address] [place] [address] documented as of this encounter Visit Diagnoses Not on filedocumented in this encounter Additional Health Concerns Assessment Noted Time PHQ-9 Depression Total Score: 0 11/25/19 1:40 PM EDT documented as of this encounter Care Teams Trip Rider Relationship Specialty Start Date End Date Name, MD Reuben [address] [place] [address] PCP - General Family Medicine 08/15/15 Gibran Medrano FNP [address] [place] [address] Nurse Practitioner Family Medicine 04/20/23 Noemi Pabon Flight Radio OperatorApplication Development Director 03/28/24 documented as of this encounter
--- OUTSIDE RECORDS SUMMARY | 2024-10-12 10:10 | XMS_ITS | Encounter Summary ---
Author Organization [employer] Address [address] [facility] 7t [place] [address] Care Team Providers Care Ctc Operator Name Role Phone Name, Reuben MARTINEZ Primary Care Provider [phone] Gibran Medrano Unavailable Unavailable Reason for Visit * Reason Onset Date Comments Referral 09/01/2023 Encounter Details Date Type Department Care Team ([facility] st Contact Info) Description 09/01/2023 Telephone [facility] MEDICINE [address] [place], [place] [phone] Name, MD Reuben [address] [place] [address] Referral Social History Tobacco Use Types Packs/Day [...] - 09/01/2023 2:48 PM EDT Tc from [facility] requesting orthopedic referral for left arm and hand. If any questions please contact pt at [phone]. documented in this encounter Plan of Treatment Upcoming Encounters Date Type Department Care Team (Late st Contact Info) Description 11/24/2024 11:00 AM EDT Office Visit [facility] OPTOMETRY [address] [place] [address] Naomi Tate, OD [address] [place] [address] 01/13/2025 10:00 AM EDT Office Visit [facility] MEDICINE [address] [place] [address] NameRueben MD [address] [place] [address] documented as of this encounter Visit Diagnoses Not on filedocumented in this encounter Additional Health Concerns Assessment Noted Time PHQ-9 Depression Total Score: 0 06/30/19 24 9:58 AM EST documented as of this encounter Care Teams Ctc Operator Relationship Specialty Start Date End Date NameReuben MD [address] [place] [address] PCP - General Family Medicine 08/15/15 Gibran Medrano FNP [address] [place] [address] Nurse Practitioner Family Medicine 04/20/23 Noemi Pabon Electronic Test TechnicianPlant Quality Manager 03/28/24 documented as of this encounter
--- OUTSIDE RECORDS SUMMARY | 2024-10-12 10:10 | XMS_ITS | Encounter Summary ---
Author Organization [employer] Address [address] [facility] [address] [place] [address] Care Team Providers Care Certified Endoscopy Technician Name Role Phone Name, Reuben MARTINEZ Primary Care Provider [phone] Gibran Medrano Unavailable Unavailable Reason for Visit * Reason Comments Med Refill Encounter Details Date Type Department Care Team ([facility] Contact Info) Description 02/21/2023 Refill [facility] MEDICINE [address] [place] [address] Concha Tabares MD [address] [place] [address] Cervical radiculitis; Essential hypertension; Prediabetes; MARILU (obstructive [...] Upcoming Encounters Date Type Department Care Team ([facility] Contact Info) Description 11/24/2024 11:00 AM EDT Office Visit [facility] OPTOMETRY [address] [place] [address] Naomi Tate OD [address] [place] [address] 01/13/2025 10:00 AM EDT Office Visit [facility] MEDICINE [address] [place] [address] Name, MD Reuben [address] [place] [address] documented as of this encounter Visit Diagnoses Diagnosis Cervical radiculitis Brachial neuritis or radiculitis nos Essential hypertension Unspecified essential hypertension Prediabetes Other abnormal glucose MARILU (obstructive sleep apnea) Obstructive sleep apnea (adult) (pediatric) documented in this encounter Additional Health Concerns Assessment Noted Time PHQ-9 Depression Total Score: 3 02/03/20 23 3:12 PM EDT documented as of this encounter Care Teams Certified Endoscopy Technician Relationship Specialty Start Date End Date Name, MD Reuben [address] [place] [address] PCP - General Family Medicine 08/15/15 Gibran Medrano FNP [address] [place] [address] Nurse Practitioner Family Medicine 04/20/23 Noemi Pabon Automatic Nailing Machine FeederDistribution Systems Serviceperson 03/28/24 documented as of this encounter
--- OUTSIDE RECORDS SUMMARY | 2024-10-12 10:10 | XMS_ITS | Encounter Summary ---
Author Organization [employer] Address [address] [facility] [address] [place] [address] Care Team Providers Care Marketing Traffic Coordinator Name Role Phone Name, Reuben MARTINEZ Primary Care Provider [phone] Gibran Medrano Unavailable Unavailable Encounter Details Date Type Department Care Team (Late st Contact Info) Description 11/03/2022 Abstract [facility] MEDICINE [address] [place] [address] NameReuben MD [address] [place] [address] Social History Tobacco Use Types Packs/Day Years [...] Office Visit [facility] OPTOMETRY [address] [place] [address] Naomi Tate OD [address] [place] [address] 01/13/2025 10:00 AM EDT Office Visit [facility] MEDICINE [address] [place] [address] Reuben Suh MD [address] [place] [address] [phone] documented as of this encounter Visit Diagnoses Not on filedocumented in this encounter Additional Health Concerns Assessment Noted Time PHQ-9 Depression Total Score: 0 09/24/19 23 12:49 PM EDT documented as of this encounter Care Teams Marketing Traffic Coordinator Relationship Specialty Start Date End Date Name, MD Reuben [address] [place] [address] PCP - General Family Medicine 08/15/15 Gibran Medrano FNP [address] [place] [address] Nurse Practitioner Family Medicine 04/20/23 Noemi Pabon Chief Contract OfficerScenic Designer 03/28/24 documented as of this encounter
--- OUTSIDE RECORDS SUMMARY | 2024-10-12 10:10 | XMS_ITS | Encounter Summary ---
Author Organization [employer] Address [address] [facility] 7t [place] [address] Care Team Providers Care Oil And Gas Superintendent Name Role Phone Name, Reuben MARTINEZ Primary Care Provider [phone] Gibran Medrano Unavailable Unavailable Reason for Visit * Reason Comments Med Refill Encounter Details Date Type Department Care Team (Late st Contact Info) Description 03/29/2023 Refill [facility] MEDICINE [address] [place] [address] Yolanda Forman MD [address] [place] [address] Cervical radiculitis; Vertigo Social History Tobacco Use [...] 11:00 AM EDT Office Visit [facility] OPTOMETRY [address] [place] [address] Naomi Tate, OD [address] [place] [address] 01/13/2025 10:00 AM EDT Office Visit [facility] MEDICINE [address] [place] [address] Name, MD Reuben [address] [place] [address] documented as of this encounter Visit Diagnoses Diagnosis Cervical radiculitis Brachial neuritis or radiculitis nos Vertigo Dizziness and giddiness documented in this encounter Additional Health Concerns Assessment Noted Time PHQ-9 Depression Total Score: 3 02/03/20 23 3:12 PM EDT documented as of this encounter Care Teams Oil And Gas Superintendent Relationship Specialty Start Date End Date Name, MD Reuben [address] [place] [address] PCP - General Family Medicine 08/15/15 Gibran Medrano FNP [address] [place] [address] Nurse Practitioner Family Medicine 04/20/23 Noemi Pabon Aluminum Container TesterPackage Sealer Machine 03/28/24 documented as of this encounter
--- OUTSIDE RECORDS SUMMARY | 2024-10-12 10:10 | XMS_ITS | Encounter Summary ---
Author Organization [employer] Address [address] [facility] 7t [place] [address] Care Team Providers Care Ski Patrol Officer Name Role Phone Name, Reuben MARTINEZ Primary Care Provider [phone] Gibran Medrano Unavailable Unavailable Reason for Visit * Reason Onset Date Comments Handicap Placard 12/11/2022 Encounter Details Date Type Department Care Team ([facility] st Contact Info) Description 12/11/2022 Telephone [facility] MEDICINE [address] [place], [place] [phone] Name, MD Reuben [address] [place] [address] Handicap Placard Social History Tobacco Use Types [...] requesting the status of handicap placard paperwork. Drawbench Operator transferred call to HIMand patient was transferred back, due to paperwork being dropped off directly to PCP. documented in this encounter Plan of Treatment Upcoming Encounters Date Type Department Care Team (Late st Contact Info) Description 11/24/2024 11:00 AM EDT Office Visit [facility] OPTOMETRY [address] [place] [address] Naomi Tate, OD [address] [place] [address] 01/13/2025 10:00 AM EDT Office Visit [facility] MEDICINE [address] [place] [address] Name, MD Reuben [address] [place] [address] documented as of this encounter Visit Diagnoses Not on filedocumented in this encounter Additional Health Concerns Assessment Noted Time PHQ-9 Depression Total Score: 0 11/25/19 1:40 PM EDT documented as of this encounter Care Teams Ski Patrol Officer Relationship Specialty Start Date End Date Name, MD Reuben [address] [place] [address] PCP - General Family Medicine 08/15/15 Gibran Medrano FNP [address] [place] [address] Nurse Practitioner Family Medicine 04/20/23 Noemi Pabon Documentation ManagerAerodynamics Teacher 03/28/24 documented as of this encounter
--- OUTSIDE RECORDS SUMMARY | 2024-10-12 10:10 | XMS_ITS | Encounter Summary ---
Author Organization [employer] Address [address] [facility] 7t [place] [address] Care Team Providers Care Hvac Mechanic Name Role Phone Name, Reuben MARTINEZ Primary Care Provider Gibran Medrano Unavailable Unavailable Encounter Details Date Type Department Care Team ([facility] st Contact Info) Description 04/21/2023 Telephone [facility] MEDICINE [address] [place], [place] [phone] Name, MD Reuben [address] [place], [place] [phone] Social History Tobacco Use Types Packs/Day Years [...] 11/24/2024 11:00 AM EDT Office Visit [facility] OPTOMETRY [address] [place] [address] Naomi Tate OD [address] [place] [address] 01/13/2025 10:00 AM EDT Office Visit [facility] MEDICINE [address] [place] [address] Name, MD Reuben [address] [place] [address] documented as of this encounter Visit Diagnoses Not on filedocumented in this encounter Additional Health Concerns Assessment Noted Time PHQ-9 Depression Total Score: 3 02/03/20 23 3:12 PM EDT documented as of this encounter Care Teams Hvac Mechanic Relationship Specialty Start Date End Date Name, MD Reuben [address] [place] [address] PCP - General Family Medicine 08/15/15 Gibran Medrano FNP [address] [place] [address] Nurse Practitioner Family Medicine 04/20/23 Noemi Pabon Rotary Drier OperatorSenior Director Of [employer] 03/28/24 documented as of this encounter
--- OUTSIDE RECORDS SUMMARY | 2024-10-12 10:10 | XMS_ITS | Encounter Summary ---
Author Organization [employer] Address [address] [facility] [address] [place] [address] Care Team Providers Care Hospital Plan Administrator Name Role Phone Name, Reuben MARTINEZ Primary Care Provider [phone] Gibran Medrano Unavailable Unavailable Reason for Visit * Reason Onset Date Comments Med Refill 01/30/2023 Encounter Details Date Type Department Care Team ([facility] st Contact Info) Description 01/30/2023 Telephone [facility] MEDICINE [address] [place] [address] Name, MD Reuben [address] [place] [address] Med Refill Social History Tobacco Use Types [...] AM EDT documented as of this encounter Functional Status * Over the past 2 weeks, how often have you been bothered by any of the following problems? Question Answer Date of Assessment Author Patient Health Questionnaire -2 Score 1 02/02/2023 3:12 PM EDT Gillian Hudson [place] * If you checked off any problems on this questionnaire so far, Question Answer Date of Assessment Author How difficult have these problems made it for you to do your work, take care of things at home, or get along with other people? Somewhat difficult 02/02/2023 3:12 PM MILLYT Gillian Hudson MA * Over the past 2 weeks, how often have you been bothered by any of the following problems? Question Answer Date of Assessment Author Little interest or pleasure in doing things Not at all 02/02/2023 3:12 PM EDT Gillian Hudson MA Feeling down, depressed, or hopeless Several days 02/02/2023 3:12 PM MILLYT Gillian Hudson [place] Trouble falling or staying asleep, or sleeping too much Not at all 02/02/2023 3:12 PM MILLYT Sun Hudson [place] Feeling tired or having little energy Several days 02/02/2023 3:12 PM MILYLT Gillian Hudson [place] Poor appetite or overeating Several days 02/02/2023 3: 12 PM MILLYT Sun Hudson [place] Feeling bad about yourself - or that you are a failure or have let yourself or your family down Not at all 02/02/2023 3:12 PM Gillian Alberts MA Trouble concentrating on things, such as reading the newspaper or watching television Not at all 02/02/2023 3:12 PM MILLYT Gillian Hudson MA Moving or speaking so slowly that other people could have noticed? Or the opposite - being so fidgety or restless that you have been moving around a lot more than usual. Not at all 02/02/2023 3:12 PM Gillian Alberts MA Thoughts that you would be better off or hurting yourself in some way Not at all 02/02/2023 3:12 PM MILLYT Jozef Hudson MA Patient Health Questionnaire-9 Score 3 02/02/2023 3:12 PM MILLYT Colton Hudson [place] documented as of this encounter Miscellaneous Notes * Telephone Encounter - Ester Guido LPN - 01/30/2023 8:51 AM EDT Medication pended to provider. * Telephone Encounter - Ryan Yanes - 01/30/2023 8:41 AM EDT Tc from pt requesting med refill on lidocaine (Xylocaine) 5 % ointment gabapentin (Neurontin) 100 MG capsule meclizine (Antivert) 25 MG tablet Please sent to [facility] #[id number] - [place] - [address] [place] [address] documented in this encounter Plan of Treatment Upcoming Encounters Date Type Department Care Team (Late st Contact Info) Description 11/24/2024 11:00 AM EDT Office Visit [facility] OPTOMETRY [address] [place] [address] Naomi Tate, OD [address] [place] [address] 01/13/2025 10:00 AM EDT Office Visit [facility] MEDICINE [address] [place] [address] NameReuben MD [address] [place] [address] documented as of this encounter Visit Diagnoses Not on filedocumented in this encounter Additional Health Concerns Assessment Noted Time PHQ-9 Depression Total Score: 0 11/25/19 23 1:40 PM EDT documented as of this encounter Care Teams Hospital Plan Administrator Relationship Specialty Start Date End Date NameReuben MD [address] [place] [id number] PCP - General Family Medicine 08/15/15 Gibran Medrano FNP [address] [place] [address] Nurse Practitioner Family Medicine 04/20/23 Noemi Pabon Remedial Reading TeacherSales Operations Associate 03/28/24 documented as of this encounter
--- OUTSIDE RECORDS SUMMARY | 2024-10-12 10:10 | XMS_ITS | Encounter Summary ---
Author Organization [employer] Address [address] [facility] 7t [place] [address] Care Team Providers Care Bean Sprout Grower Name Role Phone Name, Reuben MARTINEZ Primary Care Provider [phone] Gibran Medrano Unavailable Unavailable Reason for Visit * Reason Comments Med Refill Encounter Details Date Type Department Care Team (Late st Contact Info) Description 03/25/2023 Refill [facility] MEDICINE [address] [place] [address] Gibran Medrano FNP Social History Tobacco Use [...] Office Visit [facility] OPTOMETRY [address] [place] [address] Naomi Tate OD [address] [place] [address] 01/13/2025 10:00 AM EDT Office Visit [facility] MEDICINE [address] [place] [address] Name, MD Reuben [address] [place] [address] documented as of this encounter Visit Diagnoses Not on filedocumented in this encounter Additional Health Concerns Assessment Noted Time PHQ-9 Depression Total Score: 3 02/03/20 23 3:12 PM EDT documented as of this encounter Care Teams Bean Sprout Grower Relationship Specialty Start Date End Date Name, MD Reuben [address] [place] [id number] PCP - General Family Medicine 08/15/15 Gibran Medrano FNP [address] [place] [address] Nurse Practitioner Family Medicine 04/20/23 Noemi Pabon SteamblasterConstruction Field Engineer 03/28/24 documented as of this encounter
--- OUTSIDE RECORDS SUMMARY | 2024-10-12 10:10 | XMS_ITS | Encounter Summary ---
Author Organization [employer] Address [address] [facility] 7t [place] [address] Care Team Providers Care Music Autographer Name Role Phone Name, Reuben MARTINEZ Primary Care Provider [phone] Gibran Medrano Unavailable Unavailable Reason for Visit * Reason Comments Med Refill Encounter Details Date Type Department Care Team (Late st Contact Info) Description 05/15/2023 Refill [facility] MEDICINE [address] [place] [address] Gibran Medrano FNP Social History Tobacco Use [...] Description 11/24/2024 11:00 AM EDT Office Visit [facility] OPTOMETRY [address] [place] [address] Naomi Tate, OD [address] [place] [address] 01/13/2025 10:00 AM EDT Office Visit [facility] MEDICINE [address] [place] [address] Name, MD Reuben [address] [place] [address] documented as of this encounter Visit Diagnoses Not on filedocumented in this encounter Additional Health Concerns Assessment Noted Time PHQ-9 Depression Total Score: 4 04/27/20 23 8:58 AM EST documented as of this encounter Care Teams Music Autographer Relationship Specialty Start Date End Date Name, MD Reuben [address] [place] [id number] PCP - General Family Medicine 08/15/15 Gibran Medrano FNP [address] [place] [address] Nurse Practitioner Family Medicine 04/20/23 Noemi Pabon Warehouse SpecialistInternational Trade Compliance Manager 03/28/24 documented as of this encounter
--- OUTSIDE RECORDS SUMMARY | 2024-10-12 10:10 | XMS_ITS | Encounter Summary ---
Author Organization [employer] Address [address] [facility] [address] [place] [address] Care Team Providers Care Reach Truck Operator Name Role Phone Name, Reuben MARTINEZ Primary Care Provider [phone] Gibran Medrano Unavailable Unavailable Reason for Visit * Reason Onset Date Comments Results 12/11/2022 Encounter Details Date Type Department Care Team ([facility] st Contact Info) Description 12/11/2022 Telephone [facility] MEDICINE [address] [place] [address] Name, MD Reuben [address] [place] [address] Results Social History Tobacco Use Types Packs/Day [...] with plan. * Telephone Encounter - Jil Isbael RN - 12/15/2022 10:03 AM EDT Returned [...] Description 11/24/2024 11:00 AM EDT Office Visit [facility] OPTOMETRY [address] [place] [address] Naomi Tate, OD [address] [place] [address] 01/13/2025 10:00 AM EDT Office Visit [facility] MEDICINE [address] [place] [address] Name, MD Reuben [address] [place] [address] documented as of this encounter Visit Diagnoses Not on filedocumented in this encounter Additional Health Concerns Assessment Noted Time PHQ-9 Depression Total Score: 0 11/25/19 23 1:40 PM EDT documented as of this encounter Care Teams Reach Truck Operator Relationship Specialty Start Date End Date NameReuben MD [address] [place] [id number] PCP - General Family Medicine 08/15/15 Gibran Medrano FNP [address] [place] [address] Nurse Practitioner Family Medicine 04/20/23 Noemi Pabon Online Marketing DirectorSlitter Scorer Cut Off Operator 03/28/24 documented as of this encounter
--- OUTSIDE RECORDS SUMMARY | 2024-10-12 10:11 | XMS_ITS | Encounter Summary ---
Author Organization [employer] Address [address] [facility] 7t [place] [address] Care Team Providers Care Hand Roller Name Role Phone Name, Reuben MARTINEZ Primary Care Provider [phone] Gibran Medrano Unavailable Unavailable Reason for Visit * Reason Comments Med Refill Encounter Details Date Type Department Care Team (Late st Contact Info) Description 08/26/[address] [facility] MEDICINE [address] [place], [place] [id number] Name, MD Reuben [address] [place] [address] Neck pain, chronic Social History Tobacco Use [...] 11:00 AM EDT Office Visit [facility] OPTOMETRY [address] [place] [address] Naomi Tate, TORI [address] [place] [address] 01/13/2025 10:00 AM EDT Office Visit [facility] MEDICINE [address] [place] [address] Reuben Suh MD [address] [place] [address] documented as of this encounter Visit Diagnoses Diagnosis Neck pain, chronic documented in this encounter Additional Health Concerns Assessment Noted Time PHQ-9 Depression Total Score: 13 025 9:14 AM EDT documented as of this encounter Care Teams Hand Roller Relationship Specialty Start Date End Date Reuben Suh MD [address] [place] [address] PCP - General Family Medicine 08/15/15 Gibran Medrano FNP [address] [place] [address] Nurse Practitioner Family Medicine 04/20/23 Noemi Pabon Vibrating Screen OperatorRetail Helper 03/28/24 documented as of this encounter
--- OUTSIDE RECORDS SUMMARY | 2024-10-12 10:11 | XMS_ITS | Clinical Summary ---
Author Organization [employer] Address [address] [facility] 7t [place] [address] Care Team Providers Care Sorter Upholstery Parts Name Role Phone Name, Reuben MARTINEZ Primary Care Provider [phone] Gibran Medrano Unavailable Unavailable Allergies No known active allergies Medications * This document contains information received from the source organization and may not represent a complete record from that organization. Milk Thistle 300 MG capsule Activ e Naphazoline-Phe niramine (Opcon-A) 0.027-0.315 % solution Instill one drop OD every 6 hours for 5 days then as needed 12/31/19 19 Active amitriptyline (Elavil) 25 MG tabletIndicatio ns:Bipolar 2 disorder (CMS/HCC) Take 1 tablet (25 mg) by mouth at bedtime. 90 tablet 1 04/27/20 23 Active cloNIDine (Catapres) 0.1 MG tabletIndicatio ns:Bipolar 2 disorder (CMS/HCC) Take 1 tablet (0.1 mg) by mouth 2 times daily. 180 tablet 1 04/27/20 23 Active topiramate (Topamax) 25 MG tablet TAKE 2 TABLETS BY MOUTH EVERY MORNING 60 tablet 5 03/24/20 24 Active gabapentin (Neurontin) 100 MG capsuleIndicati ons:Neck pain, chronic TAKE 1 CAPSULE BY MOUTH THREE TIMES A DAY 90 capsule 03/30/20 24 Active loratadine (Claritin) 10 MG tabletIndicatio ns:Neck pain, chronic Take 1 tablet by mouth every day as needed 90 tablet 1 03/30/20 24 Active cholecalciferol (Vitamin D3) 25 MCG (1000 UT) tabletIndicatio ns:Neck pain, chronic Take 1 tablet (25 mcg) by mouth in the morning. 90 tablet 1 03/30/20 24 Active bisacodyl (Bisacodyl EC) 5 MG EC tabletIndicatio ns:Neck pain, chronic TAKE 2 TABLETS BY MOUTH EVERY DAY NEEDED FOR CONSTIPATION 180 tablet 07/29/19 25 Active clonazePAM (KlonoPIN) 0.5 MG tabletIndicatio ns:Bipolar 2 disorder (CMS/HCC) Take 1 tablet (0.5 mg) by mouth 2 times daily for 28 days. 56 tablet 07/29/19 25 Active losartan (Cozaar) 100 MG tabletIndicatio ns:Neck pain, chronic TAKE 1 TABLET BY MOUTH EVERY DAY IN THE MORNING 90 tablet 1 08/09/19 25 Active hydroCHLOROthia zide 12.5 MG tabletIndicatio ns:Neck pain, chronic TAKE 1 TABLET (12.5 MG) BY MOUTH ONCE PER DAY. 90 tablet 1 08/09/19 25 Active dicyclomine (Bentyl) 20 MG tablet Take 0.5 tablets (10 mg) by mouth if needed in the morning, at noon, in the evening, and at bedtime (abdominal pain). 56 tablet 1 08/26/19 25 2025 Active meloxicam (Mobic) 7.5 MG tabletIndicatio ns:Neck pain, chronic,Essenti al hypertension Take 1 tablet (7.5 mg) by mouth Once per day. 30 tablet 08/26/19 25 2025 Active lidocaine (Xylocaine) 5 % ointmentIndicat ions:Neck pain, chronic,Essenti al hypertension Apply topically if needed for mild pain. 50 g 2 08/26/19 25 2025 Active meclizine (Antivert) 25 MG tabletIndicatio ns:Neck pain, chronic TAKE 1 TABLET BY MOUTH THREE TIMES A DAY NEEDED FOR DIZZINESS 60 tablet 09/16/19 25 Active Diclofenac Sodium 1 % gelIndications: Neck pain, chronic,Essenti al hypertension APPLY ONCE A DAY TO THE AFFECTED AREAS WITH PAIN 100 g 1 09/17/19 25 Active lidocaine (Lidoderm) 5 % patchIndication s:Neck pain, chronic Apply 1 patch topically Once per day. Apply to painful area 12 hours per day, remove for 12 hours. 30 patch 09/17/19 25 2025 Active baclofen (Lioresal) 20 MG tabletIndicatio ns:Neck pain, chronic,Essenti al hypertension TAKE 1 TABLET BY MOUTH TWICE A DAY 60 tablet 09/23/19 Active meclizine (Antivert) 25 MG tabletIndicatio ns:Neck pain, chronic TAKE 1 TABLET BY MOUTH THREE TIMES A DAY NEEDED FOR DIZZINESS 60 tablet 1 07/29/19 25 2024 Discontinued baclofen (Lioresal) 20 MG tabletIndicatio ns:Neck pain, chronic,Essenti al hypertension Take 1 tablet (20 mg) by mouth 2 times daily. 60 tablet 08/26/19 25 2024 Discontinued Diclofenac Sodium 1 % gelIndications: Neck pain, chronic,Essenti al hypertension Apply once a day to the affected areas with pain 100 g 1 08/26/19 25 2024 Discontinued Active Problems Problem Noted Date Diagnosed Date History of laparoscopic appendectomy 06/21/2024 Overview (06/21/2024): 06/20/2024 at [facility] Family history of Crohn's disease 03/30/2023 Urinary [...] an effective mood stabilizer. She stopped the Grandfalls and is still doing very well. Will [...] up for mood stabilization and stop the Grandfalls. Meanwhile, continue Grandfalls 300 mg once daily, Clonazepam 0.5 mg [...] muscle 08/14/2011 03/30/2024 Depressive disorder 04/29/2011 05/20/20 Encounters Date Type Department Care Team Description 09/29/2024 Telephone [facility] [address] [place] [address] Agustina Anand MA agust recals 09/21/2024 Refill [facility] [address] [place] [address] Reuben Suh MD Neck pain, chronic; Essential hypertension 09/16/2024 Refill [facility] [address] [place] [address] Reuben Suh MD Neck pain, chronic; Essential hypertension 09/15/2024 Refill [facility] [address] [place] [address] Reuben Suh MD Neck pain, chronic 09/14/2024 Refill [facility] [address] [place] [address] Reuben Suh MD Neck pain, chronic 09/02/2024 Telephone [facility] [address] [place] [address] Reuben Suh MD Results 08/26/2024 Refill [facility] [address] [place] [address] Reuben Suh MD Neck pain, chronic 08/25/2024 9:15 AM EDT Office Visit [facility] [address] [place] [phone] Reuben Suh MD PE (physical exam), routine (Primary Dx); Neck pain, chronic; Osteoarthritis of cervical spine, unspecified spinal osteoarthritis complication status; Essential hypertension; Prediabetes; Abdominal pain, unspecified abdominal location; Vaccination refused by patient 08/25/2024 Refill [facility] [address] [place] [address] Reuben Suh MD Neck pain, chronic 08/25/2024 Travel 08/25/2024 Refill [facility] [address] [place] [address] Reuben Suh MD Neck pain, chronic 08/18/2024 Patient Outreach [facility] [address] [place] [address] Reuben Suh MD Pre-visit Planning (SDOH negative. Tobacco screening negative) 08/08/2024 Refill [facility] [address] [place] [address] Reuben Suh MD Neck pain, chronic 08/05/2024 Population Health Risk Score [facility] () Department [address] [place] [phone] Provider, Population Health Generic 07/28/2024 Refill [facility] [address] [place] [address] Reuben Suh MD Neck pain, chronic 07/28/2024 Refill [facility] [address] [place] [address] Reuben Suh MD Bipolar 2 disorder (CMS/HCC) 07/28/2024 Refill [facility] [address] [place], [place] [phone] Reuben Suh MD Cervical radiculitis; Neck pain, chronic from Last 3 Months Immunizations Immunization Administration Dates Next Due Hep B, adult [...] Description 11/24/2024 11:00 AM EDT Office Visit [facility] [address] [place] [address], [place] [phone] Naomi Tate, OD [address] [place] [address] 01/13/2025 10:00 AM EDT Office Visit [facility] [address] [place], [place] [phone] Name, MD Reuben [address] [place] [address] Health Maintenance Due Date Last Done Comments CT Colonography 1972 FIT DNA/Cologuard 1972 FIT 1972 FOBT 1970 HIV Screening 1970 Sigmoidoscopy 1972 Disability Screening 1972 Family Planning (PISQ) 1987 Hepatitis A [...] Influenza Vaccine (#1) 2024 Mammogram 10/26/2024 10/27/2023, 06/0 05/2022, 10/14/2022, Additional history exists Alcohol/Substance Use Screening 12/31/2024 01/01/2024 Diabetes: Hemoglobin A1C 12/31/2024 08 024, 07/20/2023, 06/10/2022, Additional history exists SDOH Screening 08/18/2025 08/18/2024 Depression Screening 08/25/2025 08/25/2024, 08/26/19 25 Tobacco Screening 08/25/2025 08/25/2024 Colonoscopy 03/03/2028 03/03/2023, 07/05/2019 Colorectal Cancer Screening 03/03/2028 Cervical Cancer Screening 07/06/2028 HPV/Cotest 07/06/2028 07/17/2017 Pap Smear 07/06/2028 07/06/2023, 07/06/2023 Lipid Panel 08/25/2029 08/25/2024, 05/0 06/2021, 12/26/2020 RSV Patients and Patients Aged 60 years [...] age to complete this topic Meningococcal B Vaccine Aged Out No l onger eligible based on patient's age to complete [...] Procedure Name Priority Date/Time Associated Diagnosis Comments COMPREHENSIVE METABOLIC PANEL Routine 08/25/2024 9:40 AM EDT PE (physical exam), routine Neck pain, chronic Osteoarthritis of cervical spine, unspecified spinal osteoarthritis complication status Essential hypertension Prediabetes Vaccination refused by patient LIPID PANEL, STANDARD Routine 08/25/2024 9:40 AM EDT PE (physical exam), routine Neck pain, chronic Osteoarthritis of cervical spine, unspecified spinal osteoarthritis complication status Essential hypertension Prediabetes Vaccination refused by patient CBC WITH AUTO DIFFERENTIAL Routine 08/25/2024 9:40 AM EDT PE (physical exam), routine Neck pain, chronic Osteoarthritis of cervical spine, unspecified spinal osteoarthritis complication status Essential hypertension Prediabetes Vaccination refused by patient POCT GLYCATED HEMOGLOBIN, TOTAL Routine 01/01/2024 11:41 AM EDT Prediabetes BI MAMMOGRAM SCREENING TOMOSYNTHESIS BILATERAL Routine 10/27/2023 8:15 AM EDT PAP SMEAR Routine 07/06/2023 10:57 AM EST COLONOSCOPY Routine 03/03/2023 [facility] HISTORICAL HEPATITIS C ANTIBODY RFLX Routine 06/24/2019 10:48 AM EST [facility] HISTORICAL HPV MRNA E6/E7 Routine 07/17/2017 11:19 AM EST from Last 3 Months or Most Recently Relevant to Health Maintenance Results * (ABNORMAL) CBC auto differential (08/25/2024 9:40 AM EDT) White Blood Count 8.6 4.8 - 10.8 X10*3/uL [facility] Red Blood Count 5.39 4.20 - 5.50 X10*6/uL [facility] Hemoglobin 14.2 12.0 - 16.0 g/dl [facility] Hematocrit 44.2 37.0 - 47.0 % [facility] Mean Corpuscular Volume 82.0 80.0 - 98.0 fL [facility] Mean Corpuscular Hemoglobin 26.3(L) 27.0 - 33.0 pg [facility] Mean Corpuscular HGB Conc 32.1 31.0 - 35.0 g/dl [facility] Red Cell Distribution Width 15.0 11.0 - 16.0 % [facility] Platelet Count 401(H) 160 - 400 X10*3/uL [facility] Mean Platelet Volume 9.8 9.4 - 12.3 fL [facility] Neutrophils Percent Auto 50.1 45 - 73 % [facility] Imm Gran Pct Auto 0.2 0.0 - 0.4 % [facility] Lymphocytes Percent Auto 40.8(H) 20 - 40 % [facility] Monocytes Percent Auto 5.6 2 - 11 % [facility] Eosinophils Percent Auto 2.2 0 - 4 % [facility] Basophils Percent Auto 1.1 0 - 2 % [facility] NRBC Pct Auto 0.0 0.0 - 0.2 /100WBC [facility] Neutrophils Absolute Auto 4.3 2.0 - 8.3 x10*3/uL [facility] Imm Gran Abs Auto 0.02 0.00 - 0.03 X10*3/uL [facility] Lymphocytes Absolute Auto 3.5 1.2 - 4.9 X10*3/uL [facility] Monocytes Absolute Auto 0.5 0.1 - 1.2 X10*3/uL [facility] Eosinophils Absolute Auto 0.2 0.0 - 0.4 X10*3/uL [facility] Basophils Absolute Auto 0.1 0.0 - 0.2 X10*3/uL [facility] NRBC Abs Auto 0.000 0.0 - 0.012 X10*3/uL [facility] Blood Venous blood specimen / Unknown 08/25/2024 9:40 AM EDT 08/25/2024 11:28 AM EDT us Reuben Name MD LAB BLOOD ORDERABLES Final Resul t [facility] [address] [place], [place] [phone] * (ABNORMAL) Lipid Panel, Standard (08/25/2024 9:40 AM EDT) Triglycerides 68 <150 mg/dL [facility] Comment:Desirable Triglyceri de: less than 150 mg/dLBorderline High Triglyceride 150-199 mg/dLHigh Triglyceride: 200-499 mg/dLVery High Triglyceride: greater than or equal to 5OO mg/dL Cholesterol 189 <200 mg/dL [facility] Comment:Desirable Cholestero l: less than 200 mg/dLBorderline High Cholesterol: 200-239 mg/dLHigh Cholesterol: greater than 239 mg/dL LDL Cholesterol Calculated 123(H) <100 mg/dL [facility] Comment:Desirable LDL: less than 100 mg/dLNear Optimal/Above Optimal LDL: 110- 129 mg/dLBorderline High LDL: 130-159 mg/dLHigh LDL: 160-189 mg/dLVery High LDL: greater than or equal to 190 mg/dL HDL Cholesterol 53 >40 mg/dL [facility] Comment:Desirable HDL: great er than 40 mg/dL Note: This HDL assay may give artificially low results in patients with liver disease. Blood Venous blood specimen / Unknown 08/25/2024 9:40 AM EDT 08/25/2024 11:28 AM EDT us Reuben Name LAB BLOOD ORDERABLES Final Resul t [facility] [address] [place] [address] [phone] * (ABNORMAL) Comprehensive Metabolic Panel (08/25/2024 9:40 AM EDT) Sodium 141 135 - 145 mmol/L [facility] Potassium 4.0 3.3 - 5.1 mmol/L [facility] Chloride 107 96 - 108 mmol/L [facility] Carbon Dioxide 28 22 - 29 mmol/L [facility] Anion Gap 10(L) 12 - 20 [facility] Urea Nitrogen (BUN) 13 9 - 16 mg/dL [facility] Creatinine, Serum 0.62 0.5 - 1.4 mg/dL [facility] Estimated Glomerular Filt Rate >60 [facility] Comment:Chronic Kidney Disea se: Estimated GFR < 60 mL/min/1.95v8Vaelxp Kidney Disease: Estimated GFR < 15 mL/min/1.73m2 Glucose 87 60 - 115 mg/dL [facility] Calcium 9.2 8.4 - 10.2 mg/dL [facility] Bilirubin, Total 0.4 0.0 - 1.0 mg/dL [facility] Aspartate Amino Transferase 18 5 - 31 U/L [facility] Alanine Aminotransferase 15 0 - 31 U/L [facility] Total Protein 6.8 6.5 - 8.0 g/dL [facility] Albumin Level 3.9 3.5 - 5.0 g/dL [facility] Alkaline Phosphatase 78 39 - 117 U/L [facility] Blood Venous blood specimen / Unknown 08/25/2024 9:40 AM EDT 08/25/2024 11:28 AM EDT us Reuben Suh MD LAB BLOOD ORDERABLES Final Resul t [facility] [address] [place] [address] [phone] * POCT HGB A1C (01/01/2024 11:41 AM EDT) Hemoglobin A1C 5.5 4.0 - 6.0 % QC Media Lot # [id number] Lot# Expiration Date [id number] Blood 01/01/2024 11:4 1 AM EDT Reuben Suh MD POINT OF CARE TEST ENTER/EDIT OR DERABLES Final Result * BI Mammogram Screening Tomosynthesis Bilateral (10/27/2023 8:15 AM EDT) Anatomical Region Laterality Modality Breast Bilateral Mammography 10/27/2023 8:15 AM EDT Narrative 11/16/2023 3:24 AM EDT ? [facility] ? [address] ?[place] [address] ? Mammography Report ? Signed ? Patient: Marie,Yumiko ?MR#: [id number] ?? 9 ? : 1970 ?Acct:[id number] ? Age/Sex: 53 / F ?ADM Date: 06/04/24 ? Loc: HO.MAMMO ? Attending Dr: Reuben Name MD ? Ordering Physician: Name,Reuben MD ?Results: 1Negative ? Date of Service: 10/27/23 ?Follow Up: 1 Year From Orig ?? inal Mammogram ? Procedure(s): MM tomosynthesis screening BI ?? Accession Number(s): [id number] ? cc: Name,Reuben MARTINEZ ? EXAMINATION: ?? [...] 11/16/[address] ? DD/ 4 ? TD/TT: ? Principal Research Economist: ? Procedure Note Maco Mena - 11/16/2023 [facility] [address] [place] [address] Mammography Report Signed Patient: Yumiko MarieMR#: [id number] 9 : 1970Acct:[id number] Age/Sex: 53 / FADM Date: 10/27/23 Loc: MAMMO Attending Dr: Reuben Suh MD Ordering Physician: Reuben Suh MDResults: 1Negative Date of Service: 10/27/23Follow Up: 1 Year From Orig inal Mammogram Procedure(s): MM tomosynthesis screening BI Accession Number(s): [id number] cc: Angeli,Reuben MARTINEZ EXAMINATION: MM SCREENING DIGITAL BREAST TOMOSYNTHESIS, BILATERAL [...] in OV> 11/16/23 0320 DD/ 0815 TD/TT: Principal Research Economist: Reuben Suh MD IM BI PROCEDURES Final Result * Pap Smear (07/06/2023 10:57 AM EST) 07/06/2023 10:5 7 AM EST 07/07/2023 8:00 AM EST [facility] - 07/21/2023 1:20 PM EST ----- ------- Name: Yumiko Marie ?Age/Sex: 53/F ? : 1970 Unit#: [id number] ?? Attend Dr: Isela Hackett CNM ?Re07/06/23 ?Status: DEP REF ? Location: HO.LNP ?Disch: ? ----- ------- SPEC : [id number] ? RECD: 07/07/23 ? STATUS: ??SOUT ? REQ NUM: [id number] ? DEBRA: 07/06/23-1056 ? SUBM DR: Isela [...] 66, 68) ?? HPV testing performed by [employer], [place], [place]. ??See reference laboratory ?? portion of the EMR for entire report. ?Clinical Information LMP: 06/30/23 Previous PAP test: 2018, WNL ? Material Received ?? ThinPrep-Cervical Copies To: ?? Name,Reuben MARTINEZ ?? [address] [facility] ?? [place] [address] ?? [phone] ?? Isela Hackett CNM ?? [address] ?? [place] [address] ?? [phone] ----- ------- Signed (signature on file) MEAGHAN Santo (ASCP) 07/21/23 1320 ? ----- ------- ? END OF REPORT ? us Generic External Data Provider LAB CYTOLOGY ORDE RABLES Final Result Performing Organization Address City/[facility]/ZIP Co de Phone Number [facility] [address] [place] [address] [phone] * (ABNORMAL) Hm Colonoscopy (03/03/2023) Colonoscopy Abnormal(A ) Normal us Reuben Suh MD HEALTH MAINTENANCE Final Result * HEPATITIS C ANTIBODY RFLX (06/24/2019 10:48 AM EST) HEPATITIS C ANTIBODY NONREACTIVE NONREACTIVE [facility] Comment: Antibodies to HCV not detected; does not exclude early acute HCV infection. 06/24/2019 10:4 8 AM EST us Reuben Suh MD HISTORICAL/NON ORDERABLE LABS Fi nal Result Performing Organization Address [facility] Co de Phone Number [facility] [address] * HPV mRNA E6/E7 (07/17/2017 11:19 AM EST) HPV mRNA E6/E7 Not Detected NOT DETECTED [facility] Comment: This test was performed using the APTIMA(R) HPV Assay ([employer] This assay detects E6/E7 viral messenger RNA (mRNA) from 14 high-risk HPV types (16,18,31,33,35,39,45,51, 52,56,58,59,66,68). For additional information please refer to: http://[employer]/faq/MLA837s1 (This link is being provided for informational/ educational purposes only.) Test Performed by [employer], [employer] [facility], [address] [place] [phone] Jimmy Alonso M.D., Ph.D., Director of Laboratories , RON[place] [id number] Please note: ??Effective 02/04/2016, HPV testing will be performed using [employer]'s APTIMA test which targets mRNA. Detecting mRNA instead of DNA, as in older methods, offers significant improvements in specificity. 07/17/2017 11:1 9 AM EST Isela Hackett HISTORICAL/NON ORDERABLE LABS Fi nal Result [facility] [address] from Last 3 Months or Most Recently Relevant to Health Maintenance Insurance [employer] Care Teams Sorter Upholstery Parts Relationship Specialty Start Date End Date Name, MD Reuben [address] [place], [place] [phone] PCP - General Family Medicine 08/15/15 Gibran Medrano FNP [address] [place] [address] Nurse Practitioner Family Medicine 04/20/23 Noemi Pabon Oil RiggerQuilting Machine Helper 03/28/24
--- OUTSIDE RECORDS SUMMARY | 2024-10-12 10:11 | XMS_ITS | Encounter Summary ---
Author Organization [employer] Address [address] [facility] [address] [place] [address] Care Team Providers Care Ply Splicer Name Role Phone Name, Reuben MARTINEZ Primary Care Provider [phone] Gibran Medrano Unavailable Unavailable Reason for Visit * Reason Onset Date Comments Med Refill 05/23/2022 Encounter Details Date Type Department Care Team ([facility] st Contact Info) Description 05/23/2022 Telephone [facility] [address] [place], [place] [phone] Name, MD Reuben [address] [place] [address] Med Refill Social History Tobacco Use Types [...] 11/24/2024 11:00 AM EDT Office Visit [facility] [address] [place] [address] Naomi Tate, OD [address] [place] [address] 01/13/2025 10:00 AM EDT Office Visit [facility] [address] [place] [address] Name, MD Reuben [address] [place], [place] documented as of this encounter Visit Diagnoses Not on filedocumented in this encounter Additional Health Concerns Assessment Noted Time PHQ-9 Depression Total Score: 4 05/20/20 22 2:16 PM EST documented as of this encounter Care Teams Ply Splicer Relationship Specialty Start Date End Date Name, MD Reuben [address] [place] [phone] PCP - General Family Medicine 08/15/15 Gibran Medrano FNP [address] [place] [address] Nurse Practitioner Family Medicine 04/20/23 Noemi Pabon Customer Service Security OfficerManager Alliance 03/28/24 documented as of this encounter
--- OUTSIDE RECORDS SUMMARY | 2024-10-12 10:11 | XMS_ITS | Encounter Summary ---
Author Organization [employer] Address [address] [facility] [address] [place] [address] Care Team Providers Care Baggage Clerk Name Role Phone Name, Reuben MARTINEZ Primary Care Provider [phone] Gibran Medrano Unavailable Unavailable Reason for Visit * Reason Comments Med Refill Encounter Details Date Type Department Care Team (Late st Contact Info) Description 08/21/2022 Refill [facility] [address] [place], [place] [phone] Name, MD Reuben [address] [place] [address] Constipation, unspecified constipation type Social History Tobacco [...] Description 11/24/2024 11:00 AM EDT Office Visit [facility] [address] [place] [address] Naomi Tate, TORI [address] [place] [address] 01/13/2025 10:00 AM EDT Office Visit [facility] [address] [place] [address] Name, MD Reuben [address] [place] [phone] documented as of this encounter Visit Diagnoses Diagnosis Constipation, unspecified constipation type documented in this encounter Additional Health Concerns Assessment Noted Time PHQ-9 Depression Total Score: 8 07/01/19 23 1:13 PM EST documented as of this encounter Care Teams Baggage Clerk Relationship Specialty Start Date End Date Name, MD Reuben [address] [place] [phone] PCP - General Family Medicine 08/15/15 Gibran Medrano FNP [address] [place] [address] Nurse Practitioner Family Medicine 04/20/23 Noemi Pabon Materials Handling Equipment OperatorHearth Feeder 03/28/24 documented as of this encounter
--- OUTSIDE RECORDS SUMMARY | 2024-10-12 10:11 | XMS_ITS | Encounter Summary ---
Author Organization [employer] Address 75 [facility] 7t [place] [address] Care Team Providers Care Chemic Mangler Name Role Phone Name, Reuben MARTINEZ Primary Care Provider [phone] Gibran Medrano Unavailable Unavailable Reason for Visit * Reason Comments Med Refill Encounter Details Date Type Department Care Team (Late st Contact Info) Description 11/20/2023 Refill [facility] MEDICINE [address] [place], [place] [phone] Name, MD Reuben 230 [place] [address] Neck pain Social History Tobacco Use Types [...] 11:00 AM EDT Office Visit [facility] OPTOMETRY [address] [place] [address] Naomi Tate OD 267 [place] [address] 01/13/2025 10:00 AM EDT Office Visit [facility] MEDICINE [address] [place] [address] Name, MD Reuben [address] [place] [address] documented as of this encounter Visit Diagnoses Diagnosis Neck pain Cervicalgia documented in this encounter Additional Health Concerns Assessment Noted Time PHQ-9 Depression Total Score: 0 06/30/19 24 9:58 AM EST documented as of this encounter Care Teams Chemic Mangler Relationship Specialty Start Date End Date Name, MD Reuben [address] [place] [address] PCP - General Family Medicine 08/15/15 Gibran Medrano FNP [address] [place] [address] Nurse Practitioner Family Medicine 04/20/23 Noemi Pabon Airline Flight AttendantTelecommunications Network Planner 03/28/24 documented as of this encounter
--- OUTSIDE RECORDS SUMMARY | 2024-10-12 10:11 | XMS_ITS | Clinical Summary ---
Author Organization [facility] ity Address [address] [place] [address] Care Team Providers Care Energy Director Name Role Phone Unavailable Primary Care Provider [...]
--- OUTSIDE RECORDS SUMMARY | 2024-10-12 10:11 | XMS_ITS | Encounter Summary ---
Author Organization [employer] Address 75 [facility] 7t [place] [address] Care Team Providers Care Icu Clerk Name Role Phone Name, Reuben MARTINEZ Primary Care Provider [phone] Gibran Medrano Unavailable Unavailable Reason for Visit * Reason Comments Med Refill Encounter Details Date Type Department Care Team (Late st Contact Info) Description 11/28/2023 Refill [facility] MEDICINE 230 [place], [place] [phone] Name, MD Reuben 230 [place] [address] Neck pain; Prediabetes Social History Tobacco Use [...] Description 11/24/2024 11:00 AM EDT Office Visit [facility] OPTOMETRY [address] [place] [address] Naomi Tate OD [address] [place] [address] 01/13/2025 10:00 AM EDT Office Visit [facility] MEDICINE 230 [place] [address] Name, MD Reuben [address] [place] [address] documented as of this encounter Visit Diagnoses Diagnosis Neck pain Cervicalgia Prediabetes Other abnormal glucose documented in this encounter Additional Health Concerns Assessment Noted Time PHQ-9 Depression Total Score: 0 06/30/19 24 9:58 AM EST documented as of this encounter Care Teams Icu Clerk Relationship Specialty Start Date End Date Name, MD Reuben [address] [place] [address] PCP - General Family Medicine 08/15/15 Gibran Medrano FNP [address] [place] [address] Nurse Practitioner Family Medicine 04/20/23 Noemi Pabon Helicopter SpecialistRadio Despatcher 03/28/24 documented as of this encounter
--- OUTSIDE RECORDS SUMMARY | 2024-10-12 10:11 | XMS_ITS | Encounter Summary ---
Author Organization [employer] Address 75 [facility] 7t [place] [address] Care Team Providers Care Lumber Marker Name Role Phone Name, Reuben MARTINEZ Primary Care Provider [phone] Gibran Medrano Unavailable Unavailable Reason for Visit * Reason Comments Med Refill Encounter Details Date Type Department Care Team ([facility] st Contact Info) Description 12/14/2023 Refill [facility] MEDICINE 230 [place], [place] [phone] Name, MD Reuben 230 [place] [address] Neck pain Social History Tobacco Use Types [...] EDT Office Visit [facility] OPTOMETRY [address] [place] [address] Naomi Tate OD 267 [place] [address] 01/13/2025 10:00 AM EDT Office Visit [facility] MEDICINE 230 [place] [address] Name, MD Reuben [address] [place] [address] documented as of this encounter Visit Diagnoses Diagnosis Neck pain Cervicalgia documented in this encounter Additional Health Concerns Assessment Noted Time PHQ-9 Depression Total Score: 0 06/30/19 24 9:58 AM EST documented as of this encounter Care Teams Lumber Marker Relationship Specialty Start Date End Date Name, MD Reuben [address] [place] [address] PCP - General Family Medicine 08/15/15 Gibran Medrano FNP [address] [place] [address] Nurse Practitioner Family Medicine 04/20/23 Noemi Pabon Multiple Resaw OperatorPetrol Tanker Driver 03/28/24 documented as of this encounter
--- OUTSIDE RECORDS SUMMARY | 2024-10-12 10:11 | XMS_ITS | Encounter Summary ---
Author Organization [employer] Address 75 [facility] 7t [place] [address] Care Team Providers Care Senior User Experience Architect Name Role Phone Name, Reuben MARTINEZ Primary Care Provider [phone] Gibran Medrano Unavailable Unavailable Reason for Visit * Reason Comments Med Refill Encounter Details Date Type Department Care Team (Late st Contact Info) Description 08/25/2024 Refill [facility] MEDICINE [address] [place], [place] [phone] Name, MD Reuben 230 [place] [address] Neck pain, chronic Social History Tobacco Use [...] Assessment Author Patient Health Questionnaire -2 Score 3 08/25/2024 9:14 AM EDT Ana Rosa Mcelroy [place] * Little interest or pleasure in doing things Answer Date of Assessment Author More than half the days 08/25/2024 9:14 AM EDT Ana Rosa Joyner [place] * Feeling down, depressed, or hopeless Answer Date of Assessment Author Several days 08/25/2024 9:14 AM EDT Ana Rosa Davis [place] * Trouble falling or staying asleep, or sleeping too much Answer Date of Assessment Author Nearly every day 08/25/2024 9:14 AM EDT Ana Rosa Berrios [place], [place] * Feeling tired or having little energy Answer Date of Assessment Author Several days 08/25/2024 9:14 AM EDT Ana Rosa Davis [place] * Poor appetite or overeating Answer Date of Assessment Author Nearly every day 08/25/2024 9:14 AM EDT Ana Rosa Berrios [place], [place] * Feeling bad about yourself - or that you are a failure or have let yourself or your family down Answer Date of Assessment Author Several days 08/25/2024 9:14 AM EDT Ana Rosa Davis MA * Trouble concentrating on things, such as reading the newspaper or watching television Answer Date of Assessment Author Several days 08/25/2024 9:14 AM EDT Ana Rosa Davis MA * Moving or speaking so slowly that other people could have noticed? Or the opposite - being so fidgety or restless that you have been moving around a lot more than usual. Answer Date of Assessment Author Several days 08/25/2024 9:14 AM EDT Ana Rosa Davis MA * Thoughts that you would be better off or hurting yourself in some way Answer Date of Assessment Author Not at all 08/25/2024 9:14 AM EDT Ana Rosa Davis MA * Patient Health Questionnaire-9 Score Answer Date of Assessment Author 13 08/25/2024 9:14 AM EDT Ana Rosa Davis MA * How difficult have these problems made it for you to do your work, take care of things at home, or get along with other people? Answer Date of Assessment Author Somewhat difficult 08/25/2024 9:14 AM EDT Ana Rosa Mcelroy MA documented as of this encounter Plan of Treatment Upcoming Encounters Date Type Department Care Team (Late st Contact Info) Description 11/24/2024 11:00 AM EDT Office Visit [facility] OPTOMETRY 267 [place] [address] Naomi Tate, TORI 267 [place] [address] 01/13/2025 10:00 AM EDT Office Visit [facility] MEDICINE [address] [place] [address] Name, MD Reuben 230 [place] [address] documented as of this encounter Visit Diagnoses Diagnosis Neck pain, chronic documented in this encounter Additional Health Concerns Assessment Noted Time PHQ-9 Depression Total Score: 13 08/25/ 025 9:14 AM EDT documented as of this encounter Care Teams Senior User Experience Architect Relationship Specialty Start Date End Date Name, MD Reuben 230 [place] [address] PCP - General Family Medicine 08/15/15 Gibran Medrano FNP 230 [place] [address] Nurse Practitioner Family Medicine 04/20/23 Noemi Pabon Housekeeper HomeImage Assembler 03/28/24 documented as of this encounter
--- OUTSIDE RECORDS SUMMARY | 2024-10-12 10:11 | XMS_ITS | Encounter Summary ---
Author Organization [employer] Address 75 [facility] 7t [place] [address] Care Team Providers Care Bark Press Operator Name Role Phone Name, Reuben MARTINEZ Primary Care Provider [phone] Gibran Medrano Unavailable Unavailable Encounter Details Date Type Department Care Team (Late Contact Info) Description 05/23/2022 Telephone [facility] MEDICINE 230 [place] [address] Name, MD Reuben 230 [place] [address] Social History Tobacco Use Types Packs/Day Years [...] AM EDT Office Visit [facility] OPTOMETRY [address] [place], [place] [phone] Naomi Tate, TORI 267 [place], [place] [phone] 01/13/2025 10:00 AM EDT Office Visit [facility] MEDICINE [address] [place] [address] Name, [place] [address] documented as of this encounter Visit Diagnoses Not on filedocumented in this encounter Additional Health Concerns Assessment Noted Time PHQ-9 Depression Total Score: 4 05/20/20 22 2:16 PM EST documented as of this encounter Care Teams Bark Press Operator Relationship Specialty Start Date End Date Name, [place] [address] PCP - General Family Medicine 08/15/15 Gibran Medrano FNP [address] [place] [address] Nurse Practitioner Family Medicine 04/20/23 Noemi Pabon Drop Wire BuilderSalvage Clerk 03/28/24 documented as of this encounter
--- OUTSIDE RECORDS SUMMARY | 2024-10-12 10:11 | XMS_ITS | Encounter Summary ---
Author Organization [employer] Address 75 [facility] 7t [place] [address] Care Team Providers Care Buckle Attacher Name Role Phone Name, Reuben MARTINEZ Primary Care Provider [phone] Gibran Medrano Unavailable Unavailable Reason for Visit * Reason Onset Date Comments PT1 06/29/2024 Encounter Details Date Type Department Care Team ([facility] st Contact Info) Description 06/29/2024 Telephone [facility] MEDICINE 230 [place] [address] Name, MD Reuben 230 [place] [address] PT1 Social History Tobacco Use Types Packs/Day [...] Y/N: Yes Provider name or facility name: [address] [address] Escort needed: Y/N: No Do you have a wheelchair: Y/N: No (walker) If yes- Manual or electric: N/A Visits: (2x monthly) 1 of 2 Patient calling requesting PT1 Home Address verified: Y/N: Yes Provider name or facility name: [address] [address]. Escort needed: Y/N: No Do you have a wheelchair: Y/N: No (walker) If yes- Manual or electric: N/A Visits: (2x monthly) documented in this encounter Plan of Treatment Upcoming Encounters Date Type Department Care Team ([facility] Contact Info) Description 11/24/2024 11:00 AM EDT Office Visit [facility] OPTOMETRY [address] [place] [address] Naomi Tate, OD [address] [place] [address] 01/13/2025 10:00 AM EDT Office Visit [facility] MEDICINE 230 [place] [address] Name, MD Reuben [address] [place] [address] documented as of this encounter Visit Diagnoses Not on filedocumented in this encounter Additional Health Concerns Assessment Noted Time PHQ-9 Depression Total Score: 0 06/30/19 9:58 AM EST documented as of this encounter Care Teams Buckle Attacher Relationship Specialty Start Date End Date Name, MD Reuben [address] [place] [address] PCP - General Family Medicine 08/15/15 Gibran Medrano FNP [address] [place] [address] Nurse Practitioner Family Medicine 04/20/23 Noemi Pabon Relief MasterDefensive Fire Control Systems Operator 03/28/24 documented as of this encounter
== END 2024-10-12 10:46 | disposition home or self-care (01) ==
LOC: HO.HWSM 08:55
PROVIDERS: PCP Internal Medicine Geriatric Medicine; Visit Provider Advanced Practice Midwife
DX: Z01.419 Encounter for gynecological examination (general) (routine) without abnormal findings (principal); Z12.39 Encounter for other screening for malignant neoplasm of breast; N95.1 Menopausal and female climacteric states; Z12.4 Encounter for screening for malignant neoplasm of cervix; R73.03 Prediabetes; L63.9 Alopecia areata, unspecified; Z90.49 Acquired absence of other specified parts of digestive tract; E66.3 Overweight
CPT/HCPCS: 99396; 99459

== ENCOUNTER → 2024-10-12 08:55 | Outpatient (BNVA) | payer MEDICAID, SELFPAY | PROVIDERS: PCP Internal Medicine Geriatric Medicine; Visit Provider Advanced Practice Midwife | DX: Z01.419 Encounter for gynecological examination (general) (routine) without abnormal findings (principal); Z12.39 Encounter for other screening for malignant neoplasm of breast; Z12.4 Encounter for screening for malignant neoplasm of cervix; N95.1 Menopausal and female climacteric states; R73.03 Prediabetes; L63.9 Alopecia areata, unspecified; E66.3 Overweight; Z68.29 Body mass index [BMI] 29.0-29.9, adult; Z90.49 Acquired absence of other specified parts of digestive tract | CPT/HCPCS: 99396; 99459 ==

== ENCOUNTER 2024-11-08 07:48 | Outpatient (REF) | payer MEDICAID, SELFPAY ==
--- OUTSIDE RECORDS SUMMARY | 2024-11-08 07:51 | XMS_ITS | Encounter Summary ---
Author Organization [employer] Address 75 [facility] 7t [place] [address] Care Team Providers Care Box Inspector Name Role Phone Name, Reuben MARTINEZ Primary Care Provider [phone] Gibran Medrano Unavailable Unavailable Reason for Visit * Reason Onset Date Comments Referral 09/01/2023 Encounter Details Date Type Department Care Team ([facility] st Contact Info) Description 09/01/2023 Telephone [facility] MEDICINE 230 [place], [place] [phone] Name, MD Reuben [address] [place] [address] Referral Social History Tobacco Use Types Packs/Day [...] - 09/01/2023 2:48 PM EDT Tc from [facility] [place] requesting orthopedic referral for left arm and hand. If any questions please contact pt at [phone]. documented in this encounter Plan of Treatment Upcoming Encounters Date Type Department Care Team (Late st Contact Info) Description 11/24/2024 11:00 AM EDT Office Visit [facility] OPTOMETRY [address] [place] [address] Naomi Tate, OD [address] [place] [address] 01/13/2025 10:00 AM EDT Office Visit [facility] MEDICINE 230 [place] [address] NameReuben MD 230 [place] [address] documented as of this encounter Visit Diagnoses Not on filedocumented in this encounter Additional Health Concerns Assessment Noted Time PHQ-9 Depression Total Score: 0 06/30/19 24 9:58 AM EST documented as of this encounter Care Teams Box Inspector Relationship Specialty Start Date End Date NameReuben MD [address] [place] [address] PCP - General Family Medicine 08/15/15 Gibran Medrano FNP [address] [place] [address] Nurse Practitioner Family Medicine 04/20/23 Noemi Pabon Director InsuranceSystems Engineering Manager 03/28/24 documented as of this encounter
== END 2024-11-08 07:49 | disposition home or self-care (01) ==
LOC: HO.MAMMO 07:48
PROVIDERS: PCP Internal Medicine Geriatric Medicine; Visit Provider Internal Medicine Geriatric Medicine
DX: Z12.31 Encounter for screening mammogram for malignant neoplasm of breast (principal)
CPT/HCPCS: 77063; 77067

== ENCOUNTER → 2024-11-08 08:00 | Outpatient (BNV) | payer MEDICAID, SELFPAY | PROVIDERS: PCP Internal Medicine Geriatric Medicine; Visit Provider Internal Medicine | DX: Z12.31 Encounter for screening mammogram for malignant neoplasm of breast (principal) | CPT/HCPCS: 77063; 77067 ==

== ENCOUNTER 2025-04-05 09:56 | Outpatient (AMB) | payer MEDICAID, SELFPAY ==
--- NOTE | 2025-04-05 10:01 | A.OFFVIS_ITS ---
Vital Signs 04/05/25 10:02 Height 5 ft 3 in Weight 168 lb BMI 29.8 BP 121/75 Blood Pressure Location Lt brachial Position Sitting Pulse 73 Intake Visit Reasons: diverticulosis/Velvet pt Intake Note: Patient complex follow up for Diverticulosis of colon/Velvet pt bryan was 03/18/2023. Patient cc: constipation with rectal bleeding on and off, denies any other GI issues. Weaver Wire Loom Required: No Accompanied by: Self / Same As Patient Allergies No Known Allergies Allergy (Verified 04/05/25 10:04) Medication List - Last Reconciled 04/05/25 by Iesha Padilla MD amitriptyline 25 mg PO BEDTIME baclofen 20 mg PO BID bisacodyl (Laxative (bisacodyl)) 10 mg PO DAILY PRN cholecalciferol (vitamin D3) 25 mcg PO DAILY clonazepam 0.5 mg PO BEDTIME PRN clonidine HCl 0.1 mg PO BID diclofenac sodium 1% 1 g topical DAILY docusate sodium (Colace) 100 mg PO BID gabapentin 100 mg PO TID hydrochlorothiazide 12.5 mg PO DAILY lidocaine 5% 1 appl topical NEEDED PRN lidocaine 5% 1 patch topical DAILY PRN loratadine 10 mg PO DAILY losartan 100 mg PO DAILY meclizine 25 mg PO DAILY PRN meloxicam 7.5 mg PO DAILY ondansetron 4 mg PO Q6H PRN topiramate 50 mg PO DAILY HPI HPI diverticulosis/Velvet pt: Details: GI clinic visit for this 55 YF for evaluation of constipation, rectal bleeding and a hx of colon polyps TODAY'S VISIT: Patient reports constipation with rectal bleeding on and off Last episode of rectal bleeding was on 03/17/25 Hx of chronic constipation and has a BM every 2-3 days with intermittent straining and hard stools. Intermittent BRBPR on the toilet paper and toilet bowl Patient denies symptoms of heartburn, dysphagia, nausea, vomiting, change in appetite or weight. Intentional wt loss from 223 to 168 lbs by changing her diet. Pt reports a hx of sleep apnea which has resolved with wt loss Patient denies major cardiac or pulmonary problems Denies problems with anesthesia in the past. Denies being on chronic anticoagulation. 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 [facility] IMAGING STUDIES: 03/2023 CTE showed hepatic steatosis and no focal bowel wall thickening or mucosal hyperenhancement. ENDOSCOPIC STUDIES: 02/20[address] ROSE: polyp internal hemorrhoids diverticular disease ileitis Plan: High fiber diet leaflet Avoid straining at stool, epsom salts and sitz bath, anusol supps or cream Repeat Colonoscopy in 5-7 years if adenomatous polyp, 10 yrs if benign or earlier if clinically indicated if sx suggestive of ileitis can consider CTe BIOPSIES SHOWED: A. Terminal ileum, biopsy: Focal mild active ileitis; no granulomas or dysplasia (see comment). B. Colon, right side, biopsy: Colonic mucosa with no specific change; no colitis, granulomas or dysplasia. C. Colon, ascending, polyp: Tubular adenoma, likely excised; negative for high- grade dysplasia and carcinoma. Comment: (A): The differential includes NSAID/drug-related, infection, or inflammatory bowel disease and clinical correlation is necessary PAST GI HISTORY BY REVIEW OF MEDICAL RECORDS: 02/2023 Last GI office visit with ANN-MARIE Talley: A 52-year-old female follows up after recent colonoscopy he with polypectomy0 She does typically have constipation however she has a bowel regimen that seems to work for her. She does complain of low abdominal cramping more so on the right side. She tolerated procedures well Reviewed procedure report, path and recommedation Son has crohns.. dx @ 19 - now 29 [address] Padilla She has no nausea, vomiting, hematemesis, hematochezia fever or chills [facility] Medical History MARILU (obstructive sleep apnea) Pre-diabetes Vertigo Depression Hypertension Surgical History History of laparoscopic appendectomy (~06/20/24) History of esophagogastroduodenoscopy (EGD) H/O colonoscopy H/O knee surgery Hx of tubal ligation H/O bilateral breast reduction surgery Family History Father HTN (hypertension) Mother HTN (hypertension) Diabetes Sister Diabetes Son No problems noted. Social History Household Members: Family Housing: House Are you a primary health care attorney to a significant other at home: No Do you presently have visiting nurse or other home services: No Alcohol intake: never Comment: vertigo at times Patient Tobacco Use Status: Never used Tobacco service: No Current occupational status: disabled Sexual orientation: Straight/Heterosexual Gender identity: Female Female Reproductive History Menstrual Age of Menarche: 14 Review of Systems Const All systems reviewed & are unremarkable except as noted in HPI and below Physical Exam Vital Signs: Last Vital Signs Pulse 73 04/05/25 10:02 BP 121/75 04/05/25 10:02 BMI result Body Mass Index 29.8 Const General: healthy appearing and no acute distress Nutritional Appearance: overweight Orientation/consciousness: patient oriented x3 Limitations: no limitations HEENT Head: Yes normal to inspection Ears: hearing grossly normal bilaterally Eyes Sclerae: sclerae normal Pupils: Equal, round and reactive pupils present Neck Neck: Yes normal visual inspection Chest Chest palpation & inspection: normal inspection of the chest Resp Effort & Inspection: normal respiratory effort Auscultation: clear to auscultation bilaterally Cardio Palpation: normal PMI Rate: regular rate Rhythm: regular rhythm Heart sounds: S1 normal heart sound present, S2 normal heart sound present and no murmurs GI Palpation (GI): Soft to palpation, nontender and No hepatosplenomegaly present Auscultation: normal bowel sounds Rectal Exam - Female: deferred Skin General skin exam: no rashes or lesions noted Neuro General: patient oriented x3, gait normal and moves all extremities Cranial nerves: Yes Equal, round and reactive pupils present Psych Appearance: grossly normal Mental Status: mental status grossly normal Assessment & Plan Assessment & Plan (1) Hemorrhoids, internal, with bleeding: Code(s): K64.8 - Other hemorrhoids Category: Medical Plan 55 YF seen for FU of constipation with rectal bleeding on and off Last episode of rectal bleeding was on 03/17/25 Hx of chronic constipation and has a BM every 2-3 days with intermittent straining and hard stools. Intermittent BRBPR on the toilet paper and toilet bowl One tubular adenoma removed during colonoscopy in 2022 - follow-up colonoscopy was advised in 5 years (due in 2027) Constipation is likely due to slow transit/constipation predominant IBS. Patient was advised to use senna plus2 to 3 times a week for constipation Hydrocortisone p.r.n. for rectal bleeding from hemorrhoids. Follow-up in 6 months - scheduled 10/05/24 Medications: New sennosides-docusate sodium 8.6-50 mg (Senna with Docusate Sodium) Please take every other day at bedtime 1 tab-cap PO BEDTIME 60 tabs 2RF 60 days hydrocortisone 2.5% 1 appl RI BID-QID PRN 30 grams 3RF hemorrhoids 30 days K64.8 - Other hemorrhoids Coding Level of Care Code Est Pt Level 4 (75343) Diagnoses Hemorrhoids, internal, with bleeding K64.8 Time Spent (min) 23
[2025-04-05 10:02] VITALS: BP 121/75; PULSE 73; BMI 29.8
--- OUTSIDE RECORDS SUMMARY | 2025-04-05 11:36 | XMS_ITS | Encounter Summary ---
Author Organization [employer] Address 75 [facility] 7t [place] [address] Care Team Providers Care Indexer Name Role Phone Name, Reuben MARTINEZ Primary Care Provider [phone] Gibran Medrano Unavailable Unavailable Encounter Details Date Type Department Care Team ([facility] st Contact Info) Description 04/21/2023 Telephone [facility] MEDICINE 230 [place], [place] [phone] Name, MD Reuben 230 [place], [place] [phone] Social History Tobacco Use Types Packs/Day Years [...] Care Team (Late st Contact Info) Description 04/13/2025 9:45 AM EST Office Visit [facility] MEDICINE 230 [place] [address] Name, MD Reuben [address] [place] [address] 04/13/2025 11:00 AM EST Office Visit [facility] OPTOMETRY [address] [place] [address] Naomi Tate, OD [address] [place] [address] documented as of this encounter Visit Diagnoses Not on filedocumented in this encounter Additional Health Concerns Assessment Noted Time PHQ-9 Depression Total Score: 3 02/03/20 23 3:12 PM EDT documented as of this encounter Care Teams Indexer Relationship Specialty Start Date End Date Name, MD Reuben [address] [place] [address] PCP - General Family Medicine 08/15/15 Gibran Medrano FNP [address] [place] [address] Nurse Practitioner Family Medicine 04/20/23 Noemi Pabon Machine PrinterManager Service Desk 03/28/24 documented as of this encounter
--- OUTSIDE RECORDS SUMMARY | 2025-04-05 11:36 | XMS_ITS | Encounter Summary ---
Author Organization [employer] Address [address] [facility] [address] [place] [address] Care Team Providers Care Magnetic Tape Typewriter Operator Name Role Phone Name, Reuben MARTINEZ Primary Care Provider [phone] Gibran Medrano Unavailable Unavailable Reason for Visit * Reason Onset Date Comments Med Refill 01/30/2023 Encounter Details Date Type Department Care Team ([facility] st Contact Info) Description 01/30/2023 Telephone [facility] [address] [place] [address] Name, MD Reuben [address] [place] [address] Med Refill Social History Tobacco Use Types [...] 3:12 PM EDT Gillian Hudson [place] * How difficult have these problems made it for you to do your work, take care of things at home, or get along with other people? Answer Date of Assessment Author Somewhat difficult 02/02/2023 3:12 PM MILYLT Sun David [place] * Over the past 2 weeks, how often have you been bothered by any of the following problems? Question Answer Date of Assessment Author Little interest or pleasure in doing things Not at all 02/02/2023 3:12 PM MILLYT Gillian Hudosn [place] Feeling down, depressed, or hopeless Several days 02/02/2023 3:12 PM MILLYT Gillian Hudson [place] Trouble falling or staying asleep, or sleeping too much Not at all 02/02/2023 3:12 PM MILLYT Sun Hudson [place] Feeling tired or having little energy Several days 02/02/2023 3:12 PM MILLYT Gillian Hudson [place] Poor appetite or overeating Several days 02/02/2023 3: 12 PM MILLYT Sun Hudson [place] Feeling bad about yourself - or that you are a failure or have let yourself or your family down Not at all 02/02/2023 3:12 PM MILLYT Gillian Hudson [place] Trouble concentrating on things, such as [...] to provider. * Telephone Encounter - Ryan Narendra Yanes - 01/30/2023 8:41 AM EDT Tc from pt requesting med refill on lidocaine (Xylocaine) 5 % ointment gabapentin (Neurontin) 100 MG capsule meclizine (Antivert) 25 MG tablet Please sent to [facility]/pharmacy #[id number] [place], [place] - [address] [place] [address] documented in this encounter Plan of Treatment Upcoming Encounters Date Type Department Care Team (Late st Contact Info) Description 04/13/2025 9:45 AM EST Office Visit [facility] [address] [place] [address] Name, MD Reuben [address] [place] [address] 04/13/2025 11:00 AM EST Office Visit [facility] [address] [place] [address] Naomi Tate, OD [address] [place] [address] documented as of this encounter Visit Diagnoses Not on filedocumented in this encounter Additional Health Concerns Assessment Noted Time PHQ-9 Depression Total Score: 0 11/25/19 1:40 PM EDT documented as of this encounter Care Teams Magnetic Tape Typewriter Operator Relationship Specialty Start Date End Date Name, MD Reuben [address] [place] [address] PCP - General Family Medicine 08/15/15 Gibran Medrano FNP [address] [place] [address] Nurse Practitioner Family Medicine 04/20/23 Noemi Pabon Noodle Press OperatorGeneral Passenger Agent 03/28/24 documented as of this encounter
--- OUTSIDE RECORDS SUMMARY | 2025-04-05 11:36 | XMS_ITS | Encounter Summary ---
Author Organization [employer] Address [address] [facility] 7t [place] [address] Care Team Providers Care Field Crops Harvest Machine Operator Name Role Phone Name, Reuben MARTINEZ Primary Care Provider [phone] Gibran Medrano Unavailable Unavailable Encounter Details Date Type Department Care Team (Late Contact Info) Description 05/23/[address] [phone] Name, MD Reuben [address] [place] [address] [phone] Social History Tobacco Use Types Packs/Day Years [...] Description 04/13/2025 9:45 AM EST Office Visit [address] [phone] Name, MD Reuben [address] [place] [address] [phone] 04/13/2025 11:00 AM EST Office Visit [facility] [address] [place] [address] Naomi Tate, OD [address] [place] [address] documented as of this encounter Visit Diagnoses Not on filedocumented in this encounter Additional Health Concerns Assessment Noted Time PHQ-9 Depression Total Score: 4 05/20/20 22 2:16 PM EST documented as of this encounter Care Teams Field Crops Harvest Machine Operator Relationship Specialty Start Date End Date Name, MD Reuben [address] [place] [address] PCP - General Family Medicine 08/15/15 Gibran Medrano FNP [address] [place] [address] Nurse Practitioner Family Medicine 04/20/23 Noemi Pabon 3Rd MateEmergency Veterinarian 03/28/24 documented as of this encounter
--- OUTSIDE RECORDS SUMMARY | 2025-04-05 11:36 | XMS_ITS | Encounter Summary ---
Author Organization [employer] Address [address] [facility] [address] [place] [address] Care Team Providers Care Buggy Ladle Tender Name Role Phone Name, Reuben MARTINEZ Primary Care Provider [phone] Gibran Medrano Unavailable Unavailable Reason for Visit * Reason Comments Med Refill Encounter Details Date Type Department Care Team (Late st Contact Info) Description 02/21/2023 Refill [facility] [address] [place] [phone] Concha Tabares MD [address] [place], [place] [phone] Cervical radiculitis; Essential hypertension; Prediabetes; MARILU (obstructive [...] Description 04/13/2025 9:45 AM EST Office Visit [facility] [address] [place] [phone] Name, MD Reuben [address] [place] [address] 04/13/2025 11:00 AM EST Office Visit [facility] [address] [place], [place] [phone] Naomi Tate, OD [address] [place] [address] documented as of this encounter Visit Diagnoses Diagnosis Cervical radiculitis Brachial neuritis or radiculitis nos Essential hypertension Unspecified essential hypertension Prediabetes Other abnormal glucose MARILU (obstructive sleep apnea) Obstructive sleep apnea (adult) (pediatric) documented in this encounter Additional Health Concerns Assessment Noted Time PHQ-9 Depression Total Score: 3 02/03/20 23 3:12 PM EDT documented as of this encounter Care Teams Buggy Ladle Tender Relationship Specialty Start Date End Date Name, MD Reuben [address] [place] [address] PCP - General Family Medicine 08/15/15 Gibran Medrano FNP [address] [place] [address] Nurse Practitioner Family Medicine 04/20/23 Noemi Pabon Biostatistics ProfessorGeneral Dentist/Owner 03/28/24 documented as of this encounter
--- OUTSIDE RECORDS SUMMARY | 2025-04-05 11:36 | XMS_ITS | Encounter Summary ---
Author Organization [employer] Address [address] [facility] 7t [place] [address] Care Team Providers Care Micro Computer Data Processor Name Role Phone Name, Reuben MARTINEZ Primary Care Provider [phone] Gibran Medrano Unavailable Unavailable Reason for Visit * Reason Onset Date Comments Medication Question 01/06/2023 Vitamin D Encounter Details Date Type Department Care Team ([facility] Contact Info) Description 01/06/2023 Telephone [facility] [address] [place], [place] [phone] Name, MD Reuben [address] [place] [address] Medication Question (Vitamin D) Social History Tobacco [...] Description 04/13/2025 9:45 AM EST Office Visit [facility] MEDICINE [address] [place] [address] Name, MD Reuben [address] [place] [address] 04/13/2025 11:00 AM EST Office Visit [facility] OPT[facility] [address] [place] [address] Naomi Tate, OD [address] [place] [address] documented as of this encounter Visit Diagnoses Not on filedocumented in this encounter Additional Health Concerns Assessment Noted Time PHQ-9 Depression Total Score: 0 11/25/19 1:40 PM EDT documented as of this encounter Care Teams Micro Computer Data Processor Relationship Specialty Start Date End Date Name, MD Reuben [address] [place] [address] PCP - General Family Medicine 08/15/15 Gibran Medrano FNP [address] [place] [address] Nurse Practitioner Family Medicine 04/20/23 Noemi Pabon Application TrainerSecurities Attorney 03/28/24 documented as of this encounter
--- OUTSIDE RECORDS SUMMARY | 2025-04-05 11:36 | XMS_ITS | Encounter Summary ---
Author Organization [employer] Address [address] [facility] 7t [place] [address] Care Team Providers Care Student Records Specialist Name Role Phone Name, Reuben MARTINEZ Primary Care Provider [phone] Gibran Medrano Unavailable Unavailable Reason for Visit * Reason Comments Med Refill Encounter Details Date Type Department Care Team (Late st Contact Info) Description 08/21/2022 Refill [facility] [address] [place] [address] [phone] Name, MD Reuben [address] [place] [address] Constipation, unspecified constipation type Social History Tobacco [...] Description 04/13/2025 9:45 AM EST Office Visit [facility] [address] [place] [address] Reuben Suh MD [address] [place] [address] 04/13/2025 11:00 AM EST Office Visit [facility] OPT[facility] [address] [place], [place] [phone] Naomi Tate, OD [address] [place] [address] documented as of this encounter Visit Diagnoses Diagnosis Constipation, unspecified constipation type documented in this encounter Additional Health Concerns Assessment Noted Time PHQ-9 Depression Total Score: 8 07/01/19 23 1:13 PM EST documented as of this encounter Care Teams Student Records Specialist Relationship Specialty Start Date End Date Name, MD Reuben [address] [place], [place] [phone] PCP - General Family Medicine 08/15/15 Gibran Medrano FNP [address] [place] [address] Nurse Practitioner Family Medicine 04/20/23 Noemi Pabon InfantrymanWeed Sprayer 03/28/24 documented as of this encounter
--- OUTSIDE RECORDS SUMMARY | 2025-04-05 11:36 | XMS_ITS | Encounter Summary ---
Author Organization [employer] Address [address] [facility] 7t [place] [address] Care Team Providers Care Divinity Professor Name Role Phone Name, Reuben MARTINEZ Primary Care Provider [phone] Gibran Medrano Unavailable Unavailable Reason for Visit * Reason Onset Date Comments Handicap Placard 12/11/2022 Encounter Details Date Type Department Care Team ([facility] st Contact Info) Description 12/11/2022 Telephone [facility] [address] [place], [place] [phone] Name, MD Reuben [address] [place] [address] Handicap Placard Social History Tobacco Use Types [...] requesting the status of handicap placard paperwork. Organ Pipe Finisher transferred call to HIMand patient was transferred back, due to paperwork being dropped off directly to PCP. documented in this encounter Plan of Treatment Upcoming Encounters Date Type Department Care Team (Late st Contact Info) Description 04/13/2025 9:45 AM EST Office Visit [facility] [address] [place] [address] NameReuben MD [address] [place] [address] 04/13/2025 11:00 AM EST Office Visit [facility] OPT[facility] [address] [place] [address] NamratasNaomi, OD [address] [place] [address] documented as of this encounter Visit Diagnoses Not on filedocumented in this encounter Additional Health Concerns Assessment Noted Time PHQ-9 Depression Total Score: 0 11/25/19 23 1:40 PM EDT documented as of this encounter Care Teams Divinity Professor Relationship Specialty Start Date End Date Name, MD Reuben [address] [place] [address] PCP - General Family Medicine 08/15/15 Gibran Medrano FNP [address] [place] [address] Nurse Practitioner Family Medicine 04/20/23 Noemi Pabon Crate IcerRod Straightener 03/28/24 documented as of this encounter
--- OUTSIDE RECORDS SUMMARY | 2025-04-05 11:36 | XMS_ITS | Encounter Summary ---
Author Organization [employer] Address [address] [facility] 7t [place] [address] Care Team Providers Care Tool And Die Designer Name Role Phone Name, Reuben MARTINEZ Primary Care Provider [phone] Gibran Medrano Unavailable Unavailable Reason for Visit * Reason Comments Med Refill Encounter Details Date Type Department Care Team ([facility] st Contact Info) Description 11/07/[address] [facility] [address] [place], [place] [phone] Name, MD Reuben [address] [place] [address] Neck pain, chronic Social History Tobacco Use [...] Description 04/13/2025 9:45 AM EST Office Visit [facility] [address] [place] [address] NameReuben MD [address] [place] [address] 04/13/2025 11:00 AM EST Office Visit [facility] [address] [place] [address] Naomi Tate, TORI [address] [place] [address] documented as of this encounter Visit Diagnoses Diagnosis Neck pain, chronic documented in this encounter Additional Health Concerns Assessment Noted Time PHQ-9 Depression Total Score: 13 025 9:14 AM EDT documented as of this encounter Care Teams Tool And Die Designer Relationship Specialty Start Date End Date Reuben Suh MD [address] [place] [address] PCP - General Family Medicine 08/15/15 Gibran Medrano FNP [address] [place] [address] Nurse Practitioner Family Medicine 04/20/23 Noemi Pabon Senior Software Quality AnalystExercise Manager 03/28/24 documented as of this encounter
--- OUTSIDE RECORDS SUMMARY | 2025-04-05 11:36 | XMS_ITS | Clinical Summary ---
Author Organization [facility] Address [address] [place] [address] Care Team Providers Care Director Of People Name Role Phone Unavailable Primary Care Provider [...] 2022 Zoster Vaccines (1 of 2) 2022 Depression Screening 05/25/2024 COVID-19 Vaccine (1 - 2024-2 6 season) 2025 Influenza Vaccine (#1) 2025 RSV Immunization Adult Patie nts (1 - 1-dose 75+ series) 2047 HIB Vaccines Aged Out No longer eligi [...]
--- OUTSIDE RECORDS SUMMARY | 2025-04-05 11:36 | XMS_ITS | Clinical Summary ---
Author Organization [email or web address] Address [address] [facility] 7t [place] [address] Care Team Providers Care Vice President Industrial Relations Name Role Phone Name, Reuben MARTINEZ Primary Care Provider [phone] Gibran Medrano Unavailable Unavailable Allergies No known [...] 25 MG tabletIndicatio ns:Bipolar 2 disorder (CMS/HCC) (HCC) Take 1 tablet (25 mg) by mouth at bedtime. 90 tablet 1 04/27/20 23 Active cloNIDine (Catapres) 0.1 MG tabletIndicatio ns:Bipolar 2 disorder (CMS/HCC) (HCC) Take 1 tablet (0.1 mg) by mouth 2 times daily. 180 tablet 1 04/27/20 23 Active clonazePAM (KlonoPIN) 0.5 MG tabletIndicatio ns:Bipolar 2 disorder (CMS/HCC) (HCC) Take 1 tablet (0.5 mg) by mouth 2 times daily for 28 days. 56 tablet 07/29/19 25 Active loratadine (Claritin) 10 MG tabletIndicatio ns:Neck pain, chronic TAKE 1 TABLET BY MOUTH EVERY DAY NEEDED 90 tablet 1 10/20/19 25 Active topiramate (Topamax) 25 MG tablet TAKE 2 TABLETS BY MOUTH EVERY MORNING 60 tablet 5 10/20/19 25 Active baclofen (Lioresal) 20 MG tabletIndicatio ns:Neck pain, chronic,Essenti al hypertension TAKE 1 TABLET BY MOUTH TWICE A DAY 60 tablet 12/21/19 Active Blood Pressure kit Please use once a day at home 1 kit 01/14/20 Active meloxicam (Mobic) 7.5 MG tabletIndicatio ns:Neck pain, chronic Take 1 tablet (7.5 mg) by mouth Once per day. 30 tablet 01/14/202025 Active gabapentin (Neurontin) 300 MG capsuleIndicati ons:Fibromyalgi a Take 1 capsule (300 mg) by mouth 3 times daily. 90 capsule 01/14/202025 Active lidocaine (Lidoderm) 5 % patchIndication s:Neck pain, chronic Apply 1 patch topically Once per day. Apply to painful area 12 hours per day, remove for 12 hours. 30 patch 01/14/202025 Active lidocaine (Xylocaine) 5 % ointmentIndicat ions:Essential hypertension Apply topically if needed for mild pain. 50 g 2 01/14/202025 Active dicyclomine (Bentyl) 20 MG tablet TAKE 0.5 TAB BY MOUTH IF NEEDED IN THE MORNING, AT NOON, IN THE EVENING, AND AT BEDTIME (ABDOMINAL PAIN) 56 tablet 01/14/20 25 Active omeprazole OTC (PriLOSEC OTC) 20 MG EC tablet Take 1 tablet (20 mg) by mouth before breakfast. Do not crush, chew, or split. 30 tablet 01/14/202025 Active losartan (Cozaar) 100 MG tabletIndicatio ns:Neck pain, chronic TAKE 1 TABLET BY MOUTH EVERY DAY IN THE MORNING 90 tablet 02/11/20 25 Active hydroCHLOROthia zide 12.5 MG tabletIndicatio ns:Neck pain, chronic TAKE 1 TABLET (12.5 MG) BY MOUTH ONCE PER DAY. 90 tablet 02/11/20 25 Active Diclofenac Sodium 1 % gelIndications: Neck pain, chronic,Essenti al hypertension APPLY ONCE A DAY TO THE AFFECTED AREAS WITH PAIN 100 g 1 02/14/20 25 Active bisacodyl (Bisacodyl EC) 5 MG EC tabletIndicatio ns:Neck pain, chronic TAKE 2 TABLETS BY MOUTH EVERY DAY NEEDED FOR CONSTIPATION 180 tablet 03/09/20 25 Active cholecalciferol (Vitamin D3) 25 MCG (1000 UT) tabletIndicatio ns:Neck pain, chronic TAKE 1 TABLET (25 MCG) BY MOUTH IN THE MORNING 90 tablet 1 03/09/20 25 Active meclizine (Antivert) 25 MG tabletIndicatio ns:Neck pain, chronic TAKE 1 TABLET BY MOUTH THREE TIMES A DAY NEEDED FOR DIZZINESS 60 tablet 1 03/09/20 25 Active cholecalciferol (Vitamin D3) 25 MCG (1000 UT) tabletIndicatio ns:Neck pain, chronic Take 1 tablet (25 mcg) by mouth in the morning. 90 tablet 1 03/30/20 24 2024 Discontinued meclizine (Antivert) 25 MG tabletIndicatio ns:Neck pain, chronic TAKE 1 TABLET BY MOUTH THREE TIMES A DAY NEEDED FOR DIZZINESS 60 tablet 1 09/16/19 25 2024 Discontinued bisacodyl (Bisacodyl EC) 5 MG EC tabletIndicatio ns:Neck pain, chronic TAKE 2 TABLETS BY MOUTH EVERY DAY NEEDED FOR CONSTIPATION 180 tablet 10/20/19 25 2024 Discontinued Active Problems Problem Noted Date Diagnosed Date History of laparoscopic appendectomy 06/21/2024 Overview (06/21/2024): 06/20/2024 at [facility] [place] Family history of Crohn's disease 03/30/2023 Urinary incontinence 03/30/2023 Fibromyalgia 01/01/2023 Tubal ligation status 09/19/2022 Bipolar 2 disorder ([facility]) 05/20/2022 Assessment & Plan (04/27/2023 9:18 AM [...] an effective mood stabilizer. She stopped the [place] and is still doing very well. Will [...] up for mood stabilization and stop the [place]. Meanwhile, continue [place] 300 mg once daily, Clonazepam 0.5 mg [...] paraspinous muscle 12/04/2017 03/30/2024 Status migrainosus 08/12/2017 4 Closed fracture of nasal bones 08/11/2017 03/30/2024 Pain in elbow 10/14/2016 03/30/2024 Chest pain 06/30/2016 06/30/2023 Dyspnea on exertion 06/30/2016 06/30/19 24 Chronic low back pain 06/09/20122023 Disorder of skeletal muscle 08/14/2011 03/30/2024 Depressive disorder 04/29/2011 05/20/20 Encounters Date Type Department Care Team Description 03/09/2025 Refill [facility] MEDICINE [address] [place] [address] Reuben Suh MD Neck pain, chronic 02/11/2025 Refill [facility] MEDICINE [address] [place] [address] Samantha Ellington NP Neck pain, chronic; Essential hypertension 02/10/2025 Refill [facility] MEDICINE [address] [place] [address] Reuben Suh MD Neck pain, chronic 01/13/2025 10:00 AM EDT Office Visit [facility] MEDICINE [address] [place] [address] Reuben Suh MD Essential hypertension (Primary Dx); Neck pain, chronic; Fibromyalgia; Vaccination refused by patient 01/13/2025 Travel 01/12/2025 Telephone [facility] MEDICINE [address] [place] [address] Agustina Anand MA chart prep from Last 3 Months Immunizations Immunization Administration [...] Frequency of Binge Drinking Not on file 0801/2024 Score 0 01/01/2024 Depression Answer Date Recorded [...] Sign Reading Time Taken Comments Blood Pressure 131/83 01/13/2025 10:04 AM EDT Pulse 72 01/13/2025 9:52 AM EDT Temperature 36.2 C (97.2 F) 01/13/2025 9:52 AM EDT Respiratory Rate 18 01/13/2025 9:52 AM EDT Oxygen Saturation 99% 01/13/2025 9:52 AM EDT Inhaled Oxygen Concentration - - Weight 75 kg (165 lb 6.4 oz) 01/13/2025 9:52 AM EDT Height 160 cm (5' 3 ) 01/13/2025 9:52 AM EDT Body Mass Index 29.3 01/13/2025 9:52 AM EDT Plan of Treatment Upcoming Encounters Date Type Department Care Team (Late st Contact Info) Description 04/13/2025 9:45 AM EST Office Visit [facility] MEDICINE [address] [place], [place] [phone] Name, MD Reuben [address] [place] [address] 04/13/2025 11:00 AM EST Office Visit [facility] OPTOMETRY [address] [place], [place] [phone] Naomi Tate, OD [address] [place], [place] [phone] Health Maintenance Due Date Last Done Comments CT Colonography 1972 FIT DNA/Cologuard 1970 FIT 1970 FOBT 1970 HIV Screening 1970 Sigmoidoscopy 1970 Hepatitis A Vaccines (1 of 2 - Risk 2-dose series) 1991 DTaP/Tdap/Td Vaccines (1 - Tdap) 10/27/2008 10/26/2008 Hepatitis B Vaccines (3 of 3 - 19+ 3-dose series) 08/24/2019 06/29/2019, 10/27/2008 Pneumococcal Vaccine: 50+ Years (1 of 1 - PCV) 2022 Zoster Vaccines (1 of 2) 2022 Diabetes: Hemoglobin A1C 12/31/2024 024, 07/20/2023, 06/10/2022, Additional history exists COVID-19 Vaccine (3 - 2024- season) 2025 12/05/2020, 11/14/2020 Influenza Vaccine (#1) 2025 Depression Monitoring 02/24/2025 08/25/2024, 025 SDOH Screening 08/18/2025 08/18/2024 Mammogram 11/08/2025 11/08/2024, 06/0 08/2023, 10/23/2022, Additional history exists Alcohol/Substance Use Screening 01/13/2026 01/13/2025 Disability Screening 01/13/2026 01/13/2025 Tobacco Screening 01/13/2026 01/13/2025 Colonoscopy 03/03/2028 03/03/2023, 07/05/2019 Colorectal Cancer Screening [...] Procedure Name Priority Date/Time Associated Diagnosis Comments BI MAMMOGRAM SCREENING TOMOSYNTHESIS BILATERAL Routine 11/08/2024 7:55 AM EDT LIPID PANEL, STANDARD Routine 08/25/2024 9:40 AM EDT PE (physical exam), routine Neck pain, chronic Osteoarthritis of cervical spine, unspecified spinal osteoarthritis complication status Essential hypertension Prediabetes Vaccination refused by patient POCT GLYCATED HEMOGLOBIN, TOTAL Routine 01/01/2024 11:41 AM EDT Prediabetes PAP SMEAR Routine 07/06/2023 10:57 AM EST HM COLONOSCOPY Routine 03/03/2023 ZZZ HISTORICAL HEPATITIS C ANTIBODY RFLX Routine 06/24/2019 10:48 AM EST ZZZ HISTORICAL HPV MRNA E6/E7 Routine 07/17/2017 11:19 AM EST from Last 3 Months or Most Recently Relevant to Health Maintenance Results * BI Mammogram Screening Tomosynthesis Bilateral (11/08/2024 7:55 AM EDT) Anatomical Region Laterality Modality Breast Bilateral Mammography 11/08/2024 7:55 AM EDT Narrative 11/13/2024 8:19 PM EDT [facility] [address] [place] [address] Mammography Report Signed Patient: Yumiko Marie MR#: [id number] 9 : 1970 Acct:[id number] Age/Sex: 54 / F ADM Date: 11/08/24 Loc: HO.MAMMO Attending Dr: Reuben Suh MD Ordering Physician: Reuben Suh MD Results: 2Benign Fi ndings Date of Service: 11/08/24 Follow Up: 1 Year From [facility] ina Mammogram Procedure(s): MM tomosynthesis screening BI Accession Number(s): [id number] cc: Reuben Suh MD EXAMINATION: MM SCREENING DIGITAL BREAST TOMOSYNTHESIS, BILATERAL CLINICAL INFORMATION: Screening. Asymptomatic. COMPARISON: Mammography: Comparison is made with available priors TECHNIQUE: Digital breast mammography with tomosynthesis is performed in both the craniocaudal and mediolateral oblique views along with computer-aided detection (CAD). FINDINGS: The breasts are heterogeneously dense, which may obscure small masses (ACR BI-RADS breast composition Category c). Bilateral reduction mammoplasty changes are stable. There are no significant masses, abnormal calcifications, or other abnormalities. MM/MM tomosynthesis screening BI IMPRESSION: No mammographic evidence of malignancy. ASSESSMENT: BI-RADS BI-RADS 2 - Benign Findings RECOMMENDATION: Routine annual mammography screening. 1 year F/U This examination should not preclude the clinical evaluation of a suspicious palpable abnormality. This patient's information was entered into a reminder system with a target due date for their next mammogram. Electronically signed by: Sridevi Myrick DO 11/13/2024 08:17 PM EDT Dictated By: Sridevi Myrick DO Signed By: <Electronically signed by Sridevi Myrick DO in OV> 11/13/242016 DD/ 0755 TD/TT: 11/08/24 0813 V Belt Coverer: Procedure Note Donotuseinterpreter, Image - 11/13/20[address] [facility] [address] [place] [address] Mammography Report Signed Patient: Yumiko MarieMR#: [id number] 9 : 1970Acct:[id number] Age/Sex: 54 / FADM Date: 11/08/24 Loc: .MAMMO Attending Dr: Reuben Suh MD Ordering Physician: Reuben Suh MDResults: 2Benign ndings Date of Service: 11/08/24Follow Up: 1 Year From Orig inal Mammogram Procedure(s): MM tomosynthesis screening BI Accession Number(s): [id number] cc: Reuben Suh MD EXAMINATION: MM SCREENING DIGITAL BREAST TOMOSYNTHESIS, BILATERAL CLINICAL INFORMATION: Screening. Asymptomatic. COMPARISON: Mammography: Comparison is made with available priors TECHNIQUE: Digital breast mammography with tomosynthesis is performed in both the craniocaudal and mediolateral oblique views along with computer-aided detection (CAD). FINDINGS: The breasts are heterogeneously dense, which may obscure small masses (ACR BI-RADS breast composition Category c). Bilateral reduction mammoplasty changes are stable. There are no significant masses, abnormal calcifications, or other abnormalities. MM/MM tomosynthesis screening BI IMPRESSION: No mammographic evidence of malignancy. ASSESSMENT: BI-RADS BI-RADS 2 - Benign Findings RECOMMENDATION: Routine annual mammography screening. 1 year F/U This examination should not preclude the clinical evaluation of a suspicious palpable abnormality. This patient's information was entered into a reminder system with a target due date for their next mammogram. Electronically signed by: Sridevi Myrick DO 11/13/2024 08:17 PM EDT RP Dictated By: Sridevi Myrick DO Signed By: <Electronically signed by Sridevi Myrick DO in OV> 11/13/242016 DD/ 0755 TD/TT: 11/08/24 0813 V Belt Coverer: us Alexis Name IMG BI PROCEDURES Edited Result - Final * (ABNORMAL) Lipid Panel, Standard (08/25/2024 9:40 AM EDT) Triglycerides 68 <150 mg/dL [facility] Comment:Desirable Triglyceri de: less than 150 mg/dLBorderline High Triglyceride 150-199 mg/dLHigh Triglyceride: 200-499 mg/dLVery High Triglyceride: greater than or equal to 5OO mg/dL Cholesterol 189 <200 mg/dL [facility] Comment:Desirable Cholestero l: less than 200 mg/dLBorderline High Cholesterol: 200-239 mg/dLHigh Cholesterol: greater than 239 mg/dL LDL Cholesterol Calculated 123(H) <100 mg/dL [facility] Comment:Desirable LDL: less than 100 mg/dLNear Optimal/Above Optimal LDL: 110- 129 mg/dLBorderline High LDL: 130-159 mg/dLHigh LDL: 160-189 mg/dLVery High LDL: greater than or equal to 190 mg/dL HDL Cholesterol 53 >40 mg/dL [facility] Comment:Desirable HDL: great er than 40 mg/dL Note: This HDL assay may give artificially low results in patients with liver disease. Blood Venous blood specimen / Unknown 08/25/2024 9:40 AM EDT 08/25/2024 11:28 AM EDT us Reuben Suh MD LAB BLOOD ORDERABLES Final Resul t [facility] [address] [place] [phone] * POCT HGB A1C (01/01/2024 11:41 AM EDT) Hemoglobin A1C 5.5 4.0 - 6.0 % QC Media Lot # [id number] Lot# Expiration Date ,712,[id number] Blood 01/01/2024 11:4 1 AM EDT Reuben Suh MD POINT OF CARE TEST ENTER/EDIT OR DERABLES Final Result * Pap Smear (07/06/2023 10:57 AM EST) 07/06/2023 10:5 7 AM EST 07/07/2023 8:00 AM EST Narrative [facility] - 07/21/2023 1:20 PM EST ----- ------- Name: MarieBaldemarYumiko Age/Sex: 53/F : 1970 Unit#: [id number] Attend Dr: Isela Hackett CNM Re07/06/23 Status: DEP REF Location: [facility] Disch: ----- ------- SPEC : [id number] RECD: 07/07/23 STATUS: MASOOD AMEZQUITA NUM: [id number] DEBRA: 07/06/23-[address]: Isela Hackett CNM ENTERED: 07/07/23 SP TYPE: Pap Smr OTHR DR: Reuben Suh MD ORDERED: Pap Smear Interpretation Satisfactory for evaluation. Mild inflammation. Negative for intraepithelial lesion or malignancy. HPV mRNA E6/E7: NOT DETECTED This assay detects E6/E7 viral messenger RNA (mRNA) from 14 high-risk HPV types (16, 18, 31, 33, 35, 39, 45, 51, 52, 56, 58, 59, 66, 68) HPV testing performed by [facility], [place], [place]. See reference laboratory portion of the EMR for entire report. Clinical Information LMP: 06/30/23 Previous PAP test: 2018, WNL Material Received ThinPrep-Cervical Copies To: Name,Reuben MARTINEZ [address] [place] [address] Frank [address] [place] [phone] ----- ------- Signed (signature on file) MEAGHAN Santo (ASCP) 07/21/23 1320 ----- ------- END OF REPORT us Generic External Data Provider LAB CYTOLOGY LETTY FELICIANO Final Result [facility] [address] [place] [phone] * (ABNORMAL) Hm Colonoscopy (03/03/2023) Colonoscopy Abnormal(A ) Normal Reuben Suh MD HEALTH MAINTENANCE Final Result * HEPATITIS C ANTIBODY RFLX (06/24/2019 10:48 AM EST) HEPATITIS C ANTIBODY NONREACTIVE NONREACTIVE [facility] Comment: Antibodies to HCV not detected; does not exclude early acute HCV infection. 06/24/2019 10:4 8 AM EST Reuben Suh MD HISTORICAL/NON ORDERABLE LABS Fi nal Result Performing Organization Address [facility] de Phone Number [facility] [address] * HPV mRNA E6/E7 (07/17/2017 11:19 AM EST) Pathologist [facility] HPV mRNA E6/E7 Not Detected NOT DETECTED [facility] Comment: This test was performed using the APTIMA(R) HPV Assay ([employer] This assay detects E6/E7 viral messenger RNA (mRNA) from 14 high-risk HPV types (16,18,31,33,35,39,45,51, 52,56,58,59,66,68). For additional information please refer to: http://education.[employer]/faq/LOK719j0 (This link is being provided for informational/ educational purposes only.) Test Performed by [facility], [employer] [facility], [address] [place] [address] Jimmy Alonso M.D., Ph.D., Director of Laboratories , [facility] [id number] Please note: Effective 02/04/2016, HPV testing will be performed using [employer]'s APTIMA test which targets mRNA. Detecting mRNA instead of DNA, as in older methods, offers significant improvements in specificity. 07/17/2017 11:1 9 AM EST [place]ela [place]New [place] HISTORICAL/NON ORDERABLE LABS Fi nal Result Performing Organization Address [facility] Co de Phone Number [facility] [address] from Last 3 Months or Most Recently Relevant to Health Maintenance Insurance [facility] C3 Care Teams Vice President Industrial Relations Relationship Specialty Start Date End Date Name, MD Reuben [address] [place] [address] PCP - General Family Medicine 08/15/15 Gibran Medrano FNP [address] [place], [place] Nurse Practitioner Family Medicine 04/20/23 Noemi Pabon Business Analytics AnalystPhysician Credentialing Specialist 03/28/24
--- OUTSIDE RECORDS SUMMARY | 2025-04-05 11:36 | XMS_ITS | Encounter Summary ---
Author Organization [employer] Address [address] [facility] 7t [place] [address] Care Team Providers Care Engineering Inspection Assistant Name Role Phone Name, Reuben MARTINEZ Primary Care Provider [phone] Gibran Medrano Unavailable Unavailable Reason for Visit * Reason Comments Med Refill Encounter Details Date Type Department Care Team (Late st Contact Info) Description 08/25/2024 Refill [facility] MEDICINE [address] [place], [place] [phone] Name, MD Reuben [address] [place] [address] Neck pain, chronic Social History Tobacco Use [...] Description 04/13/2025 9:45 AM EST Office Visit [facility] MEDICINE [address] [place] [address] Name, MD Reuben [address] [place] [address] 04/13/2025 11:00 AM EST Office Visit [facility] OPTOMETRY [address] [place] [address] Naomi Tate, OD [address] [place] [address] documented as of this encounter Visit Diagnoses Diagnosis Neck pain, chronic documented in this encounter Additional Health Concerns Assessment Noted Time PHQ-9 Depression Total Score: 13 025 9:14 AM EDT documented as of this encounter Care Teams Engineering Inspection Assistant Relationship Specialty Start Date End Date Name, MD Reuben [address] [place] [address] PCP - General Family Medicine 08/15/15 Gibran Medrano FNP [address] [place] [address] Nurse Practitioner Family Medicine 04/20/23 Noemi Pabon Instrument Assembly SupervisorTag Marker 03/28/24 documented as of this encounter
--- OUTSIDE RECORDS SUMMARY | 2025-04-05 11:36 | XMS_ITS | Encounter Summary ---
Author Organization [employer] Address [address] [facility] 7t [place] [address] Care Team Providers Care Cat Tender Name Role Phone Name, Reuben MARTINEZ Primary Care Provider [phone] Gibran Medrano Unavailable Unavailable Reason for Visit * Reason Comments Med Refill Encounter Details Date Type Department Care Team (Late st Contact Info) Description 03/25/2023 Refill [facility] MEDICINE [address] [place] [address] Gibran Medrano FNP Social History Tobacco Use [...] Description 04/13/2025 9:45 AM EST Office Visit [facility] MEDICINE [address] [place] [address] Name, MD Reuben [address] [place] [address] 04/13/2025 11:00 AM EST Office Visit [facility] OPTOMETRY [address] [place] [address] Naomi Tate OD [address] [place] [address] documented as of this encounter Visit Diagnoses Not on filedocumented in this encounter Additional Health Concerns Assessment Noted Time PHQ-9 Depression Total Score: 3 02/03/20 23 3:12 PM EDT documented as of this encounter Care Teams Cat Tender Relationship Specialty Start Date End Date Name, MD Reuben [address] [place] [address] PCP - General Family Medicine 08/15/15 Gibran Medrano FNP [address] [place] [address] Nurse Practitioner Family Medicine 04/20/23 Noemi Pabon Machine TesterInformation Consultant 03/28/24 documented as of this encounter
--- OUTSIDE RECORDS SUMMARY | 2025-04-05 11:36 | XMS_ITS | Encounter Summary ---
Author Organization [employer] Address [address] [facility] 7t [place] [address] Care Team Providers Care Golf Coach Name Role Phone Name, Reuben MARTINEZ Primary Care Provider Gibran Medrano Unavailable Unavailable Reason for Visit * Reason Comments Med Refill Encounter Details Date Type Department Care Team (Late st Contact Info) Description 05/15/2023 Refill [facility] MEDICINE [address] [place] [address] Gibran Medrano FNP Social History Tobacco Use [...] Description 04/13/2025 9:45 AM EST Office Visit [facility] MEDICINE [address] [place] [address] Reuben Suh MD [address] [place] [address] 04/13/2025 11:00 AM EST Office Visit [facility] OPTOMETRY [address] [place] [address] Naomi Tate, OD [address] [place] [address] documented as of this encounter Visit Diagnoses Not on filedocumented in this encounter Additional Health Concerns Assessment Noted Time PHQ-9 Depression Total Score: 4 04/27/20 23 8:58 AM EST documented as of this encounter Care Teams Golf Coach Relationship Specialty Start Date End Date Reuben Suh MD [address] [place] [address] PCP - General Family Medicine 08/15/15 Gibran Medrano FNP [address] [place] [address] Nurse Practitioner Family Medicine 04/20/23 Noemi Pabon Tray Casting Machine OperatorTurn Down Attendant 03/28/24 documented as of this encounter
--- OUTSIDE RECORDS SUMMARY | 2025-04-05 11:36 | XMS_ITS | Encounter Summary ---
Author Organization [employer] Address [address] [facility] 7t [place] [address] Care Team Providers Care Ice Guard Skating Rink Name Role Phone Name, Reuben MARTINEZ Primary Care Provider Gibran Medrano Unavailable Unavailable Reason for Visit * Reason Onset Date Comments PT1 06/29/2024 Encounter Details Date Type Department Care Team ([facility] st Contact Info) Description 06/29/2024 Telephone [facility] MEDICINE [address] [place] [address] Name, MD Reuben [address] [place] [address] PT1 Social History Tobacco Use Types Packs/Day [...] Yes Provider name or facility name: [address] [address] Escort needed: Y/N: No Do you have a wheelchair: Y/N: No (walker) If yes- Manual or electric: N/A Visits: (2x monthly) 1 of 2 Patient calling requesting PT1 Home Address verified: Y/N: Yes Provider name or facility name: [address] [address]. Escort needed: Y/N: No Do you have a wheelchair: Y/N: No (walker) If yes- Manual or electric: N/A Visits: (2x monthly) documented in this encounter Plan of Treatment Upcoming Encounters Date Type Department Care Team ([facility] st Contact Info) Description 04/13/2025 9:45 AM EST Office Visit [facility] MEDICINE [address] [place] [address] Name, MD Reuben [address] [place] [address] 04/13/2025 11:00 AM EST Office Visit [facility] OPTOMETRY [address] [place] [address] Naoim Tate, OD [address] [place] [address] documented as of this encounter Visit Diagnoses Not on filedocumented in this encounter Additional Health Concerns Assessment Noted Time PHQ-9 Depression Total Score: 0 06/30/19 9:58 AM EST documented as of this encounter Care Teams Ice Guard Skating Rink Relationship Specialty Start Date End Date Name, MD Reuben [address] [place] [address] PCP - General Family Medicine 08/15/15 Gibran Medrano FNP [address] [place] [address] Nurse Practitioner Family Medicine 04/20/23 Noemi Pabon Certified Low Vision TherapistSeed Packer 03/28/24 documented as of this encounter
--- OUTSIDE RECORDS SUMMARY | 2025-04-05 11:36 | XMS_ITS | Encounter Summary ---
Author Organization [employer] Address 75 [facility] 7t [place] [address] Care Team Providers Care Quality Process Lead Name Role Phone Name, Reuben MARTINEZ Primary Care Provider [phone] Gibran Medrano Unavailable Unavailable Reason for Visit * Reason Onset Date Comments Med Refill 05/23/2022 Encounter Details Date Type Department Care Team ([facility] st Contact Info) Description 05/23/2022 Telephone [facility] MEDICINE [address] [place], [place] [phone] Name, MD Reuben [address] [place] [address] Med Refill Social History Tobacco Use Types [...] Description 04/13/2025 9:45 AM EST Office Visit [facility] [address] [place] [address] Name, MD Reuben [address] [place] [address] 04/13/2025 11:00 AM EST Office Visit [facility] OPTOM[facility] [address] [place] [address] Naomi Tate, OD [address] [place] [address] documented as of this encounter Visit Diagnoses Not on filedocumented in this encounter Additional Health Concerns Assessment Noted Time PHQ-9 Depression Total Score: 4 05/20/20 22 2:16 PM EST documented as of this encounter Care Teams Quality Process Lead Relationship Specialty Start Date End Date Name, MD Reuben [address] [place] [address] PCP - General Family Medicine 08/15/15 Gibran Medrano FNP [address] [place] [address] Nurse Practitioner Family Medicine 04/20/23 Noemi Pabon Er NurseAirset Caster 03/28/24 documented as of this encounter
--- OUTSIDE RECORDS SUMMARY | 2025-04-05 11:36 | XMS_ITS | Encounter Summary ---
Author Organization [employer] Address 75 [facility] 7t [place] [address] Care Team Providers Care Forest Resources Professor Name Role Phone Name, Reuben MARTINEZ Primary Care Provider [phone] Gibran Medrano Unavailable Unavailable Reason for Visit * Reason Comments Med Refill Encounter Details Date Type Department Care Team (Late st Contact Info) Description 03/29/2023 Refill [facility] MEDICINE 230 [place] [address] Yolanda Forman MD [address] [place] [address] Cervical radiculitis; Vertigo Social History Tobacco Use [...] 9:45 AM EST Office Visit [facility] MEDICINE 230 [place] [address] NameReuben MD [address] [place] [address] 04/13/2025 11:00 AM EST Office Visit [facility] OPTOMETRY [address] [place] [address] Naomi Tate, OD [address] [place] [address] documented as of this encounter Visit Diagnoses Diagnosis Cervical radiculitis Brachial neuritis or radiculitis nos Vertigo Dizziness and giddiness documented in this encounter Additional Health Concerns Assessment Noted Time PHQ-9 Depression Total Score: 3 02/03/20 23 3:12 PM EDT documented as of this encounter Care Teams Forest Resources Professor Relationship Specialty Start Date End Date Reuben Suh MD [address] [place] [address] PCP - General Family Medicine 08/15/15 Gibran Medrano FNP [address] [place] [address] Nurse Practitioner Family Medicine 04/20/23 Noemi Pabon Precision Jig GrinderExhaust And Muffler Fitter 03/28/24 documented as of this encounter
--- OUTSIDE RECORDS SUMMARY | 2025-04-05 11:36 | XMS_ITS | Encounter Summary ---
Author Organization [employer] Address 75 [facility] 7t [place] [address] Care Team Providers Care Search Engine Optimization Strategist Name Role Phone Name, Reuben MARTINEZ Primary Care Provider [phone] Gibran Medrano Unavailable Unavailable Reason for Visit * Reason Onset Date Comments Referral 09/01/2023 Encounter Details Date Type Department Care Team ([facility] st Contact Info) Description 09/01/2023 Telephone [facility] MEDICINE 230 [place], [place] [phone] Name, MD Reuben 230 [place] [address] Referral Social History Tobacco Use Types Packs/Day [...] - 09/01/2023 2:48 PM EDT Tc from [facility] requesting orthopedic referral for left arm and hand. If any questions please contact pt at [phone]. documented in this encounter Plan of Treatment Upcoming Encounters Date Type Department Care Team (Late st Contact Info) Description 04/13/2025 9:45 AM EST Office Visit [facility] MEDICINE 230 [place] [address] NameReuben MD [address] [place] [address] 04/13/2025 11:00 AM EST Office Visit [facility] OPTOMETRY [address] [place] [address] Naomi Tate, TORI [address] [place] [address] documented as of this encounter Visit Diagnoses Not on filedocumented in this encounter Additional Health Concerns Assessment Noted Time PHQ-9 Depression Total Score: 0 06/30/19 24 9:58 AM EST documented as of this encounter Care Teams Search Engine Optimization Strategist Relationship Specialty Start Date End Date Name, MD Reuben [address] [place] [address] PCP - General Family Medicine 08/15/15 Gibran Medrano FNP [address] [place] [address] Nurse Practitioner Family Medicine 04/20/23 Noemi Pabon Brake Linings CoaterHome Appliance Washing Machine Mechanic 03/28/24 documented as of this encounter
--- OUTSIDE RECORDS SUMMARY | 2025-04-05 11:36 | XMS_ITS | Encounter Summary ---
Author Organization [employer] Address 75 [facility] 7t [place] [address] Care Team Providers Care Application Operations Engineer Name Role Phone Name, Reuben MARTINEZ Primary Care Provider [phone] Gibran Medrano Unavailable Unavailable Reason for Visit * Reason Onset Date Comments Results 12/11/2022 Encounter Details Date Type Department Care Team ([facility] st Contact Info) Description 12/11/2022 Telephone [facility] MEDICINE 230 [place] [address] Name, MD Reuben 230 [place] [address] Results Social History Tobacco Use Types Packs/Day [...] Visit [facility] MEDICINE [address] [place] [address] Name, MD Reuben 230 [place] [address] 04/13/2025 11:00 AM EST Office Visit [facility] OPTOMETRY [address] [place] [address] Naomi Tate, OD 267 [place] [address] documented as of this encounter Visit Diagnoses Not on filedocumented in this encounter Additional Health Concerns Assessment Noted Time PHQ-9 Depression Total Score: 0 11/25/19 23 1:40 PM EDT documented as of this encounter Care Teams Application Operations Engineer Relationship Specialty Start Date End Date NameReuben MD [address] [place] [address] PCP - General Family Medicine 08/15/15 Gibran Medrano FNP [address] [place] [address] Nurse Practitioner Family Medicine 04/20/23 Noemi Pabon Ski Patrol OfficerWildlife Conservation Professor 03/28/24 documented as of this encounter
--- OUTSIDE RECORDS SUMMARY | 2025-04-05 11:36 | XMS_ITS | Encounter Summary ---
Author Organization [employer] Address 75 [facility] 7t [place] [address] Care Team Providers Care Optical Store Manager Name Role Phone Name, Reuben MARTINEZ Primary Care Provider [phone] Gibran Medrano Unavailable Unavailable Encounter Details Date Type Department Care Team (Late st Contact Info) Description 11/03/2022 Abstract [facility] MEDICINE [address] [place] [address] NameReuben MD [address] [place] [address] Social History Tobacco Use Types Packs/Day Years [...] Description 04/13/2025 9:45 AM EST Office Visit [facility] MEDICINE [address] [place] [address] Reuben Suh MD [address] [place] [address] [phone] 04/13/2025 11:00 AM EST Office Visit [facility] OPTOMETRY [address] [place] [address] Naomi Tate, OD [address] [place] [address] documented as of this encounter Visit Diagnoses Not on filedocumented in this encounter Additional Health Concerns Assessment Noted Time PHQ-9 Depression Total Score: 0 09/24/19 23 12:49 PM EDT documented as of this encounter Care Teams Optical Store Manager Relationship Specialty Start Date End Date Name, MD Reuben [address] [place] [address] PCP - General Family Medicine 08/15/15 Gibran Medrano FNP 230 [place] [address] Nurse Practitioner Family Medicine 04/20/23 Noemi Pabon Booster Plant OperatorCad Specialist 03/28/24 documented as of this encounter
--- OUTSIDE RECORDS SUMMARY | 2025-04-05 11:36 | XMS_ITS | Encounter Summary ---
Author Organization [employer] Address 75 [facility] 7t [place] [address] Care Team Providers Care Clinical Coder Name Role Phone Name, Reuben MARTINEZ Primary Care Provider Gibran Medrano Unavailable Unavailable Reason for Visit * Reason Comments Med Refill Encounter Details Date Type Department Care Team (Late st Contact Info) Description 08/26/2024 Refill [facility] MEDICINE 230 [place], [place] [phone] Name, MD Reuben 230 [place] [address] Neck pain, chronic Social History Tobacco Use [...] Description 04/13/2025 9:45 AM EST Office Visit [facility] MEDICINE [address] [place] [address] NameReuben MD 230 [place] [address] 04/13/2025 11:00 AM EST Office Visit [facility] OPTOMETRY [address] [place] [address] Naomi Tate, TORI [address] [place] [address] documented as of this encounter Visit Diagnoses Diagnosis Neck pain, chronic documented in this encounter Additional Health Concerns Assessment Noted Time PHQ-9 Depression Total Score: 13 025 9:14 AM EDT documented as of this encounter Care Teams Clinical Coder Relationship Specialty Start Date End Date Reuben Suh MD [address] [place] [address] PCP - General Family Medicine 08/15/15 Gibran Medrano FNP 230 [place] [address] Nurse Practitioner Family Medicine 04/20/23 Noemi Pabon Mounted PoliceSeam Feller 03/28/24 documented as of this encounter
--- OUTSIDE RECORDS SUMMARY | 2025-04-05 11:37 | XMS_ITS | Encounter Summary ---
Author Organization [employer] Address 75 [facility] 7t [place] [address] Care Team Providers Care Bilingual Speech Therapist Name Role Phone Name, Reuben MARTINEZ Primary Care Provider [phone] Gibran Medrano Unavailable Unavailable Reason for Visit * Reason Comments Med Refill Encounter Details Date Type Department Care Team ([facility] st Contact Info) Description 12/14/2023 Refill [facility] MEDICINE 230 [place], [place] [phone] Name, MD Reuben [address] [place] [address] Neck pain Social History Tobacco Use Types [...] Description 04/13/2025 9:45 AM EST Office Visit [facility] MEDICINE 230 [place] [address] Name, MD Reuben [address] [place] [address] 04/13/2025 11:00 AM EST Office Visit [facility] OPTOMETRY 267 [place] [address] Naomi Tate OD [address] [place] [address] documented as of this encounter Visit Diagnoses Diagnosis Neck pain Cervicalgia documented in this encounter Additional Health Concerns Assessment Noted Time PHQ-9 Depression Total Score: 0 06/30/19 9:58 AM EST documented as of this encounter Care Teams Bilingual Speech Therapist Relationship Specialty Start Date End Date Name, MD Reuben [address] [place] [address] PCP - General Family Medicine 08/15/15 Gibran Medrano FNP [address] [place] [address] Nurse Practitioner Family Medicine 04/20/23 Noemi Pabon Rugby Union FootballerRock Wool Applicator 03/28/24 documented as of this encounter
--- OUTSIDE RECORDS SUMMARY | 2025-04-05 11:37 | XMS_ITS | Encounter Summary ---
Author Organization [employer] Address 75 [facility] 7t [place] [address] Care Team Providers Care Account Specialist Name Role Phone Name, Reuben MARTINEZ Primary Care Provider [phone] Gibran Medrano Unavailable Unavailable Reason for Visit * Reason Comments Med Refill Encounter Details Date Type Department Care Team (Late st Contact Info) Description 11/20/2023 Refill [facility] MEDICINE 230 [place], [place] [phone] Name, MD Reuben 230 [place] [address] Neck pain Social History Tobacco Use Types [...] Description 04/13/2025 9:45 AM EST Office Visit [facility] MEDICINE 230 [place] [address] Name, MD Reuben [address] [place] [address] 04/13/2025 11:00 AM EST Office Visit [facility] OPTOMETRY 267 [place] [address] Naomi Tate OD [address] [place] [address] documented as of this encounter Visit Diagnoses Diagnosis Neck pain Cervicalgia documented in this encounter Additional Health Concerns Assessment Noted Time PHQ-9 Depression Total Score: 0 06/30/19 9:58 AM EST documented as of this encounter Care Teams Account Specialist Relationship Specialty Start Date End Date Name, MD Reuben [address] [place] [address] PCP - General Family Medicine 08/15/15 Gibran Medrano FNP [address] [place] [address] Nurse Practitioner Family Medicine 04/20/23 Noemi Pabon Governor AssemblerMedical Researcher 03/28/24 documented as of this encounter
--- OUTSIDE RECORDS SUMMARY | 2025-04-05 11:37 | XMS_ITS | Encounter Summary ---
Author Organization [employer] Address 75 [facility] 7t [place] [address] Care Team Providers Care Fingerprint Classifier Name Role Phone Name, Reuben MARTINEZ Primary Care Provider [phone] Gibran Medrano Unavailable Unavailable Reason for Visit * Reason Comments Med Refill Encounter Details Date Type Department Care Team (Late st Contact Info) Description 11/28/2023 Refill [facility] MEDICINE 230 [place], [place] [phone] Name, MD Reuben 230 [place] [address] Neck pain; Prediabetes Social History Tobacco Use [...] Office Visit [facility] MEDICINE [address] [place] [address] Name, MD Reuben [address] [place] [address] 04/13/2025 11:00 AM EST Office Visit [facility] OPTOMETRY [address] [place] [address] Naomi Tate OD [address] [place] [address] documented as of this encounter Visit Diagnoses Diagnosis Neck pain Cervicalgia Prediabetes Other abnormal glucose documented in this encounter Additional Health Concerns Assessment Noted Time PHQ-9 Depression Total Score: 0 06/30/19 24 9:58 AM EST documented as of this encounter Care Teams Fingerprint Classifier Relationship Specialty Start Date End Date Name, MD Reuben [address] [place] [address] PCP - General Family Medicine 08/15/15 Gibran Medrano FNP [address] [place] [address] Nurse Practitioner Family Medicine 04/20/23 Noemi Pabon Mainframe ProgrammerCustodial Foreman 03/28/24 documented as of this encounter
== END 2025-04-05 10:32 | disposition home or self-care (01) ==
LOC: HO.HGI 09:57
PROVIDERS: PCP Internal Medicine Geriatric Medicine; Visit Provider Internal Medicine Gastroenterology
DX: K64.8 Other hemorrhoids (principal)
CPT/HCPCS: 99214

== ENCOUNTER → 2025-04-05 09:56 | Outpatient (BNVA) | payer MEDICAID, SELFPAY | PROVIDERS: PCP Internal Medicine Geriatric Medicine; Visit Provider Internal Medicine Gastroenterology | DX: K64.8 Other hemorrhoids (principal) | CPT/HCPCS: 99212 ==

== ENCOUNTER 2025-04-13 10:17 | Outpatient (REF) | payer MEDICAID, SELFPAY ==
--- OUTSIDE RECORDS SUMMARY | 2025-04-13 09:45 | XMS_ITS | Encounter Summary ---
Author Organization [employer] Address 75 [facility] 7t [place] [address] Care Team Providers Care Strategic Planning Manager Name Role Phone Name, Reuben MARTINEZ Primary Care Provider [phone] Gibran Medrano Unavailable Unavailable Reason for Visit * Reason Comments Follow-up Encounter Details Date Type Department Care Team (Latest Contact Info) Description 04/13/2025 9:45 AM EST Office Visit [facility] MEDICINE [address] [place] [address] Name, MD Reuben [address] [place] [address] Essential hypertension (Primary Dx); Osteoarthritis of cervical spine, unspecified spinal osteoarthritis complication status; Stress incontinence of urine; Vaccination refused by patient Social History Tobacco [...] Sign Reading Time Taken Comments Blood Pressure 138/86 04/13/2025 9:51 AM EST Pulse 82 04/13/2025 9:51 AM EST Temperature 36.4 C (97.6 F) 04/13/2025 9:51 AM EST Respiratory Rate 17 04/13/2025 9:51 AM EST Oxygen Saturation 99% 04/13/2025 9:51 AM EST Inhaled Oxygen Concentration - - Weight 74.8 kg (165 lb) 04/13/2025 9:51 AM EST Height 160 cm (5' 3 ) 04/13/2025 9:51 AM EST Body Mass Index 29.23 04/13/2025 9:51 AM EST documented in this encounter Progress Notes * Reuben Suh MD - 04/13/2025 9:45 AM EST Subjective Patient ID: Yumiko Marie is a 55 y.o. female who presents for Follow-up. Patient comes for a follow-up visit and we discussed several issues. Her blood pressure is well-controlled on her current medications. She is not having any chest pains or shortness of breath. She agrees to go for repeat BMP. The patient has chronic personal history of urge and stress urinary incontinence. She denies any dysuria, no foul-smelling urine, no fevers or chills. She has requested refill for incontinence pads to use and use with her underwear and she also requested pads to put in her bed. 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 She occasionally has pain radiating to her shoulders and arms. She uses as needed meloxicam with symptomatic improvement. She is reluctant to have any invasive intervention for her neck pain. Today she requested a prescription for orthopedic neck pillow as suggested by a visiting nurse to help to prevent pain and I agreed. Unfortunately the patient refused to use any vaccination today. Review of Systems Constitutional: Negative for chills and fever. HENT: Negative for sore throat. Respiratory: Negative for cough, shortness of breath and wheezing. Cardiovascular: Negative for chest pain, palpitations and leg swelling. Gastrointestinal: Negative for abdominal pain. Genitourinary: Positive for urgency. Negative for dysuria. Musculoskeletal: Positive for neck pain. Objective Vitals: 04/13/25 0951 BP: 138/86 BP Location: Left arm Patient Position: Sitting BP Cuff Size: Adult Pulse: 82 Resp: 17 Temp: 97.6 ??F (36.4 ??C) TempSrc: Oral SpO2: 99% Weight: 165 lb (74.8 kg) Height: 5' 3 (1.6 m) Physical Exam Constitutional: Appearance: Normal appearance. Cardiovascular: Rate and Rhythm: Normal rate and regular rhythm. Heart sounds: No murmur heard. No gallop. Pulmonary: Effort: Pulmonary effort is normal. No respiratory distress. Breath sounds: Normal breath sounds. No wheezing. Musculoskeletal: Cervical back: Spasms and tenderness present. No bony tenderness. Decreased range of motion. Right lower leg: No edema. Left lower leg: No edema. Neurological: General: No focal deficit present. Mental Status: She is alert. Motor: No weakness. Assessment/Plan Diagnoses and all orders for this visit: Essential hypertension Comments: Continue current med and recheck BMP Orders: - Basic Metabolic Panel; Future Osteoarthritis of cervical spine, unspecified spinal osteoarthritis complication status Comments: Continue PRN Meloxicam. I will order orthopedic neck pillow for her as she requested Stress incontinence of urine Comments: Check UA. I will order underwear and bed pads for her as she requested Orders: - Urinalysis, Complete, with Reflex to Culture; Future Vaccination refused by patient Comments: She refused any vaccine today Future Appointments Date Time Provider Department Center 04/13/2025 11:00 AM Naomi Tate, OD [facility] documented in this encounter Plan of Treatment Upcoming Encounters Date Type Department Care Team (Late st Contact Info) Description 07/18/2025 9:00 AM EST Office Visit [facility] MEDICINE [address] [place] [address] [phone] Reuben Suh MD [address] [place] [phone] documented as of this encounter Procedures Procedure Name Priority Date/Time Associated Diagnosis Comments URINALYSIS, COMPLETE, WITH REFLEX TO CULTURE Routine 04/13/2025 10:21 AM EST Stress incontinence of urine BASIC METABOLIC PANEL Routine 04/13/2025 10:21 AM EST Essential hypertension documented in this encounter Results * (ABNORMAL) Urinalysis, Complete, with Reflex to Culture (04/13/2025 10:21 AM EST) Color Urine Yellow [facility] Appearance Urine Clear [facility] PH 6.0 5.0 - 9.0 [facility] Glucose Urine UA Negative Negative mg/dL [facility] Urine Blood Negative Negative [facility] Specific Levasy - Urine 1.020 1.005 - 1.025 [facility] Urine Protein Negative Neg-Trace mg/dL [facility] Urine Ketones Negative Negative mg/dL [facility] Nitrite Urine Negative Negative [facility] Leukocyte Esterase Urine Trace(A) Negative [facility] RBC Urine 0-2 0 - 2 /HPF [facility] Urine WBC 0-5 0 - 5 /HPF [facility] Urine Squamous Epithelial Cell 0-2 0 - 2 /HPF [facility] Urine Bacteria None Seen None Seen [facility] Hyaline Casts, Urine 0-2 0 - 2 /LPF [facility] Urine 04/13/2025 10:2 1 AM EST 04/13/2025 11:12 AM EST Narrative [facility] - 04/13/2025 11:40 AM EST Urine, Clean Catch us Reuben Suh MD LAB URINE ORDERABLES Final Resul t Performing Organization Address [facility] Co de Phone Number [facility] [address] [place] [phone] * (ABNORMAL) Basic Metabolic Panel (04/13/2025 10:21 AM EST) Sodium 141 135 - 145 mmol/L [facility] Potassium 4.1 3.3 - 5.1 mmol/L [facility] Chloride 106 96 - 108 mmol/L [facility] Carbon Dioxide 30(H) 22 - 29 mmol/L [facility] Anion Gap 9(L) 12 - 20 [facility] Urea Nitrogen (BUN) 16 9 - 16 mg/dL [facility] Creatinine, Serum 0.70 0.5 - 1.4 mg/dL [facility] Estimated Glomerular Filt Rate >60 [facility] Comment:Chronic Kidney Disea se: Estimated GFR < 60 mL/min/1.88x9Rsorcd Kidney Disease: Estimated GFR < 15 mL/min/1.73m2 Glucose 98 60 - 115 mg/dL [facility] Calcium 9.6 8.4 - 10.2 mg/dL [facility] Blood Venous blood specimen / Unknown 04/13/2025 10:21 AM EST 04/13/2025 11:07 AM EST us Reuben Suh MD LAB BLOOD ORDERABLES Final Resul t Performing Organization Address City/[facility]/ZIP Co de Phone Number [facility] [address] [place] [address] [phone] documented in this encounter Visit Diagnoses Diagnosis Essential hypertension- Primary Unspecified essential hypertension Osteoarthritis of cervical spine, unspecified spinal osteoarthritis complication status Stress incontinence of urine Vaccination refused by patient documented in this encounter Additional Health Concerns Assessment Noted Time PHQ-9 Depression Total Score: 13 025 9:14 AM EDT documented as of this encounter Care Teams Strategic Planning Manager Relationship Specialty Start Date End Date Name, MD Reuben [address] [place] [address] PCP - General Family Medicine 08/15/15 Gibran Medrano FNP [address] [place] [address] Nurse Practitioner Family Medicine 04/20/23 Noemi Pabon Immigration LawyerGrad Intern 03/28/24 documented as of this encounter
--- OUTSIDE RECORDS SUMMARY | 2025-04-13 11:00 | XMS_ITS | Encounter Summary ---
Author Organization [employer] Address 75 [facility] 7t [place] [address] Care Team Providers Care Post Graduate Intern Name Role Phone Name, Reuben MARTINEZ Primary Care Provider [phone] Gibran Medrano Unavailable Unavailable Encounter Details Date Type Department Care Team ([facility] st Contact Info) Description 04/13/2025 11:00 AM EST Office Visit [facility] OPTOMETRY [address] [place] [address] Naomi Tate, OD [address] [place] [address] Prediabetes (Primary Dx); Hyperopia with presbyopia of both eyes Social History Tobacco Use Types Packs/Day Years [...] as of this encounter Progress Notes * Naomi Tate, OD - 04/13/2025 11:00 AM EST Eye Care Progress Note Patient ID: Yumiko Marie is a 55 y.o. female. HPI 55 yo female presents for comprehensive eye examination with history of prediabetes. She reports that she is off Metformin now after losing weight. Last A1c was in 2023. She wears spectacles for nearonly and feels that they need to be stronger. She denies all other ocular complaints. Last edited by Naomi Tate, OD on 04/13/2025 11:25 AM. Current Medications[1] Medical History[2] Surgical History[3] Family History[4] Social History Socioeconomic History Marital status: Spouse name: Not on file Number of children: Not on file Years of education: Not on file Highest education level: Not on file Occupational History Not on file Tobacco Use Smoking status: Never Passive exposure: Never Smokeless tobacco: Never Vaping Use Vaping status: Never Used Substance and Sexual Activity Alcohol use: Never Drug use: Never Sexual activity: Not on file Other Topics Concern Not on file Social History Narrative Not on file Social Drivers of Health Food Insecurity: Low Risk (08/18/2024) Food Insecurity Within the past 12 months, you worried that your food would run out before you got money to buy more:: Never True Within the past 12 months,the food you bought just didn't last and you didn't have enough money to get more: : Never True Transportation Needs: Low Risk (08/18/2024) Transportation In the past 12 months, has lack of transportation kept you from medical appts, meetings, work or from getting things needed for daily living? : No Intimate Partner Violence: Not on file Housing Stability: Low Risk (08/18/2024) Housing Stability What is your housing situation today?: I have housing Think about the place you live. Do you have problems with any of the following? : None of the above Allergies[5] ROS Positive for: Neurological (migraine headache without aura), Musculoskeletal (cervical disorder), Endocrine (Prediabetes), Cardiovascular (Essential hypertension), Psychiatric (Bipolar disorder) Negative for: Constitutional, Gastrointestinal, Skin, Genitourinary, HENT, Eyes, Respiratory, Allergic/Imm, Heme/Lymph Last edited by Naomi Tate, OD on 04/13/2025 11:05 AM. Base Eye Exam Visual Acuity (Snellen - Linear) Right Left Dist sc 20/25 20/25 Tonometry ([facility] , 11:22 AM) Right Left Pressure 18 18 Pupils Pupils APD Right PERRL None Left PERRL None Visual Marroquin (Counting fingers) Left Right Full Full Dilation Both eyes: 1.0% Mydriacyl @ 11:22 AM Slit Lamp and Fundus Exam External Exam Right Left External Normal Normal Slit Lamp Exam Right Left Lids/Lashes Normal Normal Conjunctiva/Sclera White and quiet White and quiet Cornea Clear Clear Anterior Chamber Deep and quiet Deep and quiet Iris No NVI No NVI Lens Clear Clear Fundus Exam Right Left Vitreous clear clear Disc No NVD No NVD C/D Ratio Vertical 0.3 0.25 C/D Ratio Horizontal 0.3 0.25 Macula No CSME No CSME Vessels No NVE No NVE Periphery No holes, breaks, tears 360 No holes, breaks, tears 360 Refraction Wearing Rx Sphere Cylinder Right +2.00 Sphere Left +2.00 Sphere Type: NVO Manifest Refraction (Retinoscopy) Sphere Cylinder [place] Dist VA Add Near VA Right +0.75 -0.25 090 Left +0.75 -0.25 090 Manifest Refraction #2 Sphere Cylinder [place] Dist VA Add Near VA Right +0.25 Sphere 20/20 +2.50 20/20 Left +0.25 Sphere 20/20 +2.50 20/20 Final Rx Sphere Cylinder Right +2.75 Sphere Left +2.75 Sphere Type: NVO Expiration Date: 04/13/2026 Assessment/plan: Diagnoses and all orders for this visit: Prediabetes History of prediabetes now in good control with no ophthalmic manifestations. Patient education regarding importance of maintaining good control of blood glucose and other co-morbidities. Recommend follow up with PCP as indicated. Monitor at annual eye examination or sooner if any changes in visionoccur. 2. Hyperopia with presbyopia of both eyes Low latent hyperopia with progression of presbyopia in a patient with complaint of near blur. Patient education regarding refractive findings. Copy of updated spectacle Rx issued for near vision only. Monitor at annual exam or sooner if any changes in vision occur. Naomi Tate, OD 04/13/2025, 11:46 AM [1] Current Outpatient Medications Medication Sig Dispense Refill amitriptyline (Elavil) 25 MG tablet Take 1 tablet (25 mg) by mouth at bedtime. 90 tablet 1 baclofen (Lioresal) 20 MG tablet TAKE 1 TABLET BY MOUTH TWICE A DAY 60 tablet 0 bisacodyl (Bisacodyl EC) 5 MG EC tablet TAKE 2 TABLETS BY MOUTH EVERY DAY NEEDED FOR CONSTIPATION 180 tablet 0 Blood Pressure kit Please use once a day at home 1 kit 0 cholecalciferol (Vitamin D3) 25 MCG (1000 UT) tablet TAKE 1 TABLET (25 MCG) BY MOUTH IN THE [id number] tablet 1 clonazePAM (KlonoPIN) 0.5 MG tablet Take 1 tablet (0.5 mg) by mouth 2 times daily for 28 days. 56 tablet 0 cloNIDine (Catapres) 0.1 MG tablet Take 1 tablet (0.1 mg) by mouth 2 times daily. 180 tablet 1 Diclofenac Sodium 1 % gel APPLY ONCE A DAY TO THE AFFECTED AREAS WITH PAIN 100 g 1 dicyclomine (Bentyl) 20 MG tablet TAKE 0.5 TAB BY MOUTH IF NEEDED IN THE MORNING, AT NOON, IN THE EVENING, AND AT BEDTIME (ABDOMINAL PAIN) 56 tablet 1 gabapentin (Neurontin) 300 MG capsule Take 1 capsule (300 mg) by mouth 3 times daily. 90 capsule 11 hydroCHLOROthiazide 12.5 MG tablet TAKE 1 TABLET (12.5 MG) BY MOUTH ONCE PER DAY. 90 tablet 1 lidocaine (Lidoderm) 5 % patch Apply 1 patch topically Once per day. Apply to painful area 12 hoursper day, remove for 12 hours. 30 patch 11 lidocaine (Xylocaine) 5 % ointment Apply topically if needed for mild pain. 50 g 2 loratadine (Claritin) 10 MG tablet TAKE 1 TABLET BY MOUTH EVERY DAY NEEDED 90 tablet 1 losartan (Cozaar) 100 MG tablet TAKE 1 TABLET BY MOUTH EVERY DAY IN THE MORNING 90 tablet 1 meclizine (Antivert) 25 MG tablet TAKE 1 TABLET BY MOUTH THREE TIMES A DAY NEEDED FOR DIZZINESS 60 tablet 1 meloxicam (Mobic) 7.5 MG tablet Take 1 tablet (7.5 mg) by mouth Once per day. 30 tablet 11 Milk Thistle 300 MG capsule Naphazoline-Pheniramine (Opcon-A) 0.027-0.315 % solution Instill one drop OD every 6 hours for 5 days then as needed omeprazole OTC (PriLOSEC OTC) 20 MG EC tablet Take 1 tablet (20 mg) by mouth before breakfast. Do not crush, chew, or split. 30 tablet 11 topiramate (Topamax) 25 MG tablet TAKE 2 TABLETS BY MOUTH EVERY MORNING 60 tablet 5 No current facility-administered medications for this visit. [2] History reviewed. No pertinent past medical history. [3] History reviewed. No pertinent surgical history. [4] No family history on file. [5] No Known Allergies documented in this encounter Plan of Treatment Upcoming Encounters Date Type Department Care Team (Late st Contact Info) Description 07/18/2025 9:00 AM EST Office Visit [facility] MEDICINE [address] [place] [address] Name, MD Reuben [address] [place] [address] documented as of this encounter Visit Diagnoses Diagnosis Prediabetes- Primary Other abnormal glucose Hyperopia with presbyopia of both eyes documented in this encounter Additional Health Concerns Assessment Noted Time PHQ-9 Depression Total Score: 13 08/25/ 025 9:14 AM EDT documented as of this encounter Care Teams Post Graduate Intern Relationship Specialty Start Date End Date Name, MD Reuben [address] [place] [address] PCP - General Family Medicine 08/15/15 Gibran Medrano FNP [address] [place] [address] Nurse Practitioner Family Medicine 04/20/23 Noemi Pabon Steel RiggerManager Respiratory Care 03/28/24 documented as of this encounter
[2025-04-13 11:36] LABS: Appearance Urine Clear; Glucose Urine UA Negative (Negative); PH 6.0 (5.0-9.0); Specific Gravity - Urine 1.020 (1.005-1.025); UMIC TRIGGER UACC YES
[2025-04-13 12:18] LABS: Anion Gap 9 (12-20); Blood Urea Nitrogen 16 mg/dL (9-16); Calcium 9.6 mg/dL (8.4-10.2); Carbon Dioxide 30 mmol/L (22-29); Chloride 106 mmol/L (96-108); Estimated Glomerular Filt Rate > 60; Potassium 4.1 mmol/L (3.3-5.1); Sodium 141 mmol/L (135-145)
--- OUTSIDE RECORDS SUMMARY | 2025-04-13 15:04 | XMS_ITS | Encounter Summary ---
Author Organization [employer] Address 75 [facility] 7t [place] [address] Care Team Providers Care Key Cutter Name Role Phone Name, Reuben MARTINEZ Primary Care Provider [phone] Gibran Medrano Unavailable Unavailable Reason for Visit * Reason Comments Med Refill Encounter Details Date Type Department Care Team (Late st Contact Info) Description 05/15/2023 Refill [facility] MEDICINE [address] [place] [address] Gibran Medrano FNP Social History Tobacco Use [...] Description 07/18/2025 9:00 AM EST Office Visit [facility] MEDICINE [address] [place] [address] Name, MD Reuben [address] [place] [address] documented as of this encounter Visit Diagnoses Not on filedocumented in this encounter Additional Health Concerns Assessment Noted Time PHQ-9 Depression Total Score: 4 04/27/20 23 8:58 AM EST documented as of this encounter Care Teams Key Cutter Relationship Specialty Start Date End Date Name, MD eRuben [address] [place] [address] PCP - General Family Medicine 08/15/15 Gibran Medrano FNP [address] [place] [address] Nurse Practitioner Family Medicine 04/20/23 Noemi Pabon Tetryl Blender OperatorLawyer Probate 03/28/24 documented as of this encounter
--- OUTSIDE RECORDS SUMMARY | 2025-04-13 15:04 | XMS_ITS | Encounter Summary ---
Author Organization [employer] Address [address] [facility] 7t [place] [address] Care Team Providers Care Engineering Specialist Name Role Phone Name, Reuben MARTINEZ Primary Care Provider [phone] Gibran Medrano Unavailable Unavailable Reason for Visit * Reason Onset Date Comments Referral 09/01/2023 Encounter Details Date Type Department Care Team ([facility] st Contact Info) Description 09/01/2023 Telephone [facility] MEDICINE [address] [place], [place] [phone] Name, MD Reuben [address] [place] [address] Referral Social History Tobacco Use Types Packs/Day [...] If any questions please contact pt at [phone]. documented in this encounter Plan of Treatment Upcoming Encounters Date Type Department Care Team (Late st Contact Info) Description 07/18/2025 9:00 AM EST Office Visit [facility] MEDICINE [address] [place] [address] Name, MD Reuben [address] [place] [address] documented as of this encounter Visit Diagnoses Not on filedocumented in this encounter Additional Health Concerns Assessment Noted Time PHQ-9 Depression Total Score: 0 06/30/19 9:58 AM EST documented as of this encounter Care Teams Engineering Specialist Relationship Specialty Start Date End Date Name, MD Reuben [address] [place] [address] PCP - General Family Medicine 08/15/15 Gibran Medrano FNP [address] [place] [address] Nurse Practitioner Family Medicine 04/20/23 Noemi Pabon Repairer Resistance Welding MachinesRelationship Specialist 03/28/24 documented as of this encounter
--- OUTSIDE RECORDS SUMMARY | 2025-04-13 15:04 | XMS_ITS | Encounter Summary ---
Author Organization [employer] Address 75 [facility] 7t [place] [address] Care Team Providers Care Assistant Food Service Director Name Role Phone Name, Reuben MARTINEZ Primary Care Provider [phone] Gibran Medrano Unavailable Unavailable Reason for Visit * Reason Comments Med Refill Encounter Details Date Type Department Care Team ([facility] st Contact Info) Description 11/07/2024 Refill [facility] MEDICINE [address] [place], [place] [phone] Name, MD Reuben [address] [place] [address] Neck pain, chronic Social History Tobacco Use [...] Description 07/18/2025 9:00 AM EST Office Visit [facility] MEDICINE [address] [place] [address] Name, MD Reuben [address] [place] [address] documented as of this encounter Visit Diagnoses Diagnosis Neck pain, chronic documented in this encounter Additional Health Concerns Assessment Noted Time PHQ-9 Depression Total Score: 13 025 9:14 AM EDT documented as of this encounter Care Teams Assistant Food Service Director Relationship Specialty Start Date End Date NameReuben MD [address] [place] [address] PCP - General Family Medicine 08/15/15 Gibran Medrano FNP [address] [place] [address] Nurse Practitioner Family Medicine 04/20/23 Noemi Pabon Priming Powder Premix BlenderMortgage Field Inspector 03/28/24 documented as of this encounter
--- OUTSIDE RECORDS SUMMARY | 2025-04-13 15:04 | XMS_ITS | Encounter Summary ---
Author Organization [employer] Address 75 [facility] 7t [place] [address] Care Team Providers Care Partner Alliance Manager Name Role Phone Name, Reuben MARTINEZ Primary Care Provider [phone] Gibran Medrano Unavailable Unavailable Encounter Details Date Type Department Care Team ([facility] st Contact Info) Description 04/21/2023 Telephone [facility] MEDICINE [address] [place], [place] [phone] Name, MD Reuben [address] [place], [place] [phone] Social History Tobacco Use Types Packs/Day Years [...] Description 07/18/2025 9:00 AM EST Office Visit [facility] MEDICINE [address] [place] [address] Name, MD Reuben [address] [place] [address] documented as of this encounter Visit Diagnoses Not on filedocumented in this encounter Additional Health Concerns Assessment Noted Time PHQ-9 Depression Total Score: 3 02/03/20 23 3:12 PM EDT documented as of this encounter Care Teams Partner Alliance Manager Relationship Specialty Start Date End Date Name, MD Reuben [address] [place] [address] PCP - General Family Medicine 08/15/15 Gibran Medrano FNP [address] [place] [address] Nurse Practitioner Family Medicine 04/20/23 Noemi Pabon Pump House TechnicianDress Finisher 03/28/24 documented as of this encounter
--- OUTSIDE RECORDS SUMMARY | 2025-04-13 15:05 | XMS_ITS | Encounter Summary ---
Author Organization [employer] Address 75 [facility] 7t [place] [address] Care Team Providers Care Hospitalist Program Director Name Role Phone Name, Reuben MARTINEZ Primary Care Provider Gibran Medrano Unavailable Unavailable Reason for Visit * Reason Comments Med Refill Encounter Details Date Type Department Care Team (Late st Contact Info) Description 03/29/2023 Refill [facility] MEDICINE [address] [place] [address] Yolanda Forman MD [address] [place] [address] Cervical radiculitis; Vertigo Social History Tobacco Use [...] Description 07/18/2025 9:00 AM EST Office Visit [facility] MEDICINE [address] [place] [address] Name, MD Reuben [address] [place] [address] documented as of this encounter Visit Diagnoses Diagnosis Cervical radiculitis Brachial neuritis or radiculitis nos Vertigo Dizziness and giddiness documented in this encounter Additional Health Concerns Assessment Noted Time PHQ-9 Depression Total Score: 3 02/03/20 23 3:12 PM EDT documented as of this encounter Care Teams Hospitalist Program Director Relationship Specialty Start Date End Date NameReuben MD [address] [place] [address] PCP - General Family Medicine 08/15/15 Gibran Medrano FNP [address] [place] [address] Nurse Practitioner Family Medicine 04/20/23 Noemi Pabon Rehabilitation CounselorContainer Finisher 03/28/24 documented as of this encounter
--- OUTSIDE RECORDS SUMMARY | 2025-04-13 15:05 | XMS_ITS | Encounter Summary ---
Author Organization [employer] Address 75 [facility] 7t [place] [address] Care Team Providers Care Rim Buster Name Role Phone Name, Reuben MARTINEZ Primary Care Provider [phone] Gibran Medrano Unavailable Unavailable Reason for Visit * Reason Comments Med Refill Encounter Details Date Type Department Care Team (Late st Contact Info) Description 03/25/2023 Refill [facility] MEDICINE [address] [place] [address] Gibran Medrano FNP Social History Tobacco Use [...] Description 07/18/2025 9:00 AM EST Office Visit [facility] MEDICINE [address] [place] [address] Name, MD Reuben [address] [place] [address] documented as of this encounter Visit Diagnoses Not on filedocumented in this encounter Additional Health Concerns Assessment Noted Time PHQ-9 Depression Total Score: 3 02/03/20 23 3:12 PM EDT documented as of this encounter Care Teams Rim Buster Relationship Specialty Start Date End Date Name, MD Reuben [address] [place] [address] PCP - General Family Medicine 08/15/15 Gibran Medrano FNP [address] [place] [address] Nurse Practitioner Family Medicine 04/20/23 Noemi Pabon House Moving SupervisorNational Stormwater Leader 03/28/24 documented as of this encounter
--- OUTSIDE RECORDS SUMMARY | 2025-04-13 15:06 | XMS_ITS | Encounter Summary ---
Author Organization [employer] Address 75 [facility] 7t [place] [address] Care Team Providers Care Associate Dean Of Women Name Role Phone Name, Reuben MARTINEZ Primary Care Provider [phone] Gibran Medrano Unavailable Unavailable Reason for Visit * Reason Onset Date Comments Med Refill 01/30/2023 Encounter Details Date Type Department Care Team ([facility] st Contact Info) Description 01/30/2023 Telephone [facility] MEDICINE [address] [place] [address] Name, MD Reuben [address] [place] [address] Med Refill Social History Tobacco Use Types [...] Assessment Author Somewhat difficult 02/02/2023 3:12 PM MILLYT Sun David [place] * Over the past 2 weeks, how often have you been bothered by any of the following problems? Question Answer Date of Assessment Author Little interest or pleasure in doing things Not at all 02/02/2023 3:12 PM MILLYT Gillian [place] Feeling down, depressed, or [...] to provider. * Telephone Encounter - Ryan Mackey Yanes - 01/30/2023 8:41 AM EDT Tc from pt requesting med refill on lidocaine (Xylocaine) 5 % ointment gabapentin (Neurontin) 100 MG capsule meclizine (Antivert) 25 MG tablet Please sent to [facility]/pharmacy #[id number] [place], [place] - [address] [place] [address] documented in this encounter Plan of Treatment Upcoming Encounters Date Type Department Care Team (Late st Contact Info) Description 07/18/2025 9:00 AM EST Office Visit [facility] MEDICINE [address] [place] [address] Name, MD Reuben [address] [place] [address] documented as of this encounter Visit Diagnoses Not on filedocumented in this encounter Additional Health Concerns Assessment Noted Time PHQ-9 Depression Total Score: 0 11/25/19 23 1:40 PM EDT documented as of this encounter Care Teams Associate Dean Of Women Relationship Specialty Start Date End Date Name, MD Reuben [address] [place] [address] PCP - General Family Medicine 08/15/15 Gibran Medrano FNP [address] [place] [address] Nurse Practitioner Family Medicine 04/20/23 Noemi Pabon Health And Wellness Sales ConsultantHead Up Operator Helper 03/28/24 documented as of this encounter
--- OUTSIDE RECORDS SUMMARY | 2025-04-13 15:06 | XMS_ITS | Encounter Summary ---
Author Organization [employer] Address 75 [facility] 7t [place] [address] Care Team Providers Care Patrol Officer Name Role Phone Name, Reuben MARTINEZ Primary Care Provider [phone] Gibran Medrano Unavailable Unavailable Reason for Visit * Reason Onset Date Comments Chart Prep 04/12/2025 Encounter Details Date Type Department Care Team ([facility] st Contact Info) Description 04/12/2025 Telephone [facility] MEDICINE [address] [place] [address] Name, MD Reuben [address] [place] [address] Chart Prep Social History Tobacco Use Types Packs/Day Years [...] encounter Miscellaneous Notes * Telephone Encounter - Odalis Bartholomew [place] - 04/12/2025 10:09 AM EST Chart Prep Labs: done Images: done Referrals: not applicable Vaccines due: Covid, Flu, PCV20, Hep B, Hep A, Zoster, and DTAP Screenings: not applicable Overdue care gaps: A1c, Glucose, and Tobacco documented in this encounter Plan of Treatment Upcoming Encounters Date Type Department Care Team (Late st Contact Info) Description 07/18/2025 9:00 AM EST Office Visit [facility] MEDICINE [address] [place] [address] Name, MD Reuben [address] [facility] [place] [address] documented as of this encounter Visit Diagnoses Not on filedocumented in this encounter Additional Health Concerns Assessment Noted Time PHQ-9 Depression Total Score: 13 025 9:14 AM EDT documented as of this encounter Care Teams Patrol Officer Relationship Specialty Start Date End Date Name, MD Reuben [address] [place] [address] PCP - General Family Medicine 08/15/15 Gibran Medrano FNP [address] [place] [address] Nurse Practitioner Family Medicine 04/20/23 Noemi Pabon Education AdministratorMail List Processor 03/28/24 documented as of this encounter
--- OUTSIDE RECORDS SUMMARY | 2025-04-13 15:06 | XMS_ITS | Encounter Summary ---
Author Organization [employer] Address [address] [facility] 7t [place] [address] Care Team Providers Care Utility Division Project Manager Name Role Phone Name, Reuben MARTINEZ Primary Care Provider [phone] Gibran Medrano Unavailable Unavailable Reason for Visit * Reason Onset Date Comments Medication Question 01/06/2023 Vitamin D Encounter Details Date Type Department Care Team ([facility] Contact Info) Description 01/06/2023 Telephone [facility] MEDICINE [address] [place], [place] [phone] Name, MD Reuben [address] [place] [address] Medication Question (Vitamin D) Social History Tobacco [...] Description 07/18/2025 9:00 AM EST Office Visit [facility] MEDICINE [address] [place] [address] Name, MD Reuben [address] [place] [address] documented as of this encounter Visit Diagnoses Not on filedocumented in this encounter Additional Health Concerns Assessment Noted Time PHQ-9 Depression Total Score: 0 11/25/19 1:40 PM EDT documented as of this encounter Care Teams Utility Division Project Manager Relationship Specialty Start Date End Date Name, MD Reuben [address] [place] [address] PCP - General Family Medicine 08/15/15 Gibran Medrano FNP [address] [place] [address] Nurse Practitioner Family Medicine 04/20/23 Noemi Pabon Irb Compliance CoordinatorSenior Business Consultant 03/28/24 documented as of this encounter
--- OUTSIDE RECORDS SUMMARY | 2025-04-13 15:06 | XMS_ITS | Encounter Summary ---
Author Organization [employer] Address 75 [facility] 7t [place] [address] Care Team Providers Care Parker Name Role Phone Name, Reuben MARTINEZ Primary Care Provider [phone] Gibran Medrano Unavailable Unavailable Reason for Visit * Reason Onset Date Comments Results 12/11/2022 Encounter Details Date Type Department Care Team ([facility] st Contact Info) Description 12/11/2022 Telephone [facility] MED[facility]INE [address] [place] [address] Name, MD Reuben [address] [place] [address] Results Social History Tobacco Use Types Packs/Day [...] 9:00 AM EST Office Visit [facility] [address] [place] [address] Name, MD Reuben [address] [place] [address] documented as of this encounter Visit Diagnoses Not on filedocumented in this encounter Additional Health Concerns Assessment Noted Time PHQ-9 Depression Total Score: 0 11/25/19 23 1:40 PM EDT documented as of this encounter Care Teams Parker Relationship Specialty Start Date End Date Name, MD Reuben [address] [place] [phone] PCP - General Family Medicine 08/15/15 Gibran Medrano FNP [address] [place] [address] Nurse Practitioner Family Medicine 04/20/23 Noemi Pabon Senior Escrow OfficerMattress Finisher 03/28/24 documented as of this encounter
--- OUTSIDE RECORDS SUMMARY | 2025-04-13 15:06 | XMS_ITS | Encounter Summary ---
Author Organization [employer] Address 75 [facility] 7t [place] [address] Care Team Providers Care Primary Education Professor Name Role Phone Name, Reuben MARTINEZ Primary Care Provider [phone] Gibran Medrano Unavailable Unavailable Reason for Visit * Reason Onset Date Comments Handicap Placard 12/11/2022 Encounter Details Date Type Department Care Team ([facility] st Contact Info) Description 12/11/2022 Telephone [facility] MED[facility]INE [address] [place], [place] [phone] Name, MD Reuben [address] [place] [address] Handicap Placard Social History Tobacco Use Types [...] requesting the status of handicap placard paperwork. Agricultural Extension Agent transferred call to HIMand patient was transferred back, due to paperwork being dropped off directly to PCP. documented in this encounter Plan of Treatment Upcoming Encounters Date Type Department Care Team (Late st Contact Info) Description 07/18/2025 9:00 AM EST Office Visit [facility] MEDICINE [address] [place] [phone] Name, MD Reuben [address] [place] [phone] documented as of this encounter Visit Diagnoses Not on filedocumented in this encounter Additional Health Concerns Assessment Noted Time PHQ-9 Depression Total Score: 0 11/25/19 23 1:40 PM EDT documented as of this encounter Care Teams Primary Education Professor Relationship Specialty Start Date End Date Name, MD Reuben [address] [place] [phone] PCP - General Family Medicine 08/15/15 Gibran Medrano FNP [address] [place] [address] Nurse Practitioner Family Medicine 04/20/23 Noemi Pabon Licensed Nuclear Control Room OperatorBlanket Cutting Machine Operator 03/28/24 documented as of this encounter
--- OUTSIDE RECORDS SUMMARY | 2025-04-13 15:06 | XMS_ITS | Encounter Summary ---
Author Organization [employer] Address 75 [facility] 7t [place] [address] Care Team Providers Care Leather Goods Assembler Name Role Phone Name, Reuben MARTINEZ Primary Care Provider [phone] Gibran Medrano Unavailable Unavailable Reason for Visit * Reason Comments Med Refill Encounter Details Date Type Department Care Team ([facility] st Contact Info) Description 04/12/2025 Refill [facility] MEDICINE [address] [place], [place] [phone] Name, MD Reuben [address] [place] [address] Neck pain, chronic Social History Tobacco Use [...] Description 07/18/2025 9:00 AM EST Office Visit [facility] MEDICINE [address] [place] [phone] Name, MD Reuben [address] [place] [phone] documented as of this encounter Visit Diagnoses Diagnosis Neck pain, chronic documented in this encounter Additional Health Concerns Assessment Noted Time PHQ-9 Depression Total Score: 13 025 9:14 AM EDT documented as of this encounter Care Teams Leather Goods Assembler Relationship Specialty Start Date End Date NameReuben MD [address] [place] [phone] PCP - General Family Medicine 08/15/15 Gibran Medrano FNP [address] [place] [address] Nurse Practitioner Family Medicine 04/20/23 Noemi Pabon Apron TrimmerTable Saw Operator 03/28/24 documented as of this encounter
--- OUTSIDE RECORDS SUMMARY | 2025-04-13 15:06 | XMS_ITS | Encounter Summary ---
Author Organization [employer] Address 75 [facility] 7t [place] [address] Care Team Providers Care On Call Pharmacy Technician Name Role Phone Name, Reuben MARTINEZ Primary Care Provider [phone] Gibran Medrano Unavailable Unavailable Encounter Details Date Type Department Care Team (Latest Contact Info) Description 04/13/2025 Travel Social History Tobacco Use Types Packs/Day [...] 9:00 AM EST Office Visit [facility] MED[facility]INE [address] [place] [address] Name, MD Reuben [address] [place] [address] documented as of this encounter Visit Diagnoses Not on filedocumented in this encounter Additional Health Concerns Assessment Noted Time PHQ-9 Depression Total Score: 13 025 9:14 AM EDT documented as of this encounter Care Teams On Call Pharmacy Technician Relationship Specialty Start Date End Date Name, MD Reuben [address] [place] [phone] PCP - General Family Medicine 08/15/15 Gibran Medrano FNP [address] [place] [phone] Nurse Practitioner Family Medicine 04/20/23 Noemi Pabon Lobster FishermanQuality Assurance Monitor 03/28/24 documented as of this encounter
--- OUTSIDE RECORDS SUMMARY | 2025-04-13 15:06 | XMS_ITS | Encounter Summary ---
Author Organization [employer] Address 75 [facility] 7t [place] [address] Care Team Providers Care Complaints Coordinator Name Role Phone Name, Reuben MARTINEZ Primary Care Provider [phone] Gibran Medrano Unavailable Unavailable Reason for Visit * Reason Comments Med Refill Encounter Details Date Type Department Care Team (Late st Contact Info) Description 02/21/2023 Refill [facility] MED[facility]INE [address] [place] [phone] Concha Tabares MD [address] [place] [address] Cervical radiculitis; Essential hypertension; Prediabetes; MARILU (obstructive [...] Description 07/18/2025 9:00 AM EST Office Visit [facility] MED[facility]INE [address] [place] [address] [phone] Name, MD Reuben [address] [place] [address] documented as of this encounter Visit Diagnoses Diagnosis Cervical radiculitis Brachial neuritis or radiculitis nos Essential hypertension Unspecified essential hypertension Prediabetes Other abnormal glucose MARILU (obstructive sleep apnea) Obstructive sleep apnea (adult) (pediatric) documented in this encounter Additional Health Concerns Assessment Noted Time PHQ-9 Depression Total Score: 3 02/03/20 23 3:12 PM EDT documented as of this encounter Care Teams Complaints Coordinator Relationship Specialty Start Date End Date Name, [place] [address] PCP - General Family Medicine 08/15/15 Gibran Medrano FNP [address] [place] [address] Nurse Practitioner Family Medicine 04/20/23 Noemi Pabon Management AssociateManager Gas 03/28/24 documented as of this encounter
--- OUTSIDE RECORDS SUMMARY | 2025-04-13 15:07 | XMS_ITS | Encounter Summary ---
Author Organization [employer] [facility] Address 75 [facility] 7t [place] [address] Care Team Providers Care Machine Tailer Name Role Phone NameReuben MD Primary Care Provider [phone] Gibran Medrano Unavailable Unavailable Encounter Details Date Type Department Care Team (Late st Contact Info) Description 11/03/2022 Abstract [facility] MED[facility]INE [address] [place] [phone] Reuben Suh MD [address] [place] [phone] Social History Tobacco Use Types Packs/Day Years [...] Description 07/18/2025 9:00 AM EST Office Visit [facility] [address] [place] [address] [phone] Reuben Suh MD [address] [place] [address] [phone] documented as of this encounter Visit Diagnoses Not on filedocumented in this encounter Additional Health Concerns Assessment Noted Time PHQ-9 Depression Total Score: 0 09/24/19 23 12:49 PM EDT documented as of this encounter Care Teams Machine Tailer Relationship Specialty Start Date End Date Name, MD Reuben [address] [place] [address] PCP - General Family Medicine 08/15/15 Gibran Medrano FNP [address] [place] [address] Nurse Practitioner Family Medicine 04/20/23 Noemi Pabon Senior Boiler OperatorMolecular Biology Director 03/28/24 documented as of this encounter
--- OUTSIDE RECORDS SUMMARY | 2025-04-13 15:07 | XMS_ITS | Encounter Summary ---
Author Organization [employer] Address 75 [facility] 7t [place] [address] Care Team Providers Care Computerized Table Cutter Name Role Phone Name, Reuben MARTINEZ Primary Care Provider [phone] Gibran Medrano Unavailable Unavailable Reason for Visit * Reason Comments Med Refill Encounter Details Date Type Department Care Team (Late st Contact Info) Description 08/26/2024 Refill [facility] [address] [place], [place] [phone] Name, MD Reuben [address] [place] [address] Neck pain, chronic Social History Tobacco Use [...] Description 07/18/2025 9:00 AM EST Office Visit [facility] [address] [place] [phone] Name, MD Reuben [address] [place] [phone] documented as of this encounter Visit Diagnoses Diagnosis Neck pain, chronic documented in this encounter Additional Health Concerns Assessment Noted Time PHQ-9 Depression Total Score: 13 025 9:14 AM EDT documented as of this encounter Care Teams Computerized Table Cutter Relationship Specialty Start Date End Date NameReuben MD [address] [place] [phone] PCP - General Family Medicine 08/15/15 Gibran Medrano FNP [address] [place] [phone] Nurse Practitioner Family Medicine 04/20/23 Noemi Pabon Document CoordinatorRestaurant General Manager 03/28/24 documented as of this encounter
--- OUTSIDE RECORDS SUMMARY | 2025-04-13 15:07 | XMS_ITS | Clinical Summary ---
Author Organization [employer] Address [address] [facility] 7t [place] [address] Care Team Providers Care Brass Plater Name Role Phone Name, Reuben MARTINEZ Primary Care Provider [phone] Gibran Medrano Unavailable Unavailable Allergies No known [...] 28 days. 56 tablet 07/29/19 25 Active topiramate (Topamax) 25 MG tablet TAKE 2 TABLETS BY MOUTH EVERY MORNING 60 tablet 5 10/20/19 25 Active baclofen (Lioresal) 20 MG tabletIndicatio ns:Neck pain, chronic,Essenti al hypertension TAKE 1 TABLET BY MOUTH TWICE A DAY 60 tablet 12/21/19 25 Active Blood Pressure kit Please use once a day at home 1 kit 01/14/20 25 Active meloxicam (Mobic) 7.5 MG tabletIndicatio ns:Neck [...] DIZZINESS 60 tablet 1 03/09/20 25 Active loratadine (Claritin) 10 MG tabletIndicatio ns:Neck pain, chronic TAKE 1 TABLET BY MOUTH EVERY DAY NEEDED 90 tablet 1 04/12/20 25 Active loratadine (Claritin) 10 MG tabletIndicatio ns:Neck pain, chronic TAKE 1 TABLET BY MOUTH EVERY DAY NEEDED 90 tablet 1 10/20/19 25 2024 Discontinued Active Problems Problem Noted Date Diagnosed Date Osteoarthritis of cervical spine 04/13/2025 Overview (04/13/2025): orthopedic neck pillow History of laparoscopic appendectomy 06/21/2024 Overview (06/21/2024): 06/20/[address] [facility] Family history of Crohn's disease 03/30/2023 Urinary incontinence 03/30/2023 Fibromyalgia 01/01/2023 Tubal ligation status 09/19/2022 Bipolar 2 disorder ([facility]) 05/20/2022 Assessment & Plan (04/27/2023 9:18 AM [...] an effective mood stabilizer. She stopped the Freeland and is still doing very well. Will [...] up for mood stabilization and stop the Freeland. Meanwhile, continue Freeland 300 mg once daily, Clonazepam 0.5 mg [...] Encounters Date Type Department Care Team Description 04/13/2025 11:00 AM EST Office Visit [facility] [address] [place] [address] Naomi Tate OD Prediabetes (Primary Dx); Hyperopia with presbyopia of both eyes 04/13/2025 9:45 AM EST Office Visit [facility] [address] [place] [address] Reuben Suh MD Essential hypertension (Primary Dx); Osteoarthritis of cervical spine, unspecified spinal osteoarthritis complication status; Stress incontinence of urine; Vaccination refused by patient 04/13/2025 Travel 04/12/2025 Telephone [facility] [address] [place] [address] Reuben Suh MD Chart Prep 04/12/2025 Refill [facility] [address] [place] [address] Reuben Suh MD Neck pain, chronic 03/09/2025 Refill [facility] [address] [place] [address] Reuben Suh MD Neck pain, chronic 02/11/2025 Refill [facility] [address] [place] [address] Samantha Ellington NP Neck pain, chronic; Essential hypertension 02/10/2025 Refill [facility] [address] [place] [address] Reuben Suh MD Neck pain, chronic 01/13/2025 10:00 AM EDT Office Visit [facility] [address] [place] [address] Reuben Suh MD Essential hypertension (Primary Dx); Neck pain, chronic; Fibromyalgia; Vaccination refused by patient 01/13/2025 Travel 01/12/2025 Telephone [facility] [address] [place] [address] Agustina Anand MA chart prep from Last [...] Mass Index 29.23 04/13/2025 9:51 AM EST Plan of Treatment Upcoming Encounters Date Type Department Care Team (Late st Contact Info) Description 07/18/2025 9:00 AM EST Office Visit [facility] [address] [place] [address] Name, MD Reuben [address] [place] [address] Health Maintenance Due Date Last Done Comments CT Colonography 1972 FIT DNA/Cologuard 1972 FIT 1972 FOBT 1970 HIV Screening 1970 Sigmoidoscopy 1972 Hepatitis A Vaccines (1 of 2 - Risk 2-dose series) 1991 DTaP/Tdap/Td Vaccines (1 - Tdap) 10/27/2008 10/26/2008 Hepatitis B Vaccines (3 of 3 - 19+ 3-dose series) 08/24/2019 06/29/2019, 10/27/2008 Pneumococcal Vaccine: 50+ Years (1 of 1 - PCV) 2022 RSV Patients and Patients Aged 60 years or older (1 - Risk 50-74 years 1-dose series) 2022 Zoster Vaccines (1 of 2) 2022 Diabetes: Hemoglobin A1C 12/31/2024 024, 07/20/2023, 06/10/2022, Additional history exists COVID-19 Vaccine (3 - season) 2025 12/05/2020, 11/14/2020 Influenza Vaccine (#1) 2025 Depression Monitoring 02/24/2025 08/25/2024, 025 SDOH Screening 08/18/2025 08/18/2024 Mammogram 11/08/2025 11/08/2024, 06/0 08/2023, 10/23/2022, Additional history exists Alcohol/Substance Use Screening 01/13/2026 01/13/2025 Disability Screening 01/13/2026 01/13/2025 Tobacco Screening 04/13/2026 04/13/2025 Colonoscopy 03/03/2028 03/03/2023, 02/22, 07/05/2019 Colorectal Cancer Screening 03/03/2028 Cervical Cancer Screening 07/06/2028 HPV/Cotest 07/06/2028 07/17/2017 Pap Smear 07/06/2028 07/06/2023, 07/06/2023 Lipid Panel 08/25/2029 08/25/2024, 05/0 06/2021, 12/26/2020 Hepatitis C Screening Completed 06/24/2019 HIB Vaccines [...] Routine 04/13/2025 10:21 AM EST Essential hypertension BI MAMMOGRAM SCREENING TOMOSYNTHESIS BILATERAL Routine 11/08/2024 [...] Relevant to Health Maintenance Results * (ABNORMAL) Urinalysis, Complete, with Reflex to Culture (04/13/2025 10:21 AM EST) Color Urine Yellow [facility] Appearance Urine Clear [facility] PH 6.0 5.0 - 9.0 [facility] Glucose Urine UA Negative Negative mg/dL [facility] Urine Blood Negative Negative [facility] Specific [place] - Urine 1.020 1.005 - 1.025 [facility] Urine Protein Negative Neg-Trace mg/dL [facility] Urine Ketones Negative Negative mg/dL [facility] Nitrite Urine Negative Negative [facility] Leukocyte Esterase Urine Trace(A) Negative [facility] RBC Urine 0-2 0 - 2 /HPF [facility] Urine WBC 0-5 0 - 5 /HPF [facility] Urine Squamous Epithelial Cell 0-2 0 - 2 /HPF [facility] Urine Bacteria None Seen None Seen [facility] Hyaline Casts, Urine 0-2 0 - 2 /LPF [facility] Urine 04/13/2025 10:2 1 AM EST 04/13/2025 11:12 AM EST Narrative [facility] - 04/13/2025 11:40 AM EST Urine, Clean Catch us Reuben Suh MD LAB URINE ORDERABLES Final Resul t Performing Organization Address City/[facility] Co de Phone Number [facility] [address] [place] [phone] * (ABNORMAL) Basic Metabolic Panel (04/13/2025 10:21 AM EST) Sodium 141 135 - 145 mmol/L [facility] Potassium 4.1 3.3 - 5.1 mmol/L [facility] Chloride 106 96 - 108 mmol/L [facility] Carbon Dioxide 30(H) 22 - 29 mmol/L [facility] Anion Gap 9(L) 12 - 20 [facility] Urea Nitrogen (BUN) 16 9 - 16 mg/dL [facility] Creatinine, Serum 0.70 0.5 - 1.4 mg/dL [facility] Estimated Glomerular Filt Rate >60 [facility] Comment:Chronic Kidney Disea se: Estimated GFR < 60 mL/min/1.43m1Mqyuyy Kidney Disease: Estimated GFR < 15 mL/min/1.73m2 Glucose 98 60 - 115 mg/dL [facility] Calcium 9.6 8.4 - 10.2 mg/dL [facility] Blood Venous blood specimen / Unknown 04/13/2025 10:21 AM EST 04/13/2025 11:07 AM EST us Reuben Suh MD LAB BLOOD ORDERABLES Final Resul t Performing Organization Address City/[facility]/ZIP Co de Phone Number [facility] [address] [place] [phone] * BI Mammogram Screening Tomosynthesis Bilateral (11/08/2024 7:55 AM EDT) Anatomical Region Laterality Modality Breast Bilateral Mammography 11/08/2024 7:55 AM EDT Narrative 11/13/2024 8:19 PM EDT [address] [place] [address] Mammography Report Signed Patient: Yumiko Marie MR#: [id number] 9 : 1970 Acct:[id number] Age/Sex: 54 / F ADM Date: 11/08/24 Loc: HO.MAMMO Attending Dr: Reuben Suh MD Ordering Physician: Reuben Suh MD Results: 2Benign Fi ndings Date of Service: 11/08/24 Follow Up: 1 Year From Orig inal Mammogram Procedure(s): MM tomosynthesis screening BI Accession Number(s): [id number] cc: Reuben Suh MD EXAMINATION: MM SCREENING [...] OV> 11/13/242016 DD/ 0755 TD/TT: 11/08/24 0813 Costuming Supervisor: Procedure Note Donotuseinterpreter, Image - 11/13/[address] [place] [address] Mammography Report Signed Patient: Yumiko MarieMR#: [id number] 9 : 1970Acct:[id number] Age/Sex: 54 / FADM Date: 11/08/24 Loc: HO.MAMMO Attending Dr: Reuben Suh MD Ordering Physician: Reuben Suh MDResults: 2Benign Fi ndings Date of Service: 11/08/24Follow Up: 1 Year From Orig ina Mammogram Procedure(s): MM tomosynthesis screening BI Accession Number(s): [id number] cc: Name,Reuben MARTINEZ EXAMINATION: MM SCREENING DIGITAL BREAST TOMOSYNTHESIS, [...] OV> 11/13/242016 DD/ 0755 TD/TT: 11/08/24 0813 Costuming Supervisor: Reuben Suh MD IM BI PROCEDURES Edited Result - Final * (ABNORMAL) Lipid Panel, Standard (08/25/2024 9:40 AM EDT) Triglycerides 68 <150 mg/dL [facility] Comment:Desirable Triglyceri de: less than 150 mg/dLBorderline High Triglyceride 150-199 mg/dLHigh Triglyceride: 200-499 mg/dLVery High Triglyceride: greater than or equal to 5OO mg/dL Cholesterol 189 <200 mg/dL [facility] Comment:Desirable Cholestero l: less than 200 mg/dLBorderline High Cholesterol: 200-239 mg/dLHigh Cholesterol: greater than 239 mg/dL LDL Cholesterol Calculated 123(H) <100 mg/dL [facility] Comment:Desirable LDL: less than 100 mg/dLNear Optimal/Above Optimal LDL: 110- 129 mg/dLBorderline High LDL: 130-159 mg/dLHigh LDL: 160-189 mg/dLVery High LDL: greater than or equal to 190 mg/dL HDL Cholesterol 53 >40 mg/dL [facility] Comment:Desirable HDL: great er than 40 mg/dL Note: This HDL assay may give artificially low results in patients with liver disease. Blood Venous blood specimen / Unknown 08/25/2024 9:40 AM EDT 08/25/2024 11:28 AM EDT us Reuben Suh MD LAB BLOOD ORDERABLES Final Resul t [facility] [address] [place] [phone] * POCT HGB A1C (01/01/2024 11:41 AM EDT) Hemoglobin A1C 5.5 4.0 - 6.0 % QC Media Lot # [id number] Lot# Expiration Date [id number] Blood 01/01/2024 11:4 1 AM EDT us Reuben Suh MD POINT OF CARE TEST ENTER/EDIT OR DERABLES Final Result * Pap Smear (07/06/2023 10:57 AM EST) 07/06/2023 10:5 7 AM EST 07/07/2023 8:00 AM EST Narrative [facility] - 07/21/2023 1:20 PM EST ----- ------- Name: Yumiko Marie Age/Sex: 53/F : 1970 Unit#: [id number] Attend Dr: Isela Hackett [facility] Re07/06/23 Status: DEP REF Location: [facility] Disch: ----- ------- SPEC : [id number] RECD: 07/07/23-799 STATUS: MASOOD ALIRIO NUM: [id number] DEBRA: 07/06/23-[address]: Isela Hackett [facility] ENTERED: 07/07/23-846 SP TYPE: Pap Smr OTHR DR: Reuben Suh MD ORDERED: Pap Smear Interpretation Satisfactory for evaluation. Mild inflammation. Negative for intraepithelial lesion or malignancy. HPV mRNA E6/E7: NOT DETECTED This assay detects E6/E7 viral messenger RNA (mRNA) from 14 high-risk HPV types (16, 18, 31, 33, 35, 39, 45, 51, 52, 56, 58, 59, 66, 68) HPV testing performed by [facility], [place], [place]. See reference laboratory portion of the EMR for entire report. Clinical Information LMP: 06/30/23 Previous PAP test: 2018, WNL Material Received ThinPrep-Cervical Copies To: Reuben Suh MD [address] [place] [address] [phone] Isela Hackett [address] Frank [address] [place] [phone] ----- ------- Signed (signature on file) MEAGHAN Santo (ASCP) 07/21/23 1320 ----- ------- END OF REPORT [employer] External Data Provider LAB CYTOLOGY ORDE RABLES Final Result [facility] [address] [place] [phone] * (ABNORMAL) Hm Colonoscopy (03/03/2023) Colonoscopy Abnormal(A ) Normal us Reuben Suh MD HEALTH MAINTENANCE Final Result * HEPATITIS C ANTIBODY RFLX (06/24/2019 10:48 AM EST) HEPATITIS C ANTIBODY NONREACTIVE NONREACTIVE [facility] Comment: Antibodies to HCV not detected; does not exclude early acute HCV infection. 06/24/2019 10:4 8 AM EST us Reuben Suh MD HISTORICAL/NON ORDERABLE LABS Fi nal Result [facility] Critical access hospital [address] * HPV mRNA E6/E7 (07/17/2017 11:19 AM EST) HPV mRNA E6/E7 Not Detected NOT DETECTED [facility] Comment: This test was performed using the APTIMA(R) HPV Assay ([employer] This assay detects E6/E7 viral messenger RNA (mRNA) from 14 high-risk HPV types (16,18,31,33,35,39,45,51, 52,56,58,59,66,68). For additional information please refer to: http://education.Descomplica/faq/TNQ994d0 (This link is being provided for informational/ educational purposes only.) Test Performed by [employer], [facility], [address] [place] [id number] Jimmy Alonso M.D., Ph.D., Director of Laboratories , [place] [id number] Please note: Effective 02/04/2016, HPV testing will be performed using [employer]'s APTIMA test which targets mRNA. Detecting mRNA instead of DNA, as in older methods, offers significant improvements in specificity. 07/17/2017 11:1 9 AM EST Isela Hackett HISTORICAL/NON ORDERABLE LABS Fi nal Result [facility] [address] from Last 3 Months or Most Recently Relevant to Health Maintenance Insurance [employer] [place] [address] [place], [place] Care Teams Brass Plater Relationship Specialty Start Date End Date Name, MD Reuben [address] [place] [address] PCP - General Family Medicine 08/15/15 Gibran Medrano FNP [address] [place] [address] Nurse Practitioner Family Medicine 04/20/23 Noemi Pabon Inspecting SupervisorJewel Sawyer 03/28/24
--- OUTSIDE RECORDS SUMMARY | 2025-04-13 15:07 | XMS_ITS | Encounter Summary ---
Author Organization [employer] Address [address] [facility] 7t [place] [address] Care Team Providers Care Blow Off Worker Name Role Phone Name, Reuben MARTINEZ Primary Care Provider [phone] Gibran Medraon Unavailable Unavailable Reason for Visit * Reason Comments Med Refill Encounter Details Date Type Department Care Team (Late st Contact Info) Description 08/21/2022 Refill [facility] [address] [place] [address] [phone] Name, MD Reuben [address] [place] [phone] Constipation, unspecified constipation type Social History Tobacco [...] Description 07/18/2025 9:00 AM EST Office Visit [facility] [address] [place] [address] [phone] Reuben Suh MD [address] [place] [phone] documented as of this encounter Visit Diagnoses Diagnosis Constipation, unspecified constipation type documented in this encounter Additional Health Concerns Assessment Noted Time PHQ-9 Depression Total Score: 8 07/01/19 23 1:13 PM EST documented as of this encounter Care Teams Blow Off Worker Relationship Specialty Start Date End Date Name, MD Reuben [address] [place] [address] PCP - General Family Medicine 08/15/15 Gibran Medrano FNP [address] [place] [address] Nurse Practitioner Family Medicine 04/20/23 Noemi Pabon Building Maintenance TechnicianBiological Technical Officer 03/28/24 documented as of this encounter
--- OUTSIDE RECORDS SUMMARY | 2025-04-13 15:07 | XMS_ITS | Encounter Summary ---
Author Organization [employer] Address 75 [facility] 7t [place] [address] Care Team Providers Care Soup Mixer Name Role Phone Name, Reuben MARTINEZ Primary Care Provider [phone] Gibran Medrano Unavailable Unavailable Encounter Details Date Type Department Care Team (Late Contact Info) Description 05/23/[address] [phone] Name, MD Reuben [address] [place] [address] [phone] Social History Tobacco Use Types Packs/Day Years [...] Description 07/18/2025 9:00 AM EST Office Visit [address] [phone] Name, MD Reuben [address] [place] [address] [phone] documented as of this encounter Visit Diagnoses Not on filedocumented in this encounter Additional Health Concerns Assessment Noted Time PHQ-9 Depression Total Score: 4 05/20/20 22 2:16 PM EST documented as of this encounter Care Teams Soup Mixer Relationship Specialty Start Date End Date Name, MD Reuben [address] [place] [address] PCP - General Family Medicine 08/15/15 Gibran Medrano FNP [address] [place] [address] Nurse Practitioner Family Medicine 04/20/23 Noemi Pabon C Winforms DeveloperAcademic Department Chair 03/28/24 documented as of this encounter
--- OUTSIDE RECORDS SUMMARY | 2025-04-13 15:07 | XMS_ITS | Encounter Summary ---
Author Organization [employer] Address 75 [facility] 7t [place] [address] Care Team Providers Care Protein Scientist Name Role Phone Name, Reuben MARTINEZ Primary Care Provider Gibran Medrano Unavailable Unavailable Reason for Visit * Reason Onset Date Comments PT1 06/29/2024 Encounter Details Date Type Department Care Team ([facility] st Contact Info) Description 06/29/[address] [facility] [address] [place] [address] Name, MD Reuben [address] [place] [address] PT1 Social History Tobacco Use Types Packs/Day [...] encounter Miscellaneous Notes * Telephone Encounter - Kyrstyna Corado - 06/29/2024 11:51 AM EST 1 of 1 Patient calling requesting PT1 Home Address verified: Y/N: Yes Provider name or facility name: [address] [address] Escort needed: Y/N: No Do you have a wheelchair: Y/N: No (walker) If yes- Manual or electric: N/A Visits: (2x monthly) 1 of 2 Patient calling requesting PT1 Home Address verified: Y/N: Yes Provider name or facility name: [address] [address]. Escort needed: Y/N: No Do you have a wheelchair: Y/N: No (walker) If yes- Manual or electric: N/A Visits: (2x monthly) documented in this encounter Plan of Treatment Upcoming Encounters Date Type Department Care Team ([facility] st Contact Info) Description 07/18/2025 9:00 AM EST Office Visit [facility] [address] [place] [address] [place], [place] [address] documented as of this encounter Visit Diagnoses Not on filedocumented in this encounter Additional Health Concerns Assessment Noted Time PHQ-9 Depression Total Score: 0 06/30/19 24 9:58 AM EST documented as of this encounter Care Teams Protein Scientist Relationship Specialty Start Date End Date [place] [address] PCP - General Family Medicine 08/15/15 Gibran Medrano FNP [address] [place] [address] Nurse Practitioner Family Medicine 04/20/23 Noemi Pabon Executive AdministratorSteward/Stewardess Bath 03/28/24 documented as of this encounter
--- OUTSIDE RECORDS SUMMARY | 2025-04-13 15:07 | XMS_ITS | Encounter Summary ---
Author Organization [employer] Address 75 [facility] 7t [place] [address] Care Team Providers Care Lpn Rn Name Role Phone Name, Reuben MARTINEZ Primary Care Provider [phone] Gibran Medrano Unavailable Unavailable Reason for Visit * Reason Comments Med Refill Encounter Details Date Type Department Care Team (Late st Contact Info) Description 08/25/2024 Refill [facility] [address] [place], [place] [phone] Name, MD Reuben [address] [place] [address] Neck pain, chronic Social History Tobacco Use [...] Description 07/18/2025 9:00 AM EST Office Visit [facility] [address] [place] [address] Name, MD Reuben [address] [place] [address] documented as of this encounter Visit Diagnoses Diagnosis Neck pain, chronic documented in this encounter Additional Health Concerns Assessment Noted Time PHQ-9 Depression Total Score: 13 025 9:14 AM EDT documented as of this encounter Care Teams Lpn Rn Relationship Specialty Start Date End Date Name, MD Reuben [address] [place] [address] PCP - General Family Medicine 08/15/15 Gibran Medrano FNP [address] [place] [phone] Nurse Practitioner Family Medicine 04/20/23 Noemi Pabon Portal DeveloperDiesel Retrofit Designer 03/28/24 documented as of this encounter
--- OUTSIDE RECORDS SUMMARY | 2025-04-13 15:08 | XMS_ITS | Encounter Summary ---
Author Organization [employer] Address 75 [facility] 7t [place] [address] Care Team Providers Care Instrumentation Technologist Name Role Phone Name, Reuben MARTINEZ Primary Care Provider [phone] Gibran Medrano Unavailable Unavailable Reason for Visit * Reason Onset Date Comments Med Refill 05/23/2022 Encounter Details Date Type Department Care Team ([facility] st Contact Info) Description 05/23/2022 Telephone [facility] [address] [place], [place] [phone] Name, MD Reuben [address] [place] [address] Med Refill Social History Tobacco Use Types [...] 07/18/2025 9:00 AM EST Office Visit [facility] [address] [place] [phone] Name, MD Reuben [address] [place] [address] documented as of this encounter Visit Diagnoses Not on filedocumented in this encounter Additional Health Concerns Assessment Noted Time PHQ-9 Depression Total Score: 4 05/20/20 22 2:16 PM EST documented as of this encounter Care Teams Instrumentation Technologist Relationship Specialty Start Date End Date Name, MD Reuben [address] [place] [phone] PCP - General Family Medicine 08/15/15 Gibran Medrano FNP [address] [place] [phone] Nurse Practitioner Family Medicine 04/20/23 Noemi Pabon Band TierSeam Taper Machine 03/28/24 documented as of this encounter
--- OUTSIDE RECORDS SUMMARY | 2025-04-13 15:08 | XMS_ITS | Encounter Summary ---
Author Organization [employer] Address 75 [facility] 7t [place] [address] Care Team Providers Care Technical Training Specialist Name Role Phone Name, Reuben MARTINEZ Primary Care Provider [phone] Gibran Medrano Unavailable Unavailable Reason for Visit * Reason Comments Med Refill Encounter Details Date Type Department Care Team ([facility] st Contact Info) Description 11/20/2023 Refill [facility] [address] [place], [place] [phone] Name, MD Reuben [address] [place] [address] Neck pain Social History Tobacco Use Types [...] Description 07/18/2025 9:00 AM EST Office Visit [facility] [address] [place] [phone] Name, MD Reuben [address] [place] [phone] documented as of this encounter Visit Diagnoses Diagnosis Neck pain Cervicalgia documented in this encounter Additional Health Concerns Assessment Noted Time PHQ-9 Depression Total Score: 0 06/30/19 9:58 AM EST documented as of this encounter Care Teams Technical Training Specialist Relationship Specialty Start Date End Date Name, MD Reuben [address] [place] [address] PCP - General Family Medicine 08/15/15 Gibran Medrano FNP [address] [place] [address] Nurse Practitioner Family Medicine 04/20/23 Noemi Pabon [employer] Math TutorDirector Of Religious Activities 03/28/24 documented as of this encounter
--- OUTSIDE RECORDS SUMMARY | 2025-04-13 15:08 | XMS_ITS | Encounter Summary ---
Author Organization [employer] Address [address] [facility] [address] [place] [address] Care Team Providers Care Miter Grinder Operator Name Role Phone Name, Reuben MARTINEZ Primary Care Provider [phone] Gibran Medrano Unavailable Unavailable Reason for Visit * Reason Comments Med Refill Encounter Details Date Type Department Care Team (Late st Contact Info) Description 11/28/2023 Refill [facility] [address] [place], [place] [phone] Name, MD Reuben [address] [place] [address] Neck pain; Prediabetes Social History Tobacco Use [...] Description 07/18/2025 9:00 AM EST Office Visit [facility] [address] [place] [phone] Name, MD Reuben [address] [place] [phone] documented as of this encounter Visit Diagnoses Diagnosis Neck pain Cervicalgia Prediabetes Other abnormal glucose documented in this encounter Additional Health Concerns Assessment Noted Time PHQ-9 Depression Total Score: 0 06/30/19 24 9:58 AM EST documented as of this encounter Care Teams Miter Grinder Operator Relationship Specialty Start Date End Date Name, MD Reuben [address] [place] [id number] PCP - General Family Medicine 08/15/15 Gibran Medrano FNP [address] [place] [id number] Nurse Practitioner Family Medicine 04/20/23 Noemi Pabon Asphalt Screed OperatorMaterial Analyst 03/28/24 documented as of this encounter
--- OUTSIDE RECORDS SUMMARY | 2025-04-13 15:09 | XMS_ITS | Encounter Summary ---
Author Organization [employer] [facility] [employer] Address [address] [facility] [address] [place] [address] Care Team Providers Care Transformer Stock Clerk Name Role Phone Name, Reuben MARTINEZ Primary Care Provider [phone] Gibran Medrano Unavailable Unavailable Reason for Visit * Reason Comments Med Refill Encounter Details Date Type Department Care Team ([facility] st Contact Info) Description 12/14/2023 Refill [facility] [address] [place], [place] [phone] Name, MD Reuben [address] [place] [address] Neck pain Social History Tobacco Use Types [...] 9:00 AM EST Office Visit [facility] [address] [place] [phone] Name, MD Reuben [address] [place] [phone] documented as of this encounter Visit Diagnoses Diagnosis Neck pain Cervicalgia documented in this encounter Additional Health Concerns Assessment Noted Time PHQ-9 Depression Total Score: 0 06/30/19 9:58 AM EST documented as of this encounter Care Teams Transformer Stock Clerk Relationship Specialty Start Date End Date Name, MD Reuben [address] [place] [phone] PCP - General Family Medicine 08/15/15 Gibran Medrano FNP [address] [place] [phone] Nurse Practitioner Family Medicine 04/20/23 Noemi Pabon Ship CaptainShingle Grader 03/28/24 documented as of this encounter
== END 2025-04-13 10:18 | disposition home or self-care (01) ==
LOC: HO.HHCL 10:17
PROVIDERS: PCP Internal Medicine Geriatric Medicine; Visit Provider Internal Medicine Geriatric Medicine
DX: I10 Essential (primary) hypertension (principal); N39.3 Stress incontinence (female) (male)
CPT/HCPCS: 36415; 80048; 81001